=== PATIENT | female | born 2000 | race Caucasian/White ===

== ENCOUNTER 2023-04-25 14:56 | Emergency (ER) | payer OTHER, SELFPAY ==
[2023-04-25] VITALS (7 sets, daily range): BP systolic 104–135; BP diastolic 64–94; PULSE 63–94; RESP 13–22; TEMP 37.5; O2SAT 97–99; BMI 38.4
--- NOTE | 2023-04-25 15:05 | ED_ITS ---
HPI - General Adult General Chief complaint: Dizziness Stated complaint: BLOOD SUGAR ISSUES Time Seen by Provider: 04/25/23 15:05 History of Present Illness HPI narrative: She presents emergency department complaining of dizziness. Patient states she checked her blood sugar and it was 78 and she checked it on the other hand and it was in the 170s she was confused and came in to be evaluated. Patient states she's had issues with low blood sugar in the last several months. She has seen her primary care doctor for the same. She denies any headache, visual disturbance, speech difficulties. She denies any chest pain, shortness of breath. She denies any palpitations, weakness. She denies any fever, chills or upper respiratory infection symptoms. She denies any Nausea, vomiting, diarrhea, abdominal pain. She denies any ear pain. Related Data Allergies Allergy/AdvReac Type Severity Reaction Status Date / Time No Known Drug Allergies Allergy Verified 04/25/23 15:05 Review of Systems ROS Status of ROS 10 or more systems reviewed and unremarkable except as noted in history and below Exam Narrative Exam Narrative: Nurses notes and vital signs reviewed and patient is not hypoxic. General: Nontoxic, Well-appearing and in no apparent distress. Skin: Warm, dry, no pallor noted. No Rash Head: Normocephalic, atraumatic. Neck: Supple, non-tender. Eye: Pupils are equal, round and EOMI. No scleral icterus. Ears, Nose, Mouth, and Throat: TM clear, no posterior oropharynx erythema or nasal mucosal hypertrophy, uvula is mid-line Oral mucosa is moist Cardiovascular: Regular Rate and Rhythm without murmur, gallop or rub. Respiratory: No accessory muscle use or respiratory distress. Lungs are clear to auscultation, no wheezing, rales or rhonchi Chest Wall: no tenderness Back: No midline thoracic or lumbar vertebral tenderness. No CVA tenderness Musculoskeletal: normal ROM, no calf or popliteal tenderness, no lower extremity edema/swelling GI: Abdomen is soft, non-distended. Normal bowel sounds. No masses appreciated. No tenderness to palpation. No rebound, guarding, or rigidity noted. Neurological: A&O x4. No cranial nerve dysfunction observed. No truncal ataxia. Moves all extremities. Sensation intact. Psychiatric: Cooperative and interactive. Normal mood and affect. Constitutional Vital Signs, click to edit/add: Last Vital Signs Temp 99.5 F 04/25/23 15:05 Pulse 63 04/25/23 16:30 Resp 22 04/25/23 16:30 BP 111/84 H 04/25/23 16:30 Pulse Ox 97 04/25/23 16:00 O2 Del Method Room Air 04/25/23 15:47 Course Vital Signs Vital signs: Vital Signs Temperature 99.5 F 04/25/23 15:05 Pulse Rate 94 H 04/25/23 15:05 Respiratory Rate 16 04/25/23 15:05 Blood Pressure 125/85 H 04/25/23 15:05 Pulse Oximetry 98 04/25/23 15:05 Oxygen Delivery Method Room Air 04/25/23 15:05 Temperature 99.5 F 04/25/23 15:05 Pulse Rate 63 04/25/23 16:30 Respiratory Rate 22 04/25/23 16:30 Blood Pressure 111/84 H 04/25/23 16:30 Pulse Oximetry 97 04/25/23 16:00 Oxygen Delivery Method Room Air 04/25/23 15:47 Medical Decision Making MDM Narrative Medical decision making narrative: Patient's glucose is 96, urinalysis does not have any glycosuria. Patient is given 1 L of fluids. She is nontoxic, stable for outpatient follow-up and treatment. At this time the patient is without objective evidence of an acute process requiring hospitalization or inpatient management. The patient has remained h emodynamically stable. No additional indication for emergent studies at this time. I answered all questions. Discussed discharge instructions including standard anticipatory guidance and what should prompt a return to the emergency department, including if they get worse are not getting better or develops any new or concerning symptoms. I've given them specific time frame in which to follow-up, and who to follow-up with. The patient demonstrates understanding. Patient is nontoxic and stable for discharge with outpatient follow-up. This note was created with the assistance of a speech recognition program. Although the intention is to generate documents that actually reflects the content of the visit, no guarantees can be provided that every mistake has been identified and corrected by editing. Lab Data Lab results reviewed: Yes I reviewed the patient's lab results Labs: Lab Results 04/25/23 04/25/23 04/25/23 Range/Units 15:09 15:25 15:35 WBC 7.9 (4.0-11.0) 10^3/uL RBC 4.91 (4.20-5.40) 10^6/uL Hgb 14.3 (12.0-16.0) g/dL Hct 43.0 (36.0-48.0) % MCV 87.6 (81.0-99.0) fL MCH 29.1 (26.7-34.0) pg MCHC 33.3 (29.9-35.2) g/dL RDW 12.6 (11.0-15.0) % Plt Count 319 (150-450) 10^3/uL MPV 10.4 (9.5-13.5) fL Neut % (Auto) 60.8 (43.0-75.0) % Lymph % (Auto) 28.3 (20.5-60.0) % [place] % (Auto) 9.2 (1.7-12.0) % Eos % (Auto) 1.1 (0.9-7.0) % Baso % (Auto) 0.3 (0.2-2.0) % Neut # (Auto) 4.8 (1.4-6.5) 10^3/uL Lymph # (Auto) 2.2 (1.2-3.8) 10^3/uL [place] # (Auto) 0.7 (0.3-0.8) 10^3/uL Eos # (Auto) 0.1 (0.0-0.7) 10^3/uL Baso # (Auto) 0.0 (0.0-0.1) 10^3/uL Abs Immat Gran (auto) 0.02 (0.00-0.03) 10^3/uL Imm/Tot Granulo (auto) 0.3 (0.0-0.5) % Sodium 139 (136-145) mmol/L Potassium 3.9 (3.5-5.1) mmol/L Chloride 104 (98-107) mmol/L Carbon Dioxide 26.8 (21.0-32.0) mmol/L Anion Gap 12.1 BUN 12.0 (7.0-18.0) mg/dL Creatinine 0.99 (0.55-1.02) mg/dL Est GFR ( Amer) >60 (>=60) Est GFR (Non-Af Amer) >60 (>=60) BUN/Creatinine Ratio 12.1 Glucose 93 (74-106) mg/dL Calcium 9.4 (8.5-10.1) mg/dL Total Bilirubin 0.3 (0.2-1.0) mg/dL AST 20 (15-37) U/L ALT 24 (14-59) U/L Alkaline Phosphatase 94 (46-116) U/L Total Protein 7.8 (6.4-8.2) g/dL Albumin 4.2 (3.4-5.0) g/dL Globulin 3.6 g/dL Albumin/Globulin Ratio 1.2 Urine Color Lt. yellow (YELLOW) Urine Clarity Clear (CLEAR) Urine pH 6.0 (5.0-9.0) Ur Specific [place] 1.010 (1.005-1.025) Urine Protein Negative (NEG/TRACE) mg/dL Urine Glucose (UA) Negative (NEGATIVE) mg/dL Urine Ketones Negative (NEGATIVE) mg/dL Urine Occult Blood Negative (NEGATIVE) Urine Nitrite Negative (NEGATIVE) Urine Bilirubin Negative (NEGATIVE) Urine Urobilinogen 0.2 (0.2-1.0) EU/dL Ur Leukocyte Esterase Negative (NEGATIVE) POC Glucose 92 (74-106) mg/dL ECG Data Attestation: I personally reviewed and interpreted this ECG as follows: Interpretation: Sinus rhythm at 80 beats per minutes. Normal axis, no acute ischemic changes. Discharge Plan Discharge Chief Complaint: Dizziness Clinical Impression: Dizziness Patient Disposition: Home, Self-Care Time of Disposition Decision: 16:41 Condition: Good Mode of Transportation: Private Vehicle Instructions: Dizziness (ED) Stand Alone Forms: Portal Instructions Referrals: Ander Conway MD [Primary Care Provider] - 1 week
[2023-04-25 15:11] LABS: Glucometer 92 mg/dL (74-106)
--- NOTE | 2023-04-25 15:19 | ECG_ITS ---
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
[2023-04-25 15:50] LABS: Bilirubin Urine NEGATIVE (NEGATIVE); Blood Urine NEGATIVE (NEGATIVE); Clarity Urine CLEAR (CLEAR); Color Urine LT. YELLOW (YELLOW); Glucose Urine UA NEGATIVE (NEGATIVE); Ketones Urine NEGATIVE (NEGATIVE); Leukocyte Esterase Urine NEGATIVE (NEGATIVE); Nitrite Urine NEGATIVE (NEGATIVE); Protein Urine NEGATIVE (NEG/TRACE); Urine Microscopic Indicated NO; Urobilinogen Urine 0.2 EU/dL (0.2-1.0)
[2023-04-25 15:50] LABS: Basophils Percent Auto 0.3 % (0.2-2.0); Eosinophils Absolute Auto 0.1 10^3/uL (0.0-0.7); Eosinophils Percent Auto 1.1 % (0.9-7.0); Hemoglobin 14.3 g/dL (12.0-16.0); Immature Granulocytes Abs Auto 0.02 10^3/uL (0.00-0.03); Immature Granulocytes Pct Auto 0.3 % (0.0-0.5); Lymphocytes Absolute Auto 2.2 10^3/uL (1.2-3.8); Lymphocytes Percent Auto 28.3 % (20.5-60.0); Mean Corpuscular HGB Conc 33.3 g/dL (29.9-35.2); Mean Corpuscular Hemoglobin 29.1 pg (26.7-34.0); Mean Corpuscular Volume 87.6 fL (81.0-99.0); Mean Platelet Volume 10.4 fL (9.5-13.5); Monocytes Absolute Auto 0.7 10^3/uL (0.3-0.8); Monocytes Percent Auto 9.2 % (1.7-12.0); Neutrophils Absolute Auto 4.8 10^3/uL (1.4-6.5); Neutrophils Percent Auto 60.8 % (43.0-75.0); Platelet Count 319 10^3/uL (150-450); Red Blood Count 4.91 10^6/uL (4.20-5.40); Red Cell Distribution Width 12.6 % (11.0-15.0); White Blood Count 7.9 10^3/uL (4.0-11.0)
[2023-04-25 16:15] LABS: Alanine Aminotransferase 24 U/L (14-59); Albumin Globulin Ratio 1.2; Albumin Level 4.2 g/dL (3.4-5.0); Alkaline Phosphatase 94 U/L (46-116); Anion Gap 12.1; Aspartate Amino Transferase 20 U/L (15-37); BUN Creatinine Ratio 12.1; Bilirubin Total 0.3 mg/dL (0.2-1.0); Calcium 9.4 mg/dL (8.5-10.1); Carbon Dioxide 26.8 mmol/L (21.0-32.0); Chloride 104 mmol/L (98-107); Estimated GFR (African America >60 (>=60); Estimated GFR (Non-African Ame >60 (>=60); Globulin 3.6 g/dL; Glucose 93 mg/dL (74-106); Potassium 3.9 mmol/L (3.5-5.1); Sodium 139 mmol/L (136-145); Total Protein 7.8 g/dL (6.4-8.2)
[2023-04-25] MEDS: 0.9 % SODIUM CHLORIDE 1,000 ML 999 ML IV (17:25)
== END 2023-04-25 17:28 | disposition home or self-care (01) ==
PROVIDERS: Emergency Provider Emergency Medicine; PCP Family Medicine
DX: R42 Dizziness and giddiness (principal)
CPT/HCPCS: 36415; 80053; 81003; 85025; 93005; 99285

== ENCOUNTER 2023-08-15 20:04 | Emergency (ER) | payer OTHER, SELFPAY ==
[2023-08-15 20:13] VITALS: BP 145/91; PULSE 99; RESP 18; TEMP 36.5; O2SAT 98; BMI 37.5
--- NOTE | 2023-08-15 20:46 | CT_ITS ---
The [place] [address] Patient Name: JET CHIANG MRN: [id number] date: 2000 Sex: F Assigned Patient Location: ED.MAIN Current Patient Location: Accession/Order Number: [id number] Exam Date: 08/15/2023 21:12 Report Date: 08/15/2023 21:43 At the request of: DESHAWN MARKER Procedure: CT lumbar spine wo con EXAMINATION: CT lumbar spine wo con, 08/15/2023 9:12 PM EST HISTORY: fall down stairs, low back and hip injury COMPARISON: None. TECHNIQUE: CT of the lumbar spine was performed without IV contrast. CT dose reduction technique was used, including Automated Exposure Control. 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 MINERALIZATION: Normal. VERTEBRAL BODIES: Normal in height with no acute compression fracture. DISC SPACES: Normal. ALIGNMENT: Grade 1 retrolisthesis at L5-S1, likely degenerative in nature. POSTERIOR ELEMENTS: Intact. . Moderate facet arthropathy at L4-L5 and L5-S1. SPINAL CANAL/NEURAL FORAMEN: Mild disc bulge at L4-L5 with mild canal stenosis and moderate bilateral neural foraminal stenosis. At L5-S1 there is mild left and moderate right neural foraminal stenosis. VISUALIZED UPPER PELVIS: Mild to moderate degenerative changes of bilateral sacroiliac joints. SOFT TISSUES: Unremarkable. CT/CT lumbar spine wo con IMPRESSION: 1. No acute fracture or subluxation. 2. Degenerative changes as described in the body of the report. Electronically authenticated by: KAVON WEBB Date: 08/15/2023 21:43
--- NOTE | 2023-08-15 20:47 | XR_ITS ---
The [address] [address] Patient Name: JET CHIANG MRN: [id number] date: 2000 Sex: F Assigned Patient Location: ED.MAIN Current Patient Location: ED.MAIN Accession/Order Number: [id number] Exam Date: 08/15/2023 21:20 Report Date: 08/15/2023 21:41 At the request of: DESHAWN GARCIA Procedure: XR wrist LT min 3V EXAM: XR wrist LT min 3V HISTORY: wrist injury, fall down stairs COMPARISON: None. TECHNIQUE: 3 views were performed of the left wrist. FINDINGS: There is no acute fracture or dislocation. There is no other bony, joint or soft tissue abnormality. XR/XR wrist LT min 3V IMPRESSION: Normal left wrist radiographs. Electronically authenticated by: KAVON WEBB Date: 08/15/2023 21:41
--- NOTE | 2023-08-15 20:49 | XR_ITS ---
The [address] [address] Patient Name: JET CHIANG MRN: [id number] date: 2000 Sex: F Assigned Patient Location: ED.MAIN Current Patient Location: ED.MAIN Accession/Order Number: [id number] Exam Date: 08/15/2023 21:20 Report Date: 08/15/2023 21:42 At the request of: DESHAWN MARKER Procedure: XR chest 2V EXAMINATION: XR chest 2V, 08/15/2023 9:20 PM EST HISTORY: fall down stairs COMPARISON: Abdominal series 12/20/2022. TECHNIQUE: PA and lateral views were performed. FINDINGS: SUPPORT APPARATUS/POST-SURGICAL CHANGES: None. CARDIOMEDIASTINAL SILHOUETTE: Normal. AIRWAYS/LUNGS: Stable mild central bronchial wall thickening. No focal consolidation. PLEURAL SPACES: No pleural effusion or pneumothorax. BONES AND SOFT TISSUES: No acute abnormality. XR/XR chest 2V IMPRESSION: 1. Stable bronchial wall thickening suggestive of bronchitis or asthma. 2. No focal consolidation. Electronically authenticated by: KAVON WEBB Date: 08/15/2023 21:42
--- NOTE | 2023-08-15 20:50 | XR_ITS ---
The [address] [address] Patient Name: JET CHIANG MRN: [id number] date: 2000 Sex: F Assigned Patient Location: ED.MAIN Current Patient Location: ED.MAIN Accession/Order Number: [id number] Exam Date: 08/15/2023 21:20 Report Date: 08/15/2023 21:42 At the request of: DESHAWN GARCIA Procedure: XR hip LT 2V w/ pelvis EXAM: XR hip LT 2V w/ pelvis HISTORY: fall down stairs COMPARISON: None. TECHNIQUE: 3 views were performed of the pelvis and left hip. FINDINGS: There is no acute fracture or dislocation. There are minimal degenerative changes of the hips and sacroiliac joints. There is no other significant bony, joint or soft tissue abnormality. XR/XR hip LT 2V w/ pelvis IMPRESSION: No acute osseous abnormality. Electronically authenticated by: KAVON WEBB Date: 08/15/2023 21:42
[2023-08-15] MEDS: HYDROCODONE/ACET 5-325 MG TABLET 1 TAB PO (21:01)
[2023-08-15] MEDS: IBUPROFEN 600 MG TABLET PO (21:01)
[2023-08-15] MEDS: ONDANSETRON 4 MG RAPDIS TABLET SL ×2 (21:01→22:29)
--- NOTE | 2023-08-15 21:16 | ED_ITS ---
HPI - Fall General Chief Complaint: Fall Stated Complaint: Fall Time Seen by Provider: 08/15/23 20:37 Source: patient Mode of arrival: walk-in Limitations: no limitations History of Present Illness HPI Narrative: This 23-year-old female presents for evaluation of left buttock and low back pain as well as left wrist pain. The patient states that she came home from work and went upstairs, took her clothes off and was going downstairs to take a shower when she slipped on the 1st stair and fell approximately 7 stairs. She states fell right down onto her buttocks and then bounced down 7 stairs. She tried to catch herself with her left hand and injured her left wrist. She states she briefly hit the back of her head but did not lose consciousness. She has no neck pain. She has left low back pain and left buttock pain. She has an abrasion and contusion on her left buttock. It is mildly swollen and indurated. Her girlfriend states there was some bleeding an area where she has an abrasion. She was able to ambulate after the fall. He states that the fall did knock the wwind out of her. She does not feel short of breath at this time. She has no focal weakness numbness or tingling. She denies the possibility of . She did not lose control of her bowel or bladder at the time of her fall. Related Data Home Medications Medication Instructions Recorded Confirmed diclofenac sodium 50 mg 50 mg PO BID PRN pain 08/15/23 08/15/23 tablet,delayed release quetiapine 50 mg tablet 50 mg PO DAILY 08/15/23 08/15/23 tizanidine 4 mg capsule 4 mg PO Q8H PRN muscle spasticity 08/15/23 08/15/23 Allergies Allergy/AdvReac Type Severity Reaction Status Date / Time No Known Drug Allergies Allergy Verified 08/15/23 20:11 Review of Systems ROS Status of ROS 10 or more systems reviewed and unremarkable except as noted in history and below [facility] Social History Smoking status: Never smoker Exam Narrative Exam Narrative: Nurses note and vital signs reviewed and patient is not hypoxic. Blood pressure noted to be elevated at 145/91 General: Non toxic but uncomfortable appearing female, GCS 15, no resp distress Skin: Warm, dry, no pallor noted. abrasion to left buttock. Head: Normocephalic, atraumatic Eye: Normal conjunctiva, no drainage, EOMI. PERRL Ears, Nose, Mouth, and Throat: oral mucosa is moist. no oral or dental injury Cardiovascular: Regular Rate and Rhythm S1S2, no murmurs, rubs or gallops Respiratory: Patient is in no distress, no accessory muscle use, lungs are clear to auscultation, no wheezing, rales or rhonchi Back: lumbar tenderness to palpation without step-off or bony defomity GI: Normal bowel sounds, no tenderness to palpation, no masses appreciated. No rebound, guarding, or rigidity noted. Musculoskeletal: There is tenderness to the left buttock with induration and a superficial abrasion, there is tenderness to the lower lumbar spine region with no tenderness to the cervical or thoracic regions, there is tenderness to the left thigh with movement, no bony deformity or shortening noted Tenderness with superficial abrasion to the medial aspect of the left wrist. She is able to approximate thumb and all fingers. Pulses are brisk and equal bilat erally. Capillary refill is normal. Neurological: A&O x4, normal speech Psychiatric: Cooperative Constitutional Vital Signs, click to edit/add: Last Vital Signs Temp 97.7 F 08/15/23 20:13 Pulse 99 H 08/15/23 20:13 Resp 18 08/15/23 20:13 BP 145/91 H 08/15/23 20:13 Pulse Ox 98 08/15/23 20:13 O2 Del Method Room Air 08/15/23 20:13 Course Vital Signs Vital signs: Vital Signs Temperature 97.7 F 08/15/23 20:13 Pulse Rate 99 H 08/15/23 20:13 Respiratory Rate 18 08/15/23 20:13 Blood Pressure 145/91 H 08/15/23 20:13 Pulse Oximetry 98 08/15/23 20:13 Oxygen Delivery Method Room Air 08/15/23 20:13 Temperature 97.7 F 08/15/23 20:13 Pulse Rate 99 H 08/15/23 20:13 Respiratory Rate 18 08/15/23 20:13 Blood Pressure 145/91 H 08/15/23 20:13 Pulse Oximetry 98 08/15/23 20:13 Oxygen Delivery Method Room Air 08/15/23 20:13 MDM - Fall MDM Narrative Medical decision making narrative: X-ray reports: Left hip and pelvis no acute fracture or dislocations CT lumbar spine: No acute fracture or subluxation mild disc bulge at L4-L5 with mild canal stenosis and moderate bilateral neural foraminal stenosis at L5-S1 there is mild left in moderate right neural foraminal stenosis mild degenerative changes of the bilateral sacroiliac joints, unremarkable soft tissues Chest x-ray: Stable bronchial wall thickening suggestive of bronchitis or asthma, no focal consolidation Left wrist, normal left wrist radiographs This 24-year-old female presents for evaluation of left hip and buttock pain as well as left wrist pain after falling down 7 stairs at home tonight. She didn't strike her head but did not have any loss of consciousness. Her neuro exam is normal. She is not on any blood thinners. She had tenderness and swelling at the left buttock with a superficial abrasion. She also had some mild tenderness to the distal left radius. She fell she states the wind got knocked out of her . X-rays of the chest, left wrist, left hip pelvis and CT scan of the lumbar spine were ordered. She is medicated in emergency department with ibuprofen [place] and Zofran. She had some recurrent nausea from the [place] and was remedicated with Zofran. X-rays and CT scans are negative for acute findings. This was relayed to the patient. She'll be discharged home with prescription for ibuprofen, [place] and Zofran to use as needed for ongoing or worsening pain. She was encouraged to return to emergency department for any neurologic symptoms such as loss of bowel or bladder control, extremity weakness or other concerns. At the time of discharge she is ambulatory with a steady gait and her pain is controlled. Discharge Plan Discharge Chief Complaint: Fall Clinical Impression: Contusion of buttock, Contusion of wrist, Lumbar contusion, Fall down stairs Time of Disposition Decision: 23:17 Condition: Good Prescriptions / Home Meds: No Action quetiapine 50 mg tablet 50 mg PO DAILY tizanidine 4 mg capsule 4 mg PO Q8H PRN (Reason: muscle spasticity) diclofenac sodium 50 mg tablet,delayed release (DR/EC) 50 mg PO BID PRN (Reason: pain) Instructions: Wrist Injury (ED), Contusion in Adults (ED), Fall Prevention (ED) Stand Alone Forms: Portal Instructions Referrals: Ander Conway MD [Primary Care Provider] - 1 week
== END 2023-08-15 23:25 | disposition home or self-care (01) ==
PROVIDERS: Emergency Provider Emergency Medicine; PCP Family Medicine
DX: S30.0XXA Contusion of lower back and pelvis, initial encounter (principal); S60.212A Contusion of left wrist, initial encounter; W10.9XXA Fall (on) (from) unspecified stairs and steps, initial encounter; Z79.899 Other long term (current) drug therapy
CPT/HCPCS: 71046; 72131; 73110; 73502; 99285

== ENCOUNTER 2023-10-17 14:30 | Outpatient (REF) | payer OTHER, SELFPAY ==
--- OUTSIDE RECORDS SUMMARY | 2023-10-17 14:37 | XMS_ITS | CCD ---
Author Name Unknown Address [address] [facility] [address] [place] [address] Organization [facility] Team Providers Care Certified Indoor Environmentalist Name Role Phone Ana Paula Dubose Unavailable VICTORINO ., DR LOWRY Admitting Unavailable HOY ., DR LOWRY Attending Unavailable HOY ., DR LOWRY Primary Care Unavailable ALEX CHARLES Admitting Unavailable ALEX CHARLES Attending Unavailable HOY ., DR LOWRY Primary Care Unavailable ALEX CHARLES Consulting Unavailable ALEX CHARLES Admitting Unavailable ALEX CHARLES Attending Unavailable HOY ., DR LOWRY Primary Care Unavailable ALEX CHARLES Consulting Unavailable HOY ., DR LOWRY Primary Care Unavailable PAY ., DR AGUILAR Admitting Unavailable PAY ., DR AGUILAR Attending Unavailable PAY ., DR AGUILAR Consulting Unavailable HOY ., DR LOWRY Primary Care Unavailable PEACE CHAUDHARY Admitting Unavailable PEACE CHAUDHARY Attending Unavailable PEACE CHAUDHARY Consulting Unavailable AL CHURCH Consulting Unavailable HOY ., DR LOWRY Admitting Unavailable HOY ., DR LOWRY Attending Unavailable HOY ., DR LOWRY Primary Care Unavailable MAYRA PAYAN Attending Unavailable MAYRA PAYAN Attending Unavailable Medications Current Medications Medication Drug Class(es) Dates Sig (Normalized) Sig (Original) Diclofenac (2 sources) Nonsteroidal Anti-inflammatory Drug Diclofenac Sodium Active Diclofenac Activ e tiZANidine (1 source) Central alpha-2 Adrenergic Agonist tiZANidine HCl Active Triamcinolone (1 source) Corticosteroid Triamcinolone Ac etonide Active Problems Active Problems Problem Classification Problem Date Documented Date Episodic/Chronic Immunizations and screening for infectious disease (3 sources) Contact with and (suspected) exposure to other viral communicable diseases; Translations: [Contact with and (suspected) exposure to infections with a predominantly sexual mode of transmission] Onset: 07-22-2021 Resolved: 07-22-2021 Episodic Nausea and vomiting (7 sources) Vomiting, unspecified; Translations: [Nausea with vomiting, unspecified] Onset: 05-14-2022 Episodic Noninfectious gastroenteritis (1 source) Noninfective gastroenteritis and colitis, unspecified; Translations: [NONINFECTIVE GE AND COLITIS UNS] Onset: 12-22-2022 Episodic Other female genital disorders (4 sources) Other specified noninflammatory disorders of vagina; Translations: [OTH SPEC NONINFLAMMATORY D/O VAGINA] Onset: 11-29-2022 Episodic Other nutritional; endocrine; and metabolic disorders (1 source) Obesity, unspecified; Translations: [OBESITY UNSPECIFIED] Onset: 05-16-2022 Chronic Other nutritional; endocrine; and metabolic disorders (1 source) Body mass index (BMI) 39.0-39.9, adult; Translations: [BODY MASS INDEX BMI 39.0-39.9 ADULT] Onset: 05-16-2022 Chronic Other screening for suspected conditions (not mental disorders or infectious disease) (4 sources) Encounter for screening for malignant neoplasm of cervix; Translations: [ENC SCREENING MALIG NEOPLASM CERV] Onset: 10-17-2022 Episodic Viral infection (1 source) COVID-19; Translations: [COVID-19] Onset: 12-22-2022 Past or Other Problems Problem Classification Problem Date Documented Da te Episodic/Chronic Other upper respiratory infections (1 source) Acute upper respiratory infection, unspecified; Translations: [Viral upper respiratory illness J06.9] Onset: 07-22-2021 Resolved: 07-22-2021 Episodic Results Test Name Value Interpretation Reference Range Facility AMYLASEon 12-20-2022 Amylase [Catalytic activity/Vol] 43 U/L Normal 25-115 [facility] Comment on above: Performed By: #### A MY, LIPA, CMP #### [facility] [address] [place] [address] Dr. Perri Burdick CBC AUTO DIFFon 12-20-2022 BASO # 0.0 103/ul Normal 0.0-0.1 [facility] Comment on above: Performed By: #### C BC #### [facility] [address] [place] [address] Dr. Perri Burdick Basophils/100 WBC (Bld) 0.3 % Normal 0.2-2.0 [facility] Comment on above: Performed By: #### C BC #### [facility] [address] [place] [address] Dr. Perri Burdick EO # 0.1 103/ul Normal 0.0-0.7 [facility] Comment on above: Performed By: #### C BC #### [facility] [address] [place] [address] Dr. Perri Burdick Eosinophils/100 WBC (Bld) 1.3 % Normal 0.9-7.0 [facility] Comment on above: Performed By: #### C BC #### [facility] [address] [place] [address] Dr. Perri Burdick Erythrocyte distribution width (RBC) [Ratio] 12.8 % Normal 11.0-15.0 [facility] Comment on above: Performed By: #### C BC #### [facility] [address] [place] [address] Dr. Perri Burdick Hematocrit (Bld) [Volume fraction] 42.5 % Normal 36.0-48.0 [facility] Comment on above: Performed By: #### C BC #### [facility] [address] [place] [address] Dr. Perri Burdick Hemoglobin (Bld) [Mass/Vol] 14.2 g/dL Normal 12.0-16.0 [facility] Comment on above: Performed By: #### C BC #### [facility] [address] [place] [address] Dr. Perri Burdick IG # 0.03 10e3/ul Normal 0.00-0.03 [facility] Comment on above: Performed By: #### C BC #### [facility] [address] [place] [address] Dr. Perri Burdick IG % 0.3 % Normal 0.0-0.5 [facility] Comment on above: Performed By: #### C BC #### [facility] [address] [place] [address] Dr. Perri Burdick LYMPH # 2.8 103/ul Normal 1.2-3.8 [facility] Comment on above: Performed By: #### C BC #### [facility] [address] [place] [address] Dr. Perri Burdick Lymphocytes/100 WBC (Bld) 29.9 % Normal 20.5-60.0 [facility] Comment on above: Performed By: #### C BC #### [facility] [address] [place] [address] Dr. Perri Burdick MANUAL DIFF REQ NO Normal [facility] Comment on above: Performed By: #### C BC #### [facility] [address] [place] [address] Dr. Perri Burdick MCH (RBC) [Entitic mass] 29.0 pg Normal 26.7-34.0 [facility] Comment on above: Performed By: #### C BC #### [facility] [address] [place] [address] Dr. Perri Burdick MCHC (RBC) [Mass/Vol] 33.4 g/dL Normal 29.9-35.2 [facility] Comment on above: Performed By: #### C BC #### [facility] [address] [place] [address] Dr. Perri Burdikc MCV (RBC) [Entitic vol] 86.9 fL Normal 81.0-99.0 [facility] Comment on above: Performed By: #### C BC #### [facility] [address] [place] [address] Dr. Perri Burdick MONO # 0.6 103/ul Normal 0.3-0.8 [facility] Comment on above: Performed By: #### C BC #### [facility] [address] [place] [address] Dr. Perri Burdick Monocytes/100 WBC (Bld) 6.6 % Normal 1.7-12.[address] [facility] Comment on above: Performed By: #### C BC #### [facility] [address] [place] [address] Dr. Perri Burdick NEUT # 5.8 103/ul Normal 1.4-6.[address] [facility] Comment on above: Performed By: #### C BC #### [facility] [address] [place] [address] Dr. Perri Burdick Neutrophils/100 WBC (Bld) 61.6 % Normal 43.0-75.0 [facility] Comment on above: Performed By: #### C BC #### [facility] [address] [place] [address] Dr. Perri Burdick Platelet mean volume (Bld) [Entitic vol] 10.5 fL Normal 9.5-13.5 [facility] Comment on above: Performed By: #### C BC #### [facility] [address] [place] [address] Dr. Perri Burdick PLT 263 103/ul Normal 150-450 [facility] Comment on above: Performed By: #### C BC #### [facility] [address] [place] [address] Dr. Perri Burdick RBC 4.89 106/ul Normal 4.20-5.40 [facility] Comment on above: Performed By: #### C BC #### [facility] [address] [place] [address] Dr. Perri Burdick WBC 9.5 103/ul Normal 4.0-11.0 [facility] Comment on above: Performed By: #### C BC #### [facility] [address] [place] [address] Dr. Perri Burdick ER URINE PROFILEon 3 Bilirubin Ql (U) Negative Normal NEGATIVE [facility] Comment on above: Performed By: #### P REGU, ERUR #### [facility] [address] [place] [address] Dr. Perri Burdick Clarity (U) CLEAR Normal CLEAR [facility] Comment on above: Performed By: #### P REGU, ERUR #### [facility] [address] [place] [address] Dr. Perri Budrick Color (U) LT. YELLOW Normal YELLOW [facility] Comment on above: Performed By: #### P REGU, ERUR #### [facility] [address] [address] [address] Perri MONREAL A micrscopic examination will be performed if indicated. Normal [facility] Comment on above: Performed By: #### P REGU, ERUR #### [facility] [address] [place] [address] Dr. Perri Burdick Glucose Ql (U) Negative Normal NEGATIVE [facility] Comment on above: Performed By: #### P REGU, ERUR #### [facility] [address] [address] [address] Perri Burdick Hemoglobin Ql (U) Negative Normal NEGATIVE [facility] Comment on above: Performed By: #### P REGU, ERUR #### [facility] [address] [place] [address] Dr. Perri Burdick Ketones Ql (U) Negative Normal NEGATIVE [facility] Comment on above: Performed By: #### P REGU, ERUR #### [facility] [address] [place] [address] Dr. Perri Burdick LEUKOCYTES Negative Normal NEGATIVE [facility] Comment on above: Performed By: #### P REGU, ERUR #### [facility] [address] [place] [address] Dr. Perri Burdick Nitrite Ql (U) Negative Normal NEGATIVE [facility] Comment on above: Performed By: #### P REGU, ERUR #### [facility] [address] [place] [address] Dr. Perri Burdick pH (U) 6.0 [pH] Normal 5-9 [facility] Comment on above: Performed By: #### P REGU, ERUR #### [facility] [address] [place] [address] Dr. Perri Burdick SPEC GRAVITY 1.025 Normal 1.005-<=1.025 [facility] Comment on above: Performed By: #### P REGU, ERUR #### [facility] [address] [place] [address] Dr. Perri Burdick UA PROTEIN Negative Normal NEGATIVE/ TRACE [facility] Comment on above: Performed By: #### P REGU, ERUR #### [facility] [address] [place] [address] Dr. Perri Burdick UR MICRO IND NOT INDICATED Normal [facility] Comment on above: Performed By: #### P REGU, ERUR #### [facility] [address] [place] [address] Dr. Perri Burdick Urobilinogen Qn (U) 0.2 {Brody'U}/dL Normal 0.2 - 1.[address] [facility] Comment on above: Performed By: #### P REGU, ERUR #### [facility] [address] [place] [address] Dr. Perri Burdick LIPASEon 12-20-2022 Lipase [Catalytic activity/Vol] 134.0 U/L Normal 73.0-393.0 [facility] Comment on above: Performed By: #### A MY, LIPA, CMP #### [facility] [address] [place] [address] Dr. Perri Burdick URon 12-20-2022 , QUAL Negative Normal NEGATIVE [facility] Comment on above: Performed By: #### P REGU, ERUR #### [facility] [address] [place] [address] Dr. Perri Burdick PROF 14(COMP METB)on 023 Albumin [Mass/Vol] 3.8 g/dL Normal 3.4-5.0 [facility] Comment on above: Performed By: #### A MY, LIPA, CMP #### [facility] [address] [place] [address] Dr. Perri Burdick Albumin/Globulin [Mass ratio] 1.2 {ratio} Normal [facility] Comment on above: Performed By: #### A MY, LIPA, CMP #### [facility] [address] [place] [address] Dr. Perri Burdick ALP [Catalytic activity/Vol] 138 U/L Critically high 46-[address] [facility] Comment on above: Performed By: #### A MY, LIPA, CMP #### [facility] [address] [place] [address] Dr. Perri Burdick ALT [Catalytic activity/Vol] 23 U/L Normal 14-[address] [facility] Comment on above: Performed By: #### A MEDARDO HOA, CMP #### [facility] [address] [address] [address] Perri Burdick Anion gap [Moles/Vol] 10.3 mmol/L Normal [facility] Comment on above: Performed By: #### A [place] LIPA, CMP #### [facility] [address] [address] [address] Perri Burdick AST [Catalytic activity/Vol] 17 U/L Normal 15-37 [facility] Comment on above: Performed By: #### A EMDARDO HOA, CMP #### [facility] [address] [place] [address] Dr. Perri Burdick Bilirubin [Mass/Vol] 0.2 mg/dL Normal 0.2-1.0 [facility] Comment on above: Performed By: #### A [place] LIPA, CMP #### [facility] [address] [place] [address] Dr. Perri Burdick Calcium [Mass/Vol] 9.2 mg/dL Normal 8.5-10.[address] [facility] Comment on above: Performed By: #### A [place] LIPA, CMP #### [facility] [address] [place] [address] Dr. Perri Burdick Chloride [Moles/Vol] 105 mmol/L Normal 98-[address] [facility] Comment on above: Performed By: #### A [place] LIPA, CMP #### [facility] [address] [place] [address] Dr. Perri Burdick CO2 [Moles/Vol] 27.3 mmol/L Normal 21.0-32.0 [facility] Comment on above: Performed By: #### A [place] LIPA, CMP #### [facility] [address] [place] [address] Dr. Perri Burdick Creatinine [Mass/Vol] 0.82 mg/dL Normal 0.55-1.[address] [facility] Comment on above: Performed By: #### A MEDARDO HOA, CMP #### [facility] [address] [address] [address] Perri Burdick EGFR-AF ZIMBABWEAN >60 Normal >=60 [facility] Comment on above: Performed By: #### A MY, LIPA, CMP #### [facility] [address] [address] [address] Perri Burdick EGFR-NON AF ZIMBABWEAN >60 Normal >=[address] [facility] Comment on above: Performed By: #### A MY, LIPA, CMP #### [facility] [address] [address] [address] Perri Burdick Globulin (S) [Mass/Vol] 3.3 g/dL Normal [facility] Comment on above: Performed By: #### A MY, LIPA, CMP #### [facility] [address] [address] [address] Perri Burdick Glucose [Mass/Vol] 117 mg/dL Critically high 74-[address] [facility] Comment on above: Performed By: #### A MY, LIPA, CMP #### [facility] [address] [address] [address] Perri Burdick Potassium [Moles/Vol] 3.6 mmol/L Normal 3.5-5.[address] [facility] Comment on above: Performed By: #### A MY, LIPA, CMP #### [facility] [address] [address] [address] Perri Burdick Protein [Mass/Vol] 7.1 g/dL Normal 6.4-8.[address] [facility] Comment on above: Performed By: #### A MY, LIPA, CMP #### [facility] [address] [address] [address] Perri Burdick Sodium [Moles/Vol] 139 mmol/L Normal 136-[address] [facility] Comment on above: Performed By: #### A MY, LIPA, CMP #### [facility] [address] [address] [address] Perri Burdick Urea nitrogen [Mass/Vol] 15.0 mg/dL Normal 7.0-18.0 [facility] Comment on above: Performed By: #### A KENDALL HO, CMP #### [facility] [address] [address] [address] Perri Burdick Urea nitrogen/Creatini ne [Mass ratio] 18.3 mg/mg Normal [facility] Comment on above: Performed By: #### A [place] LIPA, CMP #### [facility] [address] [address] [address] Perri Burdick XR ABD FLAT UP_PA Luigi 12-20 XR ABD FLAT UP_PA CH EXAM: XR ABD FLAT UP_PA CH HISTORY: Nausea and vomiting; technologist notes also state fever body aches and COVID positive. COMPARISON: None. TECHNIQUE: PA chest and upright and supine AP views of the abdomen performed. FINDINGS: The trachea is midline. The heart size is normal. The mediastinal and hilar shadows are normal. The lung bland are clear. There is no pneumothorax. There is no osseous abnormality. Nonobstructive bowel gas pattern with a moderate amount of stool within the colon. There is no free air. There are no abnormal mass shadows or abnormal pathologic calcifications. There is no osseous abnormality. IMPRESSION: The frontal view of the chest is unremarkable. Nonobstructive bowel gas pattern with a moderate amount of stool within the colon. Electronically authenticated by: AL CHURCH Date: 2022-12-20 04:[address] [facility] CHLAMYDIA/GONOCOCCUS CASSIDY (SW AB/URINE/PAPon 12-01-2022 Chlamydia trachomatis, CASSIDY Negative Normal Negative [facility] Comment on above: Performed By: #### C T/NGNA #### [facility] [address] [address] [address] Perri Burdick Neisseria gonorrhoeae, CASSIDY Negative Normal Negative [facility] Comment on above: Performed By: #### C T/NGNA #### [facility] [address] [address] [address] Perri Burdick VAGINITIS/VAGINOSIS DNA PROB Jamar 12-01-2022 Nieves species Negative Normal Negative [facility] Comment on above: Performed By: #### V AGINT #### [facility] [address] [address] [address] Perri Burdick Gardnerella vaginalis Negative Normal Negative [facility] Comment on above: Performed By: #### V AGINT #### [facility] [address] [place] [address] Dr. Perri Burdick Trichomonas vaginalis Negative Normal Negative [facility] Comment on above: Performed By: #### V AGINT #### [facility] [address] [place] [address] Dr. Perri Burdick PAP ACOG PANEL 2: 21 to 29on 10-20-2022 . . Normal [facility] Comment on above: Performed By: #### [id number] #### [facility] [address] [place] [address] Dr. Perri Burdick Age Gdln ACOG Testing - [facility] Comment on above: Performed By: #### [id number] #### [facility] [address] [place] [address] Dr. Perri Burdick DIAGNOSIS: Comment [facility] Comment on above: Result Comment: NEGA TIVE FOR INTRAEPITHELIAL LESION OR MALIGNANCY. Performed By: #### [id number] #### [facility] [address] [place] [address] Dr. Perri Burdick Methodology: Comment [facility] Comment on above: Result Comment: This liquid based ThinPrep(R) pap test was screened with the use of an image guided system. Performed By: #### [id number] #### [facility] [address] [place] [address] Dr. Perri Burdick Note: Comment [facility] Comment on above: Result Comment: The Pap smear is a screening test designed to aid in the detection of premalignant and malignant conditions of the uterine cervix. It is not a diagnostic procedure and should not be used as the sole means of detecting cervical cancer. Both false-positive and false-negative reports do occur. . Performed By: #### [id number] #### [facility] [address] [place] [address] Dr. Perri Burdick Performed by: Comment Normal [facility] Comment on above: Result Comment: Argentina Sotner, Director [employer]anch[employer] (ASCP) Performed By: #### [id number] #### [facility] [address] [address] [address] Perri Burdick Reflex Criteria: Comment Normal [facility] Comment on above: Result Comment: The HPV DNA reflex criteria were not met with this specimen result therefore, no HPV testing was performed. . Performed By: #### [id number] #### [facility] [address] [place] [address] Dr. Perri Burdick Specimen adequacy: Comment Normal [facility] Comment on above: Result Comment: Sati sfactory for evaluation. Endocervical and/or squamous metaplastic cells (endocervical component) are present. Performed By: #### [id number] #### [facility] [address] [place] [address] Dr. Perri Burdick COVID Quick Testingon 2020 Result Negative [facility] Other Vital Signs Date Time Vital Sign Value Performing Clinician Facility 07-22-2021 10:45-0400 Body height 157.48 cm Ana Paula Nashmond Other [facility] Other 07-22-2021 10:45-0400 Body mass index (BMI) [Ratio] 38.59 kg/m2 Ana Paula Gracy Other [facility] Other 07-22-2021 10:45-0400 Body temperature 98 [degF] Ana Paula Nashmond Other [facility] Other 07-22-2021 10:45-0400 Body weight 95.71 kg Ana Paula Nashmond Other [facility] Other 07-22-2021 10:45-0400 Respiratory rate 18 /min Ana Paula Gracy Other [facility] Other 07-22-2021 10:45-0400 SaO2% (BldA) [Mass fraction] 97 % Ana Paula Dubose Other [facility] Other Encounters Encounter Date Encounter Type Care Provider Facility Start: 09-11-2023 End: 09-11-2023 ambulatory MAYRA Estrada PAYAN Not Available Start: 08-28-2023 End: 08-28-2023 ambulatory MAYRA Estrada PAYAN Not Available Start: 12-20-2022 End: 12-20-[address] ALEN GLEASON . Facility:[facility] Start: 11-29-2022 End: 11-29-2022 ambulatory ALEX CHARLES Facility:[facility] Start: 10-17-2022 End: 10-17-2022 ambulatory ALEX CHARLES Facility:[facility] Start: 05-14-2022 End: 05-15-[address] ALEN GLEASON . Facility:[facility] Start: 04-13-[address] ALEN GLEASON . Facili ty:[facility] Start: 01-14-[address] ALEN Heller Facili ty:[facility] Start: 07-22-2021 (URG) Urgent Care Visit Ana Paula barney [facility] Adin Payers Date Payer Category Payer Private Health Insurance [id number] 2001 Unknown [id number] 2.16.84 [id number] 2001 Unknown [id number] 2.16.84 [id number] 2001 Unknown [id number] 2.16.84 [id number] 2001 Unknown [id number] 2.16.84 [id number] 2001 Unknown [id number] 2.16.84 [id number] 2001 Unknown [id number] 2.16.84 [id number] 2001 Unknown [id number] [id number] 2001 Unknown [id number] [id number] 1959 Self-pay [id number] 1959 Unknown [id number]. [id number] Social History Date Type Detail Facility Sex Assigned At [facility] [employer] [facility] Other Evaluation note 07-22-2021 Note Date & Type Note Facility 07-22-2021 Evaluation note Encounter Date Diagnosis Assessment Notes Jul, Contact with and (suspected) exposure to other viral communicable diseases (ICD-10 - Z20.828) Jul, Viral upper respiratory illness (ICD-10 - J06.9) Drink plenty fluids, get plenty of rest. Consider taking Mucinex for your nasal congestion. Take Tylenol or Motrin as needed for aches pains or fevers. Follow-up with your family physician if no improvement in 2 to 3 days Jul, Other Additional time spent conducting pre-visit phone call, screening for symptoms, instructions on social distancing, application and removal of PPE, and cleaning of examination room, equipment and supplies was preformed. Patient education given for testing methodology and results. Patient care instructions given in writting by [facility] document. [facility] [employer] Other History general Narrative - Reported Note Date & Type Note Facility History general Narrative - Reported Type Medical History Strain of lumbar region, initial encounter [employer] Other Summary Purpose Family History No Family History Records FoundNo Family History Records Found Advance Directives No Advanced Directives Records FoundNo Advanced Directives Records Found Additional Source Comments REASON FOR VISIT (unrecogniz ed section and content) #4 [employer] CHRYST[employer], COVID E XPOSURE, RUNNY NOSE, COUGH, SORE THROAT, HEADACHE, BODYACHES INFORMATION SOURCE (unrecogn ized section and content) DATE CREATED AUTHOR 12/23/2022 [facility] DATE CREATED AUTHOR AUTHOR'S ORGANIZ ATION 09/13/2023 [facility] EPIC FOR RECORDS PERTAINING TO PATIENTS WHO ARE OR HAVE BEEN ENROLLED IN A CHEMICAL DEPENDENCY/SUBSTANCEABUSE PROGRAM, SOME INFORMATION MAY BE OMITTED. This clinical summary was aggregated from multiple sources. Caution should be exercised in using it in the provision of clinical care. This summary normalizes information from multiple sources, and as a consequence, information in this document may materially change the coding, format and clinical context of patient data. In addition, data may be omitted in some cases. CLINICAL DECISIONS SHOULD BE BASED ON THE PRIMARY CLINICAL RECORDS. [facility] [employer] [facility] provides no warranty or guarantee of the accuracy or completeness of information in this document.
[2023-10-17 15:15] LABS: SARS-CoV-2 Ag POSITIVE (NEGATIVE)
[2023-10-17 15:16] LABS: Influenza Virus A Antigen Negative; Influenza Virus B Antigen Negative; Internal Control Within Normal Limits
== END 2023-10-17 14:31 | disposition home or self-care (01) ==
LOC: LAB 14:30
PROVIDERS: PCP Family Medicine; Visit Provider Family Medicine
DX: R05.1 Acute cough (principal); R09.81 Nasal congestion; R11.10 Vomiting, unspecified
CPT/HCPCS: 87804; 87811

== ENCOUNTER 2023-11-23 00:37 | Emergency (ER) | payer OTHER, BC, SELFPAY ==
[2023-11-23 00:42] VITALS: BP 105/82; PULSE 121; RESP 18; TEMP 36.7; O2SAT 97; BMI 42.5
--- OUTSIDE RECORDS SUMMARY | 2023-11-23 00:46 | XMS_ITS | CCD ---
Author Name Unknown Address [address] [facility] [address] [place] [address] Organization [facility] Care Team Providers Care Floor Layer Helper Name Role Phone Ana Paula Dubose Unavailable VICTORINO ., DR LOWRY Admitting Unavailable HOY ., DR LOWRY Attending Unavailable HOY ., DR LOWRY Primary Care Unavailable ALEX CHARLES Admitting Unavailable ALEX CHARLES Attending Unavailable HOY ., DR LOWRY Primary Care Unavailable ARACELIALEX WESTON Consulting Unavailable ALEX CHARLES Admitting Unavailable ALEX [...] HOY ., DR LOWRY Primary Care Unavailable ALISSA TAVERAS Attending Unavailable MAYRA PAYAN Attending Unavailable MAYRA PAYAN Attending Unavailable Yinka Barrett DO Primary Care Provider Medications Current Medications Medication Drug Class(es) Dates Sig (Normalized) Sig (Original) [id number] 200 actuat albuterol 0.09 mg/actuat metered dose inhaler (2 sources) beta2-Adrenergic Agonist Start: 12-20-2022 take 2 puff(s) by mouth four times daily as needed albuterol HFA 90 mcg/act inhaler INHALE 2 PUFFS BY MOUTH FOUR TIMES DAILY NEEDED 0 12/20/2022 Active cephalexin 500 mg oral capsule (2 sources) Cephalosporin Antibacterial Start: 11-09-2023 End: 11-16-2023 take 1 capsule by mouth in the morning, then take 1 capsule by mouth in the evening, then take 1 capsule by mouth at bedtime cephalexin (Keflex) 500 MG capsule Indications: Pain in female genitalia on intercourse , Soreness breast Take 1 capsule (500 mg) by mouth in the morning and 1 capsule (500 mg) in the evening and 1 capsule (500 mg) before bedtime. Do all this for 7 days. 21 capsule 0 11/09/2023 11/16/2023 Active clobetasol propionate 0.5 mg/ml topical cream (2 sources) Corticosteroid Start: 2023 clobetasol (Temovate) 0.05 % cream Indications: Vaginal cyst Apply 1 application topically in the morning and 1 application before bedtime. 15 g 0 2023 Active 24 hr desvenlafaxine succinate 50 mg extended release oral tablet (2 sources) Serotonin and Norepinephrine Reuptake Inhibitor take 1 tablet by mouth every twenty-four hours in the morning desvenlafaxine (Pristiq) 50 MG 24 hr tablet Take 50 mg by mouth in the morning. 0 Active diclofenac sodium 75 mg delayed release oral tablet (4 sources) Nonsteroidal Anti-inflammatory Drug Start: 08-01-2023 diclofenac (Voltaren) 75 MG EC tablet every 12 (twelve) hours 0 08/01/2023 Active Diclofenac Sodiu m Active Diclofenac Activ e QUEtiapine 50 mg oral tablet (2 sources) Atypical Antipsychotic take 1 tablet by mouth once daily at bedtime QUEtiapine (SEROquel) 50 MG tablet TAKE 1 TABLET BY MOUTH AT BEDTIME DAILY 0 Active tiZANidine 4 mg oral tablet (3 sources) Central alpha-2 Adrenergic Agonist Start: 3 take 2 tablets by mouth at bedtime tiZANidine (Zanaflex) 4 MG tablet 2 tablets Orally at bedtime for 15 0 08/01/2023 Active tiZANidine HCl A ctive 24 hr topiramate 50 mg exten ded release oral capsule (2 sources) Topiramate ER (T rokendi XR) 50 MG capsule sustained-release 24 hr 1 capsule 1 (one) time each day at the same time. 0 Active Triamcinolone (1 source) Corticosteroid Triamcinolone Ac [...] GE AND COLITIS UNS] Onset: 12-22-2022 Episodic Nonmalignant breast conditions (2 sources) Pain of breast; Translations: [Mastodynia] 11-07-2023 Episodic Other female genital disorders (2 sources) Pain in female genitalia on intercourse; Translations: [Unspecified dyspareunia] 11-07-2023 Chronic Other female genital disorders (4 sources) Other specified noninflammatory disorders of vagina; Translations: [OTH SPEC NONINFLAMMATORY D/O VAGINA] Onset: 11-29-2022 Episodic Other female genital disorders (2 sources) Vaginal lump; Translations: [Unspecified condition associated with female genital organs and menstrual cycle] 11-07-2023 Episodic Other nutritional; endocrine; and metabolic disorders [...] Amylase [Catalytic activity/Vol] 43 U/L Normal 25-115 [facility] Comment on above: Performed By: #### A MY, LIPA, CMP #### [facility] [address] [address] [address] Perri Burdick CBC AUTO DIFFon 12-20-2022 BASO # 0.0 103/ul Normal 0.0-0.1 [facility] Comment on above: Performed By: #### C BC #### [facility] [address] [place] [address] Dr. Perri Burdick Basophils/100 WBC (Bld) 0.3 % Normal 0.2-2.0 [facility] Comment on above: Performed By: #### C BC #### [facility] [address] [place] [address] Dr. Perri Burdick EO # 0.1 103/ul Normal 0.0-0.7 [facility] Comment on above: Performed By: #### C BC #### [facility] [address] [place] [address] Dr. Perri Burdick Eosinophils/100 WBC (Bld) 1.3 % Normal 0.9-7.0 [facility] Comment on above: Performed By: #### C BC #### [facility] [address] [place] [address] Dr. Perri Burdick Erythrocyte distribution width (RBC) [Ratio] 12.8 % Normal 11.0-15.0 [facility] Comment on above: Performed By: #### C BC #### [facility] [address] [place] [address] Dr. Perri Burdick Hematocrit (Bld) [Volume fraction] 42.5 % Normal 36.0-48.0 [facility] Comment on above: Performed By: #### C BC #### [facility] [address] [place] [address] Dr. Perri Burdick Hemoglobin (Bld) [Mass/Vol] 14.2 g/dL Normal 12.0-16.0 [facility] Comment on above: Performed By: #### C BC #### [facility] [address] [place] [address] Dr. Perri Burdick IG # 0.03 10e3/ul Normal 0.00-0.03 [facility] Comment on above: Performed By: #### C BC #### [facility] [address] [place] [address] Dr. Perri Burdick IG % 0.3 % Normal 0.0-0.5 [facility] Comment on above: Performed By: #### C BC #### [facility] [address] [place] [address] Dr. Perri Burdick LYMPH # 2.8 103/ul Normal 1.2-3.8 [facility] Comment on above: Performed By: #### C BC #### [facility] [address] [place] [address] Dr. Perri Burdick Lymphocytes/100 WBC (Bld) 29.9 % Normal 20.5-60.0 [facility] Comment on above: Performed By: #### C BC #### [facility] [address] [place] [address] Dr. Perri Burdick MANUAL DIFF REQ NO Normal [facility] Comment on above: Performed By: #### C BC #### [facility] [address] [place] [address] Dr. Perri Burdick MCH (RBC) [Entitic mass] 29.0 pg Normal 26.7-34.0 [facility] Comment on above: Performed By: #### C BC #### [facility] [address] [place] [address] Dr. Perri Burdick MCHC (RBC) [Mass/Vol] 33.4 g/dL Normal 29.9-35.2 [facility] Comment on above: Performed By: #### C BC #### [facility] [address] [place] [address] Dr. Perri Burdick MCV (RBC) [Entitic vol] 86.9 fL Normal 81.0-99.0 [facility] Comment on above: Performed By: #### C BC #### [facility] [address] [place] [address] Dr. Perri Burdick MONO # 0.6 103/ul Normal 0.3-0.8 [facility] Comment on above: Performed By: #### C BC #### [facility] [address] [place] [address] Dr. Perri Burdick Monocytes/100 WBC (Bld) 6.6 % Normal 1.7-12.0 [facility] Comment on above: Performed By: #### C BC #### [facility] [address] [place] [address] Dr. Perri Burdick NEUT # 5.8 103/ul Normal 1.4-6.5 [facility] Comment on above: Performed By: #### C BC #### [facility] [address] [place] [address] Dr. Perri Burdick Neutrophils/100 WBC (Bld) 61.6 % Normal 43.0-75.0 [facility] Comment on above: Performed By: #### C BC #### [facility] [address] [place] [address] Dr. Perri Burdick Platelet mean volume (Bld) [Entitic vol] 10.5 fL Normal 9.5-13.5 [facility] Comment on above: Performed By: #### C BC #### [facility] [address] [place] [address] Dr. Perri Burdick PLT 263 103/ul Normal 150-450 [facility] Comment on above: Performed By: #### C BC #### [facility] [address] [place] [address] Dr. Perri Burdick RBC 4.89 106/ul Normal 4.20-5.40 [facility] Comment on above: Performed By: #### C BC #### [facility] [address] [place] [address] Dr. Perri Burdick WBC 9.5 103/ul Normal 4.0-11.0 [facility] Comment on above: Performed By: #### C BC #### [facility] [address] [place] [address] Dr. Perri Burdick ER URINE PROFILEon 3 Bilirubin Ql (U) Negative Normal NEGATIVE [facility] Comment on above: Performed By: #### P REGU, ERUR #### [facility] [address] [place] [address] Dr. Perri Burdick Clarity (U) CLEAR Normal CLEAR [facility] Comment on above: Performed By: #### P REGU, ERUR #### [facility] [address] [place] [address] Dr. Perri Burdick Color (U) LT. YELLOW Normal YELLOW [facility] Comment on above: Performed By: #### P REGU, ERUR #### [facility] [address] [place] [address] Dr. Perri MONREAL A micrscopic examination will be performed if indicated. Normal [facility] Comment on above: Performed By: #### P REGU, ERUR #### [facility] [address] [place] [address] Dr. Perri Burdick Glucose Ql (U) Negative Normal NEGATIVE [facility] Comment on above: Performed By: #### P REGU, ERUR #### [facility] [address] [place] [address] Dr. Perri Burdick Hemoglobin Ql (U) Negative Normal NEGATIVE [facility] Comment on above: Performed By: #### P REGU, ERUR #### [facility] [address] [place] [address] Dr. Perri Burdick Ketones Ql (U) Negative Normal NEGATIVE [facility] Comment on above: Performed By: #### P REGU, ERUR #### [facility] [address] [place] [address] Dr. Perri Burdick LEUKOCYTES Negative Normal NEGATIVE [facility] Comment on above: Performed By: #### P REGU, ERUR #### [facility] [address] [place] [address] Dr. Perri Burdick Nitrite Ql (U) Negative Normal NEGATIVE [facility] Comment on above: Performed By: #### P REGU, ERUR #### [facility] [address] [place] [address] Dr. Perri Burdick pH (U) 6.0 [pH] Normal 5-9 [facility] Comment on above: Performed By: #### P REGU, ERUR #### [facility] [address] [place] [address] Dr. Perri Burdick SPEC GRAVITY 1.025 Normal 1.005-<=1.025 [facility] Comment on above: Performed By: #### P REGU, ERUR #### [facility] [address] [place] [address] Dr. Perri Burdick UA PROTEIN Negative Normal NEGATIVE/ TRACE [facility] Comment on above: Performed By: #### P REGU, ERUR #### [facility] [address] [place] [address] Dr. Perri Burdick UR MICRO IND NOT INDICATED Normal [facility] Comment on above: Performed By: #### P REGU, ERUR #### [facility] [address] [place] [address] Dr. Perri Burdick Urobilinogen Qn (U) 0.2 {Brody'U}/dL Normal 0.2 - 1.0 [facility] Comment on above: Performed By: #### P REGU, ERUR #### [facility] [address] [place] [address] Dr. Perri Burdick LIPASEon 12-20-2022 Lipase [Catalytic activity/Vol] 134.0 U/L Normal 73.0-393.0 [facility] Comment on above: Performed By: #### A MY, LIPA, CMP #### [facility] [address] [place] [address] Dr. Perri Burdick URon 12-20-2022 , QUAL Negative Normal NEGATIVE [facility] Comment on above: Performed By: #### P REGU, ERUR #### [facility] [address] [place] [address] Dr. Perri Burdick PROF 14(COMP METB)on 03-14-2 023 Albumin [Mass/Vol] 3.8 g/dL Normal 3.4-5.0 [facility] Comment on above: Performed By: #### A KENDALL HO, CMP #### [facility] [address] [address] [address] Perri Burdick Albumin/Globulin [Mass ratio] 1.2 {ratio} Normal [facility] Comment on above: Performed By: #### A [place] LIPA, CMP #### [facility] [address] [address] [address] Perri Burdick ALP [Catalytic activity/Vol] 138 U/L Critically high 46-116 [facility] Comment on above: Performed By: #### A [place] LIPA, CMP #### [facility] [address] [place] [address] Dr. Perri Burdick ALT [Catalytic activity/Vol] 23 U/L Normal 14-59 [facility] Comment on above: Performed By: #### A [place] LIPA, CMP #### [facility] [address] [address] [address] Perri Burdick Anion gap [Moles/Vol] 10.3 mmol/L Normal [facility] Comment on above: Performed By: #### A [place] LIPA, CMP #### [facility] [address] [place] [address] Dr. Perri Burdick AST [Catalytic activity/Vol] 17 U/L Normal 15-37 [facility] Comment on above: Performed By: #### A [place] LIPA, CMP #### [facility] [address] [address] [address] Perri Burdick Bilirubin [Mass/Vol] 0.2 mg/dL Normal 0.2-1.0 [facility] Comment on above: Performed By: #### A [place] LIPA, CMP #### [facility] [address] [place] [address] Dr. Perri Burdick Calcium [Mass/Vol] 9.2 mg/dL Normal 8.5-10.1 [facility] Comment on above: Performed By: #### A [place] LIPA, CMP #### [facility] [address] [address] [address] Perri Burdick Chloride [Moles/Vol] 105 mmol/L Normal 98-107 [facility] Comment on above: Performed By: #### A KENDALL HO, CMP #### [facility] [address] [place] [address] Dr. Perri Burdick CO2 [Moles/Vol] 27.3 mmol/L Normal 21.0-32.0 [facility] Comment on above: Performed By: #### A KENDALL HO, CMP #### [facility] [address] [address] [address] Perri Burdick Creatinine [Mass/Vol] 0.82 mg/dL Normal 0.55-1.02 [facility] Comment on above: Performed By: #### A KENDALL HO, CMP #### [facility] [address] [place] [address] Dr. Perri Burdick EGFR-AF TURKISH >60 Normal >=60 [facility] Comment on above: Performed By: #### A MEDARDO HOA, CMP #### [facility] [address] [place] [address] Dr. Perri Burdick EGFR-NON AF TURKISH >60 Normal >=60 [facility] Comment on above: Performed By: #### A KENDALL HO, CMP #### [facility] [address] [place] [address] Dr. Perri Burdick Globulin (S) [Mass/Vol] 3.3 g/dL Normal [facility] Comment on above: Performed By: #### A KENDALL HO, CMP #### [facility] [address] [place] [address] Dr. Perri Burdick Glucose [Mass/Vol] 117 mg/dL Critically high 74-106 [facility] Comment on above: Performed By: #### A KENDALL HO, CMP #### [facility] [address] [place] [address] Dr. Perri Burdick Potassium [Moles/Vol] 3.6 mmol/L Normal 3.5-5.1 [facility] Comment on above: Performed By: #### A KENDALL HO, CMP #### [facility] [address] [address] [address] Perri Burdick Protein [Mass/Vol] 7.1 g/dL Normal 6.4-8.2 [facility] Comment on above: Performed By: #### A MY, LIPA, CMP #### [facility] [address] [address] [address] Perri Burdick Sodium [Moles/Vol] 139 mmol/L Normal 136-145 [facility] Comment on above: Performed By: #### A MY, LIPA, CMP #### [facility] [address] [address] [address] Perri Burdick Urea nitrogen [Mass/Vol] 15.0 mg/dL Normal 7.0-18.0 [facility] Comment on above: Performed By: #### A MY, LIPA, CMP #### [facility] [address] [address] [address] Perri Burdick Urea nitrogen/Creatini ne [Mass ratio] 18.3 mg/mg Normal [facility] Comment on above: Performed By: #### A [place] LIPA, CMP #### [facility] [address] [address] [address] Perri Burdick XR ABD FLAT UP_PA [...] AL CHURCH Date: 2022-12-20 04:52 Normal [facility] CHLAMYDIA/GONOCOCCUS CASSIDY (SW AB/URINE/PAPon 12-01-2022 Chlamydia trachomatis, CASSIDY Negative Normal Negative [facility] Comment on above: Performed By: #### C T/NGNA #### [facility] [address] [place] [address] Dr. Perri Burdick Neisseria gonorrhoeae, CASSIDY Negative Normal Negative [facility] Comment on above: Performed By: #### C T/NGNA #### [facility] [address] [address] [address] Perri Burdick VAGINITIS/VAGINOSIS DNA PROB Jamar 12-01-2022 Nieves species Negative Normal Negative [facility] Comment on above: Performed By: #### V AGINT #### [facility] [address] [place] [address] Dr. Perri Burdick Gardnerella vaginalis Negative Normal Negative [facility] Comment on above: Performed By: #### V AGINT #### [facility] [address] [place] [address] Dr. Perri Burdick Trichomonas vaginalis Negative Normal Negative [facility] Comment on above: Performed By: #### V AGINT #### [facility] [address] [place] [address] Dr. Perri Burdick PAP ACOG PANEL 2: 21 to 29on 10-20-2022 . . Normal [facility] Comment on above: Performed By: #### [id number] #### [facility] [address] [place] [address] Dr. Perri Burdick Age Gdln ACOG Testing - Normal [facility] Comment on above: Performed By: #### [id number] #### [facility] [address] [place] [address] Dr. Perri Burdick DIAGNOSIS: Comment [facility] Comment on above: Result Comment: NEGA TIVE FOR INTRAEPITHELIAL LESION OR MALIGNANCY. Performed By: #### [id number] #### [facility] [address] [place] [address] Dr. Perri Burdick Methodology: Comment Normal [facility] Comment on above: Result Comment: This liquid based ThinPrep(R) pap test was screened with the use of an image guided system. Performed By: #### [id number] #### [facility] [address] [place] [address] Dr. Perri Burdick Note: Comment Normal [facility] Comment on above: Result Comment: The Pap smear is a screening test designed to aid in the detection of premalignant and malignant conditions of the uterine cervix. It is not a diagnostic procedure and should not be used as the sole means of detecting cervical cancer. Both false-positive and false-negative reports do occur. . Performed By: #### [id number] #### [facility] [address] [place] [address] Dr. Perri Burdick Performed by: Comment Normal [facility] Comment on above: Result Comment: [place] Stoner, Insurance Associate (ASCP) Performed By: #### [id number] #### [facility] [address] [place] [address] Dr. Perri Burdick Reflex Criteria: Comment Normal [facility] Comment on above: Result Comment: The HPV DNA reflex criteria were not met with this specimen result therefore, no HPV testing was performed. . Performed By: #### [id number] #### [facility] [address] [place] [address] Dr. Perri Burdick Specimen adequacy: Comment [facility] Comment on above: Result Comment: Sati sfactory for evaluation. Endocervical and/or squamous metaplastic cells (endocervical component) are present. Performed By: #### [id number] #### [facility] [address] [place] [address] Dr. Perri Burdick COVID Quick Testingon 2020 Result Negative [facility] Other Vital Signs Date Time Vital Sign Value Performing Clinician Facility 11-09-2023 10:24-0500 Body mass index (BMI) [Ratio] 41.34 kg/m2 Jajah Work Phone: [facility] 11-09-2023 10:24-0500 Body weight 102.51 kg Jajah Work Phone: [facility] 11-09-2023 10:24-0500 Diastolic blood pressure 72 mm[Hg] Alissa Nitin DO Work Phone: [facility] 11-09-2023 10:24-0500 Systolic blood pressure 118 mm[Hg] Alissa Nitin DO Work Phone: [facility] 07-22-2021 10:45-0400 Body height 157.48 cm Ana Paula Dubose Other [facility] Other 07-22-2021 10:45-0400 Body mass index (BMI) [Ratio] 38.59 kg/m2 Ana Paula Dubose Other [facility] Other 07-22-2021 10:45-0400 Body temperature 98 [degF] Ana Paula Dubose Other [facility] Other 07-22-2021 10:45-0400 Body weight 95.71 kg Aan Paula Dubose Other [facility] Other 07-22-2021 10:45-0400 Respiratory rate 18 /min Ana Paula Dubose Other [facility] Other 07-22-2021 10:45-0400 SaO2% (BldA) [Mass fraction] 97 % Ana Paula Dubose Other [facility] Other Encounters Encounter Date Encounter Type Care Provider Facility Start: 11-09-2023 End: 11-09-2023 ambulatory ALISSA BERTRANDO Not Available Start: 11-09-2023 End: 11-09-2023 Office outpatient visit 15 minutes Alissa Nitin DO Work Phone: [facility] Comment on above: Vaginal lump; Pain in female genitalia on intercourse; Soreness breast Start: 09-11-2023 End: 09-11-2023 ambulatory MAYRA PAYAN Not Available Start: 08-28-2023 End: 08-28-2023 ambulatory MAYRA PAYAN Not Available Start: 12-20-2022 End: 12-20-[address] ALEN GLEASON . Facility:[facility] Start: 11-29-2022 End: 11-29-2022 ambulatory ALEX CHARLES Facility:[facility] Start: 10-17-2022 End: 10-17-2022 ambulatory ALEX CHARLES Facility:[facility] Start: 05-14-2022 End: 05-15-[address] ALEN GLEASON . Facility:[facility] Start: 04-13-[address] ALEN GLEASON . Facili ty:[facility] Start: 01-14-[address] ALEN GLEASON . Facili ty:[facility] Start: 07-22-2021 (URG) Urgent Care Visit Ana Paula barney [facility] Plan of Treatment Date Care Activity Detail Author Start: 06-09-2023 Influenza vaccination Influenza Vacc ine (#1) [facility] CHLAMYDIA TRACHOMATI S (GENITO/STI) CHLAMYDIA TRACHOMATIS (GENITO/STI) Lab Routine Vaginal lump Pain in female genitalia on intercourse Ordered: 11/09/2023 [facility] Comment on above: Ordered: 11/09/2023 Neisseria gonorrhoea e DNA [Presence] in Unspecified specimen by CASSIDY with probe detection Neisseria gonorrhea DNA probe, direct Lab Routine Vaginal lump Pain in female genitalia on intercourse Ordered: 11/09/2023 [facility] Comment on above: Ordered: 11/09/2023 SURESWAB(R) ADVANCED VAGINITIS PLUS, TMA SURESWAB(R) ADVANCED VAGINITIS PLUS, TMA Pathology and Cytology Routine Vaginal lump Pain in female genitalia on intercourse Ordered: 11/09/2023 [facility] Work Phone: Comment on above: Ordered: 11/09/2023 Payers Date Payer Category Payer Unknown [id number] 2023 Unknown BCBS BCBS xxxxxx [id number] 2023-Present [phone] [address] [place] [address] [id number] 2022 Private Health Insurance [id number] 2022 Private Health Insurance [facility] [id number] 2022-Present [address] [place] [address] [id number] 2001 Unknown [id number] 93 2001 Unknown [id number] 93 2001 Unknown [id number] 93 2001 Unknown [id number] 93 2001 Unknown [id number] 93 2001 Unknown [id number] 93 2001 Unknown [id number] 259 2001 Unknown [id number] 259 2001 Unknown [id number] 259 1959 Self-pay [id number] 1959 Unknown [id number] Social History Date Type Detail Facility Start: 11-09-2023 Sex Assigned At [facility] Other Start: 2023 Tobacco smoking status NHIS Never smoked tobacco [facility] Start: 2023 Tobacco use and exposure Smokeless tobacco non-user [facility] Start: 11-09-2023 Alcohol intake Ex-drinker (finding) [facility] Start: 11-09-2023 History of Social function [facility] Start: 2001 Sex Assigned At Not on file [facility] History of Present illness Narrative 11-09-2023 Brianna Medina, AZEEM - 11/09/2023 10:10 AM EST Note Date & Type Note Facility 11-09-2023 History of Presen t illness Narrative Reason for Appointment: Patient ID: Radhika Chiang is a 23 y.o. female who presents for vaginal lump, painful sex, sore breasts Patient presents today for vaginal bump and breast sore appointment. Current Medications: has a current medication list which includes the following prescription(s): diclofenac, tizanidine, albuterol hfa, clobetasol, desvenlafaxine, quetiapine, and topiramate er. Medical History: Active Ambulatory Problems Diagnosis Date Noted No Active Ambulatory Problems Resolved Ambulatory Problems Diagnosis Date Noted No Resolved Ambulatory Problems Past Medical History: Diagnosis Date control counseling BMI 39.0-39.9,adult Breakthrough bleeding on control pills Migraine syndrome ([facility]) Family History Problem Relation Name Age of Onset Mental illness Other GI problems Other Social History Tobacco Use Smoking status: Never Smokeless tobacco: Never Substance Use Topics Alcohol use: Not Currently Drug use: Not Currently History reviewed. No pertinent surgical history. No Known Allergies Review of Systems: Review of Systems All other systems reviewed and are negative. Objective Physical Exam Constitutional: Appearance: Normal appearance. She is well-developed. Genitourinary: Vulva normal. Genitourinary Comments: Patient had right breast sore, that will be treated with Keflex. Breasts: Breasts are soft. Left: Normal. Cardiovascular: Rate and Rhythm: Normal rate and regular rhythm. Pulmonary: Effort: Pulmonary effort is normal. Breath sounds: Normal breath sounds. Abdominal: General: Bowel sounds are normal. There is no distension. Palpations: Abdomen is soft. Tenderness: There is no abdominal tenderness. There is no guarding or rebound. Musculoskeletal: General: No swelling. Normal range of motion. Right lower leg: No edema. Left lower leg: No edema. Neurological: Mental Status: She is alert and oriented to person, place, and time. Skin: General: Skin is warm and dry. Psychiatric: Mood and Affect: Mood normal. Behavior: Behavior normal. Vitals and nursing note reviewed. Exam conducted with a technician support engineer present. Vitals: Estimated body mass index is 41.34 kg/m as calculated from the following: Height as of 07/11/23: 5' 2 . Weight as of this encounter: 226 lb. BP: 118/72 Patient's last menstrual period was 09/25/2023. Assessment/Plan Encounter Diagnoses Name Primary? Vaginal lump Pain in female genitalia on intercourse Soreness breast Patient and partner presents for consult of vaginal lump and breast sore. After assessing right breast Keflex will be prescribed to help with infection. Complete breast exam performed. Vaginal cultures obtained and no palpable vaginal lump was present. Patient to call office if she has any further concerns/questions. Documented by Brianna Medina LPN on behalf of: Alissa Taveras DO documented in this encounter [facility] Evaluation note 07-22-2021 Note Date & Type [...] Patient care instructions given in writting by [facility] Care At Home document. [facility] Other Evaluation note Note Date & Type Note Facility Evaluation note Diagnosis Vaginal lump Pain in female genitalia on intercourse Dyspareunia Soreness breast Mastodynia documented in this encounter [facility] History general Narrative - Reported Note Date & Type Note Facility History general Narrative - Reported Type Medical History Strain of lumbar region, initial encounter [facility] Other Summary Purpose Family History No Family History Records FoundNo Family History Records Found Advance Directives No Advanced Directives Records FoundNo Advanced Directives Records Found Additional Source Comments REASON FOR VISIT (unrecogniz ed section and content) Reason Comments vaginal lump, painful sex, sore breasts INFORMATION SOURCE (unrecogn ized section and content) DATE CREATED AUTHOR 12/23/2022 [facility] DATE CREATED AUTHOR AUTHOR'S ORGANIZ ATION 11/10/2023 [facility] [employer] Care Teams (unrecognized sec tion and content) 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 [employer] provides no warranty or guarantee of the accuracy or completeness of information in this document.
--- NOTE | 2023-11-23 01:01 | PC.NURSE ---
Pt presents to ER for vaginal bleeding after intercourse Pt states she has having sex earlier in the day on 11/22/23 Pt has sex with a woman who is at bedside, denied the use of sex toys, states it was only her hands Pt states she soon began bleeding heavily, bleeding through a tampon and a pad within an hour Pt states the bleeding then stopped, then started again and has 3 times Pt states this blood is different than period blood and it is not time for her period regardless Pt is concerned for the amount of bleeding
--- NOTE | 2023-11-23 01:06 | ED_ITS ---
HPI - Female Genitourinary General Chief complaint: Urogenital-Female Stated complaint: VAG BLEEDING Time Seen by Provider: 11/23/23 00:56 Source: patient Mode of arrival: walk-in Limitations: no limitations History of Present Illness HPI Narrative: 23-year-old female presents for evaluation of vaginal bleeding with passage of clots. She and her girlfriend were having sex this morning and her girlfriend was inserting her fingers into her vagina. At one point when she pulled her fingers out of her vagina it was noticed that she was having some vaginal bleeding. The patient's girlfriend does not have any fingernails and the patient denies that she was having any pain during this session. She states that after they got done and she went to the shower and was still bleeding. She put a tampon and pad into her vagina and into her underwear and by the time she got to work she had blood to the tampon and pad. She states that since that time she has had intermittent passage of blood and clots. She is not having any abdominal pain or vaginal pain. She denies that there are any instruments or toys to use. The girlfriend only use her fingers and not her fist during this occasion. The patient states her last month's period was 2 weeks ago and the bleeding is different than typical menstrual bleeding. She is not having any chest pain or shortness of breath. She denies any dizziness. She denies that she is sexually active with male partner so is not a possibility Related Data Home Medications Medication Instructions Recorded Confirmed diclofenac sodium 50 mg 50 mg PO BID PRN pain 08/15/23 08/15/23 tablet,delayed release quetiapine 50 mg tablet 50 mg PO DAILY 08/15/23 08/15/23 tizanidine 4 mg capsule 4 mg PO Q8H PRN muscle spasticity 08/15/23 08/15/23 Allergies Allergy/AdvReac Type Severity Reaction Status Date / Time No Known Drug Allergies Allergy Verified 08/15/23 20:11 Review of Systems ROS Status of ROS 10 or more systems reviewed and unremark able except as noted in history and below [facility] Social History Smoking status: Current every day smoker Exam Narrative Exam Narrative: Nurses note and vital signs reviewed and patient is not hypoxic.She was noted to be tachycardic with a pulse of 121 at triage General: The patient appears well and in no apparent distress. Patient is resting comfortably on cart. Skin: Warm, dry, no pallor noted. There is no rash noted. Head: Normocephalic, atraumatic Eye: Normal conjunctiva, no drainage, EOMI. PERRL Cardiovascular: Regular Rate and Rhythm, tachycardic at 120 at triage, pulses are brisk and equal Respiratory: Patient is in no distress, no accessory muscle use, lungs are clear to auscultation, no wheezing, rales or rhonchi Back: non-tender, no CVA tenderness bilaterally to percussion. GI: Obese, soft, nondistended, no rebound guarding rigidity : There is a small laceration/tear overlying the clitoris with mild active bleeding,otherwise normal pelvic exam Musculoskeletal: The patient has no evidence of calf tenderness, no pitting edema, symmetrical pulses noted bilaterally Neurological: A&O x4, normal speech Psychiatric: Cooperative Constitutional Vital Signs, click to edit/add: Last Vital Signs Temp 98.1 F 11/23/23 00:42 Pulse 121 H 11/23/23 00:42 Resp 18 11/23/23 00:42 BP 105/82 11/23/23 00:42 Pulse Ox 97 11/23/23 00:42 O2 Del Method Room Air 11/23/23 00:42 Course Vital Signs Vital signs: Vital Signs Temperature 98.1 F 11/23/23 00:42 Pulse Rate 121 H 11/23/23 00:42 Respiratory Rate 18 11/23/23 00:42 Blood Pressure 105/82 11/23/23 00:42 Pulse Oximetry 97 11/23/23 00:42 Oxygen Delivery Method Room Air 11/23/23 00:42 Temperature 98.1 F 11/23/23 00:42 Pulse Rate 121 H 11/23/23 00:42 Respiratory Rate 18 11/23/23 00:42 Blood Pressure 105/82 11/23/23 00:42 Pulse Oximetry 97 11/23/23 00:42 Oxygen Delivery Method Room Air 11/23/23 00:42 MDM - Female Genitourinary MDM Narrative Medical decision making narrative: This 23-year-old female presents for evaluation of vaginal bleeding after having sex with her girlfriend this morning. The girlfriend states she was only using her fingers but at one point she slipped out. The patient then went to the [facility] and noticed that there was bleeding from her vagina. She denies any pain. She used a tampon and pad without clinical improvement. She has had intermittent bright red blood throughout the day. She is not having any abdominal pain. She does not have sex with men and denies the possibility of . Pelvic exam shows a small tear overlying the clitoris with mild active bleeding. Surgicel wa s placed over the area of bleeding to control the bleeding and the patient was instructed to replace the Surgicel which I supplied her the remaining Surgicel as needed for recurrent bleeding, avoid sexual intercourse for the next 7-10 days until the bleeding resolves and use gentle wipes when using the bathroom. Discharge Plan Discharge Chief Complaint: Urogenital-Female Clinical Impression: Labial tear Patient Disposition: Home, Self-Care Time of Disposition Decision: 02:06 Condition: Good Prescriptions / Home Meds: No Action quetiapine 50 mg tablet 50 mg PO DAILY tizanidine 4 mg capsule 4 mg PO Q8H PRN (Reason: muscle spasticity) diclofenac sodium 50 mg tablet,delayed release (DR/EC) 50 mg PO BID PRN (Reason: pain) Instructions: Laceration Without Closure (ED) Additional Instructions: Use small pieces of the remaining surgicel as needed for recurrent bleeding. Avoid sexual intercourse for the next 7-10 days so the tear of your clitoral area can heal. Use moist cloths to clean yourself after using the bathroom. Stand Alone Forms: Portal Instructions Referrals: Ander Conway MD [Primary Care Provider] - 1 week
[2023-11-23] MEDS: ACETAMINOPHEN 325 MG TABLET 650 MG PO (02:20)
== END 2023-11-23 02:25 | disposition home or self-care (01) ==
PROVIDERS: Emergency Provider Emergency Medicine; PCP Family Medicine
DX: S31.41XA Laceration without foreign body of vagina and vulva, initial encounter (principal); Z79.899 Other long term (current) drug therapy; F17.210 Nicotine dependence, cigarettes, uncomplicated; X58.XXXA Exposure to other specified factors, initial encounter
CPT/HCPCS: 99283

== ENCOUNTER 2023-12-21 06:32 | Emergency (ER) | payer OTHER, BC, SELFPAY ==
[2023-12-21 06:36] VITALS: BP 111/75; PULSE 96; RESP 18; TEMP 36.4; O2SAT 99; BMI 43.5
--- OUTSIDE RECORDS SUMMARY | 2023-12-21 06:36 | XMS_ITS | CCD ---
Author Name Unknown Address [address] [place] [address] Organization [facility] Care Team Providers Care Family Resource Management Specialist Name Role Phone Ana Paula Dubose Unavailable [...] Drug Class(es) Dates Sig (Normalized) Sig (Original) [id number] 200 actuat albuterol 0.09 mg/actuat metered dose [...] Amylase [Catalytic activity/Vol] 43 U/L Normal 25-115 [facility] Comment on above: Performed By: #### A MY, LIPA, CMP #### [facility] [address] [address] [address] Perri Burdick CBC AUTO DIFFon 12-20-2022 BASO # 0.0 103/ul Normal 0.0-0.1 [facility] Comment on above: Performed By: #### C BC #### [facility] [address] [place] [address] Dr. Perri Burdick Basophils/100 WBC (Bld) 0.3 % Normal 0.2-2.0 [facility] Comment on above: Performed By: #### C BC #### [facility] [address] [place] [address] Dr. Perri Burdick EO # 0.1 103/ul Normal 0.0-0.7 [facility] Comment on above: Performed By: #### C BC #### [facility] [address] [place] [address] Dr. Perri Burdick Eosinophils/100 WBC (Bld) 1.3 % Normal 0.9-7.0 [facility] Comment on above: Performed By: #### C BC #### [facility] [address] [place] [address] Dr. Perri Burdick Erythrocyte distribution width (RBC) [Ratio] 12.8 % Normal 11.0-15.0 [facility] Comment on above: Performed By: #### C BC #### [facility] [address] [place] [address] Dr. Perri Burdick Hematocrit (Bld) [Volume fraction] 42.5 % Normal 36.0-48.0 [facility] Comment on above: Performed By: #### C BC #### [facility] [address] [place] [address] Dr. Perri Burdick Hemoglobin (Bld) [Mass/Vol] 14.2 g/dL Normal 12.0-16.0 [facility] Comment on above: Performed By: #### C BC #### [facility] [address] [place] [address] Dr. Perri Burdick IG # 0.03 10e3/ul Normal 0.00-0.03 [facility] Comment on above: Performed By: #### C BC #### [facility] [address] [place] [address] Dr. Perri Burdick IG % 0.3 % Normal 0.0-0.5 [facility] Comment on above: Performed By: #### C BC #### [facility] [address] [place] [address] Dr. Perri Burdick LYMPH # 2.8 103/ul Normal 1.2-3.8 [facility] Comment on above: Performed By: #### C BC #### [facility] [address] [place] [address] Dr. Perri Burdick Lymphocytes/100 WBC (Bld) 29.9 % Normal 20.5-60.0 [facility] Comment on above: Performed By: #### C BC #### [facility] [address] [place] [address] Dr. Perri Burdick MANUAL DIFF REQ NO Normal [facility] Comment on above: Performed By: #### C BC #### [facility] [address] [place] [address] Dr. Perri Burdick MCH (RBC) [Entitic mass] 29.0 pg Normal 26.7-34.0 [facility] Comment on above: Performed By: #### C BC #### [facility] [address] [place] [address] Dr. Perri Burdick MCHC (RBC) [Mass/Vol] 33.4 g/dL Normal 29.9-35.2 [facility] Comment on above: Performed By: #### C BC #### [facility] [address] [place] [address] Dr. Perri Burdick MCV (RBC) [Entitic vol] 86.9 fL Normal 81.0-99.0 [facility] Comment on above: Performed By: #### C BC #### [facility] [address] [place] [address] Dr. Perri Burdick MONO # 0.6 103/ul Normal 0.3-0.8 [facility] Comment on above: Performed By: #### C BC #### [facility] [address] [place] [address] Dr. Perri Burdick Monocytes/100 WBC (Bld) 6.6 % Normal 1.7-12.0 [facility] Comment on above: Performed By: #### C BC #### [facility] [address] [place] [address] Dr. Perri Burdick NEUT # 5.8 103/ul Normal 1.4-6.5 [facility] Comment on above: Performed By: #### C BC #### [facility] [address] [place] [address] Dr. Perri Burdick Neutrophils/100 WBC (Bld) 61.6 % Normal 43.0-75.0 [facility] Comment on above: Performed By: #### C BC #### [facility] [address] [place] [address] Dr. Perri Burdick Platelet mean volume (Bld) [Entitic vol] 10.5 fL Normal 9.5-13.5 [facility] Comment on above: Performed By: #### C BC #### [facility] [address] [place] [address] Dr. Perri Burdick PLT 263 103/ul Normal 150-[address] [facility] Comment on above: Performed By: #### C BC #### [facility] [address] [place] [address] Dr. Perri Burdick RBC 4.89 106/ul Normal 4.20-5.[address] [facility] Comment on above: Performed By: #### C BC #### [facility] [address] [place] [address] Dr. Perri Burdick WBC 9.5 103/ul Normal 4.0-11.[address] [facility] Comment on above: Performed By: #### C BC #### [facility] [address] [place] [address] Dr. Perri Burdick ER URINE PROFILEon 3 Bilirubin Ql (U) Negative Normal NEGATIVE [facility] Comment on above: Performed By: #### P REGU, ERUR #### [facility] [address] [place] [address] Dr. Perri Burdick Clarity (U) CLEAR Normal CLEAR [facility] Comment on above: Performed By: #### P REGU, ERUR #### [facility] [address] [place] [address] Dr. Perri Burdick Color (U) LT. YELLOW Normal YELLOW [facility] Comment on above: Performed By: #### P REGU, ERUR #### [facility] [address] [place] [address] Dr. Perri MONREAL A micrscopic examination will be performed if indicated. Normal [facility] Comment on above: Performed By: #### P REGU, ERUR #### [facility] [address] [place] [address] Dr. Perri Burdick Glucose Ql (U) Negative Normal NEGATIVE [facility] Comment on above: Performed By: #### P REGU, ERUR #### [facility] [address] [place] [address] Dr. Perri Burdick Hemoglobin Ql (U) Negative Normal NEGATIVE [facility] Comment on above: Performed By: #### P REGU, ERUR #### [facility] [address] [place] [address] Dr. Perri Burdick Ketones Ql (U) Negative Normal NEGATIVE [facility] Comment on above: Performed By: #### P REGU, ERUR #### [facility] [address] [place] [address] Dr. Perri Burdick LEUKOCYTES Negative Normal NEGATIVE [facility] Comment on above: Performed By: #### P REGU, ERUR #### [facility] [address] [place] [address] Dr. Perri Burdick Nitrite Ql (U) Negative Normal NEGATIVE [facility] Comment on above: Performed By: #### P REGU, ERUR #### [facility] [address] [place] [address] Dr. Perri Burdick pH (U) 6.0 [pH] Normal 5-9 [facility] Comment on above: Performed By: #### P REGU, ERUR #### [facility] [address] [place] [address] Dr. Perri Burdick SPEC GRAVITY 1.025 Normal 1.005-<=1.025 [facility] Comment on above: Performed By: #### P REGU, ERUR #### [facility] [address] [place] [address] Dr. Perri Burdick UA PROTEIN Negative Normal NEGATIVE/ TRACE [facility] Comment on above: Performed By: #### P REGU, ERUR #### [facility] [address] [place] [address] Dr. Perri Burdick UR MICRO IND NOT INDICATED Normal [facility] Comment on above: Performed By: #### P REGU, ERUR #### [facility] [address] [place] [address] Dr. Perri Burdick Urobilinogen Qn (U) 0.2 {Brody'U}/dL Normal 0.2 - 1.0 [facility] Comment on above: Performed By: #### P REGU, ERUR #### [facility] [address] [place] [address] Dr. Perri Burdick LIPASEon 12-20-2022 Lipase [Catalytic activity/Vol] 134.0 U/L Normal 73.0-393.0 [facility] Comment on above: Performed By: #### A MY, LIPA, CMP #### [facility] [address] [place] [address] Dr. Perri Burdick URon 12-20-2022 , QUAL Negative Normal NEGATIVE [facility] [place] Comment on above: Performed By: #### P REGU, ERUR #### [facility] [address] [place] [address] Dr. Perri Burdick PROF 14(COMP METB)on 03-14-2 023 Albumin [Mass/Vol] 3.8 g/dL Normal 3.4-5.0 [facility] Comment on above: Performed By: #### A KENDALL HO, CMP #### [facility] [address] [address] [address] Perri Burdick Albumin/Globulin [Mass ratio] 1.2 {ratio} Normal [facility] Comment on above: Performed By: #### A [place] LIPA, CMP #### [facility] [address] [address] [address] Perri Burdick ALP [Catalytic activity/Vol] 138 U/L Critically high 46-[address] [facility] Comment on above: Performed By: #### A [place] LIPA, CMP #### [facility] [address] [place] [address] Dr. Perri Burdick ALT [Catalytic activity/Vol] 23 U/L Normal 14-59 [facility] Comment on above: Performed By: #### A [place] LIPA, CMP #### [facility] [address] [address] [address] Perri Burdick Anion gap [Moles/Vol] 10.3 mmol/L Normal [facility] Comment on above: Performed By: #### A GEORGAI LIPA, CMP #### [facility] [address] [place] [address] Dr. Perri Burdick AST [Catalytic activity/Vol] 17 U/L Normal 15-37 [facility] Comment on above: Performed By: #### A [place] LIPA, CMP #### [facility] [address] [address] [address] Perri Burdick Bilirubin [Mass/Vol] 0.2 mg/dL Normal 0.2-1.0 [facility] Comment on above: Performed By: #### A [place] LIPA, CMP #### [facility] [address] [place] [address] Dr. Perri Burdick Calcium [Mass/Vol] 9.2 mg/dL Normal 8.5-10.[address] [facility] Comment on above: Performed By: #### A [place] LIPA, CMP #### [facility] [address] [address] [address] Perri Burdick Chloride [Moles/Vol] 105 mmol/L Normal 98-[address] [facility] Comment on above: Performed By: #### A KENDALL HO, CMP #### [facility] [address] [place] [address] Dr. Perri Burdick CO2 [Moles/Vol] 27.3 mmol/L Normal 21.0-32.0 [facility] Comment on above: Performed By: #### A KENDALL HO, CMP #### [facility] [address] [address] [address] Perri Burdick Creatinine [Mass/Vol] 0.82 mg/dL Normal 0.55-1.[address] [facility] Comment on above: Performed By: #### A KENDALL HO, CMP #### [facility] [address] [place] [address] Dr. Perri Burdick EGFR-AF COSTA RICAN >60 Normal >=60 [facility] Comment on above: Performed By: #### A MEDARDO HOA, CMP #### [facility] [address] [place] [address] Dr. Perri Burdick EGFR-NON AF COSTA RICAN >60 Normal >=[address] [facility] Comment on above: Performed By: #### A KENDALL HO, CMP #### [facility] [address] [place] [address] Dr. Perri Burdick Globulin (S) [Mass/Vol] 3.3 g/dL Normal [facility] Comment on above: Performed By: #### A KENDALL HO, CMP #### [facility] [address] [place] [address] Dr. Perri Burdick Glucose [Mass/Vol] 117 mg/dL Critically high 74-[address] [facility] Comment on above: Performed By: #### A KENDALL HO, CMP #### [facility] [address] [place] [address] Dr. Perri Burdick Potassium [Moles/Vol] 3.6 mmol/L Normal 3.5-5.[address] [facility] Comment on above: Performed By: #### A KENDALL HO, CMP #### [facility] [address] [address] [address] Perri Burdick Protein [Mass/Vol] 7.1 g/dL Normal 6.4-8.2 [facility] Comment on above: Performed By: #### A MY, LIPA, CMP #### [facility] [address] [address] [address] Perri Burdick Sodium [Moles/Vol] 139 mmol/L Normal 136-[address] [facility] Comment on above: Performed By: #### A MY, LIPA, CMP #### [facility] [address] [address] [address] Perri Burdick Urea nitrogen [Mass/Vol] 15.0 mg/dL Normal 7.0-18.0 [facility] Comment on above: Performed By: #### A MY, LIPA, CMP #### [facility] [address] [address] [address] Perri Burdick Urea nitrogen/Creatini ne [Mass ratio] 18.3 mg/mg Normal [facility] Comment on above: Performed By: #### A [place] LIPA, CMP #### [facility] [address] [address] [address] Perri Burdick XR ABD FLAT UP_PA [...] and hilar shadows are normal. The lung lband are clear. There is no pneumothorax. There [...] AL CHURCH Date: 2022-12-20 04:[address] [facility] CHLAMYDIA/GONOCOCCUS CASSIDY (SW AB/URINE/PAPon 12-01-2022 Chlamydia trachomatis, CASSIDY Negative Normal Negative [facility] Comment on above: Performed By: #### C T/NGNA #### [facility] [address] [place] [address] Dr. Perri Burdick Neisseria gonorrhoeae, CASSIDY Negative Normal Negative [facility] Comment on above: Performed By: #### C T/NGNA #### [facility] [address] [address] [address] Perri Burdick VAGINITIS/VAGINOSIS DNA PROB Jamar 12-01-2022 Nieves species Negative Normal Negative [facility] Comment on above: Performed By: #### V AGINT #### [facility] [address] [place] [address] Dr. Perri Burdick Gardnerella vaginalis Negative Normal Negative [facility] Comment on above: Performed By: #### V AGINT #### [facility] [address] [place] [address] Dr. Perri Burdick Trichomonas vaginalis Negative Normal Negative [facility] Comment on above: Performed By: #### V AGINT #### [facility] [address] [place] [address] Dr. Perri Burdick PAP ACOG PANEL 2: 21 to 29on 10-20-2022 . . Normal [facility] Comment on above: Performed By: #### [id number] #### [facility] [address] [place] [address] Dr. Perri Burdick Age Gdln ACOG Testing - Normal [facility] Comment on above: Performed By: #### [id number] #### [facility] [address] [place] [address] Dr. Perri Burdick DIAGNOSIS: Comment [facility] Comment on above: Result Comment: NEGA TIVE FOR INTRAEPITHELIAL LESION OR MALIGNANCY. Performed By: #### [id number] #### [facility] [address] [place] [address] Dr. Perri Burdick Methodology: Comment Normal [facility] Comment on above: Result Comment: This liquid based ThinPrep(R) pap test was screened with the use of an image guided system. Performed By: #### [id number] #### [facility] [address] [place] [address] Dr. Perri Burdick Note: Comment Normal [facility] Comment on above: Result Comment: The Pap smear is a screening test designed to aid in the detection of premalignant and malignant conditions of the uterine cervix. It is not a diagnostic procedure and should not be used as the sole means of detecting cervical cancer. Both false-positive and false-negative reports do occur. . Performed By: #### [id number] #### [facility] [address] [place] [address] Dr. Perri Burdick Performed by: Comment Normal [facility] Comment on above: Result Comment: Argentina Stoner, Operations Trainer (ASCP) Performed By: #### [id number] #### [facility] [address] [place] [address] Dr. Perri Burdick Reflex Criteria: Comment Normal [facility] Comment on above: Result Comment: The HPV DNA reflex criteria were not met with this specimen result therefore, no HPV testing was performed. . Performed By: #### [id number] #### [facility] [address] [place] [address] Dr. Perri Burdick Specimen adequacy: Comment [facility] Comment on above: Result Comment: Sati sfactory for evaluation. Endocervical and/or squamous metaplastic cells (endocervical component) are present. Performed By: #### [id number] #### [facility] [address] [place] [address] Dr. Perri Burdick COVID Quick Testingon 2020 Result Negative [employer] Other Vital Signs Date Time Vital Sign Value Performing Clinician Facility 11-09-2023 10:24-0500 Body mass index (BMI) [Ratio] 41.34 kg/m2 [employer] Work Phone: [facility] [place] [employer] 11-09-2023 10:24-0500 Body weight 102.51 kg [employer] Work Phone: [facility] 11-09-2023 10:24-0500 Diastolic blood pressure 72 mm[Hg] Alissa Nitin DO Work Phone: [facility] 11-09-2023 10:24-0500 Systolic blood pressure 118 mm[Hg] Alissa Nitin DO Work Phone: [facility] 07-22-2021 10:45-0400 Body height 157.48 cm Ana Paula Dubose Other [employer] Other 07-22-2021 10:45-0400 Body mass index (BMI) [Ratio] 38.59 kg/m2 Ana Paula Dubose Other [employer] Other 07-22-2021 10:45-0400 Body temperature 98 [degF] Ana Paula Dubose Other [employer] Other 07-22-2021 10:45-0400 Body weight 95.71 kg Ana Paula Dubose Other [employer] Other 07-22-2021 10:45-0400 Respiratory rate 18 /min Ana Paula Dubose Other [employer] Other 07-22-2021 10:45-0400 SaO2% (BldA) [Mass fraction] 97 % Ana Paula Dubose Other [employer] Other Encounters Encounter Date Encounter Type Care Provider Facility Start: 11-09-2023 End: 11-09-2023 ambulatory ALISSA BERTRANDO Not Available Start: 11-09-2023 End: 11-09-2023 Office outpatient visit 15 minutes Alissa Nitin DO Work Phone: [facility] Comment on above: Vaginal lump; Pain [...] (URG) Urgent Care Visit Ana Paula barney [facility] Plan of Treatment Date Care Activity Detail Author Start: 06-09-2023 Influenza vaccination Influenza Vacc ine (#1) [facility] CHLAMYDIA TRACHOMATI S (GENITO/STI) CHLAMYDIA TRACHOMATIS (GENITO/STI) Lab Routine Vaginal lump Pain in female genitalia on intercourse Ordered: 11/09/2023 [facility] Comment on above: Ordered: 11/09/2023 Neisseria gonorrhoea e DNA [Presence] in Unspecified specimen by CASSIDY with probe detection Neisseria gonorrhea DNA probe, direct Lab Routine Vaginal lump Pain in female genitalia on intercourse Ordered: 11/09/2023 [facility] Comment on above: Ordered: 11/09/2023 SURESWAB(R) ADVANCED VAGINITIS PLUS, TMA SURESWAB(R) ADVANCED VAGINITIS PLUS, TMA Pathology and Cytology Routine Vaginal lump Pain in female genitalia on intercourse Ordered: 11/09/2023 [facility] Work Phone: Comment on above: Ordered: 11/09/2023 Payers Date Payer Category Payer Unknown [id number] 2023 Unknown BCBS BCBS xxxxxx [id number] 2023-Present [phone] [address] [place] [address] [id number] 2022 Private Health Insurance [id number] 2022 Private Health Insurance [facility] [id number] 2022-Present [address] [place] [address] [id number] 2001 Unknown [id number] 93 2001 Unknown [id number] 93 2001 Unknown [id number] 93 2001 Unknown [id number] 93 2001 Unknown [id number] 93 2001 Unknown [id number] 93 2001 Unknown [id number] 259 2001 Unknown [id number] 259 2001 Unknown [id number] 259 1959 Self-pay [id number] 1959 Unknown [id number] Social History Date Type Detail Facility Start: 11-09-2023 Sex Assigned At [facility] [employer] Other Start: 2023 Tobacco smoking status NHIS Never smoked tobacco [facility] Start: 2023 Tobacco use and exposure Smokeless tobacco non-user [facility] Start: 11-09-2023 Alcohol intake Ex-drinker (finding) [facility] Start: 11-09-2023 History of Social function [facility] Start: 2001 Sex Assigned At Not on file N [facility] History of Present illness Narrative 11-09-2023 [...] Breakthrough bleeding on control pills Migraine syndrome ([facility]) Family History Problem Relation Name [...] nursing note reviewed. Exam conducted with a teacher associate present. Vitals: Estimated body mass index is [...] Alissa Taveras DO documented in this encounter [facility] Evaluation note 07-22-2021 Note Date [...] Patient care instructions given in writting by [facility] document. [employer] Other Evaluation note Note Date & Type Note Facility Evaluation note Diagnosis Vaginal lump Pain in female genitalia on intercourse Dyspareunia Soreness breast Mastodynia documented in this encounter [facility] History general Narrative - Reported Note Date & Type Note Facility History general Narrative - Reported Type Medical History Strain of lumbar region, initial encounter [employer] Other Summary Purpose Family History No Family History Records FoundNo Family History Records Found Advance Directives No Advanced Directives Records FoundNo Advanced Directives Records Found Additional Source Comments REASON FOR VISIT (unrecogniz ed section and content) Reason Comments vaginal lump, painful sex, sore breasts INFORMATION SOURCE (unrecogn ized section and content) DATE CREATED AUTHOR 12/23/2022 [facility] DATE CREATED AUTHOR AUTHOR'S ORGANIZ ATION 11/10/2023 [facility] EPIC Care Teams (unrecognized sec tion and content) Family Resource Management Specialist Relationship Specialty Start Date End Date Yinka Barrett DO [address] [place] [address] PCP - General Family Medicine 03/16/23 FOR [...] BE BASED ON THE PRIMARY CLINICAL RECORDS. [employer] provides no warranty or guarantee of the accuracy or completeness of information in this document.
--- NOTE | 2023-12-21 07:39 | ED_ITS ---
HPI - Weakness General Chief complaint: Weakness Stated complaint: general weakness Time Seen by Provider: 12/21/23 07:13 Source: patient Mode of arrival: walk-in Limitations: no limitations History of Present Illness HPI Narrative: 23-year-old female presents for weakness and nausea. 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 She did not have much time to eat or drink anything. When she got home she took a nap and then ate some spaghetti and then fell back asleep and slept all night. She is feeling weak and thinks she might be dehydrated. No respiratory symptoms, no cough or shortness of breath. She has not had a fever and has had no diarrhea. She is nauseous. Related Data Previous Rx's Medication Instructions Recorded ondansetron 4 mg disintegrating 4 mg PO Q6H PRN nausea and 12/21/23 tablet vomiting #20 tabs Allergies Allergy/AdvReac Type Severity Reaction Status Date / Time No Known Drug Allergies Allergy Verified 12/21/23 06:38 Review of Systems ROS Narrative A ten point review of systems is negative except as noted above. PFSH PFSH Social History Smoking status: Never smoker Exam Narrative Exam Narrative: Nurses note and vital signs reviewed and patient is not hypoxic. General: The patient appears well and in no apparent distress. Patient is resting comfortably on cart. Skin: Warm, dry, no pallor noted. There is no rash noted. Head: Normocephalic, atraumatic Eye: Normal conjunctiva, no drainage Ears, Nose, Mouth, and Throat: oral mucosa is moist. Nares patent. Cardiovascular: Regular Rate and Rhythm Respiratory: Patient is in no distress, no accessory muscle use, lungs are clear to auscultation, no wheezing, rales or rhonchi Back: non-tender GI: Soft and nontender nondistended Musculoskeletal: The patient has no evidence of calf tenderness, no pitting edema, symmetrical pulses noted bilaterally Neurological: A&O, normal speech Psychiatric: Cooperative Constitutional Vital Signs, click to edit/add: Last Vital Signs Temp 97.5 F L 12/21/23 06:36 Pulse 96 H 12/21/23 06:36 Resp 18 12/21/23 06:36 BP 111/75 12/21/23 06:36 Pulse Ox 99 12/21/23 06:36 O2 Del Method Room Air 12/21/23 06:36 Course Vital Signs Vital signs: Vital Signs Temperature 97.5 F L 12/21/23 06:36 Pulse Rate 96 H 12/21/23 06:36 Respiratory Rate 18 12/21/23 06:36 Blood Pressure 111/75 12/21/23 06:36 Pulse Oximetry 99 12/21/23 06:36 Oxygen Delivery Method Room Air 12/21/23 06:36 Temperature 97.5 F L 12/21/23 06:36 Pulse Rate 96 H 12/21/23 06:36 Respiratory Rate 18 12/21/23 06:36 Blood Pressure 111/75 12/21/23 06:36 Pulse Oximetry 99 12/21/23 06:36 Oxygen Delivery Method Room Air 12/21/23 06:36 MDM - Weakness MDM Narrative Medical decision making narrative: Her workup including test is negative. She is feeling improved and is able to be discharged home. Treatment diagnosis and follow-up were discussed with the patient. Differential Diagnosis Differential diagnosis: Likely dehydration and other (Viral illness) Lab Data Attestation: I reviewed the patient's lab results. Labs: Lab Results 12/21/23 Range/Units 07:50 WBC 8.2 (4.0-11.0) 10^3/uL RBC 4.62 (4.20-5.40) 10^6/uL Hgb 13.5 (12.0-16.0) g/dL Hct 41.6 (36.0-48.0) % MCV 90.0 (81.0-99.0) fL MCH 29.2 (26.7-34.0) pg MCHC 32.5 (29.9-35.2) g/dL RDW 12.8 (11.0-15.0) % Plt Count 294 (150-450) 10^3/uL MPV 10.3 (9.5-13.5) fL Neut % (Auto) 67.3 (43.0-75.0) % Lymph % (Auto) 23.1 (20.5-60.0) % [place] % (Auto) 7.5 (1.7-12.0) % Eos % (Auto) 1.5 (0.9-7.0) % Baso % (Auto) 0.2 (0.2-2.0) % Neut # (Auto) 5.5 (1.4-6.5) 10^3/uL Lymph # (Auto) 1.9 (1.2-3.8) 10^3/uL [place] # (Auto) 0.6 (0.3-0.8) 10^3/uL Eos # (Auto) 0.1 (0.0-0.7) 10^3/uL Baso # (Auto) 0.0 (0.0-0.1) 10^3/uL Abs Immat Gran (auto) 0.03 (0.00-0.03) 10^3/uL Imm/Tot Granulo (auto) 0.4 (0.0-0.5) % Sodium 140 (136-145) mmol/L Potassium 4.1 (3.5-5.1) mmol/L Chloride 104 (98-107) mmol/L Carbon Dioxide 28.6 (21.0-32.0) mmol/L Anion Gap 11.5 BUN 13.0 (7.0-18.0) mg/dL Creatinine 0.91 (0.55-1.02) mg/dL Est GFR ( Amer) >60 (>=60) Est GFR (Non-Af Amer) >60 (>=60) BUN/Creatinine Ratio 14.3 Glucose 99 (74-106) mg/dL Calcium 8.9 (8.5-10.1) mg/dL Serum HCG, Qual Negative (NEGATIVE) Discharge Plan Discharge Stand Alone Forms: Portal Instructions Chief Complaint: Weakness Clinical Impression: Viral illness Patient Disposition: Home, Self-Care Time of Disposition Decision: 08:55 Condition: Good Mode of Transportation: Private Vehicle Prescriptions / Home Meds: New ondansetron 4 mg tablet,disintegrating 4 mg PO Q6H PRN (Reason: nausea and vomiting) Qty: 20 0RF Instructions: Viral Syndrome (ED) Referrals: Ander Conway MD [Primary Care Provider] - 1 week
[2023-12-21] MEDS: 0.9 % SODIUM CHLORIDE 1,000 ML 1000 ML IV (07:57)
[2023-12-21] MEDS: ONDANSETRON PF 4 MG/2 ML VIAL IV (07:57)
[2023-12-21 08:02] LABS: Basophils Percent Auto 0.2 % (0.2-2.0); Eosinophils Absolute Auto 0.1 10^3/uL (0.0-0.7); Eosinophils Percent Auto 1.5 % (0.9-7.0); Hematocrit 41.6 % (36.0-48.0); Hemoglobin 13.5 g/dL (12.0-16.0); Immature Granulocytes Abs Auto 0.03 10^3/uL (0.00-0.03); Immature Granulocytes Pct Auto 0.4 % (0.0-0.5); Lymphocytes Absolute Auto 1.9 10^3/uL (1.2-3.8); Lymphocytes Percent Auto 23.1 % (20.5-60.0); Mean Corpuscular HGB Conc 32.5 g/dL (29.9-35.2); Mean Corpuscular Hemoglobin 29.2 pg (26.7-34.0); Mean Platelet Volume 10.3 fL (9.5-13.5); Monocytes Absolute Auto 0.6 10^3/uL (0.3-0.8); Monocytes Percent Auto 7.5 % (1.7-12.0); Neutrophils Absolute Auto 5.5 10^3/uL (1.4-6.5); Neutrophils Percent Auto 67.3 % (43.0-75.0); Platelet Count 294 10^3/uL (150-450); Red Blood Count 4.62 10^6/uL (4.20-5.40); Red Cell Distribution Width 12.8 % (11.0-15.0); White Blood Count 8.2 10^3/uL (4.0-11.0)
[2023-12-21 08:11] LABS: Anion Gap 11.5; BUN Creatinine Ratio 14.3; Calcium 8.9 mg/dL (8.5-10.1); Carbon Dioxide 28.6 mmol/L (21.0-32.0); Chloride 104 mmol/L (98-107); Estimated GFR (African America >60 (>=60); Estimated GFR (Non-African Ame >60 (>=60); Glucose 99 mg/dL (74-106); Potassium 4.1 mmol/L (3.5-5.1); Sodium 140 mmol/L (136-145)
[2023-12-21 08:16] LABS: HCG Qualitative NEGATIVE (NEGATIVE)
== END 2023-12-21 09:30 | disposition home or self-care (01) ==
PROVIDERS: Emergency Provider Emergency Medicine; PCP Family Medicine
DX: B34.9 Viral infection, unspecified (principal)
CPT/HCPCS: 36415; 80048; 84703; 85025; 96374; 99284

== ENCOUNTER 2023-12-31 00:31 | Emergency (ER) | payer OTHER, BC, SELFPAY ==
[2023-12-31] VITALS (8 sets, daily range): BP systolic 85–114; BP diastolic 62–77; PULSE 99–120; RESP 16–20; TEMP 37.7–39.4; O2SAT 95–97; BMI 44.4
--- OUTSIDE RECORDS SUMMARY | 2023-12-31 00:38 | XMS_ITS | CCD ---
Author Organization [facility] Care Team Providers Care Pitch Flaker Name Role Phone Ana Paula Dubose Unavailable [...] CHAUDHARY Admitting Unavailable PEACE CHAUDHARY Attending Unavailable PAECE CHAUDHARY Consulting Unavailable AL CHURCH Consulting Unavailable HOY ., DR LOWRY Admitting Unavailable HOY ., DR LOWRY Attending Unavailable HOY ., DR LOWRY Primary Care Unavailable ALISSA TAVERAS Attending Unavailable MAYRA PAYAN Attending Unavailable MAYRA PAYAN Attending Unavailable Yinka Barrett DO Primary Care Provider Medications Current Medications Medication Drug Class(es) Dates Sig (Normalized) Sig (Original) [id number] 200 actuat albuterol 0.09 mg/actuat metered dose [...] Amylase [Catalytic activity/Vol] 43 U/L Normal 25-115 [facility] Comment on above: Performed By: #### A MY, LIPA, CMP #### [facility] [address] [place] [address] Dr. Perri Burdick CBC AUTO DIFFon 12-20-2022 BASO # 0.0 103/ul Normal 0.0-0.1 [facility] Comment on above: Performed By: #### C BC #### [facility] [address] [place] [address] Dr. Perri Burdick Basophils/100 WBC (Bld) 0.3 % Normal 0.2-2.0 [facility] Comment on above: Performed By: #### C BC #### [facility] [address] [place] [address] Dr. Perri Burdick EO # 0.1 103/ul Normal 0.0-0.7 [facility] Comment on above: Performed By: #### C BC #### [facility] [address] [place] [address] Dr. Perri Burdick Eosinophils/100 WBC (Bld) 1.3 % Normal 0.9-7.0 [facility] Comment on above: Performed By: #### C BC #### [facility] [address] [place] [address] Dr. Perri Burdick Erythrocyte distribution width (RBC) [Ratio] 12.8 % Normal 11.0-15.0 [facility] Comment on above: Performed By: #### C BC #### [facility] [address] [place] [address] Dr. Perri Burdick Hematocrit (Bld) [Volume fraction] 42.5 % Normal 36.0-48.0 [facility] Comment on above: Performed By: #### C BC #### [facility] [address] [place] [address] Dr. Perri Burdick Hemoglobin (Bld) [Mass/Vol] 14.2 g/dL Normal 12.0-16.0 [facility] Comment on above: Performed By: #### C BC #### [facility] [address] [place] [address] Dr. Perri Burdick IG # 0.03 10e3/ul Normal 0.00-0.03 [facility] Comment on above: Performed By: #### C BC #### [facility] [address] [place] [address] Dr. Perri Burdick IG % 0.3 % Normal 0.0-0.5 [facility] Comment on above: Performed By: #### C BC #### [facility] [address] [place] [address] Dr. Perri Burdick LYMPH # 2.8 103/ul Normal 1.2-3.8 [facility] Comment on above: Performed By: #### C BC #### [facility] [address] [place] [address] Dr. Perri Burdick Lymphocytes/100 WBC (Bld) 29.9 % Normal 20.5-60.0 [facility] Comment on above: Performed By: #### C BC #### [facility] [address] [place] [address] Dr. Perri Burdick MANUAL DIFF REQ NO Normal [facility] Comment on above: Performed By: #### C BC #### [facility] [address] [place] [address] Dr. Perri Burdick MCH (RBC) [Entitic mass] 29.0 pg Normal 26.7-34.0 [facility] Comment on above: Performed By: #### C BC #### [facility] [address] [place] [address] Dr. Perri Burdick MCHC (RBC) [Mass/Vol] 33.4 g/dL Normal 29.9-35.2 [facility] Comment on above: Performed By: #### C BC #### [facility] [address] [place] [address] Dr. Perri uBrdick MCV (RBC) [Entitic vol] 86.9 fL Normal 81.0-99.0 [facility] Comment on above: Performed By: #### C BC #### [facility] [address] [place] [address] Dr. Perri Burdick MONO # 0.6 103/ul Normal 0.3-0.8 [facility] Comment on above: Performed By: #### C BC #### [facility] [address] [place] [address] Dr. Perri Burdick Monocytes/100 WBC (Bld) 6.6 % Normal 1.7-12.0 [facility] Comment on above: Performed By: #### C BC #### [facility] [address] [place] [address] Dr. Perri Burdick NEUT # 5.8 103/ul Normal 1.4-6.5 [facility] Comment on above: Performed By: #### C BC #### [facility] [address] [place] [address] Dr. Perri Burdick Neutrophils/100 WBC (Bld) 61.6 % Normal 43.0-75.0 [facility] Comment on above: Performed By: #### C BC #### [facility] [address] [place] [address] Dr. Perri Burdick Platelet mean volume (Bld) [Entitic vol] 10.5 fL Normal 9.5-13.5 [facility] Comment on above: Performed By: #### C BC #### [facility] [address] [place] [address] Dr. Perri Burdick PLT 263 103/ul Normal 150-450 [facility] Comment on above: Performed By: #### C BC #### [facility] [address] [place] [address] Dr. Perri Burdick RBC 4.89 106/ul Normal 4.20-5.40 [facility] Comment on above: Performed By: #### C BC #### [facility] [address] [place] [address] Dr. Perri Burdick WBC 9.5 103/ul Normal 4.0-11.0 [facility] Comment on above: Performed By: #### C BC #### [facility] [address] [place] [address] Dr. Perri Burdick ER URINE PROFILEon 03-14-202 3 Bilirubin Ql (U) Negative Normal NEGATIVE [facility] Comment on above: Performed By: #### P REGU, ERUR #### [facility] [address] [address] [address] Perri Burdick Clarity (U) CLEAR Normal CLEAR [facility] Comment on above: Performed By: #### P REGU, ERUR #### [facility] [address] [address] [address] Perri Burdick Color (U) LT. YELLOW Normal YELLOW [facility] Comment on above: Performed By: #### P REGU, ERUR #### [facility] [address] [place] [address] Dr. Perri CABRALD A micrscopic examination will be performed if indicated. Normal [facility] Comment on above: Performed By: #### P REGU, ERUR #### [facility] [address] [place] [address] Dr. Perri Burdick Glucose Ql (U) Negative Normal NEGATIVE [facility] Comment on above: Performed By: #### P REGU, ERUR #### [facility] [address] [place] [address] Dr. Perri Burdick Hemoglobin Ql (U) Negative Normal NEGATIVE [facility] Comment on above: Performed By: #### P REGU, ERUR #### [facility] [address] [place] [address] Dr. Perri Burdick Ketones Ql (U) Negative Normal NEGATIVE [facility] Comment on above: Performed By: #### P REGU, ERUR #### [facility] [address] [address] [address] Perri Burdick LEUKOCYTES Negative Normal NEGATIVE [facility] Comment on above: Performed By: #### P REGU, ERUR #### [facility] [address] [place] [address] Dr. Perri Burdick Nitrite Ql (U) Negative Normal NEGATIVE [facility] Comment on above: Performed By: #### P REGU, ERUR #### [facility] [address] [place] [address] Dr. Perri Burdick pH (U) 6.0 [pH] Normal 5-9 [facility] Comment on above: Performed By: #### P REGU, ERUR #### [facility] [address] [place] [address] Dr. Perri Burdick SPEC GRAVITY 1.025 Normal 1.005-<=1.025 [facility] Comment on above: Performed By: #### P REGU, ERUR #### [facility] [address] [place] [address] Dr. Perri Burdick UA PROTEIN Negative Normal NEGATIVE/ TRACE [facility] Comment on above: Performed By: #### P REGU, ERUR #### [facility] [address] [place] [address] Dr. Perri Burdick UR MICRO IND NOT INDICATED Normal [facility] Comment on above: Performed By: #### P REGU, ERUR #### [facility] [address] [place] [address] Dr. Perri Burdick Urobilinogen Qn (U) 0.2 {Brody'U}/dL Normal 0.2 - 1.0 [facility] Comment on above: Performed By: #### P REGU, ERUR #### [facility] [address] [place] [address] Dr. Perri Burdick LIPASEon 12-20-2022 Lipase [Catalytic activity/Vol] 134.0 U/L Normal 73.0-393.0 [facility] Comment on above: Performed By: #### A MY, LIPA, CMP #### [facility] [address] [place] [address] Dr. Perri Burdick URon 12-20-2022 , QUAL Negative Normal NEGATIVE [facility] Comment on above: Performed By: #### P REGU, ERUR #### [facility] [address] [place] [address] Dr. Perri Burdick PROF 14(COMP METB)on 023 Albumin [Mass/Vol] 3.8 g/dL Normal 3.4-5.0 [facility] Comment on above: Performed By: #### A MY, LIPA, CMP #### [facility] [address] [address] [address] Perri Burdick Albumin/Globulin [Mass ratio] 1.2 {ratio} Normal [facility] Comment on above: Performed By: #### A MY, LIPA, CMP #### [facility] [address] [address] [address] Perri Burdick ALP [Catalytic activity/Vol] 138 U/L Critically high 46-116 [facility] Comment on above: Performed By: #### A MY, LIPA, CMP #### [facility] [address] [address] [address] Perri Burdick ALT [Catalytic activity/Vol] 23 U/L Normal 14-59 [facility] Comment on above: Performed By: #### A MY, LIPA, CMP #### [facility] [address] [address] [address] Perri Burdick Anion gap [Moles/Vol] 10.3 mmol/L Normal [facility] Comment on above: Performed By: #### A MY, LIPA, CMP #### [facility] [address] [address] [address] Perri Burdick AST [Catalytic activity/Vol] 17 U/L Normal 15-37 [facility] Comment on above: Performed By: #### A MY, LIPA, CMP #### [facility] [address] [address] [address] Perri Burdick Bilirubin [Mass/Vol] 0.2 mg/dL Normal 0.2-1.0 [facility] Comment on above: Performed By: #### A MY, LIPA, CMP #### [facility] [address] [address] [address] Perri Burdick Calcium [Mass/Vol] 9.2 mg/dL Normal 8.5-10.1 [facility] Comment on above: Performed By: #### A MY, LIPA, CMP #### [facility] [address] [address] [address] Perri Burdick Chloride [Moles/Vol] 105 mmol/L Normal 98-107 [facility] Comment on above: Performed By: #### A MEDARDO HOA, CMP #### [facility] [address] [address] [address] Perri Burdick CO2 [Moles/Vol] 27.3 mmol/L Normal 21.0-32.0 [facility] Comment on above: Performed By: #### A [place] LIPA, CMP #### [facility] [address] [address] [address] Perri Burdick Creatinine [Mass/Vol] 0.82 mg/dL Normal 0.55-1.02 [facility] Comment on above: Performed By: #### A MEDARDO HOA, CMP #### [facility] [address] [place] [address] Dr. Perri Burdick EGFR-AF KITTITIAN >60 Normal >=60 [facility] Comment on above: Performed By: #### A [place] LIPA, CMP #### [facility] [address] [place] [address] Dr. Perri Burdick EGFR-NON AF KITTITIAN >60 Normal >=60 [facility] Comment on above: Performed By: #### A KENDALL HO, CMP #### [facility] [address] [place] [address] Dr. Perri Burdick Globulin (S) [Mass/Vol] 3.3 g/dL Normal [facility] Comment on above: Performed By: #### A MEDARDO HOA, CMP #### [facility] [address] [address] [address] Perri Burdick Glucose [Mass/Vol] 117 mg/dL Critically high 74-106 [facility] Comment on above: Performed By: #### A KENDALL HO, CMP #### [facility] [address] [place] [address] Dr. Perri Burdick Potassium [Moles/Vol] 3.6 mmol/L Normal 3.5-5.1 [facility] Comment on above: Performed By: #### A [place] LIPA, CMP #### [facility] [address] [place] [address] Dr. Perri Burdick Protein [Mass/Vol] 7.1 g/dL Normal 6.4-8.2 [facility] Comment on above: Performed By: #### A KENDALL HO, CMP #### [facility] [address] [address] [address] Perri Burdick Sodium [Moles/Vol] 139 mmol/L Normal 136-145 [facility] Comment on above: Performed By: #### A KENDALL HO, CMP #### [facility] [address] [address] [address] Perri Burdick Urea nitrogen [Mass/Vol] 15.0 mg/dL Normal 7.0-18.0 [facility] Comment on above: Performed By: #### A KENDALL HO, CMP #### [facility] [address] [address] [address] Perri Burdick Urea nitrogen/Creatini ne [Mass ratio] 18.3 mg/mg Normal [facility] Comment on above: Performed By: #### A KENDALL HO, CMP #### [facility] [address] [address] [address] Perri Burdick XR ABD FLAT UP_PA [...] [place] CHURCH Date: 2022-12-20 04:52 Normal [facility] CHLAMYDIA/GONOCOCCUS CASSIDY (SW AB/URINE/PAPon 12-01-2022 Chlamydia trachomatis, CASSIDY Negative Normal Negative [facility] Comment on above: Performed By: #### C T/NGNA #### [facility] [address] [address] [address] Perri Burdick Neisseria gonorrhoeae, CASSIDY Negative Normal Negative [facility] Comment on above: Performed By: #### C T/NGNA #### [facility] [address] [address] [address] Perri Burdick VAGINITIS/VAGINOSIS DNA PROB Jamar 12-01-2022 Nieves species Negative Normal Negative [facility] Comment on above: Performed By: #### V AGINT #### [facility] [address] [place] [address] Dr. Perri Burdick Gardnerella vaginalis Negative Normal Negative [facility] Comment on above: Performed By: #### V AGINT #### [facility] [address] [place] [address] Dr. Perri Burdick Trichomonas vaginalis Negative Normal Negative [facility] Comment on above: Performed By: #### V AGINT #### [facility] [address] [place] [address] Dr. Perri Burdick PAP ACOG PANEL 2: 21 to 29on 10-20-2022 . . Normal [facility] Comment on above: Performed By: #### [id number] #### [facility] [address] [place] [address] Dr. Perri Burdick Age Gdln ACOG Testing 22- Normal [facility] Comment on above: Performed By: #### [id number] #### [facility] [address] [place] [address] Dr. Perri Burdick DIAGNOSIS: Comment Normal [facility] Comment on above: Result Comment: NEGA TIVE FOR INTRAEPITHELIAL LESION OR MALIGNANCY. Performed By: #### 4 [id number] #### [facility] [address] [place] [address] Dr. Perri Burdick Methodology: Comment Normal [facility] Comment on above: Result Comment: This liquid based ThinPrep(R) pap test was screened with the use of an image guided system. Performed By: #### [id number] #### [facility] [address] [place] [address] Dr. Perri Burdick Note: Comment Normal [facility] Comment on above: Result Comment: The Pap smear is a screening test designed to aid in the detection of premalignant and malignant conditions of the uterine cervix. It is not a diagnostic procedure and should not be used as the sole means of detecting cervical cancer. Both false-positive and false-negative reports do occur. . Performed By: #### [id number] #### [facility] [address] [place] [address] Dr. Perri Burdick Performed by: Comment Normal [facility] Comment on above: Result Comment: Argentina Stoner, Community Relations Officer (ASCP) Performed By: #### 4 [id number] #### [facility] [address] [place] [address] Dr. Perri Burdick Reflex Criteria: Comment Normal [facility] Comment on above: Result Comment: The HPV DNA reflex criteria were not met with this specimen result therefore, no HPV testing was performed. . Performed By: #### 4 [id number] #### [facility] [address] [place] [address] Dr. Perri Burdick Specimen adequacy: Comment Normal [facility] Comment on above: Result Comment: Sati sfactory for evaluation. Endocervical and/or squamous metaplastic cells (endocervical component) are present. Performed By: #### 4 [id number] #### [facility] [address] [place] [address] Dr. Perri Burdick COVID Quick Testingon 2020 Result Negative [facility] Other Vital Signs Date Time Vital Sign Value Performing Clinician Facility 11-09-2023 10:24-0500 Body mass index (BMI) [Ratio] 41.34 kg/m2 [employer] Work Phone: [facility] [employer] 11-09-2023 10:24-0500 Body weight 102.51 kg [employer] Work Phone: [facility] 11-09-2023 10:24-0500 Diastolic blood pressure 72 mm[Hg] Alissa Nitin DO Work Phone: [facility] 11-09-2023 10:24-0500 Systolic blood pressure 118 mm[Hg] Alissa Nitin DO Work Phone: [facility] 07-22-2021 10:45-0400 Body height 157.48 cm Ana Paula Dubose Other [facility] Other 07-22-2021 10:45-0400 Body mass index (BMI) [Ratio] 38.59 kg/m2 Ana Paula Dubose Other [facility] Other 07-22-2021 10:45-0400 Body temperature 98 [degF] Ana Paula Dubose Other [facility] Other 07-22-2021 10:45-0400 Body weight 95.71 kg Ana Paula Dubose Other [facility] Other 07-22-2021 10:45-0400 Respiratory rate 18 /min Ana Paula Dubose Other [facility] Other 07-22-2021 10:45-0400 SaO2% (BldA) [Mass fraction] 97 % Ana Paula Dubose Other [facility] Other Encounters Encounter Date Encounter Type Care Provider Facility Start: 11-09-2023 End: 11-09-2023 ambulatory ALISSA BERTRANDO Not Available Start: 11-09-2023 End: 11-09-2023 Office outpatient visit 15 minutes Alissa Nitin DO Work Phone: [facility] Comment on above: Vaginal lump; Pain [...] (URG) Urgent Care Visit Ana Paula barney [facility] Plan of Treatment Date Care Activity Detail Author Start: 06-09-2023 Influenza vaccination Influenza Vacc ine (#1) [facility] CHLAMYDIA TRACHOMATI S (GENITO/STI) CHLAMYDIA TRACHOMATIS (GENITO/STI) Lab Routine Vaginal lump Pain in female genitalia on intercourse Ordered: 11/09/2023 [facility] Comment on above: Ordered: 11/09/2023 Neisseria gonorrhoea e DNA [Presence] in Unspecified specimen by CASSIDY with probe detection Neisseria gonorrhea DNA probe, direct Lab Routine Vaginal lump Pain in female genitalia on intercourse Ordered: 11/09/2023 [facility] Comment on above: Ordered: 11/09/2023 SURESWAB(R) ADVANCED VAGINITIS PLUS, TMA SURESWAB(R) ADVANCED VAGINITIS PLUS, TMA Pathology and Cytology Routine Vaginal lump Pain in female genitalia on intercourse Ordered: 11/09/2023 [facility] Work Phone: Comment on above: Ordered: 11/09/2023 Payers Date Payer Category Payer Unknown [id number] 2023 Unknown BCBS BCBS xxxxxx [id number] 2023-Present [phone] [address] [place] [address] [id number] 2022 Private Health Insurance [id number] 2022 Private Health Insurance XAVIER CARRANZA [facility] [id number] 2022-Present [address] [place] [address] [id number] 2001 Unknown [id number] 93 2001 Unknown [id number] 93 2001 Unknown [id number] 93 2001 Unknown [id number] 93 2001 Unknown [id number] 93 2001 Unknown [id number] 93 2001 Unknown [id number] 259 2001 Unknown [id number] 259 2001 Unknown [id number] 259 1959 Self-pay [id number] 1959 Unknown [id number] Social History Date Type Detail Facility Start: 11-09-2023 Sex Assigned At N [facility] [employer] Other Start: 2023 Tobacco smoking status [facility] Never smoked tobacco [facility] Start: 2023 Tobacco use and exposure Smokeless tobacco non-user [facility] Start: 11-09-2023 Alcohol intake Ex-drinker (finding) [facility] Start: 11-09-2023 History of Social function [facility] Start: 2001 Sex Assigned At Not on file N 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 Exam conducted with a bottle assembler present. Vitals: Estimated body mass index is [...] Alissa Taveras DO documented in this encounter [facility] Healthcare Evaluation note 07-22-2021 Note Date & [...] Patient care instructions given in writting by [facility] Care At Home document. [facility] Other Evaluation note Note Date & Type Note Facility Evaluation note Diagnosis Vaginal lump Pain in female genitalia on intercourse Dyspareunia Soreness breast Mastodynia documented in this encounter [facility] History general Narrative - Reported Note Date & Type Note Facility History general Narrative - Reported Type Medical History Strain of lumbar region, initial encounter [facility] Other Summary Purpose Family History No Family [...] DATE CREATED AUTHOR AUTHOR'S ORGANIZ ATION 11/10/2023 [facility] [employer] Care Teams (unrecognized sec tion and content) Pitch Flaker Relationship Specialty Start Date End Date Yinka Barrett DO [address] [place] [address] PCP - General Family Medicine 03/16/23 FOR [...] BE BASED ON THE PRIMARY CLINICAL RECORDS. [employer] provides no warranty or guarantee of the accuracy or completeness of information in this document.
--- NOTE | 2023-12-31 00:53 | ED_ITS ---
HPI - URI/Sore Throat General Chief Complaint: Upper Respiratory Infection Stated Complaint: fever Time Seen by Provider: 12/31/23 00:44 Source: patient Limitations: no limitations History of Present Illness HPI Narrative: patient states she has been exposed to the flu. Presents with one day history of headache, bodyaches and cough. Not short of breath. Has nausea but no abdominal pain or urinary symptoms Related Data Allergies Allergy/AdvReac Type Severity Reaction Status Date / Time No Known Drug Allergies Allergy Verified 12/31/23 00:42 Review of Systems ROS Status of ROS 10 or more systems reviewed and unremark able except as noted in history and below [facility] Social History Smoking status: Never smoker Exam Constitutional Vital Signs, click to edit/add: Last Vital Signs Temp 99.8 F 12/31/23 04:12 Pulse 99 H 12/31/23 04:12 Resp 16 12/31/23 04:12 BP 114/77 12/31/23 03:05 Pulse Ox 96 12/31/23 04:12 O2 Del Method Room Air 12/31/23 04:12 Common normals: no apparent distress, average body habitus, oriented x3, no limitations, healthy appearing, alert and well nourished [facility] Common normals: normocephalic and head/scalp atraumatic Eye Common normals: EOMs intact bilaterally and conjunctivae normal Respiratory Common normals: normal respiratory effort, no retractions, no use of accessory muscles and clear to auscultation bilaterally Cardio Common normals: regular rate, regular rhythm, S1 normal heart sound and S2 normal heart sound GI Common normals: Normal to inspection, nondistended, normoactive bowel sounds present, soft to palpation and non-tender Extremity Common normals: normal to inspection and full ROM Neuro Common normals: oriented x3, CN's II-XII intact bilaterally, moves all extremities and no focal motor deficits Psych Appearance: grossly normal Course Vital Signs Vital signs: Vital Signs Temperature 102.9 F H 12/31/23 00:37 Pulse Rate 119 H 12/31/23 00:37 Respiratory Rate 20 12/31/23 00:37 Blood Pressure 98/73 12/31/23 00:37 Pulse Oximetry 96 12/31/23 00:37 Oxygen Delivery Method Room Air 12/31/23 00:37 Temperature 99.8 F 12/31/23 04:12 Pulse Rate 99 H 12/31/23 04:12 Respiratory Rate 16 12/31/23 04:12 Blood Pressure 114/77 12/31/23 03:05 Pulse Oximetry 96 12/31/23 04:12 Oxygen Delivery Method Room Air 12/31/23 04:12 MDM - URI/Sore Throat MDM Narrative Medical decision making narrative: patient exposed to influenza. presents with body aches, headache and nausea .mild cough. Not short of breath. Cxray clear and swabs for COVID and influenza neg patients labs are all normal. Patient advised of diagnosis of viral syndrome and discharged home Lab Data Labs: Lab Results 12/31/23 12/31/23 Range/Units 00:45 01:10 WBC 6.4 (4.0-11.0) 10^3/uL RBC 4.35 (4.20-5.40) 10^6/uL Hgb 12.6 (12.0-16.0) g/dL Hct 38.6 (36.0-48.0) % MCV 88.7 (81.0-99.0) fL MCH 29.0 (26.7-34.0) pg MCHC 32.6 (29.9-35.2) g/dL RDW 12.7 (11.0-15.0) % Plt Count 251 (150-450) 10^3/uL MPV 10.4 (9.5-13.5) fL Seg Neuts % (Manual) 83.0 Lymphocytes % (Manual) 5.0 L (20.5-60.0) % Atypical Lymphs % (Man) 3.0 % Monocytes % (Manual) 10.0 (1.7-12.0) % Eosinophils % (Manual) 0.0 L (0.9-7.0) % Basophils % (Manual) 0.0 L (0.2-2.0) % Neutrophils # (Manual) 5.31 (1.4-6.5) 10^3/uL Lymphocytes # (Manual) 0.32 L (1.20-3.80) 10^3/uL Abs Atypical Lymphs Man 0.19 Monocytes # (Manual) 0.64 (0.30-0.80) 10^3/uL Eosinophils # (Manual) 0.00 (0.00-0.70) 10^3/uL Basophils # (Manual) 0.00 (0.00-0.10) 10^3/uL Sodium 136 (136-145) mmol/L Potassium 3.8 (3.5-5.1) mmol/L Chloride 101 (98-107) mmol/L Carbon Dioxide 25.5 (21.0-32.0) mmol/L Anion Gap 13.3 BUN 12.0 (7.0-18.0) mg/dL Creatinine 0.98 (0.55-1.02) mg/dL Est GFR ( Amer) >60 (>=60) Est GFR (Non-Af Amer) >60 (>=60) BUN/Creatinine Ratio 12.2 Glucose 102 (74-106) mg/dL Lactate 1.0 (0.4-2.0) mmol/L Calcium 8.7 (8.5-10.1) mg/dL Total Bilirubin 0.4 (0.2-1.0) mg/dL AST 17 (15-37) U/L ALT 22 (14-59) U/L Alkaline Phosphatase 80 (46-116) U/L Total Protein 7.2 (6.4-8.2) g/dL Albumin 3.4 (3.4-5.0) g/dL Globulin 3.8 g/dL Albumin/Globulin Ratio 0.9 Urine Color Yellow (YELLOW) Urine Clarity Clear (CLEAR) Urine pH 6.0 (5.0-9.0) Ur Specific [place] >=1.030 A (1.005-1.025) Urine Protein Negative (NEG/TRACE) mg/dL Urine Glucose (UA) Negative (NEGATIVE) mg/dL Urine Ketones Negative (NEGATIVE) mg/dL Urine Occult Blood Trace-i (NEGATIVE) Urine Nitrite Negative (NEGATIVE) Urine Bilirubin Negative (NEGATIVE) Urine Urobilinogen 0.2 (0.2-1.0) EU/dL Ur Leukocyte Esterase Negative (NEGATIVE) Urine RBC 0-2 (0-2) #/HPF Urine WBC None seen (NONE SEEN) #/HPF Ur Squamous Epith Cells Rare (NONE/RARE) #/LPF Urine Crystals None seen (None Seen) #/HPF Urine Bacteria None seen (NONE SEEN) #/HPF Urine Casts None seen (NONE SEEN) #/LPF Urine Mucus None seen (NONE SEEN) Ur Culture Indicated? No Influenza Type A Ag Negative Influenza Type B Ag Negative SARS-CoV-2 Ag (CV2AG) Negative (NEGATIVE) Imaging Data Chest x-ray: Radiologist's impression: ITS Impressions Chest X-Ray 12/31/23 00:55 Impression: No acute cardiopulmonary process. Electronically authenticated by: ZAC NUÑEZ Date: 12/31/2023 01:52 Discharge Plan Discharge Stand Alone Forms: Portal Instructions Chief Complaint: Upper Respiratory Infection Clinical Impression: Viral illness Patient Disposition: Home, Self-Care Print Language: Macedonian Instructions: Viral Syndrome (ED) Referrals: Ander Conway MD [Primary Care Provider] - 1 week
--- NOTE | 2023-12-31 00:55 | XR_ITS ---
The [address] [address] Patient Name: JET CHIANG MRN: [id number] date: 2000 Sex: F Assigned Patient Location: ER Current Patient Location: ER Accession/Order Number: [id number] Exam Date: 12/31/2023 01:14 Report Date: 12/31/2023 01:52 At the request of: PEACE CHAUDHARY Procedure: XR chest 1V XR chest 1V 12/31/2023 12:14 AM CDT: History: cough Comparison: None. Technique: 1 view chest Findings: The cardiomediastinal silhouette is normal. The lungs are clear without infiltrate, effusion, or pneumothorax. The bones are intact. XR/XR chest 1V Impression: No acute cardiopulmonary process. Electronically authenticated by: ZAC NUÑEZ Date: 12/31/2023 01:52
[2023-12-31] MEDS: 0.9 % SODIUM CHLORIDE 1,000 ML 999 ML IV ×2 (01:23→03:21)
[2023-12-31] MEDS: ONDANSETRON PF 4 MG/2 ML VIAL IV (01:24)
[2023-12-31 01:30] LABS: Bilirubin Urine NEGATIVE (NEGATIVE); Blood Urine TRACE-I (NEGATIVE); Clarity Urine CLEAR (CLEAR); Color Urine YELLOW (YELLOW); Glucose Urine UA NEGATIVE (NEGATIVE); Hematocrit 38.6 % (36.0-48.0); Hemoglobin 12.6 g/dL (12.0-16.0); Ketones Urine NEGATIVE (NEGATIVE); Leukocyte Esterase Urine NEGATIVE (NEGATIVE); Mean Corpuscular HGB Conc 32.6 g/dL (29.9-35.2); Mean Corpuscular Volume 88.7 fL (81.0-99.0); Mean Platelet Volume 10.4 fL (9.5-13.5); Nitrite Urine NEGATIVE (NEGATIVE); Platelet Count 251 10^3/uL (150-450); Protein Urine NEGATIVE (NEG/TRACE); Red Blood Count 4.35 10^6/uL (4.20-5.40); Red Cell Distribution Width 12.7 % (11.0-15.0); Specific Gravity Urine >=1.030 (1.005-1.025); Urobilinogen Urine 0.2 EU/dL (0.2-1.0); White Blood Count 6.4 10^3/uL (4.0-11.0)
[2023-12-31 01:33] LABS: Urine Microscopic Indicated YES
[2023-12-31 01:42] LABS: Bacteria Urine NONE SEEN #/HPF (NONE SEEN); Cast Seen? NONE SEEN #/LPF (NONE SEEN); Crystals Seen? None Seen #/HPF (None Seen); Mucus Urine NONE SEEN (NONE SEEN); RBC Urine 0-2 #/HPF (0-2); Squamous Epithelial Cell Urine RARE #/LPF (NONE/RARE); Urine Culture Indicated NO; WBC Urine NONE SEEN #/HPF (NONE SEEN)
[2023-12-31 01:54] LABS: Influenza Virus A Antigen Negative; Influenza Virus B Antigen Negative; Internal Control Within Normal Limits; SARS-CoV-2 Ag NEGATIVE (NEGATIVE)
[2023-12-31 02:00] LABS: Atypical Lymphocytes Abs Man 0.19; Lymphocytes Absolute Manual 0.32 10^3/uL (1.20-3.80); Monocytes Absolute Manual 0.64 10^3/uL (0.30-0.80); Segmented Neut Absolute Manual 5.31 10^3/uL (1.4-6.5)
[2023-12-31 02:01] LABS: Alanine Aminotransferase 22 U/L (14-59); Albumin Globulin Ratio 0.9; Albumin Level 3.4 g/dL (3.4-5.0); Alkaline Phosphatase 80 U/L (46-116); Anion Gap 13.3; Aspartate Amino Transferase 17 U/L (15-37); BUN Creatinine Ratio 12.2; Bilirubin Total 0.4 mg/dL (0.2-1.0); Calcium 8.7 mg/dL (8.5-10.1); Carbon Dioxide 25.5 mmol/L (21.0-32.0); Chloride 101 mmol/L (98-107); Estimated GFR (African America >60 (>=60); Estimated GFR (Non-African Ame >60 (>=60); Globulin 3.8 g/dL; Glucose 102 mg/dL (74-106); Potassium 3.8 mmol/L (3.5-5.1); Sodium 136 mmol/L (136-145); Total Protein 7.2 g/dL (6.4-8.2)
[2023-12-31] MEDS: ACETAMINOPHEN 500 MG TABLET 1000 MG PO (02:08)
[2023-12-31] MEDS: IBUPROFEN 400 MG TABLET 800 MG PO (03:23)
== END 2023-12-31 04:28 | disposition home or self-care (01) ==
PROVIDERS: Emergency Provider Internal Medicine; PCP Family Medicine
DX: B34.9 Viral infection, unspecified (principal); Z20.822 Contact with and (suspected) exposure to COVID-19
CPT/HCPCS: 36415; 71045; 80053; 81001; 83605; 85007; 85027; 87040; 87804; 87811; 96374; 99284

== ENCOUNTER 2024-04-05 06:19 | Emergency (ER) | payer OTHER, BC, SELFPAY ==
[2024-04-05 06:23] VITALS: BP 113/82; PULSE 82; TEMP 36.6; O2SAT 99; BMI 40.6
--- OUTSIDE RECORDS SUMMARY | 2024-04-05 06:26 | XMS_ITS | CCD ---
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 Perri Burdick CBC AUTO DIFFon 12-20-2022 BASO # 0.0 103/ul Normal 0.0-0.1 [facility] Comment on above: Performed By: #### C BC #### [facility] [address] [place] [address] Dr. Perri Burdick Basophils/100 WBC (Bld) 0.3 % Normal 0.2-2.0 [facility] Comment on above: Performed By: #### C BC #### [facility] [address] [place] [address] Dr. Perri Burdick EO # 0.1 103/ul Normal 0.0-0.7 [facility] Comment on above: Performed By: #### C BC #### [facility] [address] [place] [address] Dr. Perri Burdick Eosinophils/100 WBC (Bld) 1.3 % Normal 0.9-7.0 [facility] Comment on above: Performed By: #### C BC #### [facility] [address] [place] [address] Dr. Perri Burdick Erythrocyte distribution width (RBC) [Ratio] 12.8 % Normal 11.0-15.0 [facility] Comment on above: Performed By: #### C BC #### [facility] [address] [place] [address] Dr. Perri Burdick Hematocrit (Bld) [Volume fraction] 42.5 % Normal 36.0-48.0 [facility] Comment on above: Performed By: #### C BC #### [facility] [address] [place] [address] Dr. Perri Burdick Hemoglobin (Bld) [Mass/Vol] 14.2 g/dL Normal 12.0-16.0 [facility] Comment on above: Performed By: #### C BC #### [facility] [address] [place] [address] Dr. Perri Burdick IG # 0.03 10e3/ul Normal 0.00-0.03 [facility] Comment on above: Performed By: #### C BC #### [facility] [address] [place] [address] Dr. Perri Burdick IG % 0.3 % Normal 0.0-0.5 [facility] Comment on above: Performed By: #### C BC #### [facility] [address] [place] [address] Dr. Perri Burdick LYMPH # 2.8 103/ul Normal 1.2-3.8 [facility] Comment on above: Performed By: #### C BC #### [facility] [address] [place] [address] Dr. Perri Burdick Lymphocytes/100 WBC (Bld) 29.9 % Normal 20.5-60.0 [facility] Comment on above: Performed By: #### C BC #### [facility] [address] [place] [address] Dr. Perri Burdick MANUAL DIFF REQ NO Normal [facility] Comment on above: Performed By: #### C BC #### [facility] [address] [place] [address] Dr. Perri Burdick MCH (RBC) [Entitic mass] 29.0 pg Normal 26.7-34.0 [facility] Comment on above: Performed By: #### C BC #### [facility] [address] [place] [address] Dr. Perri Burdick MCHC (RBC) [Mass/Vol] 33.4 g/dL Normal 29.9-35.2 [facility] Comment on above: Performed By: #### C BC #### [facility] [address] [place] [address] Dr. Perri Burdick MCV (RBC) [Entitic vol] 86.9 fL Normal 81.0-99.0 [facility] Comment on above: Performed By: #### C BC #### [facility] [address] [place] [address] Dr. Perri Burdick MONO # 0.6 103/ul Normal 0.3-0.8 [facility] Comment on above: Performed By: #### C BC #### [facility] [address] [place] [address] Dr. Perri Burdick Monocytes/100 WBC (Bld) 6.6 % Normal 1.7-12.0 [facility] Comment on above: Performed By: #### C BC #### [facility] [address] [place] [address] Dr. Perri Burdick NEUT # 5.8 103/ul Normal 1.4-6.5 [facility] Comment on above: Performed By: #### C BC #### [facility] [address] [place] [address] Dr. Perri Burdick Neutrophils/100 WBC (Bld) 61.6 % Normal 43.0-75.0 [facility] Comment on above: Performed By: #### C BC #### [facility] [address] [place] [address] Dr. Perri Burdick Platelet mean volume (Bld) [Entitic vol] 10.5 fL Normal 9.5-13.5 [facility] Comment on above: Performed By: #### C BC #### [facility] [address] [place] [address] Dr. Perri Burdick PLT 263 103/ul Normal 150-450 [facility] Comment on above: Performed By: #### C BC #### [facility] [address] [place] [address] Dr. Perri Burdick RBC 4.89 106/ul Normal 4.20-5.40 [facility] Comment on above: Performed By: #### C BC #### [facility] [address] [place] [address] Dr. Perri Burdick WBC 9.5 103/ul Normal 4.0-11.0 [facility] Comment on above: Performed By: #### C BC #### [facility] [address] [place] [address] Dr. Perri Burdick ER URINE PROFILEon 3 Bilirubin Ql (U) Negative Normal NEGATIVE [facility] Comment on above: Performed By: #### P REGU, ERUR #### [facility] [address] [address] [address] Perri Burdick Clarity (U) CLEAR Normal CLEAR [facility] Comment on above: Performed By: #### P REGU, ERUR #### [facility] [address] [address] [address] Perri Burdick Color (U) LT. YELLOW Normal YELLOW [facility] Comment on above: Performed By: #### P REGU, ERUR #### [facility] [address] [address] [address] Perri CABRALD A micrscopic examination will be performed if indicated. Normal [facility] Comment on above: Performed By: #### P REGU, ERUR #### [facility] [address] [place] [address] Dr. Perri Burdick Glucose Ql (U) Negative Normal NEGATIVE [facility] Comment on above: Performed By: #### P REGU, ERUR #### [facility] [address] [place] [address] Dr. Perri Burdick Hemoglobin Ql (U) Negative Normal NEGATIVE [facility] Comment on above: Performed By: #### P REGU, ERUR #### [facility] [address] [place] [address] Dr. Perri Burdick Ketones Ql (U) Negative Normal NEGATIVE [facility] Comment on above: Performed By: #### P REGU, ERUR #### [facility] [address] [address] [address] Perri Burdick LEUKOCYTES Negative Normal NEGATIVE [facility] Comment on above: Performed By: #### P REGU, ERUR #### [facility] [address] [address] [address] Perri Burdick Nitrite Ql (U) Negative Normal NEGATIVE [facility] Comment on above: Performed By: #### P REGU, ERUR #### [facility] [address] [place] [address] Dr. Perri Burdick pH (U) 6.0 [pH] Normal 5-9 [facility] Comment on above: Performed By: #### P REGU, ERUR #### [facility] [address] [place] [address] Dr. Perri Burdick SPEC GRAVITY 1.025 Normal 1.005-<=1.025 [facility] Comment on above: Performed By: #### P REGU, ERUR #### [facility] [address] [place] [address] Dr. Perri Burdick UA PROTEIN Negative Normal NEGATIVE/ TRACE [facility] Comment on above: Performed By: #### P REGU, ERUR #### [facility] [address] [place] [address] Dr. Perri Burdick UR MICRO IND NOT INDICATED Normal [facility] Comment on above: Performed By: #### P REGU, ERUR #### [facility] [address] [place] [address] Dr. Perri Burdick Urobilinogen Qn (U) 0.2 {Brody'U}/dL Normal 0.2 - 1.0 [facility] Comment on above: Performed By: #### P REGU, ERUR #### [facility] [address] [place] [address] Dr. Perri Burdick LIPASEon 12-20-2022 Lipase [Catalytic activity/Vol] 134.0 U/L Normal 73.0-393.0 [facility] Comment on above: Performed By: #### A [place] LIPBarby, CMP #### [facility] [address] [place] [address] Dr. Perri Burdick URon 12-20-2022 , QUAL Negative Normal NEGATIVE [facility] Comment on above: Performed By: #### P REGU, ERUR #### [facility] [address] [place] [address] Dr. Perri Burdick PROF 14(COMP METB)on 023 Albumin [Mass/Vol] 3.8 g/dL Normal 3.4-5.0 [facility] Comment on above: Performed By: #### A [place] LIPA, CMP #### [facility] [address] [address] [address] Perri Burdick Albumin/Globulin [Mass ratio] 1.2 {ratio} Normal [facility] Comment on above: Performed By: #### A MY, LIPA, CMP #### [facility] [address] [address] [address] Perri Burdick ALP [Catalytic activity/Vol] 138 U/L Critically high 46-116 [facility] Comment on above: Performed By: #### A MY, LIPA, CMP #### [facility] [address] [address] [address] Perri Burdick ALT [Catalytic activity/Vol] 23 U/L Normal 14-59 [facility] Comment on above: Performed By: #### A MY, LIPA, CMP #### [facility] [address] [address] [address] Perri Burdick Anion gap [Moles/Vol] 10.3 mmol/L Normal [facility] Comment on above: Performed By: #### A MY, LIPA, CMP #### [facility] [address] [address] [address] Perri Burdick AST [Catalytic activity/Vol] 17 U/L Normal 15-37 [facility] Comment on above: Performed By: #### A MY, LIPA, CMP #### [facility] [address] [address] [address] Perri Burdick Bilirubin [Mass/Vol] 0.2 mg/dL Normal 0.2-1.0 [facility] Comment on above: Performed By: #### A MY, LIPA, CMP #### [facility] [address] [address] [address] Perri Burdick Calcium [Mass/Vol] 9.2 mg/dL Normal 8.5-10.1 [facility] Comment on above: Performed By: #### A MY, LIPA, CMP #### [facility] [address] [address] [address] Perri Burdick Chloride [Moles/Vol] 105 mmol/L Normal 98-107 [facility] Comment on above: Performed By: #### A MY, LIPA, CMP #### [facility] [address] [address] [address] Perri Burdick CO2 [Moles/Vol] 27.3 mmol/L Normal 21.0-32.0 [facility] Comment on above: Performed By: #### A MY, LIPA, CMP #### [facility] [address] [address] [address] Perri Burdick Creatinine [Mass/Vol] 0.82 mg/dL Normal 0.55-1.02 [facility] Comment on above: Performed By: #### A MY, LIPA, CMP #### [facility] [address] [place] [address] Dr. Perri Burdick EGFR-AF TONGAN >60 Normal >=60 [facility] Comment on above: Performed By: #### A MY, LIPA, CMP #### [facility] [address] [place] [address] Dr. Perri Burdick EGFR-NON AF TONGAN >60 Normal >=60 [facility] Comment on above: Performed By: #### A MY LIPA, CMP #### [facility] [address] [place] [address] Dr. Perri Burdick Globulin (S) [Mass/Vol] 3.3 g/dL Normal [facility] Comment on above: Performed By: #### A MY LIPA, CMP #### [facility] [address] [address] [address] Perri Burdick Glucose [Mass/Vol] 117 mg/dL Critically high 74-106 [facility] Comment on above: Performed By: #### A MY, LIPA, CMP #### [facility] [address] [address] [address] Perri Burdick Potassium [Moles/Vol] 3.6 mmol/L Normal 3.5-5.1 [facility] Comment on above: Performed By: #### A MY, LIPA, CMP #### [facility] [address] [place] [address] Dr. Perri Burdick Protein [Mass/Vol] 7.1 g/dL Normal 6.4-8.2 [facility] Comment on above: Performed By: #### A KENDALL HO, CMP #### [facility] [address] [address] [address] Perri Burdick Sodium [Moles/Vol] 139 mmol/L Normal 136-145 [facility] Comment on above: Performed By: #### A KENDALL HO, CMP #### [facility] [address] [address] [address] Perri Burdick Urea nitrogen [Mass/Vol] 15.0 mg/dL Normal 7.0-18.0 [facility] Comment on above: Performed By: #### A KENDALL HO, CMP #### [facility] [address] [place] [address] Dr. Perri Burdick Urea nitrogen/Creatini ne [Mass ratio] 18.3 mg/mg Normal [facility] Comment on above: Performed By: #### A KENDALL HO, CMP #### [facility] [address] [place] [address] Dr. Perri Burdick XR ABD FLAT UP_PA [...] AL CHURCH Date: 2022-12-20 04:52 Normal [facility] CHLAMYDIA/GONOCOCCUS CASSIDY (SW AB/URINE/PAPon 12-01-2022 Chlamydia trachomatis, CASSIDY Negative Normal Negative [facility] Comment on above: Performed By: #### C T/NGNA #### [facility] [address] [address] [address] Perri Burdick Neisseria gonorrhoeae, CASSIDY Negative Normal Negative [facility] Comment on above: Performed By: #### C T/NGNA #### [facility] [address] [place] [address] Dr. Perri Burdick VAGINITIS/VAGINOSIS DNA PROB Jamar 12-01-2022 Nieves species Negative Normal Negative [facility] Comment on above: Performed By: #### V AGINT #### [facility] [address] [place] [address] Dr. Perri Burdick Gardnerella vaginalis Negative Normal Negative [facility] Comment on above: Performed By: #### V AGINT #### [facility] [address] [place] [address] Dr. Perri Burdick Trichomonas vaginalis Negative Normal Negative [facility] Comment on above: Performed By: #### V AGINT #### [facility] [address] [place] [address] Dr. Perri Burdick PAP ACOG PANEL 2: 21 to 29on 10-20-2022 . . Normal [facility] Comment on above: Performed By: #### [id number] #### [facility] [address] [place] [address] Dr. Perri Burdick Age Gdln ACOG Testing 21-29 Normal [facility] Comment on above: Performed By: #### [id number] #### [facility] [address] [place] [address] Dr. Perri Burdick DIAGNOSIS: Comment Normal [facility] Comment on above: Result Comment: NEGA TIVE FOR INTRAEPITHELIAL LESION OR MALIGNANCY. Performed By: #### [id number] #### [facility] [address] [place] [address] Dr. Perri Burdick Methodology: Comment Normal [facility] Comment on above: Result Comment: This liquid based ThinPrep(R) pap test was screened with the use of an image guided system. Performed By: #### [id number] #### [facility] [address] [place] [address] Dr. Perri Burdick Note: Comment Normal [facility] Comment on above: Result Comment: The Pap smear is a screening test designed to aid in the detection of premalignant and malignant conditions of the uterine cervix. It is not a diagnostic procedure and should not be used as the sole means of detecting cervical cancer. Both false-positive and false-negative reports do occur. . Performed By: #### [id number] #### [facility] [address] [address] [address] Perri Burdick Performed by: Comment Normal [facility] Comment on above: Result Comment: Argentina Stoner, Counseling Psychologist (ASCP) Performed By: #### [id number] #### [facility] [address] [place] [address] Dr. Perri Burdick Reflex Criteria: Comment Normal [facility] Comment on above: Result Comment: The HPV DNA reflex criteria were not met with this specimen result therefore, no HPV testing was performed. . Performed By: #### 4 [id number] #### [facility] [address] [place] [address] Dr. Perri Burdick Specimen adequacy: Comment Normal [facility] Comment on above: Result Comment: Sati sfactory for evaluation. Endocervical and/or squamous metaplastic cells (endocervical component) are present. Performed By: #### [id number] #### [facility] [address] [place] [address] Dr. Perri Burdick COVID Quick Testingon 2020 Result Negative [facility] Other Vital Signs Date Time Vital Sign Value Performing Clinician Facility 11-09-2023 10:24-0500 Body mass index (BMI) [Ratio] 41.34 kg/m2 [facility] Work Phone: [facility] [employer] 11-09-2023 10:24-0500 Body weight 102.51 kg [facility] Work Phone: [facility] [employer] 11-09-2023 10:24-0500 Diastolic blood pressure 72 mm[Hg] Alissa Nitin DO Work Phone: [facility] 11-09-2023 10:24-0500 Systolic blood pressure 118 mm[Hg] Alissa Bertrando DO Work Phone: [facility] 07-22-2021 10:45-0400 Body height 157.48 cm Ana Paula Dubose Other [facility] Other 07-22-2021 10:45-0400 Body mass index (BMI) [Ratio] 38.59 kg/m2 Ana Paula Dubose Other [facility] Other 07-22-2021 10:45-0400 Body temperature 98 [degF] Ana Paula Dubose Other [facility] Other 07-22-2021 10:45-0400 Body weight 95.71 kg Ana Paula Dubose Other [facility] Other 07-22-2021 10:45-0400 Respiratory rate 18 /min Ana Paula Dubose Other [facility] Other 07-22-2021 10:45-0400 SaO2% (BldA) [Mass fraction] 97 % Ana Paula Dubose Other [facility] Other Encounters Encounter Date Encounter Type Care Provider Facility Start: 11-09-2023 End: 11-09-2023 ambulatory ALISSA BERTRANDO Not Available Start: 11-09-2023 End: 11-09-2023 Office outpatient visit 15 minutes Alissa Bertrando DO Work Phone: [facility] Comment on above: Vaginal lump; Pain in female genitalia on intercourse; Soreness breast Start: 09-11-2023 End: 09-11-2023 ambulatory MAYRA L PAYAN Not Available Start: 08-28-2023 End: 08-28-2023 ambulatory MAYRA L PAYAN Not Available Start: 12-20-2022 End: 12-20-2022 [...] (URG) Urgent Care Visit Ana Paula barney [facility] Plan of Treatment Date Care Activity Detail Author Start: 06-09-2023 Influenza vaccination Influenza Vacc ine (#1) [facility] CHLAMYDIA TRACHOMATI S (GENITO/STI) CHLAMYDIA TRACHOMATIS (GENITO/STI) Lab Routine Vaginal lump Pain in female genitalia on intercourse Ordered: 11/09/2023 [facility] Comment on above: Ordered: 11/09/2023 Neisseria gonorrhoea e DNA [Presence] in Unspecified specimen by CASSIDY with probe detection Neisseria gonorrhea DNA probe, direct Lab Routine Vaginal lump Pain in female genitalia on intercourse Ordered: 11/09/2023 [facility] Comment on above: Ordered: 11/09/2023 SURESWAB(R) ADVANCED VAGINITIS PLUS, TMA SURESWAB(R) ADVANCED VAGINITIS PLUS, TMA Pathology and Cytology Routine Vaginal lump Pain in female genitalia on intercourse Ordered: 11/09/2023 [facility] Work Phone: Comment on above: Ordered: 11/09/2023 Payers Date Payer Category Payer Unknown [id number] 2023 Unknown BCBS BCBS xxxxxx [id number] 2023-Present [phone] [address] [place] [address] [id number] 2022 Private Health Insurance [id number] 2022 Private Health Insurance [employer] C [facility] [id number] 2022-Present [address] [place] [address] [id number] 2001 Unknown [id number] 93 2001 Unknown [id number] 93 2001 Unknown [id number] 93 2001 Unknown [id number] 93 2001 Unknown [id number] 93 2001 Unknown [id number] 93 2001 Unknown [id number] 259 2001 Unknown [id number] 259 2001 Unknown [id number] 259 1959 Self-pay [id number] 1959 Unknown [id number] Social History Date Type Detail Facility Start: 11-09-2023 Sex Assigned At N [facility] [employer] Other Start: 2023 Tobacco smoking status WVIS Never smoked tobacco [facility] Start: 2023 Tobacco use and exposure Smokeless tobacco non-user [facility] Start: 11-09-2023 Alcohol intake Ex-drinker (finding) [facility] Start: 11-09-2023 History of Social function [facility] Start: 2001 Sex Assigned At Not on file N [facility] History of Present illness Narrative 11-09-2023 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 Exam conducted with a it account manager present. Vitals: Estimated body mass index is [...] Alissa Taveras DO documented in this encounter [facility] Evaluation note 07-22-2021 Note Date & [...] Patient care instructions given in writting by [facility] [place]NOTE 2] [facility] At Home document. 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 [employer] [facility]. provides no warranty or guarantee of the accuracy or completeness of information in this document.
--- NOTE | 2024-04-05 06:29 | ED.BACK1 ---
HPI HPI - Back Pain/Injury General Chief Complaint: Back Pain/Injury Stated Complaint: BACK PAIN Time Seen by Provider: 04/05/24 06:25 Source: patient Mode of arrival: walk-in Limitations: no limitations History of Present Illness HPI Narrative: 23-year-old female presents for back pain. She is supposed to be at work and has ongoing issues with her upper back. It started hurting today and she knew she was able to go to work so she came here to get a work note. She has a muscle relaxer at home that makes her tired and she cannot work with it. No injury or fever or radiation of the pain or trauma. Related Data Allergies Allergy/AdvReac Type Severity Reaction Status Date / Time No Known Drug Allergies Allergy Verified 04/05/24 06:26 Opioid HPI Opioid Management Most Recent Opioid Data: Last Pain Scale 9 08/15/23 21:01 Review of Systems ROS Narrative A ten point review of systems is negative except as noted above. PFSH PFSH Social History Smoking status: Never smoker Exam Narrative Exam Narrative: Nurses note and vital signs reviewed and patient is not hypoxic. General: The patient appears well and in no apparent distress. Patient is resting comfortably on cart. Skin: Warm, dry, no pallor noted. There is no rash noted. Head: Normocephalic, atraumatic Eye: Normal conjunctiva, no drainage Ears, Nose, Mouth, and Throat: oral mucosa is moist. Nares patent. Cardiovascular: Regular Rate and Rhythm Respiratory: Patient is in no distress, no accessory muscle use, lungs are clear to auscultation, no wheezing, rales or rhonchi Back: No bruise or rash present. No focal area of tenderness to palpation GI: Soft and nontender Musculoskeletal: The patient has no evidence of calf tenderness, no pitting edema, symmetrical pulses noted bilaterally Neurological: A&O, normal speech Psychiatric: Cooperative Constitutional Vital Signs, click to edit/add: Last Vital Signs Temp 97.8 F 04/05/24 06:23 Pulse 82 04/05/24 06:23 Resp 18 04/05/24 06:23 BP 113/82 04/05/24 06:23 Pulse Ox 99 04/05/24 06:23 O2 Del Method Room Air 04/05/24 06:23 Course Vital Signs Vital signs: Vital Signs Temperature 97.8 F 06/28/24 06:23 Pulse Rate 82 04/05/24 06:23 Respiratory Rate 18 04/05/24 06:23 Blood Pressure 113/82 04/05/24 06:23 Pulse Oximetry 99 04/05/24 06:23 Oxygen Delivery Method Room Air 04/05/24 06:23 Temperature 97.8 F 04/05/24 06:23 Pulse Rate 82 04/05/24 06:23 Respiratory Rate 18 04/05/24 06:23 Blood Pressure 113/82 04/05/24 06:23 Pulse Oximetry 99 04/05/24 06:23 Oxygen Delivery Method Room Air 04/05/24 06:23 MDM - Back Pain/Injury MDM Narrative Medical decision making narrative: She was given a work note and she states she has medicine at home that she can take for this. Findings were discussed with the patient Differential Diagnosis Differential diagnosis: Likely thoracic back pain and other (Muscle strain) Discharge Plan Discharge Stand Alone Forms: Portal Instructions Chief Complaint: Back Pain/Injury Clinical Impression: Thoracic back pain Patient Disposition: Home, Self-Care Time of Disposition Decision: 06:28 Condition: Good Mode of Transportation: Private Vehicle Print Language: Korean Instructions: Back Pain (ED) Referrals: Ander Conway MD [Primary Care Provider] - 1 week
[2024-04-05 06:37] VITALS: BP 114/63; PULSE 75; O2SAT 98
== END 2024-04-05 06:37 | disposition home or self-care (01) ==
PROVIDERS: Emergency Provider Emergency Medicine; PCP Family Medicine
DX: M54.6 Pain in thoracic spine (principal)
CPT/HCPCS: 99281

== ENCOUNTER 2024-06-28 20:44 | Emergency (ER) | payer BC, SELFPAY ==
[2024-06-28 20:55] VITALS: BP 104/74; PULSE 105; TEMP 37.2; O2SAT 99
--- OUTSIDE RECORDS SUMMARY | 2024-06-28 20:55 | XMS_ITS | CCD ---
Author Organization [facility] Care Team Providers Care Blocker And Polisher Gold Wheel Name Role Phone Ana Paula Dubose Unavailable [...] Drug Class(es) Dates Sig (Normalized) Sig (Original) [id number] 200 actuat albuterol 0.09 mg/actuat metered dose [...] activity/Vol] 43 U/L Normal 25-115 [facility] Comment on above: Performed By: #### A MY, LIPA, CMP #### [facility] [address] [place] [address] Dr. Perri Burdick CBC AUTO DIFFon 12-20-2022 BASO # 0.0 103/ul Normal 0.0-0.1 [facility] Comment on above: Performed By: #### C BC #### [facility] [address] [place] [address] Dr. Perri Burdick Basophils/100 WBC (Bld) 0.3 % Normal 0.2-2.0 [facility] Comment on above: Performed By: #### C BC #### [facility] [address] [place] [address] Dr. Perri Burdick EO # 0.1 103/ul Normal 0.0-0.7 [facility] Comment on above: Performed By: #### C BC #### [facility] [address] [place] [address] Dr. Perri Burdick Eosinophils/100 WBC (Bld) 1.3 % Normal 0.9-7.0 [facility] Comment on above: Performed By: #### C BC #### [facility] [address] [place] [address] Dr. Perri Burdick Erythrocyte distribution width (RBC) [Ratio] 12.8 % Normal 11.0-15.0 [facility] Comment on above: Performed By: #### C BC #### [facility] [address] [place] [address] Dr. Perri Burdick Hematocrit (Bld) [Volume fraction] 42.5 % Normal 36.0-48.0 [facility] Comment on above: Performed By: #### C BC #### [facility] [address] [place] [address] Dr. Perri Burdick Hemoglobin (Bld) [Mass/Vol] 14.2 g/dL Normal 12.0-16.0 [facility] Comment on above: Performed By: #### C BC #### [facility] [address] [place] [address] Dr. Perri Burdick IG # 0.03 10e3/ul Normal 0.00-0.03 [facility] Comment on above: Performed By: #### C BC #### [facility] [address] [place] [address] Dr. Perri Burdick IG % 0.3 % Normal 0.0-0.5 [facility] Comment on above: Performed By: #### C BC #### [facility] [address] [place] [address] Dr. Perri Burdick LYMPH # 2.8 103/ul Normal 1.2-3.8 [facility] Comment on above: Performed By: #### C BC #### [facility] [address] [place] [address] Dr. Perri Burdick Lymphocytes/100 WBC (Bld) 29.9 % Normal 20.5-60.0 [facility] Comment on above: Performed By: #### C BC #### [facility] [address] [place] [address] Dr. Perri Burdick MANUAL DIFF REQ NO Normal [facility] Comment on above: Performed By: #### C BC #### [facility] [address] [place] [address] Dr. Perri Burdick MCH (RBC) [Entitic mass] 29.0 pg Normal 26.7-34.0 [facility] Comment on above: Performed By: #### C BC #### [facility] [address] [place] [address] Dr. Perri Burdick MCHC (RBC) [Mass/Vol] 33.4 g/dL Normal 29.9-35.2 [facility] Comment on above: Performed By: #### C BC #### [facility] [address] [place] [address] Dr. Perri Burdick MCV (RBC) [Entitic vol] 86.9 fL Normal 81.0-99.0 [facility] Comment on above: Performed By: #### C BC #### [facility] [address] [place] [address] Dr. Perri Burdick MONO # 0.6 103/ul Normal 0.3-0.8 [facility] Comment on above: Performed By: #### C BC #### [facility] [address] [place] [address] Dr. Perri Budrick Monocytes/100 WBC (Bld) 6.6 % Normal 1.7-12.0 [facility] Comment on above: Performed By: #### C BC #### [facility] [address] [place] [address] Dr. Perri Burdick NEUT # 5.8 103/ul Normal 1.4-6.5 [facility] Comment on above: Performed By: #### C BC #### [facility] [address] [place] [address] Dr. Perri Burdick Neutrophils/100 WBC (Bld) 61.6 % Normal 43.0-75.0 [facility] Comment on above: Performed By: #### C BC #### [facility] [address] [place] [address] Dr. Perri Burdick Platelet mean volume (Bld) [Entitic vol] 10.5 fL Normal 9.5-13.5 [facility] Comment on above: Performed By: #### C BC #### [facility] [address] [place] [address] Dr. Perri Burdick PLT 263 103/ul Normal 150-450 [facility] Comment on above: Performed By: #### C BC #### [facility] [address] [place] [address] Dr. Perri Burdick RBC 4.89 106/ul Normal 4.20-5.40 [facility] Comment on above: Performed By: #### C BC #### [facility] [address] [place] [address] Dr. Perri Burdick WBC 9.5 103/ul Normal 4.0-11.0 [facility] Comment on above: Performed By: #### C BC #### [facility] [address] [place] [address] Dr. Perri Burdick ER URINE PROFILEon 3 Bilirubin Ql (U) Negative Normal NEGATIVE [facility] Comment on above: Performed By: #### P REGU, ERUR #### [facility] [address] [address] [address] Perri Burdick Clarity (U) CLEAR Normal CLEAR [facility] Comment on above: Performed By: #### P REGU, ERUR #### [facility] [address] [address] [address] Perri Burdick Color (U) LT. YELLOW Normal YELLOW [facility] Comment on above: Performed By: #### P REGU, ERUR #### [facility] [address] [address] [address] Perri CABRALD A micrscopic examination will be performed if indicated. Normal [facility] Comment on above: Performed By: #### P REGU, ERUR #### [facility] [address] [place] [address] Dr. Perri Burdick Glucose Ql (U) Negative Normal NEGATIVE [facility] Comment on above: Performed By: #### P REGU, ERUR #### [facility] [address] [place] [address] Dr. Perri Burdick Hemoglobin Ql (U) Negative Normal NEGATIVE [facility] Comment on above: Performed By: #### P REGU, ERUR #### [facility] [address] [place] [address] Dr. Perri Burdick Ketones Ql (U) Negative Normal NEGATIVE [facility] Comment on above: Performed By: #### P REGU, ERUR #### [facility] [address] [address] [address] Perri Burdick LEUKOCYTES Negative Normal NEGATIVE [facility] Comment on above: Performed By: #### P REGU, ERUR #### [facility] [address] [address] [address] Perri Burdick Nitrite Ql (U) Negative Normal NEGATIVE [facility] Comment on above: Performed By: #### P REGU, ERUR #### [facility] [address] [place] [address] Dr. Perri Burdick pH (U) 6.0 [pH] Normal 5-9 [facility] Comment on above: Performed By: #### P REGU, ERUR #### [facility] [address] [place] [address] Dr. Perri Burdick SPEC GRAVITY 1.025 Normal 1.005-<=1.025 [facility] Comment on above: Performed By: #### P REGU, ERUR #### [facility] [address] [place] [address] Dr. Perri Burdick UA PROTEIN Negative Normal NEGATIVE/ TRACE [facility] Comment on above: Performed By: #### P REGU, ERUR #### [facility] [address] [place] [address] Dr. Perri Burdick UR MICRO IND NOT INDICATED Normal [facility] Comment on above: Performed By: #### P REGU, ERUR #### [facility] [address] [place] [address] Dr. Perri Burdick Urobilinogen Qn (U) 0.2 {Brody'U}/dL Normal 0.2 - 1.0 [facility] Comment on above: Performed By: #### P REGU, ERUR #### [facility] [address] [place] [address] Dr. Perri Burdick LIPASEon 12-20-2022 Lipase [Catalytic activity/Vol] 134.0 U/L Normal 73.0-393.0 [facility] Comment on above: Performed By: #### A [place] LIPBarby, CMP #### [facility] [address] [place] [address] Dr. Perri Burdick URon 12-20-2022 , QUAL Negative Normal NEGATIVE [facility] Comment on above: Performed By: #### P REGU, ERUR #### [facility] [address] [place] [address] Dr. Perri Burdick PROF 14(COMP METB)on 023 Albumin [Mass/Vol] 3.8 g/dL Normal 3.4-5.0 [facility] Comment on above: Performed By: #### A [place] LIPA, CMP #### [facility] [address] [address] [address] Perri Burdick Albumin/Globulin [Mass ratio] 1.2 {ratio} Normal [facility] Comment on above: Performed By: #### A MY, LIPA, CMP #### [facility] [address] [address] [address] Perri Burdick ALP [Catalytic activity/Vol] 138 U/L Critically high 46-116 [facility] Comment on above: Performed By: #### A MY, LIPA, CMP #### [facility] [address] [address] [address] Perri Burdick ALT [Catalytic activity/Vol] 23 U/L Normal 14-59 [facility] Comment on above: Performed By: #### A MY, LIPA, CMP #### [facility] [address] [address] [address] Perri Burdick Anion gap [Moles/Vol] 10.3 mmol/L Normal [facility] Comment on above: Performed By: #### A MY, LIPA, CMP #### [facility] [address] [address] [address] Perri Burdick AST [Catalytic activity/Vol] 17 U/L Normal 15-37 [facility] Comment on above: Performed By: #### A MY, LIPA, CMP #### [facility] [address] [address] [address] Perri Burdick Bilirubin [Mass/Vol] 0.2 mg/dL Normal 0.2-1.0 [facility] Comment on above: Performed By: #### A MY, LIPA, CMP #### [facility] [address] [address] [address] Perri Burdick Calcium [Mass/Vol] 9.2 mg/dL Normal 8.5-10.1 [facility] Comment on above: Performed By: #### A MY, LIPA, CMP #### [facility] [address] [address] [address] Perri Burdick Chloride [Moles/Vol] 105 mmol/L Normal 98-107 [facility] Comment on above: Performed By: #### A MY, LIPA, CMP #### [facility] [address] [address] [address] Perri Burdick CO2 [Moles/Vol] 27.3 mmol/L Normal 21.0-32.0 [facility] Comment on above: Performed By: #### A MY, LIPA, CMP #### [facility] [address] [address] [address] Perri Burdick Creatinine [Mass/Vol] 0.82 mg/dL Normal 0.55-1.02 [facility] Comment on above: Performed By: #### A MY, LIPA, CMP #### [facility] [address] [place] [address] Dr. Perri Burdick EGFR-AF SCOTTISH >60 Normal >=60 [facility] Comment on above: Performed By: #### A MY, LIPA, CMP #### [facility] [address] [place] [address] Dr. Perri Burdick EGFR-NON AF SCOTTISH >60 Normal >=60 [facility] Comment on above: Performed By: #### A MY LIPA, CMP #### [facility] [address] [place] [address] Dr. Perri Burdick Globulin (S) [Mass/Vol] 3.3 g/dL Normal [facility] Comment on above: Performed By: #### A MY LIPA, CMP #### [facility] [address] [address] [address] Perri Burdick Glucose [Mass/Vol] 117 mg/dL Critically high 74-106 [facility] Comment on above: Performed By: #### A MY, LIPA, CMP #### [facility] [address] [address] [address] Perri Burdick Potassium [Moles/Vol] 3.6 mmol/L Normal 3.5-5.1 [facility] Comment on above: Performed By: #### A MY, LIPA, CMP #### [facility] [address] [place] [address] Dr. Perri Burdick Protein [Mass/Vol] 7.1 g/dL Normal 6.4-8.2 [facility] Comment on above: Performed By: #### A KENDALL HO, CMP #### [facility] [address] [address] [address] Perri Burdick Sodium [Moles/Vol] 139 mmol/L Normal 136-145 [facility] Comment on above: Performed By: #### A KENDALL HO, CMP #### [facility] [address] [address] [address] Perri Burdick Urea nitrogen [Mass/Vol] 15.0 mg/dL Normal 7.0-18.0 [facility] Comment on above: Performed By: #### A KENDALL HO, CMP #### [facility] [address] [place] [address] Dr. Perri Burdick Urea nitrogen/Creatini ne [Mass ratio] 18.3 mg/mg Normal [facility] Comment on above: Performed By: #### A KENDALL HO, CMP #### [facility] [address] [place] [address] Dr. Perri Burdick XR ABD FLAT UP_PA [...] Date: 2022-12-20 04:52 Normal [facility] CHLAMYDIA/GONOCOCCUS CASSIDY (SW AB/URINE/PAPon 12-01-2022 Chlamydia trachomatis, CASSIDY Negative Normal Negative [facility] Comment on above: Performed By: #### C T/NGNA #### [facility] [address] [address] [address] Perri Burdick Neisseria gonorrhoeae, CASSIDY Negative Normal Negative [facility] Comment on above: Performed By: #### C T/NGNA #### [facility] [address] [place] [address] Dr. Perri Burdick VAGINITIS/VAGINOSIS DNA PROB Jamar 12-01-2022 Nieves species Negative Normal Negative [facility] Comment on above: Performed By: #### V AGINT #### [facility] [address] [place] [address] Dr. Perri Burdick Gardnerella vaginalis Negative Normal Negative [facility] Comment on above: Performed By: #### V AGINT #### [facility] [address] [place] [address] Dr. Perri Burdick Trichomonas vaginalis Negative Normal Negative [facility] Comment on above: Performed By: #### V AGINT #### [facility] [address] [place] [address] Dr. Perri Burdcik PAP ACOG PANEL 2: 21 to 29on 10-20-2022 . . Normal [facility] Comment on above: Performed By: #### [id number] #### [facility] [address] [place] [address] Dr. Perri Burdick Age Gdln ACOG Testing 21-29 Normal [facility] Comment on above: Performed By: #### [id number] #### [facility] [address] [place] [address] Dr. Perri Burdick DIAGNOSIS: Comment Normal [facility] Comment on above: Result Comment: NEGA TIVE FOR INTRAEPITHELIAL LESION OR MALIGNANCY. Performed By: #### [id number] #### [facility] [address] [place] [address] Dr. Perri Burdick Methodology: Comment Normal [facility] Comment on above: Result Comment: This liquid based ThinPrep(R) pap test was screened with the use of an image guided system. Performed By: #### [id number] #### [facility] [address] [place] [address] Dr. Perri Burdick Note: Comment Normal [facility] Comment on above: Result Comment: The Pap smear is a screening test designed to aid in the detection of premalignant and malignant conditions of the uterine cervix. It is not a diagnostic procedure and should not be used as the sole means of detecting cervical cancer. Both false-positive and false-negative reports do occur. . Performed By: #### [id number] #### [facility] [address] [address] [address] Perri Burdick Performed by: Comment Normal [facility] Comment on above: Result Comment: Argentina Stoner, Aquatic Performer (ASCP) Performed By: #### [id number] #### [facility] [address] [place] [address] Dr. Perri Burdick Reflex Criteria: Comment Normal [facility] Comment on above: Result Comment: The HPV DNA reflex criteria were not met with this specimen result therefore, no HPV testing was performed. . Performed By: #### 4 [id number] #### [facility] [address] [place] [address] Dr. Perri Burdick Specimen adequacy: Comment Normal [facility] Comment on above: Result Comment: Sati sfactory for evaluation. Endocervical and/or squamous metaplastic cells (endocervical component) are present. Performed By: #### 4 [id number] #### [facility] [address] [place] [address] Dr. Perri Burdick COVID Quick Testingon 2020 Result Negative [facility] Other Vital Signs Date Time Vital Sign Value Performing Clinician Facility 11-09-2023 10:24-0500 Body mass index (BMI) [Ratio] 41.34 kg/m2 [employer] Work Phone: [facility] 11-09-2023 10:24-0500 Body weight 102.51 kg [employer] Work Phone: [facility] 11-09-2023 10:24-0500 Diastolic blood pressure 72 mm[Hg] Alissa Nitin DO Work Phone: [facility] 11-09-2023 10:24-0500 Systolic blood pressure 118 mm[Hg] Alissa Bertrando DO Work Phone: [facility] 07-22-2021 10:45-0400 Body height 157.48 cm Ana Paula Dubose Other [facility] Other 07-22-2021 10:45-0400 Body mass index (BMI) [Ratio] 38.59 kg/m2 Ana Paula Dubose Other [facility] Other 07-22-2021 10:45-0400 Body temperature 98 [degF] Ana Paula Dubose Other [facility] Other 07-22-2021 10:45-0400 Body weight 95.71 kg Ana Paula Dubose Other [facility] Other 07-22-2021 10:45-0400 Respiratory rate 18 /min Ana Paula Dubose Other [facility] Other 07-22-2021 10:45-0400 SaO2% (BldA) [Mass fraction] 97 % Ana Paula Dubose Other [facility] Other Encounters Encounter Date Encounter Type Care Provider Facility Start: 11-09-2023 End: 11-09-2023 ambulatory ALISSA BERTRANDO Not Available Start: 11-09-2023 End: 11-09-2023 Office outpatient visit 15 minutes Alissa Bertrando DO Work Phone: [facility] Comment on above: Vaginal lump; [...] (URG) Urgent Care Visit Ana Paula barney [facility] Plan of Treatment Date Care Activity Detail Author Start: 06-09-2023 Influenza vaccination Influenza Vacc ine (#1) [facility] CHLAMYDIA TRACHOMATI S (GENITO/STI) CHLAMYDIA TRACHOMATIS (GENITO/STI) Lab Routine Vaginal lump Pain in female genitalia on intercourse Ordered: 11/09/2023 [facility] Comment on above: Ordered: 11/09/2023 Neisseria gonorrhoea e DNA [Presence] in Unspecified specimen by CASSIDY with probe detection Neisseria gonorrhea DNA probe, direct Lab Routine Vaginal lump Pain in female genitalia on intercourse Ordered: 11/09/2023 [facility] Comment on above: Ordered: 11/09/2023 SURESWAB(R) ADVANCED VAGINITIS PLUS, TMA SURESWAB(R) ADVANCED VAGINITIS PLUS, TMA Pathology and Cytology Routine Vaginal lump Pain in female genitalia on intercourse Ordered: 11/09/2023 [facility] Work Phone: Comment on above: Ordered: 11/09/2023 Payers Date Payer Category Payer Unknown [id number] 2023 Unknown BCBS BCBS [id number] 2023-Present [phone] [address] [place] [address] [id number] 2022 Private Health Insurance [id number] 2022 Private Health Insurance [employer] [facility] [id number] 2022-Present [address] [place] [address] [id number] 2001 Unknown [id number] 93 2001 Unknown [id number] 93 2001 Unknown [id number] 93 2001 Unknown [id number] 93 2001 Unknown [id number] 93 2001 Unknown [id number] 93 2001 Unknown [id number] 259 2001 Unknown [id number] 259 2001 Unknown [id number] 259 1959 Self-pay [id number] 1959 Unknown [id number] Social History Date Type Detail Facility Start: 11-09-2023 Sex Assigned At N [facility] [employer] Other Start: 2023 Tobacco smoking status IDIS Never smoked tobacco [facility] Start: 2023 Tobacco use and exposure Smokeless tobacco non-user [facility] Start: 11-09-2023 Alcohol intake Ex-drinker (finding) [facility] Start: 11-09-2023 History of Social function [facility] Start: 2001 Sex Assigned At Not on file N [facility] History of Present illness Narrative 11-09-2023 Brianna Medina, [employer] OFFICER - 11/09/2023 10:10 AM EST Note Date [...] Breakthrough bleeding on control pills Migraine syndrome (CMS/FORMERLY [facility]) Family History Problem Relation Name [...] nursing note reviewed. Exam conducted with a wardrobe assistant present. Vitals: Estimated body mass index is [...] Alissa Taveras DO documented in this encounter [facility] Evaluation note 07-22-2021 Note Date [...] Patient care instructions given in writting by [facility] At Home document. [facility] Other Evaluation note Note Date & Type Note Facility Evaluation note Diagnosis Vaginal lump Pain in female genitalia on intercourse Dyspareunia Soreness breast Mastodynia documented in this encounter [facility] History general Narrative - Reported Note Date & Type Note Facility History general Narrative - Reported Type Medical History Strain of lumbar region, initial encounter [facility] Other Summary Purpose Family History No Family History Records FoundNo Family History Records Found Advance Directives No Advanced Directives Records FoundNo Advanced Directives Records Found Additional Source Comments REASON FOR VISIT (unrecogniz ed section and content) Reason Comments vaginal lump, painful sex, sore breasts INFORMATION SOURCE (unrecogn ized section and content) DATE CREATED AUTHOR 12/23/2022 [facility] DATE CREATED AUTHOR AUTHOR'S ORGANIZ ATION 11/10/2023 [facility] [employer] Care Teams (unrecognized sec tion and content) [employer] Gold Wheel Relationship Specialty Start Date End Date Yinka Barrett DO [address] [place] [address] PCP - General Family Medicine 03/16/23 FOR [...] BE BASED ON THE PRIMARY CLINICAL RECORDS. S[facility]. provides no warranty or guarantee of the accuracy or completeness of information in this document.
--- NOTE | 2024-06-28 21:01 | XR_ITS ---
The [address] [address] Patient Name: JET CHIANG MRN: [id number] date: 2000 Sex: F Assigned Patient Location: ER Current Patient Location: Accession/Order Number: [id number] Exam Date: 06/28/2024 21:10 Report Date: 06/28/2024 22:15 At the request of: PEACE CHAUDHARY Procedure: XR hand RT min 3V RIGHT HAND X-RAYS, 06/28/2024. HISTORY: Punched a wall. Pain. COMPARISON: None. FINDINGS: 3 views of the right hand obtained. Bone mineralization is normal. Alignment is normal. No acute fracture or dislocation. No radiopaque foreign body. Soft tissue swelling over the metacarpal heads. XR/XR hand RT min 3V IMPRESSION: Soft tissue swelling over the metacarpal heads. No acute fracture or dislocation. Electronically authenticated by: TRIXIE MCGOVERN Date: 06/28/2024 22:15
--- NOTE | 2024-06-28 21:02 | XR_ITS ---
The [address] [address] Patient Name: JET CHIANG MRN: [id number] date: 2000 Sex: F Assigned Patient Location: ER Current Patient Location: ER Accession/Order Number: [id number] Exam Date: 06/28/2024 21:10 Report Date: 06/28/2024 23:28 At the request of: PEACE CHAUDHARY Procedure: XR wrist RT min 3V EXAM: XR WRIST RT MIN 3V HISTORY: Pain. COMPARISON: Right hand 06/28/2024. TECHNIQUE: 3 views were performed of the right wrist. FINDINGS: There is a likely normal variant irregular appearance of the scaphoid bone. There is no definite acute fracture or dislocation. Soft tissues appear normal. XR/XR wrist RT min 3V IMPRESSION: 1. No definite acute osseous abnormality. 2. Likely normal variant appearance of the scaphoid bone however if there is any clinical concern for scaphoid fracture, dedicated scaphoid view would be recommended. Electronically authenticated by: KAVON WEBB Date: 06/28/2024 23:28
--- NOTE | 2024-06-28 21:04 | ED_ITS ---
HPI HPI - Extremity Injury (Upper) General Chief Complaint: Extremity Injury, Upper Stated Complaint: Upper Extremity Injury Time Seen by Provider: 06/28/24 21:04 Source: patient Mode of arrival: walk-in History of Present Illness HPI narrative: 23 year old female presents to the ED for right hand and wrist pain s/p injury today. States she punched a cement wall. Denies fever, chills, weakness, N/T. Tetanus status is unknown. Related Data Allergies Allergy/AdvReac Type Severity Reaction Status Date / Time No Known Drug Allergies Allergy Verified 04/05/24 06:26 Opioid HPI Opioid Management Most Recent Pain and Opioid Data: Last Pain Scale 9 08/15/23 21:01 Review of Systems ROS Constitutional Denies: fever or chills Cardiovascular Denies: chest pain Respiratory Denies: shortness of breath Musculoskeletal Reports: extremity pain; Denies: neck pain Integumentary/Breast Reports: new lesion; Denies: rash Neurological Denies: headache, numbness in extremities or weakness in extremities PFSH PFSH Social History Smoking status: Never smoker Little interest or pleasure in doing things: not at all Feeling down, depressed, or hopeless: not at all Exam Constitutional Vital Signs, click to edit/add: Last Vital Signs Temp 98.9 F 06/28/24 20:55 Pulse 105 H 06/28/24 20:55 Resp 18 06/28/24 20:55 BP 104/74 06/28/24 20:55 Pulse Ox 99 06/28/24 20:55 O2 Del Method Room Air 06/28/24 20:55 Common normals: no apparent distress and oriented x3 General appearance: cooperative Eye Common normals: conjunctivae normal and no scleral icterus Neck & C-Spine Common normals: supple Cardio Peripheral pulses: radial pulses present and ulnar pulses present Extremity Common normals: normal capillary refill Other: Tenderness to right wrist and dorsal mid hand. Abrasions over 4th and 5th MCP joints. No obvious deformity. Reports decreased ROM to the wrist, hand, digits due to pain. Pulses palpable. Distal sensation intact. Cap refill <3 sec. Neuro Common normals: oriented x3 Sensorium/orientation: awake and alert Course Vital Signs Vital signs: Vital Signs Temperature 98.9 F 06/28/24 20:55 Pulse Rate 105 H 06/28/24 20:55 Respiratory Rate 18 06/28/24 20:55 Blood Pressure 104/74 06/28/24 20:55 Pulse Oximetry 99 06/28/24 20:55 Oxygen Delivery Method Room Air 06/28/24 20:55 Temperature 98.9 F 06/28/24 20:55 Pulse Rate 105 H 06/28/24 20:55 Respiratory Rate 18 06/28/24 20:55 Blood Pressure 104/74 06/28/24 20:55 Pulse Oximetry 99 06/28/24 20:55 Oxygen Delivery Method Room Air 06/28/24 20:55 MDM - Extremity Injury (Upper) MDM Narrative Medical decision making narrative: X-ray was negative for acute findings. Findings were discussed with the patient. An melita wrap was applied. The application was checked and was appropriate; the RUE remained NVI. Follow up with pcp for a recheck, further evaluation and treatment. She has Tylenol, Zanaflex, and Diclofenac at home. Differential Diagnosis Differential diagnosis: Likely sprain and strain of wrist, fracture of wrist and fracture of hand Medical Records Attestation: I reviewed the patient's medical records. Imaging Data XR right wrist/hand: Attestation: I have reviewed the pertinent imaging results. Radiologist's impression: ITS Impressions Hand X-Ray 06/28/24 21:01 IMPRESSION: Soft tissue swelling over the metacarpal heads. No acute fracture or dislocation. Electronically authenticated by: TRIXIE MCGOVERN Date: 06/28/2024 22:15 Wrist X-Ray 06/28/24 21:02 IMPRESSION: 1. No definite acute osseous abnormality. 2. Likely normal variant appearance of the scaphoid bone however if there is any clinical concern for scaphoid fracture, dedicated scaphoid view would be recommended. Electronically authenticated by: KAVON WEBB Date: 06/28/2024 23:28 Discharge Plan Discharge Chief Complaint: Extremity Injury, Upper Clinical Impression: Contusion of hand, Abrasion of hand, Right wrist sprain Patient Disposition: Home, Self-Care Time of Disposition Decision: 22:08 Condition: Good Mode of Transportation: Private Vehicle Print Language: Romansh Instructions: How to Use an Elastic Bandage (ED), Contusion in Adults (ED), Abrasion (ED), Wrist Sprain (ED) Additional Instructions: Return to the ER if your condition worsens. Referrals: Ander Conway MD [Primary Care Provider] - 1 week Discharge Date/Time: 06/28/24 22:15
[2024-06-28] MEDS: ACETAMINOPHEN 500 MG TABLET 1000 MG PO (21:48)
[2024-06-28] MEDS: ADACEL DIPH,PERTUSS(ACELL),TET VAC/PF 0.5 ML ADULT SYRINGE IM (22:02)
[2024-06-28] MEDS: ONDANSETRON 4 MG RAPDIS TABLET SL (22:02)
== END 2024-06-28 22:15 | disposition home or self-care (01) ==
PROVIDERS: Emergency Provider Internal Medicine; PCP Family Medicine
DX: S60.221A Contusion of right hand, initial encounter (principal); S60.511A Abrasion of right hand, initial encounter; S63.501A Unspecified sprain of right wrist, initial encounter; W22.01XA Walked into wall, initial encounter
CPT/HCPCS: 73110; 73130; 90471; 90715; 99285; Q0162

== ENCOUNTER 2024-07-26 12:07 | Outpatient (OUT) | payer BC, SELFPAY ==
--- OUTSIDE RECORDS SUMMARY | 2024-07-26 12:12 | XMS_ITS | CCD ---
Author Organization [facility] Team Providers Care Endbander Name Role Phone Ana Paula Dubose Unavailable [...] Drug Class(es) Dates Sig (Normalized) Sig (Original) [id number] 200 actuat albuterol 0.09 mg/actuat metered dose [...] Amylase [Catalytic activity/Vol] 43 U/L Normal 25-115 [facility] Comment on above: Performed By: #### A MY, LIPA, CMP #### [facility] [address] [place] [address] Dr. Perri Burdick CBC AUTO DIFFon 12-20-2022 BASO # 0.0 103/ul Normal 0.0-0.1 [facility] Comment on above: Performed By: #### C BC #### [facility] [address] [place] [address] Dr. Perri Burdick Basophils/100 WBC (Bld) 0.3 % Normal 0.2-2.0 [facility] Comment on above: Performed By: #### C BC #### [facility] [address] [place] [address] Dr. Perri Burdick EO # 0.1 103/ul Normal 0.0-0.7 [facility] Comment on above: Performed By: #### C BC #### [facility] [address] [place] [address] Dr. Perri Burdick Eosinophils/100 WBC (Bld) 1.3 % Normal 0.9-7.0 [facility] Comment on above: Performed By: #### C BC #### [facility] [address] [place] [address] Dr. Perri Burdick Erythrocyte distribution width (RBC) [Ratio] 12.8 % Normal 11.0-15.0 [facility] Comment on above: Performed By: #### C BC #### [facility] [address] [place] [address] Dr. Perri Burdick Hematocrit (Bld) [Volume fraction] 42.5 % Normal 36.0-48.0 [facility] Comment on above: Performed By: #### C BC #### [facility] [address] [place] [address] Dr. Perri Burdick Hemoglobin (Bld) [Mass/Vol] 14.2 g/dL Normal 12.0-16.0 [facility] Comment on above: Performed By: #### C BC #### [facility] [address] [place] [address] Dr. Perri Burdick IG # 0.03 10e3/ul Normal 0.00-0.03 [facility] Comment on above: Performed By: #### C BC #### [facility] [address] [place] [address] Dr. Perri Burdick IG % 0.3 % Normal 0.0-0.5 [facility] Comment on above: Performed By: #### C BC #### [facility] [address] [place] [address] Dr. Perri Burdick LYMPH # 2.8 103/ul Normal 1.2-3.8 [facility] Comment on above: Performed By: #### C BC #### [facility] [address] [place] [address] Dr. Perri Burdick Lymphocytes/100 WBC (Bld) 29.9 % Normal 20.5-60.0 [facility] Comment on above: Performed By: #### C BC #### [facility] [address] [place] [address] Dr. Perri Burdick MANUAL DIFF REQ NO Normal [facility] Comment on above: Performed By: #### C BC #### [facility] [address] [place] [address] Dr. Perri Burdick MCH (RBC) [Entitic mass] 29.0 pg Normal 26.7-34.0 [facility] Comment on above: Performed By: #### C BC #### [facility] [address] [place] [address] Dr. Perri Burdick MCHC (RBC) [Mass/Vol] 33.4 g/dL Normal 29.9-35.2 [facility] Comment on above: Performed By: #### C BC #### [facility] [address] [place] [address] Dr. Perri Burdick MCV (RBC) [Entitic vol] 86.9 fL Normal 81.0-99.0 [facility] Comment on above: Performed By: #### C BC #### [facility] [address] [place] [address] Dr. Perri Burdick MONO # 0.6 103/ul Normal 0.3-0.8 [facility] Comment on above: Performed By: #### C BC #### [facility] [address] [place] [address] Dr. Perri Burdick Monocytes/100 WBC (Bld) 6.6 % Normal 1.7-12.0 [facility] Comment on above: Performed By: #### C BC #### [facility] [address] [place] [address] Dr. Perri Burdick NEUT # 5.8 103/ul Normal 1.4-6.5 [facility] Comment on above: Performed By: #### C BC #### [facility] [address] [place] [address] Dr. Perri Burdick Neutrophils/100 WBC (Bld) 61.6 % Normal 43.0-75.0 [facility] Comment on above: Performed By: #### C BC #### [facility] [address] [place] [address] Dr. Perri Burdick Platelet mean volume (Bld) [Entitic vol] 10.5 fL Normal 9.5-13.5 [facility] Comment on above: Performed By: #### C BC #### [facility] [address] [place] [address] Dr. Perri Burdick PLT 263 103/ul Normal 150-450 [facility] Comment on above: Performed By: #### C BC #### [facility] [address] [place] [address] Dr. Perri Burdick RBC 4.89 106/ul Normal 4.20-5.40 [facility] Comment on above: Performed By: #### C BC #### [facility] [address] [place] [address] Dr. Perri Burdick WBC 9.5 103/ul Normal 4.0-11.0 [facility] Comment on above: Performed By: #### C BC #### [facility] [address] [place] [address] Dr. Perri Burdick ER URINE PROFILEon 3 Bilirubin Ql (U) Negative Normal NEGATIVE [facility] Comment on above: Performed By: #### P REGU, ERUR #### [facility] [address] [address] [address] Perri Burdick Clarity (U) CLEAR Normal CLEAR [facility] Comment on above: Performed By: #### P REGU, ERUR #### [facility] [address] [address] [address] Perri Burdick Color (U) LT. YELLOW Normal YELLOW [facility] Comment on above: Performed By: #### P REGU, ERUR #### [facility] [address] [address] [address] Perri CABRALD A micrscopic examination will be performed if indicated. Normal [facility] Comment on above: Performed By: #### P REGU, ERUR #### [facility] [address] [place] [address] Dr. Perri Burdick Glucose Ql (U) Negative Normal NEGATIVE [facility] Comment on above: Performed By: #### P REGU, ERUR #### [facility] [address] [place] [address] Dr. Perri Burdick Hemoglobin Ql (U) Negative Normal NEGATIVE [facility] Comment on above: Performed By: #### P REGU, ERUR #### [facility] [address] [place] [address] Dr. Perri Burdick Ketones Ql (U) Negative Normal NEGATIVE [facility] Comment on above: Performed By: #### P REGU, ERUR #### [facility] [address] [address] [address] Perri Burdick LEUKOCYTES Negative Normal NEGATIVE [facility] Comment on above: Performed By: #### P REGU, ERUR #### [facility] [address] [address] [address] Perri Burdick Nitrite Ql (U) Negative Normal NEGATIVE [facility] Comment on above: Performed By: #### P REGU, ERUR #### [facility] [address] [place] [address] Dr. Perri Burdick pH (U) 6.0 [pH] Normal 5-9 [facility] Comment on above: Performed By: #### P REGU, ERUR #### [facility] [address] [place] [address] Dr. Perri Burdick SPEC GRAVITY 1.025 Normal 1.005-<=1.025 [facility] Comment on above: Performed By: #### P REGU, ERUR #### [facility] [address] [place] [address] Dr. Perri Burdick UA PROTEIN Negative Normal NEGATIVE/ TRACE [facility] Comment on above: Performed By: #### P REGU, ERUR #### [facility] [address] [place] [address] Dr. Perri Burdick UR MICRO IND NOT INDICATED Normal [facility] Comment on above: Performed By: #### P REGU, ERUR #### [facility] [address] [place] [address] Dr. Perri Burdick Urobilinogen Qn (U) 0.2 {Brody'U}/dL Normal 0.2 - 1.0 [facility] Comment on above: Performed By: #### P REGU, ERUR #### [facility] [address] [place] [address] Dr. Perri Burdick LIPASEon 12-20-2022 Lipase [Catalytic activity/Vol] 134.0 U/L Normal 73.0-393.0 [facility] Comment on above: Performed By: #### A [place] LIPBarby, CMP #### [facility] [address] [place] [address] Dr. Perri Burdick URon 12-20-2022 , QUAL Negative Normal NEGATIVE [facility] Comment on above: Performed By: #### P REGU, ERUR #### [facility] [address] [place] [address] Dr. Perri Burdick PROF 14(COMP METB)on 023 Albumin [Mass/Vol] 3.8 g/dL Normal 3.4-5.0 [facility] Comment on above: Performed By: #### A [place] LIPA, CMP #### [facility] [address] [address] [address] Perri Burdick Albumin/Globulin [Mass ratio] 1.2 {ratio} Normal [facility] Comment on above: Performed By: #### A MY, LIPA, CMP #### [facility] [address] [address] [address] Perri Burdick ALP [Catalytic activity/Vol] 138 U/L Critically high 46-116 [facility] Comment on above: Performed By: #### A MY, LIPA, CMP #### [facility] [address] [address] [address] Perri Burdick ALT [Catalytic activity/Vol] 23 U/L Normal 14-59 [facility] Comment on above: Performed By: #### A MY, LIPA, CMP #### [facility] [address] [address] [address] Perri Burdick Anion gap [Moles/Vol] 10.3 mmol/L Normal [facility] Comment on above: Performed By: #### A MY, LIPA, CMP #### [facility] [address] [address] [address] Perri Burdick AST [Catalytic activity/Vol] 17 U/L Normal 15-37 [facility] Comment on above: Performed By: #### A MY, LIPA, CMP #### [facility] [address] [address] [address] Perri Burdick Bilirubin [Mass/Vol] 0.2 mg/dL Normal 0.2-1.0 [facility] Comment on above: Performed By: #### A MY, LIPA, CMP #### [facility] [address] [address] [address] Perri Burdick Calcium [Mass/Vol] 9.2 mg/dL Normal 8.5-10.1 [facility] Comment on above: Performed By: #### A MY, LIPA, CMP #### [facility] [address] [address] [address] Perri Burdick Chloride [Moles/Vol] 105 mmol/L Normal 98-107 [facility] Comment on above: Performed By: #### A MY, LIPA, CMP #### [facility] [address] [address] [address] Perri Burdick CO2 [Moles/Vol] 27.3 mmol/L Normal 21.0-32.0 [facility] Comment on above: Performed By: #### A MY, LIPA, CMP #### [facility] [address] [address] [address] Perri Burdick Creatinine [Mass/Vol] 0.82 mg/dL Normal 0.55-1.02 [facility] Comment on above: Performed By: #### A MY, LIPA, CMP #### [facility] [address] [place] [address] Dr. Perri Burdick EGFR-AF TURKISH >60 Normal >=60 [facility] Comment on above: Performed By: #### A MY, LIPA, CMP #### [facility] [address] [place] [address] Dr. Perri Burdick EGFR-NON AF TURKISH >60 Normal >=60 [facility] Comment on above: Performed By: #### A MY LIPA, CMP #### [facility] [address] [place] [address] Dr. Perri Burdick Globulin (S) [Mass/Vol] 3.3 g/dL Normal [facility] Comment on above: Performed By: #### A MY LIPA, CMP #### [facility] [address] [address] [address] Perri Burdick Glucose [Mass/Vol] 117 mg/dL Critically high 74-106 [facility] Comment on above: Performed By: #### A MY, LIPA, CMP #### [facility] [address] [address] [address] Perri Burdick Potassium [Moles/Vol] 3.6 mmol/L Normal 3.5-5.1 [facility] Comment on above: Performed By: #### A MY, LIPA, CMP #### [facility] [address] [place] [address] Dr. Perri Burdick Protein [Mass/Vol] 7.1 g/dL Normal 6.4-8.2 [facility] Comment on above: Performed By: #### A KENDALL HO, CMP #### [facility] [address] [address] [address] Perri Burdick Sodium [Moles/Vol] 139 mmol/L Normal 136-145 [facility] Comment on above: Performed By: #### A KENDALL HO, CMP #### [facility] [address] [address] [address] Perri Burdick Urea nitrogen [Mass/Vol] 15.0 mg/dL Normal 7.0-18.0 [facility] Comment on above: Performed By: #### A KENDALL HO, CMP #### [facility] [address] [place] [address] Dr. Perri Burdick Urea nitrogen/Creatini ne [Mass ratio] 18.3 mg/mg Normal [facility] Comment on above: Performed By: #### A KENDALL HO, CMP #### [facility] [address] [place] [address] Dr. Perri Burdick XR ABD FLAT UP_PA [...] AL CHURCH Date: 2022-12-20 04:52 Normal [facility] CHLAMYDIA/GONOCOCCUS CASSIDY (SW AB/URINE/PAPon 12-01-2022 Chlamydia trachomatis, CASSIDY Negative Normal Negative [facility] Comment on above: Performed By: #### C T/NGNA #### [facility] [address] [address] [address] Perri Burdick Neisseria gonorrhoeae, CASSIDY Negative Normal Negative [facility] Comment on above: Performed By: #### C T/NGNA #### [facility] [address] [place] [address] Dr. Perri Burdick VAGINITIS/VAGINOSIS DNA PROB Jamar 12-01-2022 Nieves species Negative Normal Negative [facility] Comment on above: Performed By: #### V AGINT #### [facility] [address] [place] [address] Dr. Perri Burdick Gardnerella vaginalis Negative Normal Negative [facility] Comment on above: Performed By: #### V AGINT #### [facility] [address] [place] [address] Dr. Perri Burdick Trichomonas vaginalis Negative Normal Negative [facility] Comment on above: Performed By: #### V AGINT #### [facility] [address] [place] [address] Dr. Perri Burdick PAP ACOG PANEL 2: 21 to 29on 10-20-2022 . . Normal [facility] Comment on above: Performed By: #### [id number] #### [facility] [address] [place] [address] Dr. Perri Burdick Age Gdln ACOG Testing 21-29 Normal [facility] Comment on above: Performed By: #### [id number] #### [facility] [address] [place] [address] Dr. Perri Burdick DIAGNOSIS: Comment Normal [facility] Comment on above: Result Comment: NEGA TIVE FOR INTRAEPITHELIAL LESION OR MALIGNANCY. Performed By: #### [id number] #### [facility] [address] [place] [address] Dr. Perri Burdick Methodology: Comment Normal [facility] Comment on above: Result Comment: This liquid based ThinPrep(R) pap test was screened with the use of an image guided system. Performed By: #### [id number] #### [facility] [address] [place] [address] Dr. Perri Burdick Note: Comment Normal [facility] Comment on above: Result Comment: The Pap smear is a screening test designed to aid in the detection of premalignant and malignant conditions of the uterine cervix. It is not a diagnostic procedure and should not be used as the sole means of detecting cervical cancer. Both false-positive and false-negative reports do occur. . Performed By: #### [id number] #### [facility] [address] [address] [address] Perri Burdick Performed by: Comment Normal [facility] Comment on above: Result Comment: [place] Stoner, Painter Chassis (ASCP) Performed By: #### [id number] #### [facility] [address] [place] [address] Dr. Perri Burdick Reflex Criteria: Comment Normal [facility] Comment on above: Result Comment: The HPV DNA reflex criteria were not met with this specimen result therefore, no HPV testing was performed. . Performed By: #### [id number] #### [facility] [address] [place] [address] Dr. Perri Burdick Specimen adequacy: Comment Normal [facility] Comment on above: Result Comment: Sati sfactory for evaluation. Endocervical and/or squamous metaplastic cells (endocervical component) are present. Performed By: #### [id number] #### [facility] [address] [place] [address] Dr. Perri Burdick COVID Quick Testingon 2020 Result Negative [facility] Other Vital Signs Date Time Vital Sign Value Performing Clinician Facility 11-09-2023 10:24-0500 Body mass index (BMI) [Ratio] 41.34 kg/m2 [facility] Work Phone: [facility] [employer] 11-09-2023 10:24-0500 Body weight 102.51 kg [facility] Work Phone: [facility] [employer] 11-09-2023 10:24-0500 Diastolic blood pressure 72 mm[Hg] Alissa Nitin DO Work Phone: [facility] 11-09-2023 10:24-0500 Systolic blood pressure 118 mm[Hg] Alissa Bertrando DO Work Phone: [facility] 07-22-2021 10:45-0400 Body height 157.48 cm Ana Paula Dubose Other [facility] Other 07-22-2021 10:45-0400 Body mass index (BMI) [Ratio] 38.59 kg/m2 Ana Paula Dubose Other [facility] Other 07-22-2021 10:45-0400 Body temperature 98 [degF] Ana Paula Dubose Other [facility] Other 07-22-2021 10:45-0400 Body weight 95.71 kg Ana Paula Dubose Other [facility] Other 07-22-2021 10:45-0400 Respiratory rate 18 /min Ana Paula Dubose Other [facility] Other 07-22-2021 10:45-0400 SaO2% (BldA) [Mass fraction] 97 % Ana Paula Dubose Other [facility] Other Encounters Encounter Date Encounter Type Care Provider Facility Start: 11-09-2023 End: 11-09-2023 ambulatory ALISSA BERTRANDO Not Available Start: 11-09-2023 End: 11-09-2023 Office outpatient visit 15 minutes Alissa Bertrando DO Work Phone: [facility] Comment on above: Vaginal lump; [...] (URG) Urgent Care Visit Ana Paula barney [facility] Plan of Treatment Date Care Activity Detail Author Start: 06-09-2023 Influenza vaccination Influenza Vacc ine (#1) [facility] CHLAMYDIA TRACHOMATI S (GENITO/STI) CHLAMYDIA TRACHOMATIS (GENITO/STI) Lab Routine Vaginal lump Pain in female genitalia on intercourse Ordered: 11/09/2023 [facility] Comment on above: Ordered: 11/09/2023 Neisseria gonorrhoea e DNA [Presence] in Unspecified specimen by CASSIDY with probe detection Neisseria gonorrhea DNA probe, direct Lab Routine Vaginal lump Pain in female genitalia on intercourse Ordered: 11/09/2023 [facility] Comment on above: Ordered: 11/09/2023 SURESWAB(R) ADVANCED VAGINITIS PLUS, TMA SURESWAB(R) ADVANCED VAGINITIS PLUS, TMA Pathology and Cytology Routine Vaginal lump Pain in female genitalia on intercourse Ordered: 11/09/2023 [facility] Work Phone: Comment on above: Ordered: 11/09/2023 Payers Date Payer Category Payer Unknown [id number] 2023 Unknown BCBS BCBS [id number] [id number] 2023-Present [phone] [address] [place] [address] [id number] 2022 Private Health Insurance [id number] 2022 Private Health Insurance [employer] C [facility] [id number] 2022-Present [address] [place] [address] [id number] 2001 Unknown [id number] 93 2001 Unknown [id number] 93 2001 Unknown [id number] 93 2001 Unknown [id number] 93 2001 Unknown [id number] 93 2001 Unknown [id number] 93 2001 Unknown [id number] 259 2001 Unknown [id number] 259 2001 Unknown [id number] 259 1959 Self-pay [id number] 1959 Unknown [id number] Social History Date Type Detail Facility Start: 11-09-2023 Sex Assigned At N [facility] [employer] Other Start: 2023 Tobacco smoking status MIIS Never smoked tobacco [facility] Start: 2023 Tobacco use and exposure Smokeless tobacco non-user [facility] Start: 11-09-2023 Alcohol intake Ex-drinker (finding) [facility] Start: 11-09-2023 History of Social function [facility] Start: 2001 Sex Assigned At Not on file N [facility] History of Present illness Narrative 11-09-2023 Brianna Medina, [employer] - 11/09/2023 10:10 AM EST Note Date [...] Breakthrough bleeding on control pills Migraine syndrome (CMS/[facility]) Family History Problem Relation Name Age of [...] nursing note reviewed. Exam conducted with a development chemist present. Vitals: Estimated body mass index is [...] Alissa Taveras DO documented in this encounter [facility] Evaluation note 07-22-2021 Note Date [...] writting by [facility] document. [facility] Other Evaluation note Note Date & Type Note Facility Evaluation note Diagnosis Vaginal lump Pain in female genitalia on intercourse Dyspareunia Soreness breast Mastodynia documented in this encounter [facility] History general Narrative - Reported Note Date & Type Note Facility History general Narrative - Reported Type Medical History Strain of lumbar region, initial encounter [facility] Other Summary Purpose Family History No Family History Records FoundNo Family History Records Found Advance Directives No Advanced Directives Records FoundNo Advanced Directives Records Found Additional Source Comments REASON FOR VISIT (unrecogniz ed section and content) Reason Comments vaginal lump, painful sex, sore breasts INFORMATION SOURCE (unrecogn ized section and content) DATE CREATED AUTHOR 12/23/2022 [facility] DATE CREATED AUTHOR AUTHOR'S ORGANIZ ATION 11/10/2023 [facility] EPIC Care Teams (unrecognized sec tion and content) Endbander Relationship Specialty Start Date End Date Yinka Barrett DO [address] [place] [address] PCP - General Family Medicine 03/16/23 FOR [...] BE BASED ON THE PRIMARY CLINICAL RECORDS. [employer] ([place] [facility]. provides no warranty or guarantee of the accuracy or completeness of information in this document.
[2024-07-29 21:08] LABS: Neisseria gonorrhoeae, NAA Negative (Negative)
== END 2024-07-26 12:08 | disposition home or self-care (01) ==
LOC: LAB 12:10
PROVIDERS: PCP Family Medicine; Visit Provider Family Medicine
DX: Z20.2 Contact with and (suspected) exposure to infections with a predominantly sexual mode of transmission (principal)
CPT/HCPCS: 87491; 87591

== ENCOUNTER 2024-08-01 14:43 | Emergency (ER) | payer BC, SELFPAY ==
--- OUTSIDE RECORDS SUMMARY | 2024-08-01 15:03 | XMS_ITS | CCD ---
Author Organization [facility] Team Providers Care Diamond Sorter Name Role Phone Ana Paula Dubose Unavailable [...] Drug Class(es) Dates Sig (Normalized) Sig (Original) [id number] 200 actuat albuterol 0.09 mg/actuat metered dose [...] By: #### A MY, LIPA, CMP #### [facility] [address] [place] [address] Dr. Perri Burdick CBC AUTO DIFFon 12-20-2022 BASO # 0.0 103/ul Normal 0.0-0.1 [facility] Comment on above: Performed By: #### C BC #### [facility] [address] [place] [address] Dr. Perri Burdick Basophils/100 WBC (Bld) 0.3 % Normal 0.2-2.0 [facility] Comment on above: Performed By: #### C BC #### [facility] [address] [place] [address] Dr. Perri Burdick EO # 0.1 103/ul Normal 0.0-0.7 [facility] Comment on above: Performed By: #### C BC #### [facility] [address] [place] [address] Dr. Perri Burdick Eosinophils/100 WBC (Bld) 1.3 % Normal 0.9-7.0 [facility] Comment on above: Performed By: #### C BC #### [facility] [address] [place] [address] Dr. Perri Burdick Erythrocyte distribution width (RBC) [Ratio] 12.8 % Normal 11.0-15.0 [facility] Comment on above: Performed By: #### C BC #### [facility] [address] [place] [address] Dr. Perri Burdick Hematocrit (Bld) [Volume fraction] 42.5 % Normal 36.0-48.0 [facility] Comment on above: Performed By: #### C BC #### [facility] [address] [place] [address] Dr. Perri Burdick Hemoglobin (Bld) [Mass/Vol] 14.2 g/dL Normal 12.0-16.0 [facility] Comment on above: Performed By: #### C BC #### [facility] [address] [place] [address] Dr. Perir Burdick IG # 0.03 10e3/ul Normal 0.00-0.03 [facility] Comment on above: Performed By: #### C BC #### [facility] [address] [place] [address] Dr. Perri Burdick IG % 0.3 % Normal 0.0-0.5 [facility] Comment on above: Performed By: #### C BC #### [facility] [address] [place] [address] Dr. Perri Burdick LYMPH # 2.8 103/ul Normal 1.2-3.8 [facility] Comment on above: Performed By: #### C BC #### [facility] [address] [place] [address] Dr. Perri Burdick Lymphocytes/100 WBC (Bld) 29.9 % Normal 20.5-60.0 [facility] Comment on above: Performed By: #### C BC #### [facility] [address] [place] [address] Dr. Perri Burdick MANUAL DIFF REQ NO Normal [facility] Comment on above: Performed By: #### C BC #### [facility] [address] [place] [address] Dr. Perri Burdick MCH (RBC) [Entitic mass] 29.0 pg Normal 26.7-34.0 [facility] Comment on above: Performed By: #### C BC #### [facility] [address] [place] [address] Dr. Perri Burdick MCHC (RBC) [Mass/Vol] 33.4 g/dL Normal 29.9-35.2 [facility] Comment on above: Performed By: #### C BC #### [facility] [address] [place] [address] Dr. Perri Burdick MCV (RBC) [Entitic vol] 86.9 fL Normal 81.0-99.0 [facility] Comment on above: Performed By: #### C BC #### [facility] [address] [place] [address] Dr. Perri Burdick MONO # 0.6 103/ul Normal 0.3-0.8 [facility] Comment on above: Performed By: #### C BC #### [facility] [address] [place] [address] Dr. Perri Burdick Monocytes/100 WBC (Bld) 6.6 % Normal 1.7-12.0 [facility] Comment on above: Performed By: #### C BC #### [facility] [address] [place] [address] Dr. Perri Burdick NEUT # 5.8 103/ul Normal 1.4-6.5 [facility] Comment on above: Performed By: #### C BC #### [facility] [address] [place] [address] Dr. Perri Burdick Neutrophils/100 WBC (Bld) 61.6 % Normal 43.0-75.0 [facility] Comment on above: Performed By: #### C BC #### [facility] [address] [place] [address] Dr. Perri Burdick Platelet mean volume (Bld) [Entitic vol] 10.5 fL Normal 9.5-13.5 [facility] Comment on above: Performed By: #### C BC #### [facility] [address] [place] [address] Dr. Perri Burdick PLT 263 103/ul Normal 150-450 [facility] Comment on above: Performed By: #### C BC #### [facility] [address] [place] [address] Dr. Perri Burdick RBC 4.89 106/ul Normal 4.20-5.40 [facility] Comment on above: Performed By: #### C BC #### [facility] [address] [place] [address] Dr. Perri Burdick WBC 9.5 103/ul Normal 4.0-11.0 [facility] Comment on above: Performed By: #### C BC #### [facility] [address] [place] [address] Dr. Perri Burdick ER URINE PROFILEon 3 Bilirubin Ql (U) Negative Normal NEGATIVE [facility] Comment on above: Performed By: #### P REGU, ERUR #### [facility] [address] [address] [address] Perri Burdick Clarity (U) CLEAR Normal CLEAR [facility] Comment on above: Performed By: #### P REGU, ERUR #### [facility] [address] [address] [address] Perri Burdick Color (U) LT. YELLOW Normal YELLOW [facility] Comment on above: Performed By: #### P REGU, ERUR #### [facility] [address] [address] [address] Perri CABRALD A micrscopic examination will be performed if indicated. Normal [facility] Comment on above: Performed By: #### P REGU, ERUR #### [facility] [address] [place] [address] Dr. Perri Burdick Glucose Ql (U) Negative Normal NEGATIVE [facility] Comment on above: Performed By: #### P REGU, ERUR #### [facility] [address] [place] [address] Dr. Perri Burdick Hemoglobin Ql (U) Negative Normal NEGATIVE [facility] Comment on above: Performed By: #### P REGU, ERUR #### [facility] [address] [place] [address] Dr. Perri Burdick Ketones Ql (U) Negative Normal NEGATIVE [facility] Comment on above: Performed By: #### P REGU, ERUR #### [facility] [address] [address] [address] Perri Burdick LEUKOCYTES Negative Normal NEGATIVE [facility] Comment on above: Performed By: #### P REGU, ERUR #### [facility] [address] [address] [address] Perri Burdick Nitrite Ql (U) Negative Normal NEGATIVE [facility] Comment on above: Performed By: #### P REGU, ERUR #### [facility] [address] [place] [address] Dr. Perri Burdick pH (U) 6.0 [pH] Normal 5-9 [facility] Comment on above: Performed By: #### P REGU, ERUR #### [facility] [address] [place] [address] Dr. Perri Burdick SPEC GRAVITY 1.025 Normal 1.005-<=1.025 [facility] Comment on above: Performed By: #### P REGU, ERUR #### [facility] [address] [place] [address] Dr. Perri Burdick UA PROTEIN Negative Normal NEGATIVE/ TRACE [facility] Comment on above: Performed By: #### P REGU, ERUR #### [facility] [address] [place] [address] Dr. Perri Burdick UR MICRO IND NOT INDICATED Normal [facility] Comment on above: Performed By: #### P REGU, ERUR #### [facility] [address] [place] [address] Dr. Perri Burdick Urobilinogen Qn (U) 0.2 {Brody'U}/dL Normal 0.2 - 1.0 [facility] Comment on above: Performed By: #### P REGU, ERUR #### [facility] [address] [place] [address] Dr. Perri Burdick LIPASEon 12-20-2022 Lipase [Catalytic activity/Vol] 134.0 U/L Normal 73.0-393.0 [facility] Comment on above: Performed By: #### A [place] LIPBarby, CMP #### [facility] [address] [place] [address] Dr. Perri Burdick URon 12-20-2022 , QUAL Negative Normal NEGATIVE [facility] Comment on above: Performed By: #### P REGU, ERUR #### [facility] [address] [place] [address] Dr. Perri Burdick PROF 14(COMP METB)on 023 Albumin [Mass/Vol] 3.8 g/dL Normal 3.4-5.0 [facility] Comment on above: Performed By: #### A [place] LIPA, CMP #### [facility] [address] [address] [address] Perri Burdick Albumin/Globulin [Mass ratio] 1.2 {ratio} Normal [facility] Comment on above: Performed By: #### A MY, LIPA, CMP #### [facility] [address] [address] [address] Perri Burdick ALP [Catalytic activity/Vol] 138 U/L Critically high 46-116 [facility] Comment on above: Performed By: #### A MY, LIPA, CMP #### [facility] [address] [address] [address] Perri Burdick ALT [Catalytic activity/Vol] 23 U/L Normal 14-59 [facility] Comment on above: Performed By: #### A MY, LIPA, CMP #### [facility] [address] [address] [address] Perri Burdick Anion gap [Moles/Vol] 10.3 mmol/L Normal [facility] Comment on above: Performed By: #### A MY, LIPA, CMP #### [facility] [address] [address] [address] Perri Burdick AST [Catalytic activity/Vol] 17 U/L Normal 15-37 [facility] Comment on above: Performed By: #### A MY, LIPA, CMP #### [facility] [address] [address] [address] Perri Burdick Bilirubin [Mass/Vol] 0.2 mg/dL Normal 0.2-1.0 [facility] Comment on above: Performed By: #### A MY, LIPA, CMP #### [facility] [address] [address] [address] Perri Burdick Calcium [Mass/Vol] 9.2 mg/dL Normal 8.5-10.1 [facility] Comment on above: Performed By: #### A MY, LIPA, CMP #### [facility] [address] [address] [address] Perri Burdick Chloride [Moles/Vol] 105 mmol/L Normal 98-107 [facility] Comment on above: Performed By: #### A MY, LIPA, CMP #### [facility] [address] [address] [address] Perri Burdick CO2 [Moles/Vol] 27.3 mmol/L Normal 21.0-32.0 [facility] Comment on above: Performed By: #### A MY, LIPA, CMP #### [facility] [address] [address] [address] Perri Burdick Creatinine [Mass/Vol] 0.82 mg/dL Normal 0.55-1.02 [facility] Comment on above: Performed By: #### A MY, LIPA, CMP #### [facility] [address] [place] [address] Dr. Perri Burdick EGFR-AF CITIZEN [place] >60 Normal >=60 [facility] Comment on above: Performed By: #### A MY, LIPA, CMP #### [facility] [address] [place] [address] Dr. Perri Burdick EGFR-NON AF CITIZEN OF [place] >60 Normal >=60 [facility] Comment on above: Performed By: #### A MY LIPA, CMP #### [facility] [address] [place] [address] Dr. Perri Burdick Globulin (S) [Mass/Vol] 3.3 g/dL Normal [facility] Comment on above: Performed By: #### A MY LIPA, CMP #### [facility] [address] [address] [address] Perri Burdick Glucose [Mass/Vol] 117 mg/dL Critically high 74-106 [facility] Comment on above: Performed By: #### A MY, LIPA, CMP #### [facility] [address] [address] [address] Perri Burdick Potassium [Moles/Vol] 3.6 mmol/L Normal 3.5-5.1 [facility] Comment on above: Performed By: #### A MY, LIPA, CMP #### [facility] [address] [place] [address] Dr. Perri Burdick Protein [Mass/Vol] 7.1 g/dL Normal 6.4-8.2 [facility] Comment on above: Performed By: #### A KENDALL HO, CMP #### [facility] [address] [address] [address] Perri Burdick Sodium [Moles/Vol] 139 mmol/L Normal 136-145 [facility] Comment on above: Performed By: #### A KENDALL HO, CMP #### [facility] [address] [address] [address] Perri Burdick Urea nitrogen [Mass/Vol] 15.0 mg/dL Normal 7.0-18.0 [facility] Comment on above: Performed By: #### A KENDALL HO, CMP #### [facility] [address] [place] [address] Dr. Perri Burdick Urea nitrogen/Creatini ne [Mass ratio] 18.3 mg/mg Normal [facility] Comment on above: Performed By: #### A KENDALL HO, CMP #### [facility] [address] [place] [address] Dr. Perri Burdick XR ABD FLAT UP_PA [...] AL CHURCH Date: 2022-12-20 04:52 Normal [facility] CHLAMYDIA/GONOCOCCUS CASSIDY (SW AB/URINE/PAPon 12-01-2022 Chlamydia trachomatis, CASSIDY Negative Normal Negative [facility] Comment on above: Performed By: #### C T/NGNA #### [facility] [address] [address] [address] Perri Burdick Neisseria gonorrhoeae, CASSIDY Negative Normal Negative [facility] Comment on above: Performed By: #### C T/NGNA #### [facility] [address] [place] [address] Dr. Perri Burdick VAGINITIS/VAGINOSIS DNA PROB Jamar 12-01-2022 Nieves species Negative Normal Negative [facility] Comment on above: Performed By: #### V AGINT #### [facility] [address] [place] [address] Dr. Perri Burdick Gardnerella vaginalis Negative Normal Negative [facility] Comment on above: Performed By: #### V AGINT #### [facility] [address] [place] [address] Dr. Perri Burdick Trichomonas vaginalis Negative Normal Negative [facility] Comment on above: Performed By: #### V AGINT #### [facility] [address] [place] [address] Dr. Perri Burdick PAP ACOG PANEL 2: 21 to 29on 10-20-2022 . . Normal [facility] Comment on above: Performed By: #### [id number] #### [facility] [address] [place] [address] Dr. Perri Burdick Age Gdln ACOG Testing 21-29 Normal [facility] Comment on above: Performed By: #### [id number] #### [facility] [address] [place] [address] Dr. Perri Burdick DIAGNOSIS: Comment Normal [facility] Comment on above: Result Comment: NEGA TIVE FOR INTRAEPITHELIAL LESION OR MALIGNANCY. Performed By: #### [id number] #### [facility] [address] [place] [address] Dr. Perri Burdick Methodology: Comment Normal [facility] Comment on above: Result Comment: This liquid based ThinPrep(R) pap test was screened with the use of an image guided system. Performed By: #### [id number] #### [facility] [address] [place] [address] Dr. Perri Burdick Note: Comment Normal [place] [...] do occur. . Performed By: #### [id number] #### [facility] [address] [address] [address] Perri Burdick Performed by: Comment Normal [facility] Comment on above: Result Comment: [place] Stoner, National Accounts Recruiter (ASCP) Performed By: #### [id number] #### [facility] [address] [place] [address] Dr. Perri Burdick Reflex Criteria: Comment Normal [facility] Comment on above: Result Comment: The HPV DNA reflex criteria were not met with this specimen result therefore, no HPV testing was performed. . Performed By: #### 4 [id number] #### [facility] [address] [place] [address] Dr. Perri Burdick Specimen adequacy: Comment Normal [facility] Comment on above: Result Comment: Sati sfactory for evaluation. Endocervical and/or squamous metaplastic cells (endocervical component) are present. Performed By: #### [id number] #### [facility] [address] [place] [address] Dr. Perri Burdick COVID Quick Testingon 2020 Result Negative [facility] Other Vital Signs Date Time Vital Sign Value Performing Clinician Facility 11-09-2023 10:24-0500 Body mass index (BMI) [Ratio] 41.34 kg/m2 [employer] Work Phone: [facility] [employer] 11-09-2023 10:24-0500 Body weight 102.51 kg [employer] Work Phone: [facility] [employer] 11-09-2023 10:24-0500 Diastolic blood pressure 72 mm[Hg] Alissa Nitin DO Work Phone: [facility] 11-09-2023 10:24-0500 Systolic blood pressure 118 mm[Hg] Alissa Bertrando DO Work Phone: [facility] 07-22-2021 10:45-0400 Body height 157.48 cm Ana Paula Dubose Other [employer] Other 07-22-2021 10:45-0400 Body mass index (BMI) [Ratio] 38.59 kg/m2 Ana Paula Dubose Other [facility] Other 07-22-2021 10:45-0400 Body temperature 98 [degF] Ana Paula Dubose Other [employer] Other 07-22-2021 10:45-0400 Body weight 95.71 kg Ana Paula Dubose Other [facility] Other 07-22-2021 10:45-0400 Respiratory rate 18 /min Ana Paula Dubose Other [facility] Other 07-22-2021 10:45-0400 SaO2% (BldA) [Mass fraction] 97 % Ana Paula Dubose Other [employer] Other Encounters Encounter Date Encounter Type Care Provider Facility Start: 11-09-2023 End: 11-09-2023 ambulatory ALISSA BERTRANDO Not Available Start: 11-09-2023 End: 11-09-2023 Office outpatient visit 15 minutes Alissa Bertrando DO Work Phone: [facility] Comment on above: Vaginal [...] (URG) Urgent Care Visit Ana Paula barney [facility] Plan of Treatment Date Care Activity Detail Author Start: 06-09-2023 Influenza vaccination Influenza Vacc ine (#1) [facility] CHLAMYDIA TRACHOMATI S (GENITO/STI) CHLAMYDIA TRACHOMATIS (GENITO/STI) Lab Routine Vaginal lump Pain in female genitalia on intercourse Ordered: 11/09/2023 [facility] Comment on above: Ordered: 11/09/2023 Neisseria gonorrhoea e DNA [Presence] in Unspecified specimen by CASSIDY with probe detection Neisseria gonorrhea DNA probe, direct Lab Routine Vaginal lump Pain in female genitalia on intercourse Ordered: 11/09/2023 [facility] Comment on above: Ordered: 11/09/2023 SURESWAB(R) ADVANCED VAGINITIS PLUS, TMA SURESWAB(R) ADVANCED VAGINITIS PLUS, TMA Pathology and Cytology Routine Vaginal lump Pain in female genitalia on intercourse Ordered: 11/09/2023 [facility] Work Phone: Comment on above: Ordered: 11/09/2023 Payers Date Payer Category Payer Unknown [id number] 2023 Unknown BCBS BCBS [id number] 2023-Present [phone] [address] [place] [address] [id number] 2022 Private Health Insurance [id number] 2022 Private Health Insurance [employer] C [facility] [id number] 2022-Present [address] [place] [address] [id number] 2001 Unknown [id number] 93 2001 Unknown [id number] 93 2001 Unknown [id number] 93 2001 Unknown [id number] 93 2001 Unknown [id number] 93 2001 Unknown [id number] 93 2001 Unknown [id number] 259 2001 Unknown [id number] 259 2001 Unknown [id number] 259 1959 Self-pay [id number] 1959 Unknown [id number] Social History Date Type Detail Facility Start: 11-09-2023 Sex Assigned At N [facility] Other Start: 2023 Tobacco smoking status WVIS Never smoked tobacco [facility] Start: 2023 Tobacco use and exposure Smokeless tobacco non-user [facility] Start: 11-09-2023 Alcohol intake Ex-drinker (finding) [facility] Start: 11-09-2023 History of Social function [facility] Start: 2001 Sex Assigned At Not on file [facility] History of Present illness Narrative 11-09-2023 Brianna Medina, WATER CONSERVATIONIST - 11/09/2023 10:10 AM EST Note Date [...] bleeding on control pills Migraine syndrome (CMS/FORMERLY [facility]) Family History Problem Relation Name Age of [...] nursing note reviewed. Exam conducted with a research asst present. Vitals: Estimated body mass index is [...] Alissa Taveras DO documented in this encounter [facility] Evaluation note 07-22-2021 Note Date [...] Patient care instructions given in writting by [facility] Care At Home document. [facility] Other Evaluation note Note Date & Type Note Facility Evaluation note Diagnosis Vaginal lump Pain in female genitalia on intercourse Dyspareunia Soreness breast Mastodynia documented in this encounter [facility] History general Narrative - Reported Note Date & Type Note Facility History general Narrative - Reported Type Medical History Strain of lumbar region, initial encounter [facility] Other Summary Purpose Family History No Family History Records FoundNo Family History Records Found Advance Directives No Advanced Directives Records FoundNo Advanced Directives Records Found Additional Source Comments REASON FOR VISIT (unrecogniz ed section and content) Reason Comments vaginal lump, painful sex, sore breasts INFORMATION SOURCE (unrecogn ized section and content) DATE CREATED AUTHOR 12/23/2022 [facility] DATE CREATED AUTHOR AUTHOR'S ORGANIZ ATION 11/10/2023 [facility] [employer] Care Teams (unrecognized sec tion and content) Diamond Sorter Relationship Specialty Start Date End Date Yinka Barrett DO [address] [place] [address] PCP - General Family Medicine 03/16/23 FOR [...] BE BASED ON THE PRIMARY CLINICAL RECORDS. [facility]. provides no warranty or guarantee of the accuracy or completeness of information in this document.
[2024-08-01 15:18] VITALS: BP 146/86; PULSE 85; TEMP 36.6; O2SAT 100; BMI 41.6
== END 2024-08-01 15:33 | disposition left against medical advice (07) ==
LOC: ER 14:45
PROVIDERS: Emergency Provider Emergency Medicine; PCP Family Medicine
DX: Z53.21 Procedure and treatment not carried out due to patient leaving prior to being seen by health care provider (principal)

== ENCOUNTER 2024-08-08 19:18 | Outpatient (REF) | payer BC, SELFPAY ==
--- OUTSIDE RECORDS SUMMARY | 2024-08-08 19:22 | XMS_ITS | CCD ---
Author Organization [facility] Care Team Providers Care Backup Operator Name Role Phone Ana Paula Dubose Unavailable [...] Primary Care Unavailable ALISSA TAVERAS Attending Unavailable MAYAR PAYAN Attending Unavailable MAYRA PAYAN Attending Unavailable Yinka Barrett DO Primary Care Provider Medications Current Medications Medication Drug Class(es) Dates Sig (Normalized) Sig (Original) [id number] 200 actuat albuterol 0.09 mg/actuat metered dose [...] Amylase [Catalytic activity/Vol] 43 U/L Normal 25-115 [facility] Comment on above: Performed By: #### A MY, LIPA, CMP #### [facility] [address] [place] [address] Dr. Perri Burdick CBC AUTO DIFFon 12-20-2022 BASO # 0.0 103/ul Normal 0.0-0.1 [facility] Comment on above: Performed By: #### C BC #### [facility] [address] [place] [address] Dr. Perri Burdick Basophils/100 WBC (Bld) 0.3 % Normal 0.2-2.0 [facility] Comment on above: Performed By: #### C BC #### [facility] [address] [place] [address] Dr. Perri Burdick EO # 0.1 103/ul Normal 0.0-0.7 [facility] Comment on above: Performed By: #### C BC #### [facility] [address] [place] [address] Dr. Perri Burdick Eosinophils/100 WBC (Bld) 1.3 % Normal 0.9-7.0 [facility] Comment on above: Performed By: #### C BC #### [facility] [address] [place] [address] Dr. Perri Burdick Erythrocyte distribution width (RBC) [Ratio] 12.8 % Normal 11.0-15.0 [facility] Comment on above: Performed By: #### C BC #### [facility] [address] [place] [address] Dr. Perri Burdick Hematocrit (Bld) [Volume fraction] 42.5 % Normal 36.0-48.0 [facility] Comment on above: Performed By: #### C BC #### [facility] [address] [place] [address] Dr. Perri Burdick Hemoglobin (Bld) [Mass/Vol] 14.2 g/dL Normal 12.0-16.0 [facility] Comment on above: Performed By: #### C BC #### [facility] [address] [place] [address] Dr. Perri Burdick IG # 0.03 10e3/ul Normal 0.00-0.03 [facility] Comment on above: Performed By: #### C BC #### [facility] [address] [place] [address] Dr. Perri Burdick IG % 0.3 % Normal 0.0-0.5 [facility] Comment on above: Performed By: #### C BC #### [facility] [address] [place] [address] Dr. Perri Burdick LYMPH # 2.8 103/ul Normal 1.2-3.8 [facility] Comment on above: Performed By: #### C BC #### [facility] [address] [place] [address] Dr. Perri Burdick Lymphocytes/100 WBC (Bld) 29.9 % Normal 20.5-60.0 [facility] Comment on above: Performed By: #### C BC #### [facility] [address] [place] [address] Dr. Perri Burdick MANUAL DIFF REQ NO Normal [facility] Comment on above: Performed By: #### C BC #### [facility] [address] [place] [address] Dr. Perri Burdick MCH (RBC) [Entitic mass] 29.0 pg Normal 26.7-34.0 [facility] Comment on above: Performed By: #### C BC #### [facility] [address] [place] [address] Dr. Perri Burdick MCHC (RBC) [Mass/Vol] 33.4 g/dL Normal 29.9-35.2 [facility] Comment on above: Performed By: #### C BC #### [facility] [address] [place] [address] Dr. Perri Burdick MCV (RBC) [Entitic vol] 86.9 fL Normal 81.0-99.0 [facility] Comment on above: Performed By: #### C BC #### [facility] [address] [place] [address] Dr. ePrri Burdick MONO # 0.6 103/ul Normal 0.3-0.8 [facility] Comment on above: Performed By: #### C BC #### [facility] [address] [place] [address] Dr. Perri Burdick Monocytes/100 WBC (Bld) 6.6 % Normal 1.7-12.0 [facility] Comment on above: Performed By: #### C BC #### [facility] [address] [place] [address] Dr. Perri Burdick NEUT # 5.8 103/ul Normal 1.4-6.5 [facility] Comment on above: Performed By: #### C BC #### [facility] [address] [place] [address] Dr. Perri Burdick Neutrophils/100 WBC (Bld) 61.6 % Normal 43.0-75.0 [facility] Comment on above: Performed By: #### C BC #### [facility] [address] [place] [address] Dr. Perri Burdick Platelet mean volume (Bld) [Entitic vol] 10.5 fL Normal 9.5-13.5 [facility] Comment on above: Performed By: #### C BC #### [facility] [address] [place] [address] Dr. Perri Burdick PLT 263 103/ul Normal 150-450 [facility] Comment on above: Performed By: #### C BC #### [facility] [address] [place] [address] Dr. Perri Burdick RBC 4.89 106/ul Normal 4.20-5.40 [facility] Comment on above: Performed By: #### C BC #### [facility] [address] [place] [address] Dr. Perri Burdick WBC 9.5 103/ul Normal 4.0-11.0 [facility] Comment on above: Performed By: #### C BC #### [facility] [address] [place] [address] Dr. Perri Burdick ER URINE PROFILEon 3 Bilirubin Ql (U) Negative Normal NEGATIVE [facility] Comment on above: Performed By: #### P REGU, ERUR #### [facility] [address] [address] [address] Perri Burdick Clarity (U) CLEAR Normal CLEAR [facility] Comment on above: Performed By: #### P REGU, ERUR #### [facility] [address] [address] [address] Perri Burdick Color (U) LT. YELLOW Normal YELLOW [facility] Comment on above: Performed By: #### P REGU, ERUR #### [facility] [address] [address] [address] Perri CABRALD A micrscopic examination will be performed if indicated. Normal [facility] Comment on above: Performed By: #### P REGU, ERUR #### [facility] [address] [place] [address] Dr. Perri Burdick Glucose Ql (U) Negative Normal NEGATIVE [facility] Comment on above: Performed By: #### P REGU, ERUR #### [facility] [address] [place] [address] Dr. Perri Burdick Hemoglobin Ql (U) Negative Normal NEGATIVE [facility] Comment on above: Performed By: #### P REGU, ERUR #### [facility] [address] [place] [address] Dr. Perri Burdick Ketones Ql (U) Negative Normal NEGATIVE [facility] Comment on above: Performed By: #### P REGU, ERUR #### [facility] [address] [address] [address] Perri Burdick LEUKOCYTES Negative Normal NEGATIVE [facility] Comment on above: Performed By: #### P REGU, ERUR #### [facility] [address] [address] [address] Perri Burdick Nitrite Ql (U) Negative Normal NEGATIVE [facility] Comment on above: Performed By: #### P REGU, ERUR #### [facility] [address] [place] [address] Dr. Perri Burdick pH (U) 6.0 [pH] Normal 5-9 [facility] Comment on above: Performed By: #### P REGU, ERUR #### [facility] [address] [place] [address] Dr. Perri Burdick SPEC GRAVITY 1.025 Normal 1.005-<=1.[address] [facility] Comment on above: Performed By: #### P REGU, ERUR #### [facility] [address] [place] [address] Dr. Perri Burdick UA PROTEIN Negative Normal NEGATIVE/ TRACE [facility] Comment on above: Performed By: #### P REGU, ERUR #### [facility] [address] [place] [address] Dr. Perri Burdick UR MICRO IND NOT INDICATED Normal [facility] Comment on above: Performed By: #### P REGU, ERUR #### [facility] [address] [place] [address] Dr. Perri Burdick Urobilinogen Qn (U) 0.2 {Brody'U}/dL Normal 0.2 - 1.0 [facility] Comment on above: Performed By: #### P REGU, ERUR #### [facility] [address] [place] [address] Dr. Perri Burdick LIPASEon 12-20-2022 Lipase [Catalytic activity/Vol] 134.0 U/L Normal 73.0-393.0 [facility] Comment on above: Performed By: #### A [place] LIPBarby, CMP #### [facility] [address] [place] [address] Dr. Perri Burdick URon 12-20-2022 , QUAL Negative Normal NEGATIVE [facility] Comment on above: Performed By: #### P REGU, ERUR #### [facility] [address] [place] [address] Dr. Perri Burdick PROF 14(COMP METB)on 023 Albumin [Mass/Vol] 3.8 g/dL Normal 3.4-5.0 [facility] Comment on above: Performed By: #### A [place] LIPA, CMP #### [facility] [address] [address] [address] Perri Burdick Albumin/Globulin [Mass ratio] 1.2 {ratio} Normal [facility] Comment on above: Performed By: #### A MY, LIPA, CMP #### [facility] [address] [address] [address] Perri Burdick ALP [Catalytic activity/Vol] 138 U/L Critically high 46-116 [facility] Comment on above: Performed By: #### A MY, LIPA, CMP #### [facility] [address] [address] [address] Perri Burdick ALT [Catalytic activity/Vol] 23 U/L Normal 14-59 [facility] Comment on above: Performed By: #### A MY, LIPA, CMP #### [facility] [address] [address] [address] Perri Burdick Anion gap [Moles/Vol] 10.3 mmol/L Normal [facility] Comment on above: Performed By: #### A MY, LIPA, CMP #### [facility] [address] [address] [address] Perri Burdick AST [Catalytic activity/Vol] 17 U/L Normal 15-37 [facility] Comment on above: Performed By: #### A MY, LIPA, CMP #### [facility] [address] [address] [address] Perri Burdick Bilirubin [Mass/Vol] 0.2 mg/dL Normal 0.2-1.0 [facility] Comment on above: Performed By: #### A MY, LIPA, CMP #### [facility] [address] [address] [address] Perri Burdick Calcium [Mass/Vol] 9.2 mg/dL Normal 8.5-10.1 [facility] Comment on above: Performed By: #### A MY, LIPA, CMP #### [facility] [address] [address] [address] Perri Burdick Chloride [Moles/Vol] 105 mmol/L Normal 98-107 [facility] Comment on above: Performed By: #### A MY, LIPA, CMP #### [facility] [address] [address] [address] Perri Burdick CO2 [Moles/Vol] 27.3 mmol/L Normal 21.0-32.0 [facility] Comment on above: Performed By: #### A MY, LIPA, CMP #### [facility] [address] [address] [address] Perri Burdick Creatinine [Mass/Vol] 0.82 mg/dL Normal 0.55-1.02 [facility] Comment on above: Performed By: #### A MY, LIPA, CMP #### [facility] [address] [place] [address] Dr. Perri Burdick EGFR-AF HONDURAN >60 Normal >=60 [facility] Comment on above: Performed By: #### A MY, LIPA, CMP #### [facility] [address] [place] [address] Dr. Perri Burdick EGFR-NON AF HONDURAN >60 Normal >=60 [facility] Comment on above: Performed By: #### A MY LIPA, CMP #### [facility] [address] [place] [address] Dr. Perri Burdick Globulin (S) [Mass/Vol] 3.3 g/dL Normal [facility] Comment on above: Performed By: #### A MY LIPA, CMP #### [facility] [address] [address] [address] Perri Burdick Glucose [Mass/Vol] 117 mg/dL Critically high 74-106 [facility] Comment on above: Performed By: #### A MY, LIPA, CMP #### [facility] [address] [address] [address] Perri Burdick Potassium [Moles/Vol] 3.6 mmol/L Normal 3.5-5.1 [facility] Comment on above: Performed By: #### A MY, LIPA, CMP #### [facility] [address] [place] [address] Dr. Perri Burdick Protein [Mass/Vol] 7.1 g/dL Normal 6.4-8.2 [facility] Comment on above: Performed By: #### A KENDALL HO, CMP #### [facility] [address] [address] [address] Perri Burdick Sodium [Moles/Vol] 139 mmol/L Normal 136-145 [facility] Comment on above: Performed By: #### A KENDALL HO, CMP #### [facility] [address] [address] [address] Perri Burdick Urea nitrogen [Mass/Vol] 15.0 mg/dL Normal 7.0-18.0 [facility] Comment on above: Performed By: #### A KENDALL HO, CMP #### [facility] [address] [place] [address] Dr. Perri Burdick Urea nitrogen/Creatini ne [Mass ratio] 18.3 mg/mg Normal [facility] Comment on above: Performed By: #### A KENDALL HO, CMP #### [facility] [address] [place] [address] Dr. Perri Burdick XR ABD FLAT UP_PA [...] AL CHURCH Date: 2022-12-20 04:52 Normal [facility] CHLAMYDIA/GONOCOCCUS CASSIDY (SW AB/URINE/PAPon 12-01-2022 Chlamydia trachomatis, CASSIDY Negative Normal Negative [facility] Comment on above: Performed By: #### C T/NGNA #### [facility] [address] [address] [address] Perri Burdick Neisseria gonorrhoeae, CASSIDY Negative Normal Negative [facility] Comment on above: Performed By: #### C T/NGNA #### [facility] [address] [place] [address] Dr. Perri Burdick VAGINITIS/VAGINOSIS DNA PROB Jamar 12-01-2022 Nieves species Negative Normal Negative [facility] Comment on above: Performed By: #### V AGINT #### [facility] [address] [place] [address] Dr. Perri Burdick Gardnerella vaginalis Negative Normal Negative [facility] Comment on above: Performed By: #### V AGINT #### [facility] [address] [place] [address] Dr. Perri Burdick Trichomonas vaginalis Negative Normal Negative [facility] Comment on above: Performed By: #### V AGINT #### [facility] [address] [place] [address] Dr. Perri Burdick PAP ACOG PANEL 2: 21 to 29on 10-20-2022 . . Normal [facility] Comment on above: Performed By: #### [id number] #### [facility] [address] [place] [address] Dr. Perri Burdick Age Gdln ACOG Testing 21-29 Normal [facility] Comment on above: Performed By: #### [id number] #### [facility] [address] [place] [address] Dr. Perri Burdick DIAGNOSIS: Comment Normal [facility] Comment on above: Result Comment: NEGA TIVE FOR INTRAEPITHELIAL LESION OR MALIGNANCY. Performed By: #### [id number] #### [facility] [address] [place] [address] Dr. Perri Burdick Methodology: Comment Normal [facility] Comment on above: Result Comment: This liquid based ThinPrep(R) pap test was screened with the use of an image guided system. Performed By: #### [id number] #### [facility] [address] [place] [address] Dr. Perri Burdick Note: Comment Normal [facility] Comment on above: Result Comment: The Pap smear is a screening test designed to aid in the detection of premalignant and malignant conditions of the uterine cervix. It is not a diagnostic procedure and should not be used as the sole means of detecting cervical cancer. Both false-positive and false-negative reports do occur. . Performed By: #### [id number] #### [facility] [address] [address] [address] Perri Burdick Performed by: Comment Normal [facility] Comment on above: Result Comment: Argentina Stoner, Skin Care Technician (ASCP) Performed By: #### 4 [id number] #### [facility] [address] [place] [address] Dr. Perri Burdick Reflex Criteria: Comment Normal [facility] Comment on above: Result Comment: The HPV DNA reflex criteria were not met with this specimen result therefore, no HPV testing was performed. . Performed By: #### [id number] #### [facility] [address] [place] [address] Dr. Perri Burdick Specimen adequacy: Comment Normal [facility] Comment on above: Result Comment: Sati sfactory for evaluation. Endocervical and/or squamous metaplastic cells (endocervical component) are present. Performed By: #### [id number] #### [facility] [address] [place] [address] Dr. Perri Burdick COVID Quick Testingon 2020 Result Negative [facility] Other Vital Signs Date Time Vital Sign Value Performing Clinician Facility 11-09-2023 10:24-0500 Body mass index (BMI) [Ratio] 41.34 kg/m2 [facility] [facility] [employer] Work Phone: [facility] 11-09-2023 10:24-0500 Body weight 102.51 kg [facility] [facility] [employer] Work Phone: [facility] 11-09-2023 10:24-0500 Diastolic blood pressure 72 mm[Hg] Alissa Nitin DO Work Phone: [facility] 11-09-2023 10:24-0500 Systolic blood pressure 118 mm[Hg] Alissa Bertrando DO Work Phone: [facility] 07-22-2021 10:45-0400 Body height 157.48 cm Ana Paula Dubose Other [employer] Other 07-22-2021 10:45-0400 Body mass index (BMI) [Ratio] 38.59 kg/m2 Ana Paula Dubose Other [facility] Other 07-22-2021 10:45-0400 Body temperature 98 [degF] Ana Paula Dubose Other [facility] Other 07-22-2021 10:45-0400 Body weight 95.71 kg Ana Paula Dubose Other [facility] Other 07-22-2021 10:45-0400 Respiratory rate 18 /min Ana Paula Dubose Other [facility] Other 07-22-2021 10:45-0400 SaO2% (BldA) [Mass fraction] 97 % Ana Paula Dubose Other [facility] Other Encounters Encounter Date Encounter Type Care Provider Facility Start: 11-09-2023 End: 11-09-2023 ambulatory ALISSA BERTRANDO Not Available Start: 11-09-2023 End: 11-09-2023 Office outpatient visit 15 minutes Alissa Bertrando DO Work Phone: [facility] Comment on above: Vaginal lump; [...] (URG) Urgent Care Visit Ana Paula barney [facility] Plan of Treatment [...] 11/09/2023 Payers Date Payer Category Payer Unknown [id number] 2023 Unknown BCBS BCBS xxxxxx [id number] 2023-Present [phone] [address] [place] [address] [id number] 2022 Private Health Insurance [id number] 2022 Private Health Insurance [employer] C [facility] [id number] 2022-Present [address] [place] [address] [id number] 2001 Unknown [id number] 93 2001 Unknown [id number] 93 2001 Unknown [id number] 93 2001 Unknown [id number] 93 2001 Unknown [id number] 93 2001 Unknown [id number] 93 2001 Unknown [id number] 259 2001 Unknown [id number] 259 2001 Unknown [id number] 259 1959 Self-pay [id number] 1959 Unknown [id number] Social History Date Type Detail Facility Start: 11-09-2023 Sex Assigned At N [facility] [employer] Other Start: 2023 Tobacco smoking status KSIS Never smoked tobacco [facility] Start: 2023 Tobacco use and exposure Smokeless tobacco non-user [facility] Start: 11-09-2023 Alcohol intake Ex-drinker (finding) [facility] Start: 11-09-2023 History of Social function [facility] Start: 2001 Sex Assigned At Not on file N [facility] History of Present illness Narrative 11-09-2023 Brianna Medina, SAVE ALL OPERATOR - 11/09/2023 10:10 AM EST Note Date [...] Breakthrough bleeding on control pills Migraine syndrome (CMS/[facility]) Family History Problem Relation Name Age of [...] nursing note reviewed. Exam conducted with a rod and tube straightener present. Vitals: Estimated body mass index is [...] Alissa Taveras DO documented in this encounter [facility] Evaluation note 07-22-2021 Note Date & [...] Patient care instructions given in writting by [facility] document. [facility] Other Evaluation note Note Date & Type Note Facility Evaluation note Diagnosis Vaginal lump Pain in female genitalia on intercourse Dyspareunia Soreness breast Mastodynia documented in this encounter [facility] History general Narrative - Reported Note Date & Type Note Facility History general Narrative - Reported Type Medical History Strain of lumbar region, initial encounter [facility] Other Summary Purpose Family History No Family History Records FoundNo Family History Records Found Advance Directives No Advanced Directives Records FoundNo Advanced Directives Records Found Additional Source Comments REASON FOR VISIT (unrecogniz ed section and content) Reason Comments vaginal lump, painful sex, sore breasts INFORMATION SOURCE (unrecogn ized section and content) DATE CREATED AUTHOR 12/23/2022 [facility] DATE CREATED AUTHOR AUTHOR'S ORGANIZ ATION 11/10/2023 [facility] [employer] Care Teams (unrecognized sec tion and content) Backup Operator Relationship Specialty Start Date End Date Yinka Barrett DO [address] [place] [address] PCP - General Family Medicine 03/16/23 FOR [...] BE BASED ON THE PRIMARY CLINICAL RECORDS. [employer] [facility]. provides no warranty or guarantee of the accuracy or completeness of information in this document.
[2024-08-16 14:10] LABS: Age Gdln ACOG Testing Note (.); IGP, rfx Aptima HPV ASCU Note (.)
== END 2024-08-08 19:19 | disposition home or self-care (01) ==
LOC: LAB 19:18
PROVIDERS: PCP Family Medicine; Visit Provider Physician Assistant
DX: Z01.419 Encounter for gynecological examination (general) (routine) without abnormal findings (principal)
CPT/HCPCS: 88175

== ENCOUNTER 2024-08-10 18:10 | Emergency (ER) | payer BC, SELFPAY ==
[2024-08-10 18:14] VITALS: BP 146/90; PULSE 89; TEMP 36.8; O2SAT 98; BMI 43.1
--- OUTSIDE RECORDS SUMMARY | 2024-08-10 18:14 | XMS_ITS | CCD ---
Author Organization [facility] Care Team Providers Care Electrical Calibrator Name Role Phone Ana Paula Dubose Unavailable VICTORINO ., DR LOWRY Admitting Unavailable HOY ., DR LOWRY Attending Unavailable HOY ., DR LOWRY Primary Care Unavailable SALMA CHARLES Admitting Unavailable SALMA CHARLES Attending Unavailable HOY ., DR LOWRY Primary Care Unavailable SALMA CHARLES Consulting Unavailable SALMA CHARLES Admitting Unavailable SALMA CHARLES Attending Unavailable HOY ., DR LOWRY Primary Care Unavailable SALMA CHARLES Consulting Unavailable HOY ., DR LOWRY [...] HOY ., DR LOWRY Primary Care Unavailable Yinka Barrett DO Primary Care Provider Unallocated Sherry PENG Provider Primary Care Provi josé miguel ALISSA TAVERAS Attending Unavailable MAYRA PAYAN Attending Unavailable MAYRA PAYAN Attending Unavailable SALMA CHARLES Attending Unavailable Medications Current Medications Medication Drug Class(es) Dates Sig (Normalized) Sig (Original) [id number] 200 actuat albuterol 0.09 mg/actuat metered dose inhaler (5 sources) beta2-Adrenergic Agonist Start: 12-20-2022 take 2 puff(s) by mouth four times daily as needed albuterol HFA 90 mcg/act inhaler INHALE 2 PUFFS BY MOUTH FOUR TIMES DAILY NEEDED 12/20/2022 Active cephalexin 500 mg oral capsule [...] Active clobetasol propionate 0.5 mg/ml topical cream (5 sources) Corticosteroid Start: 2023 clobetasol (Temovate) 0.05 % cream Indications: Vaginal cyst Apply 1 application topically in the morning and 1 application before bedtime. 15 g 2023 Active desogestrel 0.15 mg / ethinyl estradiol 0.03 mg oral tablet (2 sources) Progestin, Estrogen Start: 08-08-2024 End: 07-10-2025 take 1 tablet by mouth once daily, then take 1 tablet by mouth once daily desogestrel-ethinyl estradiol (Apri) 0.15-30 MG-MCG tablet Indications: Uses control Take 1 tablet by mouth Daily Take 1 tablet by mouth daily 28 tablet 11 08/08/2024 07/10/2025 Active 24 hr desvenlafaxine succinate 50 mg extended release oral tablet (5 sources) Serotonin and Norepinephrine Reuptake Inhibitor take 1 tablet by mouth every twenty-four hours in the morning desvenlafaxine (Pristiq) 50 MG 24 hr tablet Take 50 mg by mouth in the morning. Active diclofenac sodium 75 mg delayed release oral tablet (7 sources) Nonsteroidal Anti-inflammatory Drug Start: 08-01-2023 diclofenac (Voltaren) 75 MG EC tablet every 12 (twelve) hours 08/01/2023 Active Diclofenac Sodiu m Active Diclofenac Activ e QUEtiapine 50 mg oral tablet (5 sources) Atypical Antipsychotic take 1 tablet by mouth once daily at bedtime QUEtiapine (SEROquel) 50 MG tablet TAKE 1 TABLET BY MOUTH AT BEDTIME DAILY Active tiZANidine 4 mg oral tablet (6 sources) Central alpha-2 Adrenergic Agonist Start: take 2 tablets by mouth at bedtime tiZANidine (Zanaflex) 4 MG tablet 2 tablets Orally at bedtime for 15 08/01/2023 Active tiZANidine HCl A ctive 24 hr topiramate 50 mg exten ded release oral capsule (5 sources) Topiramate ER (T rokendi XR) 50 MG capsule sustained-release 24 hr 1 capsule 1 (one) time each day at the same time. Active Triamcinolone (1 source) Corticosteroid Triamcinolone Ac etonide Active Problems Active Problems Problem Classification Problem Date Documented Date Episodic/Chronic Genitourinary symptoms and ill-defined conditions (2 sources) Dysuria; Translations: [Dysuria] 08-08-2024 Episodic Immunizations and screening for infectious disease (5 sources) Contact with and (suspected) exposure to other viral communicable diseases; Translations: [Contact with and (suspected) exposure to infections with a predominantly sexual mode of transmission] Onset: 07-22-2021 Resolved: 07-22-2021 Episodic Nausea and vomiting (9 sources) Vomiting, unspecified; Translations: [Nausea with vomiting, [...] organs and menstrual cycle] 11-07-2023 Episodic Other female genital disorders (2 sources) Vaginal discharge; Translations: [Other specified noninflammatory disorders of vagina] 08-08-2024 Episodic Other nutritional; endocrine; and metabolic disorders [...] SCREENING MALIG NEOPLASM CERV] Onset: 10-17-2022 Episodic Residual codes; unclassified (2 sources) Contraception ; Translations: [Other specified health status] 08-08-2024 Episodic Viral infection (1 source) COVID-19; Translations: [COVID-19] Onset: 12-22-2022 Past or Other Problems Problem Classification Problem Date Documented Da te Episodic/Chronic Other upper respiratory infections (1 source) Acute upper respiratory infection, unspecified; Translations: [Viral upper respiratory illness J06.9] Onset: 07-22-2021 Resolved: 07-22-2021 Episodic Results Test Name Value Interpretation Reference Range Facility HCG ( test) Ql (U)o n 08-08-2024 Interpretation and review of laboratory results Normal [facility], Ur [facility] macro (dipstick) panel (U)on 08-08-2024 Bilirubin, UA Negative Negative - 4(70) +++ mg/dL [facility] Blood, UA Negative Negative - 50 Zev/mcL [facility] Clarity, UA Clear [facility] re Color, UA Yellow [facility] Gl[facility], UA Negative Negative - 1999(110) ++++ mg/dL [facility] Interpretation and review of laboratory results Normal [facility] re Ketones, UA Negative Negative - 160(16) ++++ mg/dL [facility] Leukocytes, UA Negative Negative - 500+++ Tien/mcL [facility] Nitrite, UA Negative Negative - Positive [facility] pH, UA 5.5 5 - 9 [facility] Protein, UA Negative Negative - 1999(20) ++++ mg/dL [facility] Spec Grav, UA 1.015 1 - 1.03 [facility] Urobilinogen, UA 0.2 0.2 - 12 mg/dL [facility] AMYLASEon 12-20-2022 Amylase [Catalytic activity/Vol] 43 U/L Normal 25-115 [facility] Comment on above: Performed By: #### A MY, LIPA, CMP #### [facility] [address] [place] [address] Dr. Perri Burdick CBC AUTO DIFFon 12-20-2022 BASO # 0.0 103/ul Normal 0.0-0.1 [facility] Comment on above: Performed By: #### C BC #### [facility] [address] [place] [address] Dr. Perri Burdick Basophils/100 WBC (Bld) 0.3 % Normal 0.2-2.0 [facility] Comment on above: Performed By: #### C BC #### [facility] [address] [place] [address] Dr. Perri Burdick EO # 0.1 103/ul Normal 0.0-0.7 [facility] Comment on above: Performed By: #### C BC #### [facility] [address] [place] [address] Dr. Perri Burdick Eosinophils/100 WBC (Bld) 1.3 % Normal 0.9-7.0 [facility] Comment on above: Performed By: #### C BC #### [facility] [address] [place] [address] Dr. Perri Burdick Erythrocyte distribution width (RBC) [Ratio] 12.8 % Normal 11.0-15.0 [facility] Comment on above: Performed By: #### C BC #### [facility] [address] [place] [address] Dr. Perri Burdick Hematocrit (Bld) [Volume fraction] 42.5 % Normal 36.0-48.0 [facility] Comment on above: Performed By: #### C BC #### [facility] [address] [place] [address] Dr. Perri Burdick Hemoglobin (Bld) [Mass/Vol] 14.2 g/dL Normal 12.0-16.0 [facility] Comment on above: Performed By: #### C BC #### [facility] [address] [place] [address] Dr. Perri Burdick IG # 0.03 10e3/ul Normal 0.00-0.03 [facility] Comment on above: Performed By: #### C BC #### [facility] [address] [place] [address] Dr. Perri Burdick IG % 0.3 % Normal 0.0-0.5 [facility] Comment on above: Performed By: #### C BC #### [facility] [address] [place] [address] Dr. Perri Burdick LYMPH # 2.8 103/ul Normal 1.2-3.8 [facility] Comment on above: Performed By: #### C BC #### [facility] [address] [place] [address] Dr. Perri Burdick Lymphocytes/100 WBC (Bld) 29.9 % Normal 20.5-60.0 [facility] Comment on above: Performed By: #### C BC #### [facility] [address] [place] [address] Dr. Perri Burdick MANUAL DIFF REQ NO Normal [facility] Comment on above: Performed By: #### C BC #### [facility] [address] [place] [address] Dr. Perri Burdick MCH (RBC) [Entitic mass] 29.0 pg Normal 26.7-34.0 [facility] Comment on above: Performed By: #### C BC #### [facility] [address] [place] [address] Dr. Perri Burdick MCHC (RBC) [Mass/Vol] 33.4 g/dL Normal 29.9-35.2 [facility] Comment on above: Performed By: #### C BC #### [facility] [address] [place] [address] Dr. Perri Burdick MCV (RBC) [Entitic vol] 86.9 fL Normal 81.0-99.0 [facility] Comment on above: Performed By: #### C BC #### [facility] [address] [place] [address] Dr. Perri Burdick MONO # 0.6 103/ul Normal 0.3-0.8 [facility] Comment on above: Performed By: #### C BC #### [facility] [address] [address] [address] Perri Burdick Monocytes/100 WBC (Bld) 6.6 % Normal 1.7-12.0 [facility] Comment on above: Performed By: #### C BC #### [facility] [address] [address] [address] Perri Burdick NEUT # 5.8 103/ul Normal 1.4-6.5 [facility] Comment on above: Performed By: #### C BC #### [facility] [address] [place] [address] Dr. Perri Burdick Neutrophils/100 WBC (Bld) 61.6 % Normal 43.0-75.0 [facility] Comment on above: Performed By: #### C BC #### [facility] [address] [place] [address] Dr. Perri Burdick Platelet mean volume (Bld) [Entitic vol] 10.5 fL Normal 9.5-13.5 [facility] Comment on above: Performed By: #### C BC #### [facility] [address] [place] [address] Dr. Perri Burdick PLT 263 103/ul Normal 150-450 [facility] Comment on above: Performed By: #### C BC #### [facility] [address] [place] [address] Dr. Perri Burdick RBC 4.89 106/ul Normal 4.20-5.40 [facility] Comment on above: Performed By: #### C BC #### [facility] [address] [place] [address] Dr. Perri Burdick WBC 9.5 103/ul Normal 4.0-11.0 [facility] Comment on above: Performed By: #### C BC #### [facility] [address] [place] [address] Dr. Perri Burdick ER URINE PROFILEon 3 Bilirubin Ql (U) Negative Normal NEGATIVE [facility] Comment on above: Performed By: #### P REGU, ERUR #### [facility] [address] [address] [address] Perri Burdick Clarity (U) CLEAR Normal CLEAR [facility] Comment on above: Performed By: #### P REGU, ERUR #### [facility] [address] [address] [address] Perri Burdick Color (U) LT. YELLOW Normal YELLOW [facility] Comment on above: Performed By: #### P REGU, ERUR #### [facility] [address] [place] [address] Dr. Perri Burdick ERUAHD A micrscopic examination will be performed if indicated. Normal [facility] Comment on above: Performed By: #### P REGU, ERUR #### [facility] [address] [place] [address] Dr. Perri Burdick Glucose Ql (U) Negative Normal NEGATIVE [facility] Comment on above: Performed By: #### P REGU, ERUR #### [facility] [address] [place] [address] Dr. Perri Burdick Hemoglobin Ql (U) Negative Normal NEGATIVE [facility] Comment on above: Performed By: #### P REGU, ERUR #### [facility] [address] [place] [address] Dr. Perri Burdick Ketones Ql (U) Negative Normal NEGATIVE [facility] Comment on above: Performed By: #### P REGU, ERUR #### [facility] [address] [place] [address] Dr. Perri Burdick LEUKOCYTES Negative Normal NEGATIVE [facility] Comment on above: Performed By: #### P REGU, ERUR #### [facility] [address] [address] [address] Perri Burdick Nitrite Ql (U) Negative Normal NEGATIVE [facility] Comment on above: Performed By: #### P REGU, ERUR #### [facility] [address] [place] [address] Dr. Perri Burdick pH (U) 6.0 [pH] Normal 5-9 [facility] Comment on above: Performed By: #### P REGU, ERUR #### [facility] [address] [place] [address] Dr. Perri Burdick SPEC GRAVITY 1.025 Normal 1.005-<=1.025 [facility] Comment on above: Performed By: #### P REGU, ERUR #### [facility] [address] [place] [address] Dr. Perri Burdick UA PROTEIN Negative Normal NEGATIVE/ TRACE [facility] Comment on above: Performed By: #### P REGU, ERUR #### [facility] [address] [place] [address] Dr. Perri Burdick UR MICRO IND NOT INDICATED Normal [facility] Comment on above: Performed By: #### P REGU, ERUR #### [facility] [address] [place] [address] Dr. Perri Burdick Urobilinogen Qn (U) 0.2 {Brody'U}/dL Normal 0.2 - 1. 0 [facility] Comment on above: Performed By: #### P REGU, ERUR #### [facility] [address] [place] [address] Dr. Perri Burdick LIPASEon 12-20-2022 Lipase [Catalytic activity/Vol] 134.0 U/L Normal 73.0-393.0 [facility] Comment on above: Performed By: #### A MY, LIPA, CMP #### [facility] [address] [place] [address] Dr. Perri Burdick URon 12-20-2022 , QUAL Negative Normal NEGATIVE [facility] Comment on above: Performed By: #### P REGU, ERUR #### [facility] [address] [place] [address] Dr. Perri Burdick PROF 14(COMP METB)on 023 Albumin [Mass/Vol] 3.8 g/dL Normal 3.4-5.0 [facility] Comment on above: Performed By: #### A MY, LIPA, CMP #### [facility] [address] [place] [address] Dr. Perri Burdick Albumin/Globulin [Mass ratio] 1.2 {ratio} Normal [facility] Comment on above: Performed By: #### A [place] LIPA, CMP #### [facility] [address] [address] [address] Perri Burdick ALP [Catalytic activity/Vol] 138 U/L Critically high 46-116 [facility] Comment on above: Performed By: #### A MY LIPA, CMP #### [facility] [address] [place] [address] Dr. Perri Burdick ALT [Catalytic activity/Vol] 23 U/L Normal 14-59 [facility] Comment on above: Performed By: #### A [place] LIPA, CMP #### [facility] [address] [place] [address] Dr. Perri Burdick Anion gap [Moles/Vol] 10.3 mmol/L Normal [facility] Comment on above: Performed By: #### A [place] LIPA, CMP #### [facility] [address] [place] [address] Dr. Perri Burdick AST [Catalytic activity/Vol] 17 U/L Normal 15-37 [facility] Comment on above: Performed By: #### A [place] LIPA, CMP #### [facility] [address] [place] [address] Dr. Perri Burdick Bilirubin [Mass/Vol] 0.2 mg/dL Normal 0.2-1.0 [facility] Comment on above: Performed By: #### A [place] LIPA, CMP #### [facility] [address] [place] [address] Dr. Perri Burdick Calcium [Mass/Vol] 9.2 mg/dL Normal 8.5-10.1 [facility] Comment on above: Performed By: #### A MY LIPA, CMP #### [facility] [address] [place] [address] Dr. Perri Burdick Chloride [Moles/Vol] 105 mmol/L Normal 98-107 [facility] Comment on above: Performed By: #### A MY LIPA, CMP #### [facility] [address] [address] [address] Perri Burdick CO2 [Moles/Vol] 27.3 mmol/L Normal 21.0-32.0 [facility] Comment on above: Performed By: #### A MY, LIPA, CMP #### [facility] [address] [address] [address] Perri Burdick Creatinine [Mass/Vol] 0.82 mg/dL Normal 0.55-1.02 [facility] Comment on above: Performed By: #### A MY, LIPA, CMP #### [facility] [address] [address] [address] Perri Burdick EGFR-AF ANGUILLAN >60 Normal >=60 [facility] Comment on above: Performed By: #### A MY, LIPA, CMP #### [facility] [address] [address] [address] Perri Burdick EGFR-NON AF ANGUILLAN >60 Normal >=60 [facility] Comment on above: Performed By: #### A MY, LIPA, CMP #### [facility] [address] [address] [address] Perri Burdick Globulin (S) [Mass/Vol] 3.3 g/dL Normal [facility] Comment on above: Performed By: #### A MY, LIPA, CMP #### [facility] [address] [address] [address] Perri Burdick Glucose [Mass/Vol] 117 mg/dL Critically high 74-106 [facility] Comment on above: Performed By: #### A MY, LIPA, CMP #### [facility] [address] [address] [address] Perri Burdick Potassium [Moles/Vol] 3.6 mmol/L Normal 3.5-5.1 [facility] Comment on above: Performed By: #### A MY, LIPA, CMP #### [facility] [address] [address] [address] Perri Burdick Protein [Mass/Vol] 7.1 g/dL Normal 6.4-8.2 [facility] Comment on above: Performed By: #### A [place] LIPA, CMP #### [facility] [address] [address] [address] Perri Burdick Sodium [Moles/Vol] 139 mmol/L Normal 136-145 [facility] Comment on above: Performed By: #### A MY LIPA, CMP #### [facility] [address] [address] [address] Perri Burdick Urea nitrogen [Mass/Vol] 15.0 mg/dL Normal 7.0-18.0 [facility] Comment on above: Performed By: #### A [place] LIPA, CMP #### [facility] [address] [address] [address] Perri Burdick Urea nitrogen/Creatinine [Mass ratio] 18.3 mg/mg Normal [facility] Comment on above: Performed By: #### A [place] LIPA, CMP #### [facility] [address] [address] [address] Perri Burdick XR ABD FLAT UP_PA [...] AL CHURCH Date: 2022-12-20 04:52 Normal [facility] CHLAMYDIA/GONOCOCCUS CASSIDY (SW AB/URINE/PAPon 12-01-2022 Chlamydia trachomatis, CASSIDY Negative Normal Negative [facility] Comment on above: Performed By: #### C T/NGNA #### [facility] [address] [address] [address] Perri Burdick Neisseria gonorrhoeae, CASSIDY Negative Normal Negative [facility] Comment on above: Performed By: #### C T/NGNA #### [facility] [address] [place] [address] Dr. Perri Burdick VAGINITIS/VAGINOSIS DNA PROB Jamar 12-01-2022 Nieves species Negative Normal Negative [facility] Comment on above: Performed By: #### V AGINT #### [facility] [address] [place] [address] Dr. Perri Burdick Gardnerella vaginalis Negative Normal Negative [facility] Comment on above: Performed By: #### V AGINT #### [facility] [address] [place] [address] Dr. Perri Burdick Trichomonas vaginalis Negative Normal Negative [facility] Comment on above: Performed By: #### V AGINT #### [facility] [address] [place] [address] Dr. Perri Burdick PAP ACOG PANEL 2: 21 to 29on 10-20-2022 . . Normal [facility] Comment on above: Performed By: #### [id number] #### [facility] [address] [place] [address] Dr. Perri Burdick Age Gdln ACOG Testing - Normal [facility] Comment on above: Performed By: #### [id number] #### [facility] [address] [place] [address] Dr. Perri Burdick DIAGNOSIS: Comment Normal [facility] Comment on above: Result Comment: NEGA TIVE FOR INTRAEPITHELIAL LESION OR MALIGNANCY. Performed By: #### [id number] #### [facility] [address] [place] [address] Dr. Perri Burdick Methodology: Comment Normal [facility] Comment on above: Result Comment: This liquid based ThinPrep(R) pap test was screened with the use of an image guided system. Performed By: #### [id number] #### [facility] [address] [place] [address] Dr. Perri Burdick Note: Comment Normal [facility] Comment on above: Result Comment: The Pap smear is a screening test designed to aid in the detection of premalignant and malignant conditions of the uterine cervix. It is not a diagnostic procedure and should not be used as the sole means of detecting cervical cancer. Both false-positive and false-negative reports do occur. . Performed By: #### [id number] #### [facility] [address] [place] [address] Dr. Perri Burdick Performed by: Comment Normal [facility] Comment on above: Result Comment: Argentina Stoner, Manager Critical Care (ASCP) Performed By: #### [id number] #### [facility] [address] [address] [address] Perri Burdick Reflex Criteria: Comment [facility] Comment on above: Result Comment: The HPV DNA reflex criteria were not met with this specimen result therefore, no HPV testing was performed. . Performed By: #### [id number] #### [facility] [address] [place] [address] Dr. Perri Burdick Specimen adequacy: Comment Normal [facility] Comment on above: Result Comment: Sati sfactory for evaluation. Endocervical and/or squamous metaplastic cells (endocervical component) are present. Performed By: #### [id number] #### [facility] [address] [place] [address] Dr. Perri Burdick COVID Quick Testingon 2020 Result Negative [facility] [employer] Other Vital Signs Date Time Vital Sign Value Performing Clinician Facility 08-08-2024 10:52-0400 Body mass index (BMI) [Ratio] 40.97 kg/m2 Salma PANCHAL Work Phone: [facility] 08-08-2024 10:52-0400 Body weight 101.61 kg Salma PANCHAL Work Phone: [facility] 08-08-2024 10:52-0400 Diastolic blood pressure 80 mm[Hg] Slama PANCHAL Work Phone: [facility] 08-08-2024 10:52-0400 Systolic blood pressure 110 mm[Hg] Salma Cody PA Work Phone: [facility] 11-09-2023 10:24-0500 Body mass index (BMI) [Ratio] 41.34 kg/m2 Alissa Nitin DO Work Phone: [facility] 11-09-2023 10:24-0500 Body weight 102.51 kg Alissa Nitin DO Work Phone: [facility] 11-09-2023 10:24-0500 Diastolic blood pressure 72 mm[Hg] Alissa Nitin DO Work Phone: [facility] 11-09-2023 10:24-0500 Systolic blood pressure 118 mm[Hg] Alissa Nitin DO Work Phone: [facility] 07-22-2021 10:45-0400 Body height 157.48 cm Ana Paula Gracy Other [facility] Other 07-22-2021 10:45-0400 Body mass index (BMI) [Ratio] 38.59 kg/m2 Ana Paula Gracy Other [facility] Other 07-22-2021 10:45-0400 Body temperature 98 [degF] Ana Paula Gracy Other [facility] Other 07-22-2021 10:45-0400 Body weight 95.71 kg Ana Paula Gracy Other [facility] Other 07-22-2021 10:45-0400 Respiratory rate 18 /min Ana Paula Gracy Other [facility] Other 07-22-2021 10:45-0400 SaO2% (BldA) [Mass fraction] 97 % Ana Paula Dubose Other [facility] Other Encounters Encounter Date Encounter Type Care Provider Facility Start: 08-08-2024 End: 08-08-2024 Bamboo flowsheet Salma PANCHAL Work Phone: [facility] Start: 08-08-2024 End: 08-08-2024 Bamboo flowsheet Salma PANCHAL Work Phone: [facility] Start: 08-08-2024 End: 08-08-2024 Patient encounter procedure Salma PANCHAL Work Phone: [facility] Start: 08-08-2024 End: 08-08-2024 Periodic preventive med est patient 18-39 yrs Salma PANCHAL Work Phone: [facility] Comment on above: Vaginal discharge; Screen for STD (sexually transmitted disease); Nausea; Dysuria; Well woman exam with routine gynecological exam; Uses control Start: 08-08-2024 End: 08-08-2024 ambulatory SALMA CHARLES Not Available Start: 11-09-2023 End: 11-09-2023 Office outpatient visit 15 minutes Alissa Taveras DO Work Phone: [facility] Comment on above: Vaginal lump; Pain in female genitalia on intercourse; Soreness breast Start: 11-09-2023 End: 11-09-2023 ambulatory ALISSA TAVERAS Not Available Start: 09-11-2023 End: 09-11-2023 ambulatory MAYRA PAYAN Not Available Start: 08-28-2023 End: 08-28-2023 ambulatory MAYRA PAYAN Not Available Start: 12-20-2022 End: 12-20-[address] ALEN GLEASON . Facility:[facility] Start: 11-29-2022 End: 11-29-2022 ambulatory SALMA CHARLES Facility:[facility] Start: 10-17-2022 End: 10-17-2022 ambulatory SALMA CHARLES Facility:[facility] Start: 05-14-2022 End: 05-15-[address] ALEN GLEASON . Facility:[facility] Start: 04-13-[address] ALEN GLEASON . Facili ty:[facility] Start: 01-14-[address] ALEN GLEASON . Facili ty:[facility] Start: 07-22-2021 (URG) Urgent Care Visit Ana Paula barney [facility] Procedures Date Procedure Procedure Detail Performing Clinician Start: 08-08-2024 End: 08-08-2024 Urnls dip stick/tablet rgnt non-auto w/o micrscp Salma PANCHAL Work Phone: Plan of Treatment Date Care Activity Detail Author Start: 08-08-2024 End: 08-08-2024 Patient encounter procedure 08/08/2024 10:30 AM EDT Office Visit [facility] [address] [place] [address] Salma Charles PA [address] [address] Arrived [facility] Comment on above: Arrived Start: 06-09-2024 Influenza vaccination Influenza Vacc ine (#1) [facility] Start: 06-09-2023 Influenza vaccination Influenza Vacc ine (#1) [facility] CHLAMYDIA TRACHOMATI S (GENITO/STI) CHLAMYDIA TRACHOMATIS (GENITO/STI) Lab Routine Vaginal lump Pain in female genitalia on intercourse Ordered: 11/09/2023 [facility] Comment on above: Ordered: 11/09/2023 CHLAMYDIA TRACHOMATI S (GENITO/STI) CHLAMYDIA TRACHOMATIS (GENITO/STI) Lab Routine Vaginal discharge Screen for STD (sexually transmitted disease) Ordered: 08/08/2024 [facility] Comment on above: Ordered: 08/08/2024 Cytology Cervical or vaginal smear or scraping study Pap Smear Pathology and Cytology Routine Well woman exam with routine gynecological exam Ordered: 08/08/2024 [facility] Comment on above: Ordered: 08/08/2024 Neisseria gonorrhoea e DNA [Presence] in Unspecified specimen by CASSIDY with probe detection Neisseria gonorrhea DNA probe, direct Lab Routine Vaginal lump Pain in female genitalia on intercourse Ordered: 11/09/2023 [facility] Comment on above: Ordered: 11/09/2023 Neisseria gonorrhoea e DNA [Presence] in Unspecified specimen by CASSIDY with probe detection Neisseria gonorrhea DNA probe, direct Lab Routine Vaginal discharge Screen for STD (sexually transmitted disease) Ordered: 08/08/2024 [facility] Comment on above: Ordered: 08/08/2024 SURESWAB(R) ADVANCED VAGINITIS PLUS, TMA SURESWAB(R) ADVANCED VAGINITIS PLUS, TMA Pathology and Cytology Routine Vaginal lump Pain in female genitalia on intercourse Ordered: 11/09/2023 [facility] Work Phone: Comment on above: Ordered: 11/09/2023 SURESWAB(R) ADVANCED VAGINITIS PLUS, TMA SURESWAB(R) ADVANCED VAGINITIS PLUS, TMA Pathology and Cytology Routine Vaginal discharge Screen for STD (sexually transmitted disease) Ordered: 08/08/2024 [facility] Work Phone: Comment on above: Ordered: 08/08/2024 Payers Date Payer Category Payer [facility] BCBS [id number] 2023 Unknown BCBS BCBS [id number] 2023-Present [phone] [address] [place] [address] [id number] 2023 Unknown [id number] 2022 Private Health Insurance XAVIER CARRANZA [facility] [id number] 2022-Present [address] [place] [address] [id number] 2022 Private Health Insurance [id number] 2001 Unknown [id number] 593 2001 Unknown [id number]. 593 2001 Unknown [id number] 593 2001 Unknown [id number]. 593 2001 Unknown [id number] [id number]. 593 2001 Unknown [id number]. 593 2001 Unknown [id number]. 1259 2001 Unknown [id number] [id number]. 1259 2001 Unknown [id number] [id number]. 1259 2001 Unknown [id number]. 1259 1959 Self-pay [id number] 1959 Unknown [id number] Social History Date Type Detail Facility Start: 11-09-2023 Sex Assigned At N [facility] Other Start: 2023 Tobacco smoking status NCIS Never smoked tobacco [facility] Start: 2023 Tobacco use and exposure Smokeless tobacco non-user [facility] Start: 11-09-2023 End: 08-08-2024 Alcohol intake Ex-drinker (finding) [facility] Start: 11-09-2023 History of Social function [facility] Start: 2001 Sex Assigned At Not on file [facility] History of Present illness Narrative 08-08-2024 ABDULKADIR Burrell - 08/08/2024 10:30 AM EDT Note Date & Type Note Facility 08-08-2024 History of Presen t illness Narrative Reason for Appointment: Patient ID: Radhika White is a 24 y.o. female who presents for Well Women Visit and STI Screening Patient presents today for annual and STD Check. MEDICATIONS Current Outpatient Medications Medication Instructions albuterol HFA 90 mcg/act inhaler INHALE 2 PUFFS BY MOUTH FOUR TIMES DAILY NEEDED clobetasol (Temovate) 0.05 % cream 1 application , Topical, 2 times daily desogestrel-ethinyl estradiol (Apri) 0.15-30 MG-MCG tablet 1 tablet, Oral, Daily, Take 1 tablet by mouth daily desvenlafaxine (PRISTIQ) 50 mg, Oral, Daily diclofenac (Voltaren) 75 MG EC tablet Every 12 hours QUEtiapine (SEROquel) 50 MG tablet TAKE 1 TABLET BY MOUTH AT BEDTIME DAILY tiZANidine (Zanaflex) 4 MG tablet 2 tablets Orally at bedtime for 15 Topiramate ER (Trokendi XR) 50 MG capsule sustained-release 24 hr 1 capsule, Every 24 hours ALLERGIES No Known Allergies PROBLEMS Active Ambulatory Problems Diagnosis Date Noted No Active Ambulatory Problems Resolved Ambulatory Problems Diagnosis Date Noted No Resolved Ambulatory Problems Past Medical History: Diagnosis Date control counseling BMI 39.0-39.9,adult Breakthrough bleeding on control pills Migraine syndrome (CMS/HCC) HISTORY PAST MEDICAL HISTORY SOCIAL HISTORY Past Medical History: Diagnosis Date control counseling BMI 39.0-39.9,adult Breakthrough bleeding on control pills Migraine syndrome (CMS/HCC) Social History Tobacco Use Smoking status: Never Smokeless tobacco: Never Substance Use Topics Alcohol use: Not Currently Drug use: Not Currently FAMILY HISTORY Family History Problem Relation Name Age of Onset Mental illness Other GI problems Other SURGICAL HISTORY History reviewed. No pertinent surgical history. REVIEW OF SYSTEMS Review of Systems: Review of Systems Constitutional: Negative. HENT: Negative. Eyes: Negative. Respiratory: Negative. Cardiovascular: Negative. Gastrointestinal: Negative. Genitourinary: Negative. Musculoskeletal: Negative. Skin: Negative. Neurological: Negative. All other systems reviewed and are negative. Hematological: Negative. Endocrine: Negative. Allergic/Immunologic: Negative. OBJECTIVE Objective: Physical Exam Constitutional: Appearance: Normal appearance. Genitourinary: Right Adnexa: not tender and no mass present. Left Adnexa: not tender and no mass present. No cervical discharge. Breasts: Breasts are soft. Right: Normal. Left: Normal. HENT: Head: Normocephalic. Nose: Nose normal. Mouth/Throat: Mouth: Mucous membranes are moist. Cardiovascular: Rate and Rhythm: Normal rate. Pulmonary: Effort: Pulmonary effort is normal. Abdominal: General: Bowel sounds are normal. Palpations: Abdomen is soft. Musculoskeletal: General: Normal range of motion. Cervical back: Normal range of motion. Neurological: General: No focal deficit present. Mental Status: She is alert. Skin: General: Skin is warm and dry. Psychiatric: Mood and Affect: Mood normal. Vitals and nursing note reviewed. Exam conducted with a atg architect present. Vitals: Estimated body mass index is 40.97 kg/m as calculated from the following: Height as of 07/11/23: 5' 2 . Weight as of this encounter: 224 lb. BP: 110/80 No LMP recorded. ASSESSMENT & PLAN ICD-10-CM 1. Vaginal discharge N89.8 SURESWAB(R) ADVANCED VAGINITIS PLUS, TMA CHLAMYDIA TRACHOMATIS (GENITO/STI) Neisseria gonorrhea DNA probe, direct 2. Screen for STD (sexually transmitted disease) Z11.3 SURESWAB(R) ADVANCED VAGINITIS PLUS, TMA CHLAMYDIA TRACHOMATIS (GENITO/STI) Neisseria gonorrhea DNA probe, direct 3. Nausea R11.0 POCT , urine manually resulted 4. Dysuria R30.0 POCT urinalysis dipstick manually resulted 5. Well woman exam with routine gynecological exam Z01.419 Pap Smear 6. Uses control Z78.9 desogestrel-ethinyl estradiol (Apri) 0.15-30 MG-MCG tablet Annual Exam: Patient presents today for an annual exam. Patient states she is doing well and has no complaints. Pap was obtained without difficulty. Patient has had some abdominal cramping and would like to have an STD check. Cultures were obtained without difficulty. She has also been very nauseous and requested a test. Her UA and were both negative. She would like to restart Apri for her heavy periods. Prescription sent. Orders Placed This Encounter Procedures CHLAMYDIA TRACHOMATIS (GENITO/STI) Neisseria gonorrhea DNA probe, direct POCT urinalysis dipstick manually resulted POCT , urine manually resulted Follow Up: Patient is to return in one year for annual unless needed otherwise. Documented by Leia Kwok on behalf of: ABDULKADIR Burrell documented in this encounter [facility] History of Present illness Narrative 11-09-2023 Brianna Medina, AZEEM - 11/09/2023 10:10 AM EST Note Date & Type Note Facility 11-09-2023 History of Presen t illness Narrative Reason for Appointment: Patient ID: Radhika White is a 23 y.o. female who presents [...] Breakthrough bleeding on control pills Migraine syndrome (CMS/HCC) Family History Problem Relation Name Age of [...] nursing note reviewed. Exam conducted with a atg architect present. Vitals: Estimated body mass index is [...] Alissa Taveras DO documented in this encounter [facility] Evaluation note 07-22-2021 Note Date [...] Patient care instructions given in writting by [facility] At Home document. [facility] Other Evaluation note Note Date & Type Note Facility Evaluation note Diagnosis Vaginal lump Pain in female genitalia on intercourse Dyspareunia Soreness breast Mastodynia documented in this encounter [facility] Evaluation note Note Date & Type Note Facility Evaluation note Diagnosis Vaginal discharge Leukorrhea, not specified as infective Screen for STD (sexually transmitted disease) Screening examination for venereal disease Nausea Nausea alone Dysuria Well woman exam with routine gynecological exam Routine gynecological examination Uses control documented in this encounter [facility] History general Narrative - Reported Note Date & Type Note Facility History general Narrative - Reported Type Medical History Strain of lumbar region, initial encounter [facility] Other Summary Purpose Family History No Family History Records FoundNo Family History Records Found Advance Directives No Advanced Directives Records FoundNo Advanced Directives Records Found Additional Source Comments REASON FOR VISIT (unrecogniz ed section and content) Reason Comments vaginal lump, painful sex, sore breasts Reason Comments Well Women Visit STI Screening INFORMATION SOURCE (unrecogn ized section and content) DATE CREATED AUTHOR 12/23/2022 [facility] DATE CREATED AUTHOR AUTHOR'S ORGANIZ ATION 08/10/[address] 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 [facility] [employer] [facility]. provides no warranty or guarantee of the accuracy or completeness of information in this document.
[2024-08-10 18:29] VITALS: O2SAT 100
--- NOTE | 2024-08-10 18:31 | ED_ITS ---
HPI HPI - General Adult General Chief complaint: Nausea/Vomiting/Diarrhea Stated complaint: nausea and vomiting Time Seen by Provider: 08/10/24 18:18 Source: patient Mode of arrival: walk-in History of Present Illness HPI narrative: The patient is coming to the ER with concern of almost more than 8 days history of abdominal pain mostly comes whenever she is throwing up, she mentioned that for the last 8 days almost she has been having multiple episodes of diarrhea and she is able to drink water but whenever she tried any solid food she is vomiting The patient mentioned that there is no pain in her stomach when she swallowed but she feels that whenever she is nauseous this is when she have the abdominal pain,, she mentioned that the abdominal pain in her lower abdomen and is not radiating She also mentioned that she does not have the abdominal pain at the moment is mostly when she gets sick Related Data Home Medications ?Medication ?Instructions ?Recorded ?Confirmed diclofenac sodium 75 mg 75 mg PO BID PRN pain 08/01/24 08/01/24 tablet,delayed release hydroxyzine HCl 25 mg tablet 25 mg PO QID PRN anxiety 08/01/24 08/01/24 mirtazapine 30 mg tablet 30 mg PO BEDTIME 08/01/24 08/01/24 tizanidine 4 mg tablet 8 mg PO Q12H PRN muscle spasticity 08/01/24 08/01/24 Allergies Allergy/AdvReac Type Severity Reaction Status Date / Time No Known Drug Allergies Allergy Verified 04/05/24 06:26 Opioid HPI Opioid Management Most Recent Opioid Data: Last Pain Scale 6 08/10/24 18:28 08/10/24 Review of Systems ROS Status of ROS 10 or more systems reviewed and unremark able except as noted in history and below PFSH PFSH Social History Smoking status: Never smoker Little interest or pleasure in doing things: not at all Feeling down, depressed, or hopeless: not at all Exam Narrative Exam Narrative: Nurses notes and vital signs reviewed and patient is not hypoxic. General: Well-appearing and in no apparent distress. Skin: Warm, dry, no pallor noted. No rash. Head: Normocephalic, atraumatic. Neck: Supple, non-tender. Eye: Pupils are equal, round and EOMI. No scleral icterus. Ears, Nose, Mouth, and Throat: TM are clear, no nasal mucosal hypertrophy. Oral mucosa is moist, no posterior oropharynx erythema, uvula is mid-line Cardiovascular: Regular Rate and Rhythm without murmur, gallop or rub. Respiratory: No accessory muscle use or respiratory distress. Lungs are clear to auscultation, no wheezing, rales or rhonchi Chest Wall: no tenderness Back: No midline thoracic or lumbar vertebral tenderness. No CVA tenderness Musculoskeletal: normal ROM, no calf or popliteal tenderness, no lower extremity edema/swelling GI: Abdomen is soft, non-distended. Normal bowel sounds. No masses appreciated. No tenderness to palpation. No rebound, guarding, or rigidity noted. Neurological: A&O x4. No cranial nerve dysfunction observed. No truncal ataxia. Moves all extremities. Sensation intact. Psychiatric: Cooperative and interactive. Normal mood and affect. Constitutional Vital Signs, click to edit/add: Last Vital Signs Temp 98.2 F 08/10/24 18:14 Pulse 89 08/10/24 18:14 Resp 18 08/10/24 18:14 BP 146/90 H 08/10/24 18:14 Pulse Ox 100 08/10/24 18:29 O2 Del Method Room Air 08/10/24 18:29 Course Vital Signs Vital signs: Vital Signs Temperature 98.2 F 08/10/24 18:14 Pulse Rate 89 08/10/24 18:14 Respiratory Rate 18 08/10/24 18:14 Blood Pressure 146/90 H 08/10/24 18:14 Pulse Oximetry 98 08/10/24 18:14 Oxygen Delivery Method Room Air 08/10/24 18:14 Temperature 98.2 F 08/10/24 18:14 Pulse Rate 89 08/10/24 18:14 Respiratory Rate 18 08/10/24 18:14 Blood Pressure 146/90 H 08/10/24 18:14 Pulse Oximetry 100 08/10/24 18:29 Oxygen Delivery Method Room Air 08/10/24 18:29 Medical Decision Making MDM Narrative Medical decision making narrative: The patient had a CBC chemistry ordered right now she was provided some supportive care Abdomen is soft depending on the blood workup in case of any acute pathology we might get a CAT scan but right now awaiting the results of the blood workup pt care transferred to Dr Celestin at change of shifts Discharge Plan Discharge Patient Disposition: Still a Patient
[2024-08-10 18:39] LABS: Basophils Percent Auto 0.1 % (0.2-2.0); Eosinophils Absolute Auto 0.1 10^3/uL (0.0-0.7); Hematocrit 41.7 % (36.0-48.0); Hemoglobin 14.1 g/dL (12.0-16.0); Immature Granulocytes Abs Auto 0.03 10^3/uL (0.00-0.03); Immature Granulocytes Pct Auto 0.3 % (0.0-0.5); Lymphocytes Absolute Auto 2.7 10^3/uL (1.2-3.8); Lymphocytes Percent Auto 26.6 % (20.5-60.0); Mean Corpuscular HGB Conc 33.8 g/dL (29.9-35.2); Mean Corpuscular Hemoglobin 29.7 pg (26.7-34.0); Mean Corpuscular Volume 87.8 fL (81.0-99.0); Mean Platelet Volume 10.9 fL (9.5-13.5); Monocytes Absolute Auto 0.8 10^3/uL (0.3-0.8); Monocytes Percent Auto 7.6 % (1.7-12.0); Neutrophils Absolute Auto 6.5 10^3/uL (1.4-6.5); Neutrophils Percent Auto 64.4 % (43.0-75.0); Platelet Count 320 10^3/uL (150-450); Red Blood Count 4.75 10^6/uL (4.20-5.40); Red Cell Distribution Width 12.8 % (11.0-15.0); White Blood Count 10.1 10^3/uL (4.0-11.0)
[2024-08-10 18:42] LABS: HCG Qualitative NEGATIVE (NEGATIVE); Internal Control Within Normal Limits
[2024-08-10] MEDS: ONDANSETRON PF 4 MG/2 ML VIAL IV (18:47)
[2024-08-10] MEDS: FAMOTIDINE/PF 20 MG/2 ML VIAL IV (18:47)
[2024-08-10 18:54] LABS: Alanine Aminotransferase 28 U/L (14-59); Albumin Level 3.7 g/dL (3.4-5.0); Alkaline Phosphatase 92 U/L (46-116); Anion Gap 15.1; Aspartate Amino Transferase 18 U/L (15-37); BUN Creatinine Ratio 7.6; Bilirubin Total 0.4 mg/dL (0.2-1.0); Calcium 9.1 mg/dL (8.5-10.1); Carbon Dioxide 26.8 mmol/L (21.0-32.0); Chloride 105 mmol/L (98-107); Estimated GFR (African America >60 (>=60 mL/min/1.73m^2); Estimated GFR (Non-African Ame >60 (>=60 mL/min/1.73m^2); Globulin 3.7 g/dL; Glucose 90 mg/dL (74-106); Potassium 3.9 mmol/L (3.5-5.1); Sodium 143 mmol/L (136-145); Total Protein 7.4 g/dL (6.4-8.2)
[2024-08-10 19:30] VITALS: BP 130/84; PULSE 81; O2SAT 99
== END 2024-08-10 19:33 | disposition home or self-care (01) ==
PROVIDERS: Emergency Medicine; Emergency Provider Student in an Organized Health Care Education/Training Program; PCP Family Medicine
DX: R11.2 Nausea with vomiting, unspecified (principal); R19.7 Diarrhea, unspecified; R10.9 Unspecified abdominal pain
CPT/HCPCS: 36415; 80053; 83690; 84703; 85025; 96374; 96375; 99284; J2405

== ENCOUNTER 2024-11-04 07:58 | Outpatient (OUT) | payer BC, SELFPAY ==
[2024-11-04 08:13] LABS: Bilirubin Urine NEGATIVE (NEGATIVE); Blood Urine NEGATIVE (NEGATIVE); Clarity Urine CLEAR (CLEAR); Color Urine YELLOW (YELLOW); Glucose Urine UA NEGATIVE (NEGATIVE); Ketones Urine NEGATIVE (NEGATIVE); Leukocyte Esterase Urine NEGATIVE (NEGATIVE); Nitrite Urine NEGATIVE (NEGATIVE); Protein Urine NEGATIVE (NEG/TRACE); Urobilinogen Urine 0.2 EU/dL (0.2-1.0)
--- OUTSIDE RECORDS SUMMARY | 2024-11-04 08:21 | XMS_ITS | CCD ---
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 Role Phone Ana Paula Dubose [...] TAVERAS Attending Unavailable MAYRA PAYAN Attending Unavailable MYARA PAYAN Attending Unavailable SALMA CHARLES Attending Unavailable Medications Current Medications Medication Drug Class(es) Dates Sig (Normalized) Sig (Original) [id number] 200 actuat albuterol 0.09 mg/actuat metered dose inhaler (6 sources) beta2-Adrenergic Agonist Start: 12-20-2022 take 2 [...] Active clobetasol propionate 0.5 mg/ml topical cream (6 sources) Corticosteroid Start: 2023 clobetasol (Temovate) 0.05 % cream Indications: Vaginal cyst Apply 1 application topically in the morning and 1 application before bedtime. 15 g 2023 Active desogestrel 0.15 mg / ethinyl estradiol 0.03 mg oral tablet (3 sources) Progestin, Estrogen Start: 08-08-2024 End: 07-10-2025 take 1 tablet by mouth once daily, then take 1 tablet by mouth once daily desogestrel-ethinyl estradiol (Apri) 0.15-30 MG-MCG tablet Indications: Uses control Take 1 tablet by mouth Daily Take 1 tablet by mouth daily 28 tablet 11 08/08/2024 07/10/2025 Active 24 hr desvenlafaxine succinate 50 mg extended release oral tablet (6 sources) Serotonin and Norepinephrine Reuptake Inhibitor take 1 tablet by mouth every twenty-four hours in the morning desvenlafaxine (Pristiq) 50 MG 24 hr tablet Take 50 mg by mouth in the morning. Active diclofenac sodium 75 mg delayed release oral tablet (8 sources) Nonsteroidal Anti-inflammatory Drug Start: 08-01-2023 diclofenac (Voltaren) 75 MG EC tablet every 12 (twelve) hours 08/01/2023 Active Diclofenac Sodiu m Active Diclofenac Activ e QUEtiapine 50 mg oral tablet (6 sources) Atypical Antipsychotic take 1 tablet by mouth once daily at bedtime QUEtiapine (SEROquel) 50 MG tablet TAKE 1 TABLET BY MOUTH AT BEDTIME DAILY Active tiZANidine 4 mg oral tablet (7 sources) Central alpha-2 Adrenergic Agonist Start: take 2 tablets by mouth at bedtime tiZANidine (Zanaflex) 4 MG tablet 2 tablets Orally at bedtime for 15 08/01/2023 Active tiZANidine HCl A ctive 24 hr topiramate 50 mg exten ded release oral capsule (6 sources) Topiramate ER (T rokendi XR) 50 [...] Test Name Value Interpretation Reference Range Facility IGP,APTIMA HPV,AGE GDLNon AGE GDLN ACOG TESTING Note . [facility] Comment on above: TESTS RESULT FLAG UN ITS REF RANGE LAB Clinician Provided Cytology Information Source.............Cervix;Endocervix No. of containers..01 ThinPrep Vial Age Algo ACOG Maggi... FLAG LEGEND: L-Low Normal,H-High Normal,LL-Alert Low,HH-Alert High <-Panic Low,>-Panic High,A-Abnormal,AA-Critical Abnormal Performed at: 01 =G [facility] [address] [place] [address] Mckenna Nicole MD, IGP, RFX APTIMA HPV ASCU Note . [facility] Comment on above: TESTS RESULT FLAG U NITS REF RANGE LAB DIAGNOSIS: 02 NEGATIVE FOR INTRAEPITHELIAL LESION OR MALIGNANCY. Specimen adequacy: 02 Satisfactory for evaluation. No endocervical component is identified. Performed by: Esha Mgcrath, Umbrella Finisher ([facility]) . 02 Note: Note 02 The Pap smear is a screening test designed to aid in the detection of premalignant and malignant conditions of the uterine cervix. It is not a diagnostic procedure and should not be used as the sole means of detecting cervical cancer. Both false-positive and false-negative reports do occur. Test Methodology: Note 02 This liquid based ThinPrep(R) pap test was screened with the use of an image guided system. . 02 The HPV DNA reflex criteria were not met with this specimen result therefore, no HPV testing was performed. FLAG LEGEND: L-Low Normal,H-High Normal,LL-Alert Low,HH-Alert High <-Panic Low,>-Panic High,A-Abnormal,AA-Critical Abnormal Performed at: 02 WB [facility] [address] [place] [address] Mckenna Nicole MD, Performed at: =G - [facility] [address] [id number] Cardiac Catheterization Technologist: Mckenna Nicole MD, Phone: [phone] Performed at: - [facility] [address] [id number] Cardiac Catheterization Technologist: Mckenna Nicole MD, Phone: [phone] BRUSH-SPATULA CERVIX ENDOCERVIX [facility] e HCG ( test) Ql (U)o n 08-08-2024 Interpretation and review of laboratory results Normal [facility] re Preg Test, Ur Negative Negative [facility]inal[facility] macro (dipstick) panel (U)on 08-08-2024 Bilirubin, UA Negative Negative - 4(70) +++ mg/dL [facility] Blood, UA Negative Negative - 50 Zev/mcL [facility] Clarity, UA Clear [facility] re Color, UA Yellow [facility] e Glucose, UA Negative Negative - 1999(110) ++++ mg/dL [facility] Interpretation and review of laboratory results Normal [facility] re Ketones, UA Negative Negative - 160(16) ++++ mg/dL [facility] Leukocytes, UA Negative Negative - 500+++ Tien/mcL [facility] Nitrite, UA Negative Negative - Positive [facility] pH, UA 5.5 5 - 9 [facility] e Protein, UA Negative Negative - 1999(20) ++++ mg/dL [facility] Spec Grav, UA 1.015 1 - 1.03 [facility] Urobilinogen, UA 0.2 0.2 - 12 mg/dL [facility] e AMYLASEon 12-20-2022 Amylase [Catalytic activity/Vol] 43 U/L Normal 25-115 [facility] Comment on above: Performed By: #### A MY, LIPA, CMP #### [facility] [address] [place] [address] [address] [address] Perri Burdick CBC AUTO DIFFon 12-20-2022 BASO # 0.0 103/ul Normal 0.0-0.1 [facility] Comment on above: Performed By: #### C BC #### [facility] [address] [place] [address] Dr. Perri Burdick Basophils/100 WBC (Bld) 0.3 % Normal 0.2-2.0 [facility] Comment on above: Performed By: #### C BC #### [facility] [address] [place] [address] Dr. Perri Burdick EO # 0.1 103/ul Normal 0.0-0.7 [facility] Comment on above: Performed By: #### C BC #### [facility] [address] [place] [address] Dr. Perri Burdick Eosinophils/100 WBC (Bld) 1.3 % Normal 0.9-7.0 [facility] Comment on above: Performed By: #### C BC #### [facility] [address] [place] [address] Dr. Perri Burdick Erythrocyte distribution width (RBC) [Ratio] 12.8 % Normal 11.0-15.0 [facility] Comment on above: Performed By: #### C BC #### [facility] [address] [place] [address] Dr. Perri Burdick Hematocrit (Bld) [Volume fraction] 42.5 % Normal 36.0-48.0 [facility] Comment on above: Performed By: #### C BC #### [facility] [address] [place] [address] Dr. Perri Burdick Hemoglobin (Bld) [Mass/Vol] 14.2 g/dL Normal 12.0-16.0 [facility] Comment on above: Performed By: #### C BC #### [facility] [address] [place] [address] Dr. Perri Burdick IG # 0.03 10e3/ul Normal 0.00-0.03 [facility] Comment on above: Performed By: #### C BC #### [facility] [address] [place] [address] Dr. Perri Burdick IG % 0.3 % Normal 0.0-0.5 [facility] Comment on above: Performed By: #### C BC #### [facility] [address] [place] [address] Dr. Perri Buridck LYMPH # 2.8 103/ul Normal 1.2-3.8 [facility] Comment on above: Performed By: #### C BC #### [facility] [address] [place] [address] Dr. Perri Burdick Lymphocytes/100 WBC (Bld) 29.9 % Normal 20.5-60.0 [facility] Comment on above: Performed By: #### C BC #### [facility] [address] [place] [address] Dr. Perri Burdick MANUAL DIFF REQ NO Normal [facility] Comment on above: Performed By: #### C BC #### [facility] [address] [place] [address] Dr. Perri Budrick MCH (RBC) [Entitic mass] 29.0 pg Normal 26.7-34.0 [facility] Comment on above: Performed By: #### C BC #### [facility] [address] [place] [address] Dr. Perri Burdick MCHC (RBC) [Mass/Vol] 33.4 g/dL Normal 29.9-35.2 [facility] Comment on above: Performed By: #### C BC #### [facility] [address] [place] [address] Dr. Perri Burdick MCV (RBC) [Entitic vol] 86.9 fL Normal 81.0-99.0 [facility] Comment on above: Performed By: #### C BC #### [facility] [address] [place] [address] Dr. Perri Burdick MONO # 0.6 103/ul Normal 0.3-0.8 [facility] Comment on above: Performed By: #### C BC #### [facility] [address] [place] [address] Dr. Perri Burdick Monocytes/100 WBC (Bld) 6.6 % Normal 1.7-12.0 [facility] Comment on above: Performed By: #### C BC #### [facility] [address] [place] [address] Dr. Perri Burdick NEUT # 5.8 103/ul Normal 1.4-6.5 [facility] Comment on above: Performed By: #### C BC #### [facility] [address] [place] [address] Dr. Perri Burdick Neutrophils/100 WBC (Bld) 61.6 % Normal 43.0-75.0 [facility] Comment on above: Performed By: #### C BC #### [facility] [address] [place] [address] Dr. Perri Burdick Platelet mean volume (Bld) [Entitic vol] 10.5 fL Normal 9.5-13.5 [facility] Comment on above: Performed By: #### C BC #### [facility] [address] [place] [address] Dr. Perri Burdick PLT 263 103/ul Normal 150-450 [facility] Comment on above: Performed By: #### C BC #### [facility] [address] [place] [address] Dr. Perri Burdick RBC 4.89 106/ul Normal 4.20-5.40 [facility] Comment on above: Performed By: #### C BC #### [facility] [address] [place] [address] Dr. Perri Burdick WBC 9.5 103/ul Normal 4.0-11.0 [facility] Comment on above: Performed By: #### C BC #### [facility] [address] [place] [address] Dr. Perri Burdick ER URINE PROFILEon 3 Bilirubin Ql (U) Negative Normal NEGATIVE [facility] Comment on above: Performed By: #### P REGU, ERUR #### [facility] [address] [place] [address] Dr. Perri Burdick Clarity (U) CLEAR Normal CLEAR [facility] Comment on above: Performed By: #### P REGU, ERUR #### [facility] [address] [place] [address] Dr. Perri Burdick Color (U) LT. YELLOW Normal YELLOW [facility] Comment on above: Performed By: #### P REGU, ERUR #### [facility] [address] [address] [address] Perri MONREAL A micrscopic examination will be performed if indicated. Normal [facility] Comment on above: Performed By: #### P REGU, ERUR #### [facility] [address] [address] [address] Perri Burdick Glucose Ql (U) Negative Normal NEGATIVE [facility] Comment on above: Performed By: #### P REGU, ERUR #### [facility] [address] [address] [address] Perri Burdick Hemoglobin Ql (U) Negative Normal NEGATIVE [facility] Comment on above: Performed By: #### P REGU, ERUR #### [facility] [address] [place] [address] Dr. Perri Burdick Ketones Ql (U) Negative Normal NEGATIVE [facility] Comment on above: Performed By: #### P REGU, ERUR #### [facility] [address] [place] [address] Dr. Perri Burdick LEUKOCYTES Negative Normal NEGATIVE [facility] Comment on above: Performed By: #### P REGU, ERUR #### [facility] [address] [address] [address] Perri Burdick Nitrite Ql (U) Negative Normal NEGATIVE [facility] Comment on above: Performed By: #### P REGU, ERUR #### [facility] [address] [address] [address] Perri Burdick pH (U) 6.0 [pH] Normal 5-9 [facility] Comment on above: Performed By: #### P REGU, ERUR #### [facility] [address] [address] [address] Perri Burdick SPEC GRAVITY 1.025 Normal 1.005-<=1.025 [facility] Comment on above: Performed By: #### P REGU, ERUR #### [facility] [address] [address] [address] Perri Burdick UA PROTEIN Negative Normal NEGATIVE/ TRACE [facility] Comment on above: Performed By: #### P REGU, ERUR #### [facility] [address] [address] [address] Perri Burdick UR MICRO IND NOT INDICATED Normal [facility] Comment on above: Performed By: #### P REGU, ERUR #### [facility] [address] [place] [address] Dr. Perri Burdick Urobilinogen Qn (U) 0.2 {Brody'U}/dL Normal 0.2 - 1. 0 [facility] Comment on above: Performed By: #### P REGU, ERUR #### [facility] [address] [place] [address] Dr. Perri Burdick LIPASEon 12-20-2022 Lipase [Catalytic activity/Vol] 134.0 U/L Normal 73.0-393.0 [facility] Comment on above: Performed By: #### A [place] LIPA, CMP #### [facility] [address] [place] [address] Dr. Perri Burdick URon 12-20-2022 , QUAL Negative Normal NEGATIVE [facility] Comment on above: Performed By: #### P JESICA, ERUR #### [facility] [address] [place] [address] Dr. Perri Burdick PROF 14(COMP METB)on 023 Albumin [Mass/Vol] 3.8 g/dL Normal 3.4-5.0 [facility] Comment on above: Performed By: #### A MY LIPA, CMP #### [facility] [address] [place] [address] Dr. Perri Burdick Albumin/Globulin [Mass ratio] 1.2 {ratio} Normal [facility] Comment on above: Performed By: #### A MY LIPA, CMP #### [facility] [address] [place] [address] Dr. Perri Burdick ALP [Catalytic activity/Vol] 138 U/L Critically high 46-116 [facility] Comment on above: Performed By: #### A MY, LIPA, CMP #### [facility] [address] [address] [address] Perri Burdick ALT [Catalytic activity/Vol] 23 U/L Normal 14-59 [facility] Comment on above: Performed By: #### A MY, LIPA, CMP #### [facility] [address] [address] [address] Perri Burdick Anion gap [Moles/Vol] 10.3 mmol/L Normal [facility] Comment on above: Performed By: #### A MY, LIPA, CMP #### [facility] [address] [address] [address] Perri Burdick AST [Catalytic activity/Vol] 17 U/L Normal 15-37 [facility] Comment on above: Performed By: #### A MY, LIPA, CMP #### [facility] [address] [place] [address] Dr. Perri Burdick Bilirubin [Mass/Vol] 0.2 mg/dL Normal 0.2-1.0 [facility] Comment on above: Performed By: #### A MY, LIPA, CMP #### [facility] [address] [address] [address] Perri Burdick Calcium [Mass/Vol] 9.2 mg/dL Normal 8.5-10.1 [facility] Comment on above: Performed By: #### A MY, LIPA, CMP #### [facility] [address] [place] [address] Dr. Perri Burdick Chloride [Moles/Vol] 105 mmol/L Normal 98-107 [facility] Comment on above: Performed By: #### A MY, LIPA, CMP #### [facility] [address] [place] [address] Dr. Perri Burdick CO2 [Moles/Vol] 27.3 mmol/L Normal 21.0-32.[address] [facility] Comment on above: Performed By: #### A MY, LIPA, CMP #### [facility] [address] [address] [address] Perri Burdick Creatinine [Mass/Vol] 0.82 mg/dL Normal 0.55-1.02 [facility] Comment on above: Performed By: #### A MY, LIPA, CMP #### [facility] [address] [address] [address] Perri Burdick EGFR-AF VINCENTIAN >60 Normal >=60 [facility] Comment on above: Performed By: #### A MY, LIPA, CMP #### [facility] [address] [address] [address] Perri Burdick EGFR-NON AF VINCENTIAN >60 Normal >=60 [facility] Comment on above: Performed By: #### A MY, LIPA, CMP #### [facility] [address] [address] [address] Perri Burdick Globulin (S) [Mass/Vol] 3.3 g/dL Normal [facility] Comment on above: Performed By: #### A MY, LIPA, CMP #### [facility] [address] [place] [address] Dr. Perri Burdick Glucose [Mass/Vol] 117 mg/dL Critically high 74-106 [facility] Comment on above: Performed By: #### A MY, LIPA, CMP #### [facility] [address] [address] [address] Perri Burdick Potassium [Moles/Vol] 3.6 mmol/L Normal 3.5-5.1 [facility] Comment on above: Performed By: #### A MY, LIPA, CMP #### [facility] [address] [address] [address] Perri Burdick Protein [Mass/Vol] 7.1 g/dL Normal 6.4-8.2 [facility] Comment on above: Performed By: #### A MY, LIPA, CMP #### [facility] [address] [place] [address] Dr. Perri Burdick Sodium [Moles/Vol] 139 mmol/L Normal 136-145 [facility] Comment on above: Performed By: #### A MY, LIPA, CMP #### [facility] [address] [address] [address] Perri Burdick Urea nitrogen [Mass/Vol] 15.0 mg/dL Normal 7.0-18.0 [facility] Comment on above: Performed By: #### A KENDALL HO, CMP #### [facility] [address] [address] [address] Perri Burdick Urea nitrogen/Creatinine [Mass ratio] 18.3 mg/mg Normal [facility] Comment on above: Performed By: #### A KENDALL HO, CMP #### [facility] [address] [address] [address] Perri Burdick XR ABD FLAT UP_PA [...] AL CHURCH Date: 2022-12-20 04:52 Normal [facility] CHLAMYDIA/GONOCOCCUS CASSIDY (SW AB/URINE/PAPon 12-01-2022 Chlamydia trachomatis, CASSIDY Negative Normal Negative [facility] Comment on above: Performed By: #### C T/NGNA #### [facility] [address] [address] [address] Perri Burdick Neisseria gonorrhoeae, CASSIDY Negative Normal Negative [facility] Comment on above: Performed By: #### C T/NGNA #### [facility] [address] [address] [address] Perri Burdick VAGINITIS/VAGINOSIS DNA PROB Jamar 12-01-2022 Nieves species Negative Normal Negative [facility] Comment on above: Performed By: #### V AGINT #### [facility] [address] [place] [address] Dr. Perri Burdick Gardnerella vaginalis Negative Normal Negative [facility] Comment on above: Performed By: #### V AGINT #### [facility] [address] [place] [address] Dr. Perri Burdick Trichomonas vaginalis Negative Normal Negative [facility] Comment on above: Performed By: #### V AGINT #### [facility] [address] [address] [address] Perri Burdick PAP ACOG PANEL 2: 21 to 29on 10-20-2022 . . Normal [facility] Comment on above: Performed By: #### [id number] #### [facility] [address] [place] [address] Dr. Perri Burdick Age Gdln ACOG Testing - [facility] Comment on above: Performed By: #### [id number] #### [facility] [address] [place] [address] Dr. Perri Burdick DIAGNOSIS: Comment Normal [facility] Comment on above: Result Comment: NEGA TIVE FOR INTRAEPITHELIAL LESION OR MALIGNANCY. Performed By: #### 4 [id number] #### [facility] [address] [place] [address] Dr. Perri Burdikc Methodology: Comment Normal [facility] Comment on above: Result Comment: This liquid based ThinPrep(R) pap test was screened with the use of an image guided system. Performed By: #### [id number] #### [facility] [address] [place] [address] Dr. Perri Burdick Note: Comment Normal [facility] Comment on above: Result Comment: The Pap smear is a screening test designed to aid in the detection of premalignant and malignant conditions of the uterine cervix. It is not a diagnostic procedure and should not be used as the sole means of detecting cervical cancer. Both false-positive and false-negative reports do occur. . Performed By: #### [id number] #### [facility] [address] [place] [address] Dr. Perri Burdick Performed by: Comment Normal [facility] Comment on above: Result Comment: Argentina Stoner, Umbrella Finisher (ASCP) Performed By: #### [id number] #### [facility] [address] [place] [address] Dr. Perri Burdick Reflex Criteria: Comment Normal [facility] Comment on above: Result Comment: The HPV DNA reflex criteria were not met with this specimen result therefore, no HPV testing was performed. . Performed By: #### 4 [id number] #### [facility] [address] [address] [address] Perri Burdick Specimen adequacy: Comment Normal [facility] Comment on above: Result Comment: Sati sfactory for evaluation. Endocervical and/or squamous metaplastic cells (endocervical component) are present. Performed By: #### [id number] #### [facility] [address] [place] [address] Dr. Perri Burdick COVID Quick Testingon 2020 Result Negative [facility] Other Vital Signs Date Time Vital Sign Value Performing Clinician Facility 08-08-2024 10:52-0400 Body mass index (BMI) [Ratio] 40.97 kg/m2 Salma PANCHAL Work Phone: [facility] 08-08-2024 10:52-0400 Body weight 101.61 kg Salma PANCHAL Work Phone: [facility] 08-08-2024 10:52-0400 Diastolic blood pressure 80 mm[Hg] Salma PANCHAL Work Phone: [facility] 08-08-2024 10:52-0400 Systolic blood pressure 110 mm[Hg] Salma PANCHAL Work Phone: [facility] 11-09-2023 10:24-0500 Body mass index (BMI) [Ratio] 41.34 kg/m2 Alissa Nitin DO Work Phone: [facility] 11-09-2023 10:24-0500 Body weight 102.51 kg Alissa Nitin DO Work Phone: [facility] 11-09-2023 10:24-0500 Diastolic blood pressure 72 mm[Hg] Alissa Paintingo DO Work Phone: [facility] 11-09-2023 10:24-0500 Systolic blood pressure 118 mm[Hg] Alissa Nitin DO Work Phone: [facility] 07-22-2021 10:45-0400 Body height 157.48 cm Ana Paula Dubose Other [facility] Other 07-22-2021 10:45-0400 Body mass index (BMI) [Ratio] 38.59 kg/m2 Ana Paula Nashmond Other [facility] Other 07-22-2021 10:45-0400 Body temperature 98 [degF] Ana Paula Dubose Other [facility] Other 07-22-2021 10:45-0400 Body weight 95.71 kg Ana Paula Dubose Other [facility] Other 07-22-2021 10:45-0400 Respiratory rate 18 /min Ana Paula Duboes Other [facility] Other 07-22-2021 10:45-0400 SaO2% (BldA) [Mass fraction] 97 % Ana Paula Dubose Other [facility] Other Encounters Encounter Date Encounter Type Care Provider Facility Start: 08-08-2024 End: 08-08-2024 Bamboo flowsheet Salma PANCHAL Work Phone: [facility] Start: 08-08-2024 End: 08-16-2024 Bamboo flowsheet Salma PANCHAL Work Phone: [facility] Start: 08-08-2024 End: 08-16-2024 Clinisync Result Encounter Salma PANCHAL Work Phone: [facility] External Department Unsolicited Start: 08-08-2024 End: 08-08-2024 Patient encounter procedure Salma PANCHAL Work Phone: [facility] Healthcare Start: 08-08-2024 End: 08-08-2024 Periodic preventive med est patient 18-39 yrs Salma PANCHAL Work Phone: [facility] Comment on above: Vaginal discharge; Screen for STD (sexually transmitted disease); Nausea; Dysuria; Well woman exam with routine gynecological exam; Uses control Start: 08-08-2024 End: 08-08-2024 ambulatory SALMA CHARLES Not Available Start: 11-09-2023 End: 11-09-2023 Office outpatient visit 15 minutes Alissa Taveras DO Work Phone: [facility] Comment on above: Vaginal [...] Procedure Procedure Detail Performing Clinician Start: 08-08-2024 IGP,APTIMA HPV,AGE GDLN Salma PANCHAL Work Phone: Start: 08-08-2024 End: 08-08-2024 Urnls dip stick/tablet rgnt non-auto w/o micrscp Salma PANCHAL Work Phone: Plan of Treatment Date Care Activity Detail Author Start: 08-08-2024 End: 08-08-2024 Patient encounter procedure 08/08/2024 10:30 AM EDT Office Visit [facility] [address] [place] [address] Salma Charles PA [address] [place] [address] Arrived [facility] Comment on above: Arrived Start: 06-09-2024 Influenza vaccination Influenza Vacc ine (#1) [facility] Start: 06-09-2023 Influenza vaccination Influenza Vacc ine (#1) [facility] CHLAMYDIA TRACHOMATI S (GENITO/STI) CHLAMYDIA TRACHOMATIS (GENITO/STI) Lab Routine Vaginal lump Pain in female genitalia on intercourse Ordered: 11/09/2023 [facility] Comment on above: Ordered: 11/09/2023 CHLAMYDIA TRACHOMATI S (GENITO/STI) CHLAMYDIA TRACHOMATIS (GENITO/STI) Lab Routine Vaginal discharge Screen for STD (sexually transmitted disease) Ordered: 08/08/2024 [facility] Comment on above: Ordered: 08/08/2024 Cytology Cervical or vaginal smear or scraping study Pap Smear Pathology and Cytology Routine Well woman exam with routine gynecological exam Ordered: 08/08/2024 [facility] Comment on above: Ordered: 08/08/2024 Neisseria gonorrhoea e DNA [Presence] in Unspecified specimen by CASSIDY with probe detection Neisseria gonorrhea DNA probe, direct Lab Routine Vaginal lump Pain in female genitalia on intercourse Ordered: 11/09/2023 [facility] Comment on above: Ordered: 11/09/2023 Neisseria gonorrhoea e DNA [Presence] in Unspecified specimen by CASSIDY with probe detection Neisseria gonorrhea DNA probe, direct Lab Routine Vaginal discharge Screen for STD (sexually transmitted disease) Ordered: 08/08/2024 [facility] Comment on above: Ordered: 08/08/2024 SURESWAB(R) ADVANCED VAGINITIS PLUS, TMA SURESWAB(R) ADVANCED VAGINITIS PLUS, TMA Pathology and Cytology Routine Vaginal lump Pain in female genitalia on intercourse Ordered: 11/09/2023 [facility] Work Phone: Comment on above: Ordered: 11/09/2023 SURESWAB(R) ADVANCED VAGINITIS PLUS, TMA SURESWAB(R) ADVANCED VAGINITIS PLUS, TMA Pathology and Cytology Routine Vaginal discharge Screen for STD (sexually transmitted disease) Ordered: 08/08/2024 [facility] Work Phone: Comment on above: Ordered: 08/08/2024 Payers Date Payer Category Payer [facility] BCBS [id number] 2023 Unknown BCBS BCBS xxxxxx [id number] 2023-Present [phone] [address] [place] [address] [id number] 2023 Unknown [id number] 2022 Private Health Insurance XAVIER Carl [facility] [id number] 2022-Present [address] [place] [address] [id number] 2022 Private Health Insurance [id number] 2001 Unknown [id number] 2.16.840.1.265320.3.579.2. 593 2001 Unknown [id number] 2.16.840.1.964548.3.579.2. 593 2001 Unknown [id number] 2.16.840.1.132624.3.579.2. 593 2001 Unknown [id number] 2.16.840.1.319802.3.579.2. 593 2001 Unknown [id number] 2.16.840.1.129379.3.579.2. 593 2001 Unknown [id number] 2.16.840.1.222853.3.579.2. 593 2001 Unknown [id number] 2.16.840.1.104479.3.579.2. 1259 2001 Unknown [id number] 2.16.840.1.027715.3.579.2. 1259 2001 Unknown [id number] 2.16.840.1.856894.3.579.2. 1259 2001 Unknown [id number] 2.16.840.1.446827.3.579.2. 1259 1959 Self-pay [id number] 1959 Unknown [id number] 2.16.840.1.025587.19 Social History Date Type Detail Facility Start: 11-09-2023 Sex Assigned At N [facility] Other Start: 2023 Tobacco smoking status ARIS Never smoked tobacco [facility] Start: 2023 Tobacco use and exposure Smokeless tobacco non-user [facility] Start: 11-09-2023 End: 08-08-2024 Alcohol intake Ex-drinker (finding) [facility] Start: 11-09-2023 History of Social function [facility] Start: 2001 Sex Assigned At Not on file [facility] History of Present illness Narrative 08-08-2024 ABDULKADIR Burrell - 08/08/2024 10:30 AM EDT Note Date & Type Note Facility 08-08-2024 History of Presen t illness Narrative Reason for Appointment: Patient ID: Radhika Whiet is a 24 y.o. female who presents [...] nursing note reviewed. Exam conducted with a counter helper present. Vitals: Estimated body mass index is [...] of Present illness Narrative 11-09-2023 Brianna Medina, FUR BUYER - 11/09/2023 10:10 AM EST Note Date [...] nursing note reviewed. Exam conducted with a counter helper present. Vitals: Estimated body mass index is [...] Alissa Taveras DO documented in this encounter [facility] Evaluation note 07-22-2021 Note Date [...] Patient care instructions given in writting by [facility] Care At Home document. 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 Operator Relationship Specialty Start Date End Date Yinka Barrett DO [address] [place] [address] PCP - General Family Medicine 03/16/23 Wire Drawing Machine Operator Relationship Specialty Start Date End Date Unallocated, Sherry Coats MD [address] [place] [id number] PCP - General Family Medicine 04/09/24 Wire Drawing Machine Operator Relationship Specialty Start Date End Date Unallocated, Sheryr Coats MD [facility] [place] [address] PCP - General Family Medicine 04/09/24 Wire Drawing Machine Operator Relationship Specialty Start Date End Date Unallocated, Sherry Coats MD [facility] [place] [address] PCP - General Family Medicine 04/09/24 FOR [...] BE BASED ON THE PRIMARY CLINICAL RECORDS. [facility]. provides no warranty or guarantee of the accuracy or completeness of information in this document.
[2024-11-04 08:35] LABS: Bacteria Urine NONE SEEN #/HPF (NONE SEEN); Crystals Seen? Seen #/HPF (None Seen); Mucus Urine NONE SEEN (NONE SEEN); RBC Urine NONE SEEN #/HPF (0-2); Squamous Epithelial Cell Urine FEW #/LPF (NONE/RARE); WBC Urine NONE SEEN #/HPF (NONE SEEN)
[2024-11-04 08:36] LABS: Amorphous Sediment Urine FEW; Urine Culture Indicated ALREADY ORDERED
== END 2024-11-04 07:59 | disposition home or self-care (01) ==
LOC: LAB 08:01
PROVIDERS: PCP Family Medicine; Visit Provider Family Medicine
DX: N39.0 Urinary tract infection, site not specified (principal)
CPT/HCPCS: 81001; 87086

== ENCOUNTER 2024-11-21 22:40 | Emergency (ER) | payer BC, SELFPAY ==
--- OUTSIDE RECORDS SUMMARY | 2024-11-21 22:45 | XMS_ITS | CCD ---
Author Organization [facility] Care Team Providers Care Wedding Florist Name Role Phone Ana Paula Dubose Unavailable [...] Drug Class(es) Dates Sig (Normalized) Sig (Original) [id number] 200 actuat albuterol 0.09 mg/actuat metered dose [...] GDLNon AGE GDLN ACOG TESTING Note . [facility] Comment on above: TESTS RESULT FLAG UN ITS REF RANGE LAB Clinician Provided Cytology Information Source.............Cervix;Endocervix No. of containers..01 ThinPrep Vial Age Algo ACOG Maggi... FLAG LEGEND: L-Low Normal,H-High Normal,LL-Alert Low,HH-Alert High <-Panic Low,>-Panic High,A-Abnormal,AA-Critical Abnormal Performed at: 01 =G [facility] [address] [place] [address] Mckenna Nicole MD, IGP, RFX APTIMA HPV ASCU Note . [facility] Comment on above: TESTS RESULT FLAG U NITS REF RANGE LAB DIAGNOSIS: 02 NEGATIVE FOR INTRAEPITHELIAL LESION OR MALIGNANCY. Specimen adequacy: 02 Satisfactory for evaluation. No endocervical component is identified. Performed by: Esha Mcgrath, Mill Helper ([facility]) . 02 Note: Note 02 The Pap [...] High,A-Abnormal,AA-Critical Abnormal Performed at: 02 WB [facility] [address] [place] [address] Mckenna Nicole MD, Performed at: =G - [facility] [address] [id number] Home Health Nurse: Mckenna Nicole MD, Phone: [phone] Performed at: - [facility] [address] [id number] Home Health Nurse: Mckenna Nicole MD, Phone: [phone] BRUSH-SPATULA CERVIX ENDOCERVIX [facility] Health[facility] e HCG ( test) Ql (U)o n 08-08-2024 Interpretation and review of laboratory results Normal [facility] Healthla re Preg Test, Ur Negative Negative [facility] Urinalysis macro (dipstick) panel (U)on 08-08-2024 Bilirubin, UA Negative Negative - 4(70) +++ mg/dL [facility] Blood, UA Negative Negative - 50 Zev/mcL [facility] Clarity, UA Clear [facility] re Color, UA Yellow [facility] e Glucose, UA Negative Negative - 1999(110) ++++ mg/dL [facility] Interpretation and review of laboratory results Normal [facility] re Ketones, UA Negative Negative - 160(16) ++++ mg/dL [facility] Leukocytes, UA Negative Negative - 500+++ Tien/mcL [facility] Nitrite, UA Negative Negative - Positive [facility] pH, UA 5.5 5 - 9 [facility] Protein, UA Negative Negative - 1999(20) ++++ mg/dL [facility] Spec Grav, UA 1.015 1 - 1.03 [facility] Urobilinogen, UA 0.2 0.2 - 12 mg/dL [facility] Healthcar e AMYLASEon 12-20-2022 Amylase [Catalytic activity/Vol] 43 U/L Normal 25-115 [facility] Comment on above: Performed By: #### A MY, LIPA, CMP #### [facility] [address] [place] [id number] Perri Burdick CBC AUTO DIFFon 12-20-2022 BASO # 0.0 103/ul Normal 0.0-0.1 [facility] Comment on above: Performed By: #### C BC #### [facility] [address] [place] [address] Dr. Perri Burdick Basophils/100 WBC (Bld) 0.3 % Normal 0.2-2.0 [facility] Comment on above: Performed By: #### C BC #### [facility] [address] [place] [address] Dr. Perri Burdick EO # 0.1 103/ul Normal 0.0-0.7 [facility] Comment on above: Performed By: #### C BC #### [facility] [address] [place] [address] Dr. Perri Burdick Eosinophils/100 WBC (Bld) 1.3 % Normal 0.9-7.0 [facility] Comment on above: Performed By: #### C BC #### [facility] [address] [place] [address] Dr. Perri Burdick Erythrocyte distribution width (RBC) [Ratio] 12.8 % Normal 11.0-15.0 [facility] Comment on above: Performed By: #### C BC #### [facility] [address] [place] [address] Dr. Perri Burdick Hematocrit (Bld) [Volume fraction] 42.5 % Normal 36.0-48.0 [facility] Comment on above: Performed By: #### C BC #### [facility] [address] [place] [address] Dr. Perri Burdick Hemoglobin (Bld) [Mass/Vol] 14.2 g/dL Normal 12.0-16.0 [facility] Comment on above: Performed By: #### C BC #### [facility] [address] [place] [address] Dr. Perri Burdick IG # 0.03 10e3/ul Normal 0.00-0.03 [facility] Comment on above: Performed By: #### C BC #### [facility] [address] [place] [address] Dr. Perri Burdick IG % 0.3 % Normal 0.0-0.5 [facility] Comment on above: Performed By: #### C BC #### [facility] [address] [place] [address] Dr. Perri Burdick LYMPH # 2.8 103/ul Normal 1.2-3.8 [facility] Comment on above: Performed By: #### C BC #### [facility] [address] [place] [address] Dr. Perri Burdick Lymphocytes/100 WBC (Bld) 29.9 % Normal 20.5-60.0 [facility] Comment on above: Performed By: #### C BC #### [facility] [address] [place] [address] Dr. Perri Burdick MANUAL DIFF REQ NO Normal [facility] Comment on above: Performed By: #### C BC #### [facility] [address] [place] [address] Dr. Perri Burdick MCH (RBC) [Entitic mass] 29.0 pg Normal 26.7-34.0 [facility] Comment on above: Performed By: #### C BC #### [facility] [address] [place] [address] Dr. Perri Burdick MCHC (RBC) [Mass/Vol] 33.4 g/dL Normal 29.9-35.2 [facility] Comment on above: Performed By: #### C BC #### [facility] [address] [place] [address] Dr. Perri Burdick MCV (RBC) [Entitic vol] 86.9 fL Normal 81.0-99.0 [facility] Comment on above: Performed By: #### C BC #### [facility] [address] [place] [address] Dr. Perri Burdick MONO # 0.6 103/ul Normal 0.3-0.8 [facility] Comment on above: Performed By: #### C BC #### [facility] [address] [place] [address] Dr. Perri Burdick Monocytes/100 WBC (Bld) 6.6 % Normal 1.7-12.0 [facility] Comment on above: Performed By: #### C BC #### [facility] [address] [place] [address] Dr. Perri Burdick NEUT # 5.8 103/ul Normal 1.4-6.5 [facility] Comment on above: Performed By: #### C BC #### [facility] [address] [place] [address] Dr. Perri Burdick Neutrophils/100 WBC (Bld) 61.6 % Normal 43.0-75.0 [facility] Comment on above: Performed By: #### C BC #### [facility] [address] [place] [address] Dr. Perir Burdick Platelet mean volume (Bld) [Entitic vol] 10.5 fL Normal 9.5-13.5 [facility] Comment on above: Performed By: #### C BC #### [facility] [address] [place] [address] Dr. Perri Burdick PLT 263 103/ul Normal 150-450 [facility] Comment on above: Performed By: #### C BC #### [facility] [address] [address] Dr. Perri Burdick RBC 4.89 106/ul Normal 4.20-5.40 [facility] Comment on above: Performed By: #### C BC #### [facility] [address] [place] [address] Dr. Perri Burdick WBC 9.5 103/ul Normal 4.0-11.0 [facility] Comment on above: Performed By: #### C BC #### [facility] [address] [place] [address] Dr. Perri Burdick ER URINE PROFILEon 3 Bilirubin Ql (U) Negative Normal NEGATIVE [facility] Comment on above: Performed By: #### P REGU, ERUR #### [facility] [address] [address] Dr. Perri Burdick Clarity (U) CLEAR Normal CLEAR [facility] Comment on above: Performed By: #### P REGU, ERUR #### [facility] [address] [place] [address] Dr. Perri Burdick Color (U) LT. YELLOW Normal YELLOW [facility] Comment on above: Performed By: #### P REGU, ERUR #### [facility] [address] [address] [address] Perri MONREAL A micrscopic examination will be performed if indicated. Normal [facility] Comment on above: Performed By: #### P REGU, ERUR #### [facility] [address] [address] [address] Perri Burdick Glucose Ql (U) Negative Normal NEGATIVE [facility] Comment on above: Performed By: #### P REGU, ERUR #### [facility] [address] [address] [address] Perri Burdick Hemoglobin Ql (U) Negative Normal NEGATIVE [facility] Comment on above: Performed By: #### P REGU, ERUR #### [facility] [address] [place] [address] Dr. Perri Burdick Ketones Ql (U) Negative Normal NEGATIVE [facility] Comment on above: Performed By: #### P REGU, ERUR #### [facility] [address] [address] Dr. Perri Burdick LEUKOCYTES Negative Normal NEGATIVE [facility] Comment on above: Performed By: #### P REGU, ERUR #### [facility] [address] [address] [address] Perri Burdick Nitrite Ql (U) Negative Normal NEGATIVE [facility] Comment on above: Performed By: #### P REGU, ERUR #### [facility] [address] [address] [address] Perri Burdick pH (U) 6.0 [pH] Normal 5-9 [facility] Comment on above: Performed By: #### P REGU, ERUR #### [facility] [address] [address] [address] Perri Burdick SPEC GRAVITY 1.025 Normal 1.005-<=1.025 [facility] Comment on above: Performed By: #### P REGU, ERUR #### [facility] [address] [address] [address] Perri Burdick UA PROTEIN Negative Normal NEGATIVE/ TRACE [facility] Comment on above: Performed By: #### P REGU, ERUR #### [facility] [address] [address] [address] Perri Burdick UR MICRO IND NOT INDICATED Normal [facility] Comment on above: Performed By: #### P REGU, ERUR #### [facility] [address] [address] Dr. Perri Burdick Urobilinogen Qn (U) 0.2 {Brody'U}/dL Normal 0.2 - 1. 0 [facility] Comment on above: Performed By: #### P REGU, ERUR #### [facility] [address] [place] [address] Dr. Perri Burdick LIPASEon 12-20-2022 Lipase [Catalytic activity/Vol] 134.0 U/L Normal 73.0-393.0 [facility] Comment on above: Performed By: #### A [place] LIPA, CMP #### [facility] [address] [place] [address] Dr. Perri Burdick URon 12-20-2022 , QUAL Negative Normal NEGATIVE [facility] Comment on above: Performed By: #### P JESICA, ERUR #### [facility] [address] [place] [address] Dr. Perri Burdick PROF 14(COMP METB)on 023 Albumin [Mass/Vol] 3.8 g/dL Normal 3.4-5.0 [facility] Comment on above: Performed By: #### A MY LIPA, CMP #### [facility] [address] [place] [address] Dr. Perri Burdick Albumin/Globulin [Mass ratio] 1.2 {ratio} Normal [facility] Comment on above: Performed By: #### A MY LIPA, CMP #### [facility] [address] [place] [address] Dr. Perri Burdick ALP [Catalytic activity/Vol] 138 U/L Critically high 46-116 [facility] Comment on above: Performed By: #### A MY, LIPA, CMP #### [facility] [address] [address] [address] Perri Burdick ALT [Catalytic activity/Vol] 23 U/L Normal 14-59 [facility] Comment on above: Performed By: #### A MY, LIPA, CMP #### [facility] [address] [address] [address] Perri Burdick Anion gap [Moles/Vol] 10.3 mmol/L Normal [facility] Comment on above: Performed By: #### A MY, LIPA, CMP #### [facility] [address] [address] [address] Perri Burdick AST [Catalytic activity/Vol] 17 U/L Normal 15-37 [facility] Comment on above: Performed By: #### A MY, LIPA, CMP #### [facility] [address] [place] [address] Dr. Perri Burdick Bilirubin [Mass/Vol] 0.2 mg/dL Normal 0.2-1.0 [facility] Comment on above: Performed By: #### A MY, LIPA, CMP #### [facility] [address] [address] [address] Perri Burdick Calcium [Mass/Vol] 9.2 mg/dL Normal 8.5-10.1 [facility] Comment on above: Performed By: #### A MY, LIPA, CMP #### [facility] [address] [place] [address] Dr. Perri Burdick Chloride [Moles/Vol] 105 mmol/L Normal 98-107 [facility] Comment on above: Performed By: #### A MY, LIPA, CMP #### [facility] [address] [place] [address] Dr. Perri Burdick CO2 [Moles/Vol] 27.3 mmol/L Normal 21.0-32.0 [facility] Comment on above: Performed By: #### A MY, LIPA, CMP #### [facility] [address] [address] [address] Perri Burdick Creatinine [Mass/Vol] 0.82 mg/dL Normal 0.55-1.02 [facility] Comment on above: Performed By: #### A MY, LIPA, CMP #### [facility] [address] [address] [address] Perri Burdick EGFR-AF PARAGUAYAN >60 Normal >=60 [facility] Comment on above: Performed By: #### A MY, LIPA, CMP #### [facility] [address] [address] [address] Perri Burdick EGFR-NON AF PARAGUAYAN >60 Normal >=60 [facility] Comment on above: Performed By: #### A MY, LIPA, CMP #### [facility] [address] [address] [address] Perri Burdick Globulin (S) [Mass/Vol] 3.3 g/dL Normal [facility] Comment on above: Performed By: #### A MY, LIPA, CMP #### [facility] [address] [place] [address] Dr. Perri Burdick Glucose [Mass/Vol] 117 mg/dL Critically high 74-106 [facility] Comment on above: Performed By: #### A MY, LIPA, CMP #### [facility] [address] [address] [address] Perri Burdick Potassium [Moles/Vol] 3.6 mmol/L Normal 3.5-5.1 [facility] Comment on above: Performed By: #### A MY, LIPA, CMP #### [facility] [address] [address] [address] Perri Burdick Protein [Mass/Vol] 7.1 g/dL Normal 6.4-8.2 [facility] Comment on above: Performed By: #### A MY, LIPA, CMP #### [facility] [address] [place] [address] Dr. Perri Burdick Sodium [Moles/Vol] 139 mmol/L Normal 136-145 [facility] Comment on above: Performed By: #### A MY, LIPA, CMP #### [facility] [address] [address] [address] Perri Burdick Urea nitrogen [Mass/Vol] 15.0 mg/dL Normal 7.0-18.0 [facility] Comment on above: Performed By: #### A KENDALL HO, CMP #### [facility] [address] [address] [address] Perri Burdick Urea nitrogen/Creatinine [Mass ratio] 18.3 mg/mg Normal [facility] Comment on above: Performed By: #### A KENDALL HO, CMP #### [facility] [address] [address] [address] Perri Burdick XR ABD FLAT UP_PA [...] AL CHURCH Date: 2022-12-20 04:52 Normal [facility] CHLAMYDIA/GONOCOCCUS CASSIDY (SW AB/URINE/PAPon 12-01-2022 Chlamydia trachomatis, CASSIDY Negative Normal Negative [facility] Comment on above: Performed By: #### C T/NGNA #### [facility] [address] [address] [address] Perri Burdick Neisseria gonorrhoeae, CASSIDY Negative Normal Negative [facility] Comment on above: Performed By: #### C T/NGNA #### [facility] [address] [address] [address] Perri Burdick VAGINITIS/VAGINOSIS DNA PROB Jamar 12-01-2022 Nieves species Negative Normal Negative [facility] Comment on above: Performed By: #### V AGINT #### [facility] [address] [place] [address] Dr. Perri Burdick Gardnerella vaginalis Negative Normal Negative [facility] Comment on above: Performed By: #### V AGINT #### [facility] [address] [place] [address] Dr. Perri Burdick Trichomonas vaginalis Negative Normal Negative [facility] Comment on above: Performed By: #### V AGINT #### [facility] [address] [address] [address] Perri Burdick PAP ACOG PANEL 2: 21 to 29on 10-20-2022 . . Normal [facility] Comment on above: Performed By: #### 4 [id number] #### [facility] [address] [place] [address] Dr. Perri Burdick Age Gdln ACOG Testing - [facility] Comment on above: Performed By: #### 4 [id number] #### [facility] [address] [place] [address] Dr. Perri Burdick DIAGNOSIS: Comment Normal [facility] Comment on above: Result Comment: NEGA TIVE FOR INTRAEPITHELIAL LESION OR MALIGNANCY. Performed By: #### 4 [id number] #### [facility] [address] [place] [address] Dr. Perri Burdick Methodology: Comment Normal [facility] Comment on above: Result Comment: This liquid based ThinPrep(R) pap test was screened with the use of an image guided system. Performed By: #### 4 [id number] #### [facility] [address] [place] [address] Dr. Perri Burdick Note: Comment Normal [facility] Comment on above: Result Comment: The Pap smear is a screening test designed to aid in the detection of premalignant and malignant conditions of the uterine cervix. It is not a diagnostic procedure and should not be used as the sole means of detecting cervical cancer. Both false-positive and false-negative reports do occur. . Performed By: #### 4 [id number] #### [facility] [address] [place] [address] Dr. Perri Burdick Performed by: Comment Normal [facility] Comment on above: Result Comment: Argentina Stoner, Mill Helper (ASCP) Performed By: #### 4 [id number] #### [facility] [address] [address] Dr. Perri Burdick Reflex Criteria: Comment Normal [facility] Comment on above: Result Comment: The HPV DNA reflex criteria were not met with this specimen result therefore, no HPV testing was performed. . Performed By: #### 4 [id number] #### [facility] [address] [address] [address] Perri Burdick Specimen adequacy: Comment Normal [facility] Comment on above: Result Comment: Sati sfactory for evaluation. Endocervical and/or squamous metaplastic cells (endocervical component) are present. Performed By: #### 4 [id number] #### [facility] [address] [place] [address] Dr. Perri Burdick COVID Quick Testingon 2020 Result Negative [employer] Other Vital Signs Date Time Vital Sign Value Performing Clinician Facility 08-08-2024 10:52-0400 Body mass index (BMI) [Ratio] 40.97 kg/m2 Salma PANCHAL Work Phone: [facility] 08-08-2024 10:52-0400 Body weight 101.61 kg Salma PANCHAL Work Phone: [facility] 08-08-2024 10:52-0400 Diastolic blood pressure 80 mm[Hg] Salma PANCHAL Work Phone: [facility] 08-08-2024 10:52-0400 Systolic blood pressure 110 mm[Hg] Salma PANCHAL Work Phone: [facility] 11-09-2023 10:24-0500 Body mass index (BMI) [Ratio] 41.34 kg/m2 Alissa Nitin DO Work Phone: [facility] 11-09-2023 10:24-0500 Body weight 102.51 kg Alissa Nitin DO Work Phone: [facility] 11-09-2023 10:24-0500 Diastolic blood pressure 72 mm[Hg] Alissa Paintingo DO Work Phone: [facility] 11-09-2023 10:24-0500 Systolic blood pressure 118 mm[Hg] Alissa Nitin DO Work Phone: [facility] 07-22-2021 10:45-0400 Body height 157.48 cm Ana Paula Dubose Other [employer] Other 07-22-2021 10:45-0400 Body mass index (BMI) [Ratio] 38.59 kg/m2 Ana Paula Nashmond Other [employer] Other 07-22-2021 10:45-0400 Body temperature 98 [degF] Ana Paula Dubose Other [employer] Other 07-22-2021 10:45-0400 Body weight 95.71 kg Ana Paula Dubose Other [employer] Other 07-22-2021 10:45-0400 Respiratory rate 18 /min Ana Paula Dubose Other [employer] Other 07-22-2021 10:45-0400 SaO2% (BldA) [Mass fraction] 97 % Ana Paula Dubose Other [employer] Other Encounters Encounter Date Encounter Type Care [...] procedure 08/08/2024 10:30 AM EDT Office Visit [facility] [address] [place] [address] Salma Charles PA [address] [address] Arrived [facility] Comment on above: [...] exam with routine gynecological exam Ordered: 08/08/2024 [facility] Comment on above: Ordered: 08/08/2024 Neisseria gonorrhoea [...] Ordered: 08/08/2024 Payers Date Payer Category Payer [facility] BCBS [id number] 2023 Unknown BCBS BCBS [id number] [id number] 2023-Present [phone] [address] [place] [address] [id number] 2023 Unknown [id number] 2022 Private Health Insurance XAVIER Carl [facility] [id number] 2022-Present [address] [place] [address] [id number] 2022 Private Health Insurance [id number] 2001 Unknown [id number] [id number]. 593 2001 Unknown [id number] [id number]. 593 2001 Unknown [id number] 2.16.840.1.348447.3.579.2. 593 2001 Unknown [id number] 2.16.840.1.783198.3.579.2. 593 2001 Unknown [id number] 2.16.840.1.204368.3.579.2. 593 2001 Unknown [id number] 2.16.840.1.727304.3.579.2. 593 2001 Unknown [id number] 2.16.840.1.160489.3.579.2. 1259 2001 Unknown [id number] 2.16.840.1.427256.3.579.2. 1259 2001 Unknown [id number] 2.16.840.1.028716.3.579.2. 1259 2001 Unknown [id number] 2.16.840.1.786683.3.579.2. 1259 1959 Self-pay [id number] 1959 Unknown [id number] Social History Date Type Detail Facility Start: 11-09-2023 Sex Assigned At [facility] Other Start: 2023 Tobacco smoking status SDIS Never smoked tobacco [facility] Start: 2023 [...] nursing note reviewed. Exam conducted with a paramedical aide present. Vitals: Estimated body mass index is [...] of Present illness Narrative 11-09-2023 Brianna Medina, KAYAKING INSTRUCTOR - 11/09/2023 10:10 AM EST Note Date [...] nursing note reviewed. Exam conducted with a paramedical aide present. Vitals: Estimated body mass index is [...] given in writting by [facility] Home document. [employer] Other Evaluation note Note Date & Type [...] History Strain of lumbar region, initial encounter [employer] Other Summary Purpose Family History No Family [...] DATE CREATED AUTHOR AUTHOR'S ORGANIZ ATION 08/10/2024 [facility] EP[employer] Care Teams (unrecognized sec tion and content) Wedding Florist Relationship Specialty Start Date End Date Yinka Barrett DO [address] [place] [address] PCP - General Family Medicine 03/16/23 Wedding Florist Relationship Specialty Start Date End Date Unallocated, Sherry Coats MD [address] [place] [address] PCP - General Family Medicine 04/09/24 Wedding Florist Relationship Specialty Start Date End Date Unallocated, Sherry Coats MD [facility] [place] [address] PCP - General Family Medicine 04/09/24 Wedding Florist Relationship Specialty Start Date End Date Unallocated, Sherry Coats MD [facility] [place] [address] PCP - General Family Medicine 04/09/24 FOR [...] BE BASED ON THE PRIMARY CLINICAL RECORDS. [employer] [facility]. provides no warranty or guarantee of the accuracy or completeness of information in this document.
[2024-11-21 23:03] VITALS: BP 110/73; PULSE 79; TEMP 37.1; O2SAT 100; BMI 41.6
--- NOTE | 2024-11-21 23:10 | CT_ITS ---
[address] [address] Patient Name: JET CHIANG MRN: [id number] date: 2000 Sex: F Assigned Patient Location: ER Current Patient Location: Accession/Order Number: [id number] Exam Date: 11/21/2024 23:18 Report Date: 11/21/2024 23:50 At the request of: DESHAWN MARKER Procedure: CT cervical spine wo con EXAM: CT head/brain wo con, CT cervical spine wo con INDICATION: 24 years old; Female. Closed head trauma. Fall on ice. TECHNIQUE: CT Head (ax/cor/sag reformats). Ionizing radiation dose reduced via iterative reconstruction/FBP blend and body size kV/mA adjustment. Comparison: None FINDINGS: POSTOPERATIVE CHANGES: None. BRAIN PARENCHYMA: No intraparenchymal or extra-axial hemorrhage. No mass effect. No midline shift or herniation. Normal brewer/white differentiation. VENTRICLES/EXTRA-AXIAL SPACES: Multiple for patient's age. SINUSES/MASTOIDS: The visualized sinuses are clear although the maxillary sinuses are not completely included. Mastoids and middle ears are clear. MSK: No displaced or depressed calvarial fracture. OTHER: No hyperdense intraluminal thrombus. TECHNIQUE: CT imaging of the cervical spine was performed. IV contrast: None. Dose reduction techniques were achieved by using automated exposure control and/or adjustment of mA and/or kV according to patient size and/or use of iterative reconstruction technique. COMPARISON: None available. FINDINGS: POSTOPERATIVE CHANGES: None. ALIGNMENT: Nonspecific straightening of the normal cervical curve. COMPRESSION FRACTURES: No fracture or vertebral body collapse. No bone displacement. No asymmetric widening of the facets. PREVERTEBRAL SOFT TISSUES: Normal. CRANIOCERVICAL JUNCTION: There is a normal relationship of the occipital condyles, lateral masses of C1, and articular surfaces of C2. The base of the dens and body of C2 are intact. There is normal predental space. POSTERIOR FOSSA: Cerebellar tonsils are above the foramen magnum. Disc levels: C2-C3: No disc herniation. No spinal canal or foraminal narrowing. C3-C4: No disc herniation. No spinal canal or foraminal narrowing. C4-C5: No disc herniation. No spinal canal or foraminal narrowing. C5-C6: Beam hardening artifacts. Central canal patent. Neural foramina patent. C6-C7: E morning artifacts. Central canal patent. Neural foramina patent. C7-T1: Beam hardening artifacts. Central canal patent. Neural foramina patent. UPPER THORACIC SPINE: At T1-T2, Beam hardening artifacts. Central canal and neural foramina are patent. OTHER: There are extensive streak artifacts which limit evaluation of the thyroid. Questionable asymmetric hypodensity within the left lobe of the thyroid, image 69/series 4. Recommend nonemergent thyroid ultrasound. CT/CT cervical spine wo con IMPRESSION: 1. No acute intracranial abnormality. No hemorrhage or mass effect. 2. No cervical fracture. No disc herniation or bony stenosis. 3. Question asymmetric hypodensity within the left lobe of the thyroid, not adequately evaluated on the present study. Recommend nonemergent thyroid ultrasound. Electronically authenticated by: MARIA NEWELL Date: 11/21/2024 23:50
--- NOTE | 2024-11-21 23:10 | CT_ITS ---
[address] [address] Patient Name: JET CHIANG MRN: [id number] date: 2000 Sex: F Assigned Patient Location: ER Current Patient Location: Accession/Order Number: [id number] Exam Date: 11/21/2024 23:18 Report Date: 11/21/2024 23:50 At the request of: DESHAWN MARKER Procedure: CT head/brain wo con EXAM: CT head/brain wo con, CT cervical spine wo con INDICATION: 24 years old; Female. Closed head trauma. Fall on ice. TECHNIQUE: CT Head (ax/cor/sag reformats). Ionizing radiation dose reduced via iterative reconstruction/FBP blend and body size kV/mA adjustment. Comparison: None FINDINGS: POSTOPERATIVE CHANGES: None. BRAIN PARENCHYMA: No intraparenchymal or extra-axial hemorrhage. No mass effect. No midline shift or herniation. Normal brewer/white differentiation. VENTRICLES/EXTRA-AXIAL SPACES: Multiple for patient's age. SINUSES/MASTOIDS: The visualized sinuses are clear although the maxillary sinuses are not completely included. Mastoids and middle ears are clear. MSK: No displaced or depressed calvarial fracture. OTHER: No hyperdense intraluminal thrombus. TECHNIQUE: CT imaging of the cervical spine was performed. IV contrast: None. Dose reduction techniques were achieved by using automated exposure control and/or adjustment of mA and/or kV according to patient size and/or use of iterative reconstruction technique. COMPARISON: None available. FINDINGS: POSTOPERATIVE CHANGES: None. ALIGNMENT: Nonspecific straightening of the normal cervical curve. COMPRESSION FRACTURES: No fracture or vertebral body collapse. No bone displacement. No asymmetric widening of the facets. PREVERTEBRAL SOFT TISSUES: Normal. CRANIOCERVICAL JUNCTION: There is a normal relationship of the occipital condyles, lateral masses of C1, and articular surfaces of C2. The base of the dens and body of C2 are intact. There is normal predental space. POSTERIOR FOSSA: Cerebellar tonsils are above the foramen magnum. Disc levels: C2-C3: No disc herniation. No spinal canal or foraminal narrowing. C3-C4: No disc herniation. No spinal canal or foraminal narrowing. C4-C5: No disc herniation. No spinal canal or foraminal narrowing. C5-C6: Beam hardening artifacts. Central canal patent. Neural foramina patent. C6-C7: E morning artifacts. Central canal patent. Neural foramina patent. C7-T1: Beam hardening artifacts. Central canal patent. Neural foramina patent. UPPER THORACIC SPINE: At T1-T2, Beam hardening artifacts. Central canal and neural foramina are patent. OTHER: There are extensive streak artifacts which limit evaluation of the thyroid. Questionable asymmetric hypodensity within the left lobe of the thyroid, image 69/series 4. Recommend nonemergent thyroid ultrasound. CT/CT head/brain wo con IMPRESSION: 1. No acute intracranial abnormality. No hemorrhage or mass effect. 2. No cervical fracture. No disc herniation or bony stenosis. 3. Question asymmetric hypodensity within the left lobe of the thyroid, not adequately evaluated on the present study. Recommend nonemergent thyroid ultrasound. Electronically authenticated by: MAIRA NEWELL Date: 11/21/2024 23:50
--- NOTE | 2024-11-22 00:10 | ED_ITS ---
HPI HPI - Fall General Chief Complaint: Fall Stated Complaint: HEAD INJURY Time Seen by Provider: 11/21/24 23:04 Source: patient Mode of arrival: walk-in Limitations: no limitations History of Present Illness HPI Narrative: This 24-year-old female presents for evaluation of a head injury and mild neck pain. The patient states that she slipped on the ice earlier today. She states she stepped out onto the sidewalk carefully but her feet went out from underneath her and she fell backwards striking her head. She has had a posterior occipital headache since that time and her neck feels tight. She denies any loss of consciousness. She has no focal weakness numbness or tingling. She states she feels mildly dizzy and her vision is a little bit blurry. She did not lose consciousness at that time. She has not had any vomiting or diarrhea. She states she only worked for an hour and then went home because she was not feeling well. She did take 1000 mg of Tylenol prior to arrival which relieved her headache. Related Data Home Medications ?Medication ?Instructions ?Recorded ?Confirmed diclofenac sodium 75 mg 75 mg PO BID PRN pain 08/01/24 08/01/24 tablet,delayed release hydroxyzine HCl 25 mg tablet 25 mg PO QID PRN anxiety 08/01/24 11/21/24 mirtazapine 30 mg tablet 30 mg PO BEDTIME 08/01/24 08/01/24 tizanidine 4 mg tablet 8 mg PO Q12H PRN muscle spasticity 08/01/24 11/21/24 Previous Rx's ?Medication ?Instructions ?Recorded famotidine 20 mg tablet 20 mg PO BID 2 weeks #28 tabs 08/10/24 ondansetron 4 mg disintegrating 4 mg PO Q8H PRN nausea and 08/10/24 tablet vomiting 4 days #16 tabs Allergies Allergy/AdvReac Type Severity Reaction Status Date / Time No Known Drug Allergies Allergy Verified 11/21/24 22:58 Opioid HPI Opioid Management Most Recent Pain and Opioid Data: Last Pain Scale 6 08/10/24 18:28 08/10/24 Review of Systems ROS Status of ROS 10 or more systems reviewed and unremark able except as noted in history and below PFSH PFSH Social History Smoking status: Never smoker Little interest or pleasure in doing things: not at all Feeling down, depressed, or hopeless: not at all Exam Narrative Exam Narrative: Vital signs and Nursing Notes reviewed: Patient is afebrile with a normal pulse, normal blood pressure, she is not hypoxic with pulse ox of 100% on room air General: Awake, alert, oriented, no acute distress, lying comfortably on the stretcher-GCS 15 HEENT: Normocephalic, small abrasion at the posterior occiput, no bleeding step- off or hematoma noted Neck: Supple, no midline bony vertebral tenderness or step-off Chest: Lungs are clear to auscultation with good air entry, there is no wheezing rhonchi or rales appreciated no accessory muscle use, patient is speaking in complete sentences-no chest wall tenderness to palpation CVS: Regular rate and rhythm S1-S2, no murmurs rubs or gallops, pulses are brisk and equal bilaterallyd Extremities: Moving all extremities, no lower extremity tenderness or swelling noted Skin: Normal in appearance without rash,pallor, petechiae or purpura Neuro: No focal deficits, features clear, resistance welder strength intact, there is no facial droop, she is ambulatory with a steady gait, negative pronator drift, positive rapid alternating hand movements Constitutional Vital Signs, click to edit/add: Last Vital Signs Temp 98.9 F 11/22/24 00:18 Pulse 82 11/22/24 00:18 Resp 17 11/22/24 00:18 BP 113/72 11/22/24 00:18 Pulse Ox 100 11/22/24 00:18 O2 Del Method Room Air 11/21/24 23:03 Course Vital Signs Vital signs: Vital Signs Temperature 98.7 F 11/21/24 23:03 Pulse Rate 79 11/21/24 23:03 Respiratory Rate 19 11/21/24 23:03 Blood Pressure 110/73 11/21/24 23:03 Pulse Oximetry 100 11/21/24 23:03 Oxygen Delivery Method Room Air 11/21/24 23:03 Temperature 98.9 F 11/22/24 00:18 Pulse Rate 82 11/22/24 00:18 Respiratory Rate 17 11/22/24 00:18 Blood Pressure 113/72 11/22/24 00:18 Pulse Oximetry 100 11/22/24 00:18 Oxygen Delivery Method Room Air 11/21/24 23:03 MDM - Fall MDM Narrative Medical decision making narrative: This 24-year-old female presents for evaluation of a headache and posterior neck tightness after falling on the ice earlier today and striking her head. She did not have any loss of consciousness. She states that she went to work but could only work an hour because she was feeling dizzy with some blurred vision. She has not had any vomiting. Her neuroexam is normal. She had taken Tylenol prior to arrival and declined the need for any additional medications. A CT scan of the brain and cervical spine was ordered. The results are included in the body of this report and do not show any acute findings. The results were discussed with her and she was given a copy of her's CAT scan findings. It did show some questionable thyroid nodules which I discussed with her and suggested that she discuss with her family physician. She is in agreement with this plan. She was given a note for work as she missed most of the day due to her injury. She declined the need for any pain medication prior to arrival or prescriptions. Medical Records Medical records narrative: [place] [address] CT Scan Report Signed Patient: JET CHIANG MR#: [id number] : 2000 Acct:[id number] Age/Sex: 24 / F ADM Date: 11/21/24 Loc: ER Attending Dr: Ordering Physician: Cathie Martini Date of Service: 11/21/24 Procedure(s): CT cervical spine wo con Accession Number(s): [id number] cc: Ander Conway M.D.~ [facility] [place] [id number] Patient Name: JET CHIANG MRN: [id number] date: 2000 Sex: F Assigned Patient Location: ER Current Patient Location: ER Accession/Order Number: [id number] Exam Date: 11/21/2024 23:18 Report Date: 11/21/2024 23:50 At the request of: CATHIE MARTINI Procedure: CT cervical spine wo con EXAM: CT head/brain wo con, CT cervical spine wo con INDICATION: 24 years old; Female. Closed head trauma. Fall on ice. TECHNIQUE: CT Head (ax/cor/sag reformats). Ionizing radiation dose reduced via iterative reconstruction/FBP blend and body size kV/mA adjustment. Comparison: None FINDINGS: POSTOPERATIVE CHANGES: None. BRAIN PARENCHYMA: No intraparenchymal or extra-axial hemorrhage. No mass effect. No midline shift or herniation. Normal brewer/white differentiation. VENTRICLES/EXTRA-AXIAL SPACES: Multiple for patient's age. SINUSES/MASTOIDS: The visualized sinuses are clear although the maxillary sinuses are not completely included. Mastoids and middle ears are clear. MSK: No displaced or depressed calvarial fracture. OTHER: No hyperdense intraluminal thrombus. TECHNIQUE: CT imaging of the cervical spine was performed. IV contrast: None. Dose reduction techniques were achieved by using automated exposure control and/or adjustment of mA and/or kV according to patient size and/or use of iterative reconstruction technique. COMPARISON: None available. FINDINGS: POSTOPERATIVE CHANGES: None. ALIGNMENT: Nonspecific straightening of the normal cervical curve. COMPRESSION FRACTURES: No fracture or vertebral body collapse. No bone displacement. No asymmetric widening of the facets. PREVERTEBRAL SOFT TISSUES: Normal. CRANIOCERVICAL JUNCTION: There is a normal relationship of the occipital condyles, lateral masses of C1, and articular surfaces of C2. The base of the dens and body of C2 are intact. There is normal predental space. POSTERIOR FOSSA: Cerebellar tonsils are above the foramen magnum. Disc levels: C2-C3: No disc herniation. No spinal canal or foraminal narrowing. C3-C4: No disc herniation. No spinal canal or foraminal narrowing. C4-C5: No disc herniation. No spinal canal or foraminal narrowing. C5-C6: Beam hardening artifacts. Central canal patent. Neural foramina patent. C6-C7: E morning artifacts. Central canal patent. Neural foramina patent. C7-T1: Beam hardening artifacts. Central canal patent. Neural foramina patent. UPPER THORACIC SPINE: At T1-T2, Beam hardening artifacts. Central canal and neural foramina are patent. OTHER: There are extensive streak artifacts which limit evaluation of the thyroid. Questionable asymmetric hypodensity within the left lobe of the thyroid, image 69/series 4. Recommend nonemergent thyroid ultrasound. CT/CT cervical spine wo con IMPRESSION: 1. No acute intracranial abnormality. No hemorrhage or mass effect. 2. No cervical fracture. No disc herniation or bony stenosis. 3. Question asymmetric hypodensity within the left lobe of the thyroid, not adequately evaluated on the present study. Recommend nonemergent thyroid ultrasound. Electronically authenticated by: MARIA OSIRIS Date: 11/21/2024 23:50 Discharge Plan Discharge Chief Complaint: Fall Clinical Impression: Fall due to ice or snow, Closed head injury, Cervical strain, acute Patient Disposition: Home, Self-Care Time of Disposition Decision: 00:12 Condition: Good Prescriptions / Home Meds: No Action hydroxyzine HCl 25 mg tablet 25 mg PO QID PRN (Reason: anxiety) mirtazapine 30 mg tablet 30 mg PO BEDTIME diclofenac sodium 75 mg tablet,delayed release (DR/EC) 75 mg PO BID PRN (Reason: pain) tizanidine 4 mg tablet 8 mg PO Q12H PRN (Reason: muscle spasticity) ondansetron 4 mg tablet,disintegrating 4 mg PO Q8H PRN (Reason: nausea and vomiting) 4 Days Qty: 16 0RF famotidine 20 mg tablet 20 mg PO BID 14 Days Qty: 28 0RF Print Language: Marshallese Instructions: Cervical Strain (ED), Head Injury (ED) Referrals: Ander Conway MD [Primary Care Provider] - 1 week Discharge Date/Time: 11/22/24 00:27
[2024-11-22 00:18] VITALS: BP 113/72; PULSE 82; TEMP 37.2; O2SAT 100
--- NOTE | 2024-11-22 00:25 | PC.NURSE ---
i gave this patient verbal and written discharge orders along with 1 work note and this patient voices yes to understanding these. at time of discharge this patient voices no concerns and shows no signs of distress
== END 2024-11-22 00:27 | disposition home or self-care (01) ==
PROVIDERS: Emergency Provider Emergency Medicine; PCP Family Medicine
DX: S09.8XXA Other specified injuries of head, initial encounter (principal); S16.1XXA Strain of muscle, fascia and tendon at neck level, initial encounter; W00.0XXA Fall on same level due to ice and snow, initial encounter
CPT/HCPCS: 70450; 72125; 99284

== ENCOUNTER 2024-12-25 07:38 | Emergency (ER) | payer BC, SELFPAY ==
[2024-12-25 07:44] VITALS: BP 144/66; PULSE 120; TEMP 36.6; O2SAT 97; BMI 36.6
--- OUTSIDE RECORDS SUMMARY | 2024-12-25 07:49 | XMS_ITS | CCD ---
Author Organization [facility] Care Team Providers Care Hardboard Supervisor Name Role Phone Ana Paula Dubose Unavailable [...] Drug Class(es) Dates Sig (Normalized) Sig (Original) [id number] 200 actuat albuterol 0.09 mg/actuat metered dose [...] GDLNon AGE GDLN ACOG TESTING Note . [facility] Comment on above: TESTS RESULT FLAG UN ITS REF RANGE LAB Clinician Provided Cytology Information Source.............Cervix;Endocervix No. of containers..01 ThinPrep Vial Age Algo ACOG Maggi... FLAG LEGEND: L-Low Normal,H-High Normal,LL-Alert Low,HH-Alert High <-Panic Low,>-Panic High,A-Abnormal,AA-Critical Abnormal Performed at: 01 =G [facility] [address] [place] [address] Mckenna Nicole MD, IGP, RFX APTIMA HPV ASCU Note . [facility] Comment on above: TESTS RESULT FLAG U NITS REF RANGE LAB DIAGNOSIS: 02 NEGATIVE FOR INTRAEPITHELIAL LESION OR MALIGNANCY. Specimen adequacy: 02 Satisfactory for evaluation. No endocervical component is identified. Performed by: Esha Mcgrath, Pneumatic System Conveyor Operator ([facility]) . 02 Note: Note 02 [...] Performed at: 02 WB [facility] [address] [place] [address] Mckenna Nicole MD, Performed at: =G - [facility] [address] [id number] Men'S Swim Coach: Mckenna Nicole MD, Phone: [phone] Performed at: - [facility] [address] [id number] Men'S Swim Coach: Mckenna Nicole MD, Phone: [phone] BRUSH-SPATULA CERVIX ENDOCERVIX [facility] HCG ( test) Ql (U)o n 08-08-2024 Interpretation and review of laboratory results Normal [facility] re Preg Test, Ur Negative Negative [facility] macro (dipstick) panel (U)on 08-08-2024 Bilirubin, UA Negative Negative - 4(70) +++ mg/dL [facility] Blood, UA Negative Negative - 50 Zev/mcL [facility] Clarity, UA Clear [facility] re Color, UA Yellow [facility] e Glucose, UA Negative Negative - 1999(110) ++++ mg/dL [facility] Interpretation and review of laboratory results Normal [facility] re Ketones, UA Negative Negative - 160(16) ++++ mg/dL [facility] Leukocytes, UA Negative Negative - 500+++ Tien/mcL [facility] Nitrite, UA Negative Negative - Positive [facility] pH, UA 5.5 5 - 9 [facility] e Protein, UA Negative Negative - 1999(20) ++++ mg/dL [facility] Spec Grav, UA 1.015 1 - 1.03 [facility] Urobilinogen, UA 0.2 0.2 - 12 mg/dL [facility] e AMYLASEon 12-20-2022 Amylase [Catalytic activity/Vol] 43 U/L Normal 25-115 [facility] Comment on above: Performed By: #### A MY, LIPA, CMP #### [facility] [address] [place] [address] [id number] [address] Perri Burdick CBC AUTO DIFFon 12-20-2022 BASO # 0.0 103/ul Normal 0.0-0.1 [facility] Comment on above: Performed By: #### C BC #### [facility] [address] [place] [address] Dr. Perri Burdick Basophils/100 WBC (Bld) 0.3 % Normal 0.2-2.0 [facility] Comment on above: Performed By: #### C BC #### [facility] [address] [place] [address] Dr. Perri Burdick EO # 0.1 103/ul Normal 0.0-0.7 [facility] Comment on above: Performed By: #### C BC #### [facility] [address] [place] [address] Dr. Perri Burdick Eosinophils/100 WBC (Bld) 1.3 % Normal 0.9-7.0 [facility] Comment on above: Performed By: #### C BC #### [facility] [address] [place] [address] Dr. Perri Burdick Erythrocyte distribution width (RBC) [Ratio] 12.8 % Normal 11.0-15.0 [facility] Comment on above: Performed By: #### C BC #### [facility] [address] [place] [address] Dr. Perri Burdick Hematocrit (Bld) [Volume fraction] 42.5 % Normal 36.0-48.0 [facility] Comment on above: Performed By: #### C BC #### [facility] [address] [place] [address] Dr. Perri Burdick Hemoglobin (Bld) [Mass/Vol] 14.2 g/dL Normal 12.0-16.0 [facility] Comment on above: Performed By: #### C BC #### [facility] [address] [place] [address] Dr. Perri Burdick IG # 0.03 10e3/ul Normal 0.00-0.03 [facility] Comment on above: Performed By: #### C BC #### [facility] [address] [place] [address] Dr. Perri Burdick IG % 0.3 % Normal 0.0-0.5 [facility] Comment on above: Performed By: #### C BC #### [facility] [address] [place] [address] Dr. Perri Burdick LYMPH # 2.8 103/ul Normal 1.2-3.8 [facility] Comment on above: Performed By: #### C BC #### [facility] [address] [place] [address] Dr. Perri Burdick Lymphocytes/100 WBC (Bld) 29.9 % Normal 20.5-60.0 [facility] Comment on above: Performed By: #### C BC #### [facility] [address] [place] [address] Dr. Perri Burdick MANUAL DIFF REQ NO Normal [facility] Comment on above: Performed By: #### C BC #### [facility] [address] [place] [address] Dr. Perri Burdick MCH (RBC) [Entitic mass] 29.0 pg Normal 26.7-34.0 [facility] Comment on above: Performed By: #### C BC #### [facility] [address] [place] [address] Dr. Perri Burdick MCHC (RBC) [Mass/Vol] 33.4 g/dL Normal 29.9-35.2 [facility] Comment on above: Performed By: #### C BC #### [facility] [address] [place] [address] Dr. Perri Burdick MCV (RBC) [Entitic vol] 86.9 fL Normal 81.0-99.0 [facility] Comment on above: Performed By: #### C BC #### [facility] [address] [place] [address] Dr. Perri Burdick MONO # 0.6 103/ul Normal 0.3-0.8 [facility] Comment on above: Performed By: #### C BC #### [facility] [address] [place] [address] Dr. Perri Burdick Monocytes/100 WBC (Bld) 6.6 % Normal 1.7-12.0 [facility] Comment on above: Performed By: #### C BC #### [facility] [address] [place] [address] Dr. Perri Burdick NEUT # 5.8 103/ul Normal 1.4-6.5 [facility] Comment on above: Performed By: #### C BC #### [facility] [address] [place] [address] Dr. Perri Burdick Neutrophils/100 WBC (Bld) 61.6 % Normal 43.0-75.0 [facility] Comment on above: Performed By: #### C BC #### [facility] [address] [place] [address] Dr. Perri Burdick Platelet mean volume (Bld) [Entitic vol] 10.5 fL Normal 9.5-13.5 [facility] Comment on above: Performed By: #### C BC #### [facility] [address] [place] [address] Dr. Perri Burdick PLT 263 103/ul Normal 150-450 [facility] Comment on above: Performed By: #### C BC #### [facility] [address] [place] [address] Dr. Perri Burdick RBC 4.89 106/ul Normal 4.20-5.40 [facility] Comment on above: Performed By: #### C BC #### [facility] [address] [place] [address] Dr. Perri Burdick WBC 9.5 103/ul Normal 4.0-11.0 [facility] Comment on above: Performed By: #### C BC #### [facility] [address] [place] [address] Dr. Perri Burdick ER URINE PROFILEon 3 Bilirubin Ql (U) Negative Normal NEGATIVE [facility] Comment on above: Performed By: #### P REGU, ERUR #### [facility] [address] [place] [address] Dr. Perri Burdick Clarity (U) CLEAR Normal CLEAR [facility] Comment on above: Performed By: #### P REGU, ERUR #### [facility] [address] [place] [address] Dr. Perri Burdick Color (U) LT. YELLOW Normal YELLOW [facility] Comment on above: Performed By: #### P REGU, ERUR #### [facility] [address] [address] [address] Perri MONREAL A micrscopic examination will be performed if indicated. Normal [facility] Comment on above: Performed By: #### P REGU, ERUR #### [facility] [address] [address] [address] Perri Burdick Glucose Ql (U) Negative Normal NEGATIVE [facility] Comment on above: Performed By: #### P REGU, ERUR #### [facility] [address] [address] [address] Perri Burdick Hemoglobin Ql (U) Negative Normal NEGATIVE [facility] Comment on above: Performed By: #### P REGU, ERUR #### [facility] [address] [place] [address] Dr. Perri Burdick Ketones Ql (U) Negative Normal NEGATIVE [facility] Comment on above: Performed By: #### P REGU, ERUR #### [facility] [address] [place] [address] Dr. Perri Burdick LEUKOCYTES Negative Normal NEGATIVE [facility] Comment on above: Performed By: #### P REGU, ERUR #### [facility] [address] [address] [address] Perri Burdick Nitrite Ql (U) Negative Normal NEGATIVE [facility] Comment on above: Performed By: #### P REGU, ERUR #### [facility] [address] [address] [address] Perri Burdick pH (U) 6.0 [pH] Normal 5-9 [facility] Comment on above: Performed By: #### P REGU, ERUR #### [facility] [address] [address] [address] Perri Burdick SPEC GRAVITY 1.025 Normal 1.005-<=1.025 [facility] Comment on above: Performed By: #### P REGU, ERUR #### [facility] [address] [address] [address] Perri Burdick UA PROTEIN Negative Normal NEGATIVE/ TRACE [facility] Comment on above: Performed By: #### P REGU, ERUR #### [facility] [address] [address] [address] Perri Burdick UR MICRO IND NOT INDICATED Normal [facility] Comment on above: Performed By: #### P REGU, ERUR #### [facility] [address] [place] [address] Dr. Perri Burdick Urobilinogen Qn (U) 0.2 {Brody'U}/dL Normal 0.2 - 1. 0 [facility] Comment on above: Performed By: #### P REGU, ERUR #### [facility] [address] [place] [address] Dr. Perri Burdick LIPASEon 12-20-2022 Lipase [Catalytic activity/Vol] 134.0 U/L Normal 73.0-393.0 [facility] Comment on above: Performed By: #### A [place] LIPA, CMP #### [facility] [address] [place] [address] Dr. Perri Burdick URon 12-20-2022 , QUAL Negative Normal NEGATIVE [facility] Comment on above: Performed By: #### P JESICA, ERUR #### [facility] [address] [place] [address] Dr. Perri Burdick PROF 14(COMP METB)on 023 Albumin [Mass/Vol] 3.8 g/dL Normal 3.4-5.0 [facility] Comment on above: Performed By: #### A MY LIPA, CMP #### [facility] [address] [place] [address] Dr. Perri Burdick Albumin/Globulin [Mass ratio] 1.2 {ratio} Normal [facility] Comment on above: Performed By: #### A MY LIPA, CMP #### [facility] [address] [place] [address] Dr. Perri Burdick ALP [Catalytic activity/Vol] 138 U/L Critically high 46-116 [facility] Comment on above: Performed By: #### A MY, LIPA, CMP #### [facility] [address] [address] [address] Perri Burdick ALT [Catalytic activity/Vol] 23 U/L Normal 14-59 [facility] Comment on above: Performed By: #### A MY, LIPA, CMP #### [facility] [address] [address] [address] Perri Burdick Anion gap [Moles/Vol] 10.3 mmol/L Normal [facility] Comment on above: Performed By: #### A MY, LIPA, CMP #### [facility] [address] [address] [address] Perri Burdick AST [Catalytic activity/Vol] 17 U/L Normal 15-37 [facility] Comment on above: Performed By: #### A MY, LIPA, CMP #### [facility] [address] [place] [address] Dr. Perri Burdick Bilirubin [Mass/Vol] 0.2 mg/dL Normal 0.2-1.0 [facility] Comment on above: Performed By: #### A MY, LIPA, CMP #### [facility] [address] [address] [address] Perri Burdick Calcium [Mass/Vol] 9.2 mg/dL Normal 8.5-10.1 [facility] Comment on above: Performed By: #### A MY, LIPA, CMP #### [facility] [address] [place] [address] Dr. Perri Burdick Chloride [Moles/Vol] 105 mmol/L Normal 98-107 [facility] Comment on above: Performed By: #### A MY, LIPA, CMP #### [facility] [address] [place] [address] Dr. Perri Burdick CO2 [Moles/Vol] 27.3 mmol/L Normal 21.0-32.[address] [facility] Comment on above: Performed By: #### A MY, LIPA, CMP #### [facility] [address] [address] [address] Perri Burdick Creatinine [Mass/Vol] 0.82 mg/dL Normal 0.55-1.02 [facility] Comment on above: Performed By: #### A MY, LIPA, CMP #### [facility] [address] [address] [address] Perri Burdick EGFR-AF TRISTANIAN >60 Normal >=60 [facility] Comment on above: Performed By: #### A MY, LIPA, CMP #### [facility] [address] [address] [address] Perri Burdick EGFR-NON AF TRISTANIAN >60 Normal >=60 [facility] Comment on above: Performed By: #### A MY, LIPA, CMP #### [facility] [address] [address] [address] Perri Burdikc Globulin (S) [Mass/Vol] 3.3 g/dL Normal [facility] Comment on above: Performed By: #### A MY, LIPA, CMP #### [facility] [address] [place] [address] Dr. Perri Burdick Glucose [Mass/Vol] 117 mg/dL Critically high 74-106 [facility] Comment on above: Performed By: #### A MY, LIPA, CMP #### [facility] [address] [address] [address] Perri Burdick Potassium [Moles/Vol] 3.6 mmol/L Normal 3.5-5.1 [facility] Comment on above: Performed By: #### A MY, LIPA, CMP #### [facility] [address] [address] [address] Perri Burdick Protein [Mass/Vol] 7.1 g/dL Normal 6.4-8.2 [facility] Comment on above: Performed By: #### A MY, LIPA, CMP #### [facility] [address] [place] [address] Dr. Perri Burdick Sodium [Moles/Vol] 139 mmol/L Normal 136-145 [facility] Comment on above: Performed By: #### A MY, LIPA, CMP #### [facility] [address] [address] [address] Perri Burdick Urea nitrogen [Mass/Vol] 15.0 mg/dL Normal 7.0-18.0 [facility] Comment on above: Performed By: #### A KENDALL HO, CMP #### [facility] [address] [address] [address] Perri Burdick Urea nitrogen/Creatinine [Mass ratio] 18.3 mg/mg Normal [facility] Comment on above: Performed By: #### A KENDALL HO, CMP #### [facility] [address] [address] [address] Perri Burdick XR ABD FLAT UP_PA [...] Date: 2022-12-20 04:52 Normal [facility] CHLAMYDIA/GONOCOCCUS CASSIDY (SW AB/URINE/PAPon 12-01-2022 Chlamydia trachomatis, CASSIDY Negative Normal Negative [facility] Comment on above: Performed By: #### C T/NGNA #### [facility] [address] [address] [address] Perri Burdick Neisseria gonorrhoeae, CASSIDY Negative Normal Negative [facility] Comment on above: Performed By: #### C T/NGNA #### [facility] [address] [address] [address] Perri Burdick VAGINITIS/VAGINOSIS DNA PROB Jamar 12-01-2022 Nieves species Negative Normal Negative [facility] Comment on above: Performed By: #### V AGINT #### [facility] [address] [place] [address] Dr. Perri Burdick Gardnerella vaginalis Negative Normal Negative [facility] Comment on above: Performed By: #### V AGINT #### [facility] [address] [place] [address] Dr. Perri Burdick Trichomonas vaginalis Negative Normal Negative [facility] Comment on above: Performed By: #### V AGINT #### [facility] [address] [address] [address] Perri Burdick PAP ACOG PANEL 2: 21 to 29on 10-20-2022 . . Normal [facility] Comment on above: Performed By: #### [id number] #### [facility] [address] [place] [address] Dr. Perri Burdick Age Gdln ACOG Testing - [facility] Comment on above: Performed By: #### [id number] #### [facility] [address] [place] [address] Dr. Perri Burdick DIAGNOSIS: Comment Normal [facility] Comment on above: Result Comment: NEGA TIVE FOR INTRAEPITHELIAL LESION OR MALIGNANCY. Performed By: #### [id number] #### [facility] [address] [place] [address] Dr. Perri Burdick Methodology: Comment Normal [facility] Comment on above: Result Comment: This liquid based ThinPrep(R) pap test was screened with the use of an image guided system. Performed By: #### [id number] #### [facility] [address] [place] [address] Dr. Perri Burdick Note: Comment Normal [facility] Comment on above: Result Comment: The Pap smear is a screening test designed to aid in the detection of premalignant and malignant conditions of the uterine cervix. It is not a diagnostic procedure and should not be used as the sole means of detecting cervical cancer. Both false-positive and false-negative reports do occur. . Performed By: #### [id number] #### [facility] [address] [place] [address] Dr. Perri Burdick Performed by: Comment Normal [facility] Comment on above: Result Comment: [place] Stoner, Pneumatic System Conveyor Operator (ASCP) Performed By: #### [id number] #### [facility] [address] [place] [address] Dr. Perri Burdick Reflex Criteria: Comment Normal [facility] Comment on above: Result Comment: The HPV DNA reflex criteria were not met with this specimen result therefore, no HPV testing was performed. . Performed By: #### 4 [id number] #### [facility] [address] [address] [address] Perri Burdick Specimen adequacy: Comment Normal [facility] Comment on above: Result Comment: Sati sfactory for evaluation. Endocervical and/or squamous metaplastic cells (endocervical component) are present. Performed By: #### 4 [id number] #### [facility] [address] [place] [address] Dr. Perri Burdick COVID Quick Testingon 2020 Result Negative [employer] Other Vital Signs Date Time Vital Sign Value Performing Clinician Facility 08-08-2024 10:52-0400 Body mass index (BMI) [Ratio] 40.97 kg/m2 Salma PANCHAL Work Phone: [facility] 08-08-2024 10:52-0400 Body weight 101.61 kg Salma PANCHAL Work Phone: [facility] 08-08-2024 10:52-0400 Diastolic blood pressure 80 mm[Hg] Salma PANCHAL Work Phone: [facility] 08-08-2024 10:52-0400 Systolic blood pressure 110 mm[Hg] Salma PANCHAL Work Phone: [facility] 11-09-2023 10:24-0500 Body mass index (BMI) [Ratio] 41.34 kg/m2 Alissa Nitin DO Work Phone: [facility] 11-09-2023 10:24-0500 Body weight 102.51 kg Alissa Nitin DO Work Phone: [facility] 11-09-2023 10:24-0500 Diastolic blood pressure 72 mm[Hg] Alissa Paintingo DO Work Phone: [facility] 11-09-2023 10:24-0500 Systolic blood pressure 118 mm[Hg] Alissa Nitin DO Work Phone: [facility] 07-22-2021 10:45-0400 Body height 157.48 cm Ana Paula Dubose Other [employer] Other 07-22-2021 10:45-0400 Body mass index (BMI) [Ratio] 38.59 kg/m2 Ana Paula Nashmond Other [employer] Other 07-22-2021 10:45-0400 Body temperature 98 [degF] Ana Paula Dubose Other [employer] Other 07-22-2021 10:45-0400 Body weight 95.71 kg Ana Paula Dubose Other [employer] Other 07-22-2021 10:45-0400 Respiratory rate 18 /min Ana Paula Dubose Other [employer] Other 07-22-2021 10:45-0400 SaO2% (BldA) [Mass fraction] 97 % Ana Paula Dubose Other [employer] Other Encounters Encounter Date Encounter Type Care Provider Facility Start: 08-08-2024 End: 08-08-2024 Bamboo flowsheet Salma PANCHAL Work Phone: [facility] Start: 08-08-2024 End: 08-16-2024 Bamboo flowsheet Salma PANCHAL Work Phone: [facility] Start: 08-08-2024 End: 08-16-2024 [facility] Result Encounter Salma PANCHAL Work Phone: [facility] External Department Unsolicited Start: 08-08-2024 End: 08-08-2024 Patient encounter procedure Salma PANCHAL Work Phone: [facility] Healthcare Start: 08-08-2024 End: 08-08-2024 Periodic preventive med est patient 18-39 yrs Salma PANCHAL Work Phone: [facility] Comment on above: Vaginal discharge; Screen for STD (sexually transmitted disease); Nausea; Dysuria; Well woman exam with routine gynecological exam; Uses control Start: 08-08-2024 End: 08-08-2024 ambulatory SALMA CHARLES Not Available Start: 11-09-2023 End: 11-09-2023 Office outpatient visit 15 minutes Alissa Taveras DO Work Phone: [facility] Comment on above: [...] procedure 08/08/2024 10:30 AM EDT Office Visit [facility] [address] [address] Salma Charles PA [address] [place] [address] Arrived [facility] Comment on above: Arrived Start: 06-09-2024 Influenza vaccination Influenza Vacc ine (#1) [facility] Start: 06-09-2023 Influenza vaccination Influenza Vacc ine (#1) [facility] CHLAMYDIA TRACHOMATI S (GENITO/STI) CHLAMYDIA TRACHOMATIS (GENITO/STI) Lab Routine Vaginal lump Pain in female genitalia on intercourse Ordered: 11/09/2023 [facility] Comment on above: Ordered: 11/09/2023 CHLAMYDIA TRACHOMATI S (GENITO/STI) CHLAMYDIA TRACHOMATIS (GENITO/STI) Lab Routine Vaginal discharge Screen for STD (sexually transmitted disease) Ordered: 08/08/2024 [facility] Comment on above: Ordered: 08/08/2024 Cytology Cervical or vaginal smear or scraping study Pap Smear Pathology and Cytology Routine Well woman exam with routine gynecological exam Ordered: 08/08/2024 [facility] Comment on above: Ordered: 08/08/2024 Neisseria gonorrhoea e DNA [Presence] in Unspecified specimen by CASSIDY with probe detection Neisseria gonorrhea DNA probe, direct Lab Routine Vaginal lump Pain in female genitalia on intercourse Ordered: 11/09/2023 [facility] Comment on above: Ordered: 11/09/2023 Neisseria gonorrhoea e DNA [Presence] in Unspecified specimen by CASSIDY with probe detection Neisseria gonorrhea DNA probe, direct Lab Routine Vaginal discharge Screen for STD (sexually transmitted disease) Ordered: 08/08/2024 [facility] Comment on above: Ordered: [...] Ordered: 08/08/2024 Payers Date Payer Category Payer [facility] BCBS [id number] 2023 Unknown BCBS BCBS xxxxxx [id number] 2023-Present [phone] [address] [place] [address] [id number] 2023 Unknown [id number] 2022 Private Health Insurance [facility] [id number] 2022-Present [address] [place] [address] [id number] 2022 Private Health Insurance [id number] 2001 Unknown [id number] [id number]. 593 2001 Unknown [id number] 2.16.840.1.348426.3.579.2. 593 2001 Unknown [id number] 2.16.840.1.599512.3.579.2. 593 2001 Unknown [id number] 2.16.840.1.282445.3.579.2. 593 2001 Unknown [id number] 2.16.840.1.011829.3.579.2. 593 2001 Unknown [id number] 2.16.840.1.022854.3.579.2. 593 2001 Unknown [id number] 2.16.840.1.532920.3.579.2. 1259 2001 Unknown [id number] 2.16.840.1.808100.3.579.2. 1259 2001 Unknown [id number] 2.16.840.1.251642.3.579.2. 1259 2001 Unknown [id number] [id number]. 1259 1959 Self-pay [id number] 1959 Unknown [id number] Social History Date Type Detail Facility Start: 11-09-[address] [facility] Other Start: 2023 Tobacco smoking status DCIS Never smoked tobacco [facility] Start: 2023 [...] nursing note reviewed. Exam conducted with a race car driver present. Vitals: Estimated body mass index is [...] of Present illness Narrative 11-09-2023 Brianna Medina, [employer] - 11/09/2023 10:10 AM EST Note Date [...] nursing note reviewed. Exam conducted with a race car driver present. Vitals: Estimated body mass index is [...] Alissa Taveras DO documented in this encounter [facility] Evaluation note 07-22-2021 Note [...] Patient care instructions given in writting by [facility] document. [employer] Other Evaluation note Note Date & Type Note Facility Evaluation note Diagnosis Vaginal lump Pain in female genitalia on intercourse Dyspareunia Soreness breast Mastodynia documented in this encounter [facility] Evaluation note Note Date [...] History Strain of lumbar region, initial encounter [employer] Other Summary Purpose Family History No Family [...] DATE CREATED AUTHOR AUTHOR'S ORGANIZ ATION 08/10/2024 [facility] [employer] Care Teams (unrecognized sec tion and content) Hardboard Supervisor Relationship Specialty Start Date End Date Yinka Barrett DO [address] [place] [address] PCP - General Family Medicine 03/16/23 Hardboard Supervisor Relationship Specialty Start Date End Date Unallocated, Sherry Coats MD [address] [place] [id number] PCP - General Family Medicine 04/09/24 Hardboard Supervisor Relationship Specialty Start Date End Date Unallocated, Sherry Coats MD [facility] [place] [address] PCP - General Family Medicine 04/09/24 Hardboard Supervisor Relationship Specialty Start Date End Date Unallocated, Sherry Coats MD [facility] [place] [address] PCP - General Family Medicine 04/09/24 FOR [...] BE BASED ON THE PRIMARY CLINICAL RECORDS. [employer] [facility]. provides no warranty or guarantee of the accuracy or completeness of information in this document.
[2024-12-25] MEDS: 0.9 % SODIUM CHLORIDE 1,000 ML 1000 ML IV (08:02)
[2024-12-25] MEDS: ONDANSETRON PF 4 MG/2 ML VIAL IV (08:03)
[2024-12-25 08:07] LABS: Basophils Percent Auto 0.4 % (0.2-2.0); Eosinophils Absolute Auto 0.3 10^3/uL (0.0-0.7); Eosinophils Percent Auto 3.6 % (0.9-7.0); Hematocrit 44.1 % (36.0-48.0); Immature Granulocytes Abs Auto 0.02 10^3/uL (0.00-0.03); Immature Granulocytes Pct Auto 0.3 % (0.0-0.5); Lymphocytes Absolute Auto 2.1 10^3/uL (1.2-3.8); Lymphocytes Percent Auto 27.4 % (20.5-60.0); Mean Corpuscular Hemoglobin 29.6 pg (26.7-34.0); Mean Platelet Volume 10.9 fL (9.5-13.5); Monocytes Absolute Auto 0.7 10^3/uL (0.3-0.8); Monocytes Percent Auto 9.5 % (1.7-12.0); Neutrophils Absolute Auto 4.5 10^3/uL (1.4-6.5); Neutrophils Percent Auto 58.8 % (43.0-75.0); Platelet Count 259 10^3/uL (150-450); Red Blood Count 5.07 10^6/uL (4.20-5.40); Red Cell Distribution Width 13.4 % (11.0-15.0); White Blood Count 7.6 10^3/uL (4.0-11.0)
[2024-12-25 08:11] LABS: HCG Qualitative Urine* NEGATIVE (NEGATIVE); Internal Control Within Normal Limits
[2024-12-25 08:30] LABS: Bilirubin Urine NEGATIVE (NEGATIVE); Blood Urine TRACE-I (NEGATIVE); Clarity Urine CLEAR (CLEAR); Color Urine LT. YELLOW (YELLOW); Glucose Urine UA NEGATIVE (NEGATIVE); Ketones Urine NEGATIVE (NEGATIVE); Leukocyte Esterase Urine NEGATIVE (NEGATIVE); Nitrite Urine NEGATIVE (NEGATIVE); Protein Urine NEGATIVE (NEG/TRACE); Specific Gravity Urine 1.025 (1.005-1.025); Urobilinogen Urine 0.2 EU/dL (0.2-1.0)
[2024-12-25 08:34] LABS: Bacteria Urine TRACE #/HPF (NONE SEEN); Cast Seen? NONE SEEN #/LPF (NONE SEEN); Crystals Seen? None Seen #/HPF (None Seen); Mucus Urine NONE SEEN (NONE SEEN); RBC Urine 0-2 #/HPF (0-2); Squamous Epithelial Cell Urine MODERATE #/LPF (NONE/RARE); Urine Culture Indicated NO; WBC Urine 0-2 #/HPF (NONE SEEN)
[2024-12-25 08:36] VITALS: BP 97/67; PULSE 87; O2SAT 96
[2024-12-25 08:51] LABS: Alanine Aminotransferase 28 U/L (14-59); Albumin Globulin Ratio 1.2; Albumin Level 4.1 g/dL (3.4-5.0); Alkaline Phosphatase 99 U/L (46-116); Anion Gap 13.7; Aspartate Amino Transferase 21 U/L (15-37); BUN Creatinine Ratio 10.1; Bilirubin Total 0.3 mg/dL (0.2-1.0); Calcium 9.7 mg/dL (8.5-10.1); Carbon Dioxide 26.3 mmol/L (21.0-32.0); Chloride 105 mmol/L (98-107); Estimated GFR (African America >60 (>=60 mL/min/1.73m^2); Estimated GFR (Non-African Ame >60 (>=60 mL/min/1.73m^2); Globulin 3.5 g/dL; Glucose 97 mg/dL (74-106); Sodium 141 mmol/L (136-145); Total Protein 7.6 g/dL (6.4-8.2)
--- NOTE | 2024-12-25 10:03 | ED.GENADUL1 ---
HPI HPI - General Adult General Chief complaint: Abdominal Pain Stated complaint: VOMITING, HEART BURN, NAUSEA Time Seen by Provider: 12/25/24 07:45 Mode of arrival: walk-in History of Present Illness HPI narrative: Patient presents ED complaining of nausea vomiting. Patient states she has had nausea vomiting for the past 3 to 4 weeks. She says anything she takes and just comes right back out. She denies any severe abdominal pain but does complain of heartburn and mild epigastric tenderness. She says her bowel movements have been decreased because she is not taking anything in. Normal urination. Denies any chance of . She denies any fevers cough or shortness of breath. She said that it just better has not gotten any but she came in for further evaluation. No previous abdominal surgeries. Denies UTI symptoms no abnormal vaginal discharge. Related Data Home Medications ?Medication ?Instructions ?Recorded ?Confirmed diclofenac sodium 75 mg 75 mg PO BID PRN pain 08/01/24 12/25/24 tablet,delayed release mirtazapine 30 mg tablet 30 mg PO BEDTIME 08/01/24 08/01/24 tizanidine 4 mg tablet 8 mg PO Q12H PRN muscle spasticity 08/01/24 12/25/24 Previous Rx's ?Medication ?Instructions ?Recorded ondansetron 4 mg disintegrating 4 mg PO Q8H PRN nausea and 08/10/24 tablet vomiting 4 days #16 tabs ondansetron 4 mg disintegrating 4 mg PO DAILY PRN nausea and 12/25/24 tablet vomiting #15 tabs pantoprazole 40 mg tablet,delayed 40 mg PO DAILY 14 days #14 tabs 12/25/24 release (Protonix) Allergies Allergy/AdvReac Type Severity Reaction Status Date / Time No Known Drug Allergies Allergy Verified 11/21/24 22:58 Opioid HPI Opioid Management Most Recent Opioid Data: Last Pain Scale 6 08/10/24 18:28 08/10/24 Review of Systems ROS Status of ROS 10 or more systems reviewed and unremarkable except as noted in history and below PFSH PFSH Social History Smoking status: Never smoker Little interest or pleasure in doing things: not at all Feeling down, depressed, or hopeless: not at all Exam Narrative Exam Narrative: Time Seen: [] Vital Signs: [Per nurse's notes.] General: [Alert] Skin: [Warm, dry, no rash.] Head: [Normocephalic, atraumatic.] Neck: [Supple, trachea midline.] Eye: [Pupils are equal, round and reactive to light, extraocular movements are intact, normal conjunctiva.] Ears, nose, mouth and throat: oral mucosa moist. Cardiovascular: [Regular rate and rhythm, no murmur.] Respiratory: [Lungs are clear to auscultation, respirations are non-labored, breath sounds are equal.] Chest wall: [No tenderness, no deformity.] Gastrointestinal: [Soft, very mild epigastric and lower abdominal tenderness, non distended, normal bowel sounds.] MSK: 5 out of 5 muscle strength x 4 extremities no calf pain or edema Psychiatric: [Cooperative, appropriate mood & affect.] Neurological: [Alert and oriented to person, place, time, and situation, no focal neurological deficit observed.] Constitutional Vital Signs, click to edit/add: Last Vital Signs Temp 97.9 F 12/25/24 07:44 Pulse 87 12/25/24 08:36 Resp 20 12/25/24 08:36 BP 97/67 12/25/24 08:36 Pulse Ox 96 12/25/24 08:36 O2 Del Method Room Air 12/25/24 08:36 Course Vital Signs Vital signs: Vital Signs Temperature 97.9 F 12/25/24 07:44 Pulse Rate 120 H 12/25/24 07:44 Respiratory Rate 18 12/25/24 07:44 Blood Pressure 144/66 H 12/25/24 07:44 Pulse Oximetry 97 12/25/24 07:44 Oxygen Delivery Method Room Air 12/25/24 07:44 Temperature 97.9 F 12/25/24 07:44 Pulse Rate 87 12/25/24 08:36 Respiratory Rate 20 12/25/24 08:36 Blood Pressure 97/67 12/25/24 08:36 Pulse Oximetry 96 12/25/24 08:36 Oxygen Delivery Method Room Air 12/25/24 08:36 Medical Decision Making MDM Narrative Medical decision making narrative: Patient's labs are negative for any acute findings. Patient did report that when she vomited this morning there were some specks of blood. Possibly a gastritis with heartburn and inflamed stomach lining. Patient will be sent home on 14 days of Protonix take 1 pill daily. Patient also given Zofran for nausea. Patient instructed to follow-up with the GI doctor, Dr. Menjivar was given as follow-up information. Return to ED if worsening symptoms fevers vomiting or dehydration signs, otherwise follow-up outpatient as directed. Patient is comfortable with care plan for home Differential Diagnosis Differential Diagnosis: Gastritis, GI bleed, viral syndrome, , electrolyte abnormality Lab Data Lab results reviewed: Yes I reviewed the patient's lab results Labs: Lab Results 12/25/24 12/25/24 Range/Units 07:59 08:02 WBC 7.6 (4.0-11.0) 10^3/uL RBC 5.07 (4.20-5.40) 10^6/uL Hgb 15.0 (12.0-16.0) g/dL Hct 44.1 (36.0-48.0) % MCV 87.0 (81.0-99.0) fL MCH 29.6 (26.7-34.0) pg MCHC 34.0 (29.9-35.2) g/dL RDW 13.4 (11.0-15.0) % Plt Count 259 (150-450) 10^3/uL MPV 10.9 (9.5-13.5) fL Neut % (Auto) 58.8 (43.0-75.0) % Lymph % (Auto) 27.4 (20.5-60.0) % [place] % (Auto) 9.5 (1.7-12.0) % Eos % (Auto) 3.6 (0.9-7.0) % Baso % (Auto) 0.4 (0.2-2.0) % Neut # (Auto) 4.5 (1.4-6.5) 10^3/uL Lymph # (Auto) 2.1 (1.2-3.8) 10^3/uL [place] # (Auto) 0.7 (0.3-0.8) 10^3/uL Eos # (Auto) 0.3 (0.0-0.7) 10^3/uL Baso # (Auto) 0.0 (0.0-0.1) 10^3/uL Abs Immat Gran (auto) 0.02 (0.00-0.03) 10^3/uL Imm/Tot Granulo (auto) 0.3 (0.0-0.5) % Sodium 141 (136-145) mmol/L Potassium 4.0 (3.5-5.1) mmol/L Chloride 105 (98-107) mmol/L Carbon Dioxide 26.3 (21.0-32.0) mmol/L Anion Gap 13.7 BUN 10.0 (7.0-18.0) mg/dL Creatinine 0.99 (0.55-1.02) mg/dL Est GFR ( Amer) >60 (>=60 mL/min/1.73m^2) Est GFR (Non-Af Amer) >60 (>=60 mL/min/1.73m^2) BUN/Creatinine Ratio 10.1 Glucose 97 (74-106) mg/dL Calcium 9.7 (8.5-10.1) mg/dL Total Bilirubin 0.3 (0.2-1.0) mg/dL AST 21 (15-37) U/L ALT 28 (14-59) U/L Alkaline Phosphatase 99 (46-116) U/L Total Protein 7.6 (6.4-8.2) g/dL Albumin 4.1 (3.4-5.0) g/dL Globulin 3.5 g/dL Albumin/Globulin Ratio 1.2 Urine Color Lt. yellow (YELLOW) Urine Clarity Clear (CLEAR) Urine pH 6.0 (5.0-9.0) Ur Specific [place]olia 1.025 (1.005-1.025) Urine Protein Negative (NEG/TRACE) mg/dL Urine Glucose (UA) Negative (NEGATIVE) mg/dL Urine Ketones Negative (NEGATIVE) mg/dL Urine Occult Blood Trace-i (NEGATIVE) Urine Nitrite Negative (NEGATIVE) Urine Bilirubin Negative (NEGATIVE) Urine Urobilinogen 0.2 (0.2-1.0) EU/dL Ur Leukocyte Esterase Negative (NEGATIVE) Urine RBC 0-2 (0-2) #/HPF Urine WBC 0-2 A (NONE SEEN) #/HPF Ur Squamous Epith Cells Moderate A (NONE/RARE) #/LPF Urine Crystals None seen (None Seen) #/HPF Urine Bacteria Trace A (NONE SEEN) #/HPF Urine Casts None seen (NONE SEEN) #/LPF Urine Mucus None seen (NONE SEEN) Ur Culture Indicated? No Urine HCG, Qual Negative (NEGATIVE) Discharge Plan Discharge Chief Complaint: Abdominal Pain Clinical Impression: Gastritis, Vomiting Patient Disposition: Home, Self-Care Time of Disposition Decision: 08:58 Condition: Good Mode of Transportation: Private Vehicle Prescriptions / Home Meds: New ondansetron 4 mg tablet,disintegrating 4 mg PO DAILY PRN (Reason: nausea and vomiting) Qty: 15 0RF pantoprazole [Protonix] 40 mg tablet,delayed release (DR/EC) 40 mg PO DAILY 14 Days Qty: 14 0RF No Action mirtazapine 30 mg tablet 30 mg PO BEDTIME diclofenac sodium 75 mg tablet,delayed release (DR/EC) 75 mg PO BID PRN (Reason: pain) tizanidine 4 mg tablet 8 mg PO Q12H PRN (Reason: muscle spasticity) ondansetron 4 mg tablet,disintegrating 4 mg PO Q8H PRN (Reason: nausea and vomiting) 4 Days Qty: 16 0RF Print Language: Icelandic Instructions: Gastritis (ED), Acute Nausea and Vomiting (ED) Referrals: AUREILO MENJIVAR [Physician] - 1 week Ander Conway MD [Primary Care Provider] - 1 week Discharge Date/Time: 12/25/24 09:07
== END 2024-12-25 09:07 | disposition home or self-care (01) ==
PROVIDERS: Emergency Provider Emergency Medicine; PCP Family Medicine
DX: K29.70 Gastritis, unspecified, without bleeding (principal); R11.10 Vomiting, unspecified
CPT/HCPCS: 36415; 80053; 81001; 84703; 85025; 96361; 96374; 99284; J2405

== ENCOUNTER 2025-07-15 05:34 | Emergency (ER) | payer BC, SELFPAY ==
--- OUTSIDE RECORDS SUMMARY | 2024-11-18 09:45 | XMS_ITS ---
Author Organization [facility] [place] Address [address] [place] [address] Care Team Providers Care Headhunter Name Role Phone Artemio Conway Primary Care Provider [phone] REASON FOR VISIT Recurrent UTI Encounters Encounter Location Date Provider Diagnosis [facility] [address] [place] [address] 11/18/2024 Artemio Conway Plan Of Treatment No Information Progress Notes * Radhika WHITE MDOB:[birth year] (25 yo F)Acc No.[id number]:11/18/2024 UNLOCKED PROGRESS NOTE Progress Note Patient: Radhika GAMEZ Provider: Charlee Conway MD (TTC) :2000 A ge:24 Y S ex:Female Date:11/18/2024 Address:[address] [place] [address], [address], [place], [id number] Subjective: * Chief Complaints: * 1 . Recurrent UTI. * Medical History: Objective: * Vitals: Assessment: Plan: * Treatment: * * Electronic signature of Artemio Conway MD, [id number] on 07/15/2025 at 05:42 AM EDT Sign off status: Pending Visit Status: N /S N/C (No Show/No Charge) * Provider: Charlee Conway MD (TTC) Date: 0 11/18/2024 Generated for Printi ng/Faxing/Luzma on: 1 05:42 AM EDT
--- OUTSIDE RECORDS SUMMARY | 2025-07-15 05:42 | XMS_ITS | Clinical Summary ---
Author Organization [facility] Address [address] [place] [address] Care Team Providers Care Kaiako Kura [place] Maori Name Role Phone Unallocated, Noms Provider Primary Care Provi josé miguel Allergies No known active allergies Medications albuterol HFA 90 mcg/act inhaler INHALE 2 PUFFS BY MOUTH FOUR TIMES DAILY NEEDED 3 Active desvenlafaxine (Pristiq) 50 MG 24 hr tablet Take 50 mg by mouth in the morning. Active QUEtiapine (SEROquel) 50 MG tablet TAKE 1 TABLET BY MOUTH AT BEDTIME DAILY Active Topiramate ER (Trokendi XR) 50 MG capsule sustained-relea se 24 hr 1 capsule 1 (one) time each day at the same time. Active clobetasol (Temovate) 0.05 % creamIndication s:Vaginal cyst Apply 1 application topically in the morning and 1 application before bedtime. 15 g 3 Active diclofenac (Voltaren) 75 MG EC tablet every 12 (twelve) hours 3 Active tiZANidine (Zanaflex) 4 MG tablet 2 tablets Orally at bedtime for 15 3 Active desogestrel-eth inyl estradiol (Apri) 0.15-30 MG-MCG tabletIndicatio ns:Uses control Take 1 tablet by mouth Daily Take 1 tablet by mouth daily 28 tablet 11 4 Active Family History Medical History Relation Name Comments GI problems Other Mental illness Other Relation Name Status Comments Other Social History Tobacco Use Types Packs/Day Years Used Date Smoking Tobacco: Never Smokeless Tobacco: Never Tobacco Cessation:Counseling Given: Not Answered Alcohol Use Standard Drinks/Week Comments Not Currently 0 (1 standard drink = 0.6 oz pur e alcohol) Comments No Sex and Gender Information Value Date Recorded Sex Assigned at Not on file Legal Sex Female 7:23 PM EDT Gender Identity Not on file Sexual Orientation Not on file Last Filed Vital Signs Vital Sign Reading Time Taken Comments Blood Pressure 110/80 08/08/2024 10:52 AM EDT Pulse - - Temperature - - Respiratory Rate - - Oxygen Saturation - - Inhaled Oxygen Concentration - - Weight 102 kg (224 lb) 08/08/2024 10:52 AM EDT Height 157.5 cm (5' 2 ) 2023 10:59 AM EDT Body Mass Index 40.97 2023 10:59 AM EDT Plan of Treatment Health Maintenance Due Date Last Done Comments Influenza Vaccine (#1) 2025 Insurance [facility] Care Teams Kaiako Kura [place] Ma[place] Relationship Specialty Start Date End Date Unallocated, Noms ProviderMD [address] [place] [address] PCP - General Family Medicine 04/09/24
--- OUTSIDE RECORDS SUMMARY | 2025-07-15 05:42 | XMS_ITS | CCD ---
Author Organization [facility] Care Team Providers Care Inspector Watch Parts Name Role Phone Ana Paula Dubose Unavailable [...] Attending Unavailable PEACE CHAUDHARY Consulting Unavailable AL CHRUCH Consulting Unavailable HOY ., DR LOWRY Admitting Unavailable HOY ., DR LOWRY Attending Unavailable HOY ., DR LOWRY Primary Care Unavailable Yinka Barrett DO Primary Care Provider Unallocated Sherry PENG Provider Primary Care Provi josé miguel ALISSA TAVERAS Attending Unavailable MAYRA PAYAN Attending Unavailable MAYRA PAYAN Attending Unavailable SALMA CHARLES Attending Unavailable Medications Current Medications Medication Drug Class(es) Dates Sig (Normalized) Sig (Original) [id number] 200 actuat albuterol 0.09 mg/actuat metered dose [...] GDLNon AGE GDLN ACOG TESTING Note . [facility] Comment on above: TESTS RESULT FLAG UN ITS REF RANGE LAB Clinician Provided Cytology Information Source.............Cervix;Endocervix No. of containers..01 ThinPrep Vial Age Algo ACOG Maggi... FLAG LEGEND: L-Low Normal,H-High Normal,LL-Alert Low,HH-Alert High <-Panic Low,>-Panic High,A-Abnormal,AA-Critical Abnormal Performed at: 01 =G [facility] [address] [place] [address] Mckenna Nicole MD, IGP, RFX APTIMA HPV ASCU Note . [facility] Comment on above: TESTS RESULT FLAG U NITS REF RANGE LAB DIAGNOSIS: 02 NEGATIVE FOR INTRAEPITHELIAL LESION OR MALIGNANCY. Specimen adequacy: 02 Satisfactory for evaluation. No endocervical component is identified. Performed by: Esha Mcgrath, Feather Drying Machine Operator ([facility]) . 02 Note: Note 02 [...] Performed at: 02 WB [facility] [address] [place] [address] Mckenna Nicole MD, Performed at: =G - [facility] [address] [id number] Sock Boarder: Mckenna Nicole MD, Phone: [phone] Performed at: - [facility] [address] [id number] Sock Boarder: Mckenna Nicole MD, Phone: [phone] BRUSH-SPATULA CERVIX ENDOCERVIX [facility] Healthcar e HCG ( test) Ql (U)o n 08-08-2024 Interpretation and review of laboratory results Normal [facility] Healt[facility] re Preg Test, Ur Negative Negative [facility] Urinalysis macro (dipstick) panel (U)on 08-08-2024 Bilirubin, UA Negative Negative - 4(70) +++ mg/dL [facility] Blood, UA Negative Negative - 50 Zev/mcL [facility] Clarity, UA Clear [facility] re Color, UA Yellow [facility] e Glucose, UA Negative Negative - 1999(110) ++++ mg/dL [facility] Interpretation and review of laboratory results Normal [facility] re Ketones, UA Negative Negative - 160(16) ++++ mg/dL [facility] Leukocytes, UA Negative Negative - 500+++ Tein/mcL [facility] Nitrite, UA Negative Negative - Positive [facility] pH, UA 5.5 5 - 9 [facility] e Protein, UA Negative Negative - 1999(20) ++++ mg/dL [facility] Spec Grav, UA 1.015 1 - 1.03 [facility] Urobilinogen, UA 0.2 0.2 - 12 mg/dL [facility] Health[facility] e AMYLASEon 12-20-2022 Amylase [Catalytic activity/Vol] 43 U/L Normal 25-115 [facility] Comment on above: Performed By: #### A MY, LIPA, CMP #### [facility] [address] [place] [id number] [address] Perri Burdick CBC AUTO DIFFon 12-20-2022 BASO # 0.0 103/ul Normal 0.0-0.1 [facility] Comment on above: Performed By: #### C BC #### [facility] [address] [place] [address] Dr. Perri Burdick Basophils/100 WBC (Bld) 0.3 % Normal 0.2-2.0 [facility] Comment on above: Performed By: #### C BC #### [facility] [address] [place] [address] Dr. Perri Burdick EO # 0.1 103/ul Normal 0.0-0.7 [facility] Comment on above: Performed By: #### C BC #### [facility] [address] [place] [address] Dr. Perri Burdick Eosinophils/100 WBC (Bld) 1.3 % Normal 0.9-7.0 [facility] Comment on above: Performed By: #### C BC #### [facility] [address] [place] [address] Dr. Perri Burdick Erythrocyte distribution width (RBC) [Ratio] 12.8 % Normal 11.0-15.0 [facility] Comment on above: Performed By: #### C BC #### [facility] [address] [place] [address] Dr. Perri Burdick Hematocrit (Bld) [Volume fraction] 42.5 % Normal 36.0-48.0 [facility] Comment on above: Performed By: #### C BC #### [facility] [address] [place] [address] Dr. Perri Burdick Hemoglobin (Bld) [Mass/Vol] 14.2 g/dL Normal 12.0-16.0 [facility] Comment on above: Performed By: #### C BC #### [facility] [address] [place] [address] Dr. Perri Burdick IG # 0.03 10e3/ul Normal 0.00-0.03 [facility] Comment on above: Performed By: #### C BC #### [facility] [address] [place] [address] Dr. Perri Burdick IG % 0.3 % Normal 0.0-0.5 [facility] Comment on above: Performed By: #### C BC #### [facility] [address] [place] [address] Dr. Perri Burdick LYMPH # 2.8 103/ul Normal 1.2-3.8 [facility] Comment on above: Performed By: #### C BC #### [facility] [address] [place] [address] Dr. Perri Burdick Lymphocytes/100 WBC (Bld) 29.9 % Normal 20.5-60.0 [facility] Comment on above: Performed By: #### C BC #### [facility] [address] [place] [address] Dr. Perri Burdick MANUAL DIFF REQ NO Normal [facility] Comment on above: Performed By: #### C BC #### [facility] [address] [place] [address] Dr. Perri Burdick MCH (RBC) [Entitic mass] 29.0 pg Normal 26.7-34.0 [facility] Comment on above: Performed By: #### C BC #### [facility] [address] [place] [address] Dr. Perri Burdick MCHC (RBC) [Mass/Vol] 33.4 g/dL Normal 29.9-35.2 [facility] Comment on above: Performed By: #### C BC #### [facility] [address] [place] [address] Dr. Perri Burdick MCV (RBC) [Entitic vol] 86.9 fL Normal 81.0-99.0 [facility] Comment on above: Performed By: #### C BC #### [facility] [address] [place] [address] Dr. Perri Burdick MONO # 0.6 103/ul Normal 0.3-0.8 [facility] Comment on above: Performed By: #### C BC #### [facility] [address] [place] [address] Dr. Perri Burdick Monocytes/100 WBC (Bld) 6.6 % Normal 1.7-12.0 [facility] Comment on above: Performed By: #### C BC #### [facility] [address] [place] [address] Dr. Perri Burdick NEUT # 5.8 103/ul Normal 1.4-6.5 [facility] Comment on above: Performed By: #### C BC #### [facility] [address] [place] [address] Dr. Perri Burdick Neutrophils/100 WBC (Bld) 61.6 % Normal 43.0-75.0 [facility] Comment on above: Performed By: #### C BC #### [facility] [address] [place] [address] Dr. Perri Burdick Platelet mean volume (Bld) [Entitic vol] 10.5 fL Normal 9.5-13.5 [facility] Comment on above: Performed By: #### C BC #### [facility] [address] [place] [address] Dr. Perri Burdick PLT 263 103/ul Normal 150-450 [facility] Comment on above: Performed By: #### C BC #### [facility] [address] [place] [address] Dr. Perri Burdick RBC 4.89 106/ul Normal 4.20-5.40 [facility] Comment on above: Performed By: #### C BC #### [facility] [address] [place] [address] Dr. Perri Burdick WBC 9.5 103/ul Normal 4.0-11.0 [facility] Comment on above: Performed By: #### C BC #### [facility] [address] [place] [address] Dr. Perri Burdick ER URINE PROFILEon 3 Bilirubin Ql (U) Negative Normal NEGATIVE [facility] Comment on above: Performed By: #### P REGU, ERUR #### [facility] [address] [place] [address] Dr. Perri Burdick Clarity (U) CLEAR Normal CLEAR [facility] Comment on above: Performed By: #### P REGU, ERUR #### [facility] [address] [place] [address] Dr. Perri Burdick Color (U) LT. YELLOW Normal YELLOW [facility] Comment on above: Performed By: #### P REGU, ERUR #### [facility] [address] [address] [address] Perri MONREAL A micrscopic examination will be performed if indicated. Normal [facility] Comment on above: Performed By: #### P REGU, ERUR #### [facility] [address] [address] [address] Perri Burdick Glucose Ql (U) Negative Normal NEGATIVE [facility] Comment on above: Performed By: #### P REGU, ERUR #### [facility] [address] [address] [address] Perri Burdick Hemoglobin Ql (U) Negative Normal NEGATIVE [facility] Comment on above: Performed By: #### P REGU, ERUR #### [facility] [address] [place] [address] Dr. Perri Burdick Ketones Ql (U) Negative Normal NEGATIVE [facility] Comment on above: Performed By: #### P REGU, ERUR #### [facility] [address] [place] [address] Dr. Perri Burdick LEUKOCYTES Negative Normal NEGATIVE [facility] Comment on above: Performed By: #### P REGU, ERUR #### [facility] [address] [address] [address] Perri Burdick Nitrite Ql (U) Negative Normal NEGATIVE [facility] Comment on above: Performed By: #### P REGU, ERUR #### [facility] [address] [address] [address] Perri Burdick pH (U) 6.0 [pH] Normal 5-9 [facility] Comment on above: Performed By: #### P REGU, ERUR #### [facility] [address] [address] [address] Perri Burdick SPEC GRAVITY 1.025 Normal 1.005-<=1.025 [facility] Comment on above: Performed By: #### P REGU, ERUR #### [facility] [address] [address] [address] Perri Burdick UA PROTEIN Negative Normal NEGATIVE/ TRACE [facility] Comment on above: Performed By: #### P REGU, ERUR #### [facility] [address] [address] [address] Perri Burdick UR MICRO IND NOT INDICATED Normal [facility] Comment on above: Performed By: #### P REGU, ERUR #### [facility] [address] [place] [address] Dr. Perri Burdick Urobilinogen Qn (U) 0.2 {Brody'U}/dL Normal 0.2 - 1. 0 [facility] Comment on above: Performed By: #### P REGU, ERUR #### [facility] [address] [place] [address] Dr. Perri Burdick LIPASEon 12-20-2022 Lipase [Catalytic activity/Vol] 134.0 U/L Normal 73.0-393.0 [facility] Comment on above: Performed By: #### A [place] LIPA, CMP #### [facility] [address] [place] [address] Dr. Perri Burdick URon 12-20-2022 , QUAL Negative Normal NEGATIVE [facility] Comment on above: Performed By: #### P JESICA, ERUR #### [facility] [address] [place] [address] Dr. Perri Burdick PROF 14(COMP METB)on 023 Albumin [Mass/Vol] 3.8 g/dL Normal 3.4-5.0 [facility] Comment on above: Performed By: #### A MY LIPA, CMP #### [facility] [address] [place] [address] Dr. Perri Brudick Albumin/Globulin [Mass ratio] 1.2 {ratio} Normal [facility] Comment on above: Performed By: #### A MY LIPA, CMP #### [facility] [address] [place] [address] Dr. Perri Burdick ALP [Catalytic activity/Vol] 138 U/L Critically high 46-116 [facility] Comment on above: Performed By: #### A MY, LIPA, CMP #### [facility] [address] [address] [address] Perri Burdick ALT [Catalytic activity/Vol] 23 U/L Normal 14-59 [facility] Comment on above: Performed By: #### A MY, LIPA, CMP #### [facility] [address] [address] [address] Perri Burdick Anion gap [Moles/Vol] 10.3 mmol/L Normal [facility] Comment on above: Performed By: #### A MY, LIPA, CMP #### [facility] [address] [address] [address] Perri Burdick AST [Catalytic activity/Vol] 17 U/L Normal 15-37 [facility] Comment on above: Performed By: #### A MY, LIPA, CMP #### [facility] [address] [place] [address] Dr. Perri Burdick Bilirubin [Mass/Vol] 0.2 mg/dL Normal 0.2-1.0 [facility] Comment on above: Performed By: #### A MY, LIPA, CMP #### [facility] [address] [address] [address] Perri Burdick Calcium [Mass/Vol] 9.2 mg/dL Normal 8.5-10.1 [facility] Comment on above: Performed By: #### A MY, LIPA, CMP #### [facility] [address] [place] [address] Dr. Perri Burdick Chloride [Moles/Vol] 105 mmol/L Normal 98-107 [facility] Comment on above: Performed By: #### A MY, LIPA, CMP #### [facility] [address] [place] [address] Dr. Perri Burdick CO2 [Moles/Vol] 27.3 mmol/L Normal 21.0-32.0 [facility] Comment on above: Performed By: #### A MY, LIPA, CMP #### [facility] [address] [address] [address] Perri Burdick Creatinine [Mass/Vol] 0.82 mg/dL Normal 0.55-1.02 [facility] Comment on above: Performed By: #### A MY, LIPA, CMP #### [facility] [address] [address] [address] Perri Burdick EGFR-AF COLOMBIAN >60 Normal >=60 [facility] Comment on above: Performed By: #### A MY, LIPA, CMP #### [facility] [address] [address] [address] Perri Burdick EGFR-NON AF COLOMBIAN >60 Normal >=60 [facility] Comment on above: Performed By: #### A MY, LIPA, CMP #### [facility] [address] [address] [address] Perri Burdick Globulin (S) [Mass/Vol] 3.3 g/dL Normal [facility] Comment on above: Performed By: #### A MY, LIPA, CMP #### [facility] [address] [place] [address] Dr. Perri Burdick Glucose [Mass/Vol] 117 mg/dL Critically high 74-[address] [facility] Comment on above: Performed By: #### A MY, LIPA, CMP #### [facility] [address] [address] [address] Perri Burdick Potassium [Moles/Vol] 3.6 mmol/L Normal 3.5-5.1 [facility] Comment on above: Performed By: #### A MY, LIPA, CMP #### [facility] [address] [address] [address] Perri Burdick Protein [Mass/Vol] 7.1 g/dL Normal 6.4-8.2 [facility] Comment on above: Performed By: #### A MY, LIPA, CMP #### [facility] [address] [place] [address] Dr. Perri Burdick Sodium [Moles/Vol] 139 mmol/L Normal 136-145 [facility] Comment on above: Performed By: #### A MY, LIPA, CMP #### [facility] [address] [address] [address] Perri Burdick Urea nitrogen [Mass/Vol] 15.0 mg/dL Normal 7.0-18.0 [facility] Comment on above: Performed By: #### A KENDALL HO, CMP #### [facility] [address] [address] [address] Perri Burdick Urea nitrogen/Creatinine [Mass ratio] 18.3 mg/mg Normal [facility] Comment on above: Performed By: #### A KENDALL HO, CMP #### [facility] [address] [address] [address] Perri Burdick XR ABD FLAT UP_PA [...] AL CHURCH Date: 2022-12-20 04:52 Normal [facility] CHLAMYDIA/GONOCOCCUS CASSIDY (SW AB/URINE/PAPon 12-01-2022 Chlamydia trachomatis, CASSIDY Negative Normal Negative [facility] Comment on above: Performed By: #### C T/NGNA #### [facility] [address] [address] [address] Perri Burdick Neisseria gonorrhoeae, CASSIDY Negative Normal Negative [facility] Comment on above: Performed By: #### C T/NGNA #### [facility] [address] [address] [address] Perri Burdick VAGINITIS/VAGINOSIS DNA PROB Jamar 12-01-2022 Nieves species Negative Normal Negative [facility] Comment on above: Performed By: #### V AGINT #### [facility] [address] [place] [address] Dr. Perri Burdick Gardnerella vaginalis Negative Normal Negative [facility] Comment on above: Performed By: #### V AGINT #### [facility] [address] [place] [address] Dr. Perri Burdick Trichomonas vaginalis Negative Normal Negative [facility] Comment on above: Performed By: #### V AGINT #### [facility] [address] [address] [address] Perri Burdick PAP ACOG PANEL 2: 21 to 29on 10-20-2022 . . Normal [facility] Comment on above: Performed By: #### [id number] #### [facility] [address] [place] [address] Dr. Perri Burdick Age Gdln ACOG Testing - [facility] Comment on above: Performed By: #### [id number] #### [facility] [address] [place] [address] Dr. Perri Burdick DIAGNOSIS: Comment Normal [facility] Comment on above: Result Comment: NEGA TIVE FOR INTRAEPITHELIAL LESION OR MALIGNANCY. Performed By: #### [id number] #### [facility] [address] [place] [address] Dr. Perri Burdick Methodology: Comment Normal [facility] Comment on above: Result Comment: This liquid based ThinPrep(R) pap test was screened with the use of an image guided system. Performed By: #### [id number] #### [facility] [address] [place] [address] Dr. Perri Burdick Note: Comment Normal [facility] Comment on above: Result Comment: The Pap smear is a screening test designed to aid in the detection of premalignant and malignant conditions of the uterine cervix. It is not a diagnostic procedure and should not be used as the sole means of detecting cervical cancer. Both false-positive and false-negative reports do occur. . Performed By: #### [id number] #### [facility] [address] [place] [address] Dr. Perri Burdick Performed by: Comment Normal [facility] Comment on above: Result Comment: [place] Stoner, Feather Drying Machine Operator ([employer]) Performed By: #### [id number] #### [facility] [address] [place] [address] Dr. Perri Burdick Reflex Criteria: Comment Normal [facility] Comment on above: Result Comment: The HPV DNA reflex criteria were not met with this specimen result therefore, no HPV testing was performed. . Performed By: #### 4 [id number] #### [facility] [address] [address] [address] Perri Burdick Specimen adequacy: Comment Normal [facility] Comment on above: Result Comment: Sati sfactory for evaluation. Endocervical and/or squamous metaplastic cells (endocervical component) are present. Performed By: #### [id number] #### [facility] [address] [place] [address] Dr. Perri Burdick COVID Quick Testingon 2020 Result Negative [facility] Other Vital Signs Date Time Vital Sign Value Performing Clinician Facility 08-08-2024 10:52-0400 Body mass index (BMI) [Ratio] 40.97 kg/m2 Salma PANCHAL Work Phone: [facility] 08-08-2024 10:52-0400 Body weight 101.61 kg Salma PANCHAL Work Phone: [facility] 08-08-2024 10:52-0400 Diastolic blood pressure 80 mm[Hg] Salma PANCHAL Work Phone: [facility] 08-08-2024 10:52-0400 Systolic blood pressure 110 mm[Hg] Salma PANCHAL Work Phone: [facility] 11-09-2023 10:24-0500 Body mass index (BMI) [Ratio] 41.34 kg/m2 Alissa Nitin DO Work Phone: [facility] 11-09-2023 10:24-0500 Body weight 102.51 kg Alissa Nitin DO Work Phone: [facility] 11-09-2023 10:24-0500 Diastolic blood pressure 72 mm[Hg] Alissa Paintingo DO Work Phone: [facility] 11-09-2023 10:24-0500 Systolic blood pressure 118 mm[Hg] Alissa Nitin DO Work Phone: [facility] 07-22-2021 10:45-0400 Body height 157.48 cm Ana Paula Dubose Other [facility] Other 07-22-2021 10:45-0400 Body mass index (BMI) [Ratio] 38.59 kg/m2 Ana Paula Nashmond Other [facility] Other 07-22-2021 10:45-0400 Body temperature 98 [degF] Ana Paula Dubose Other [facility] Other 07-22-2021 10:45-0400 Body weight 95.71 kg Ana Paula Dubose Other [facility] Other 07-22-2021 10:45-0400 Respiratory rate 18 /min Ana Paula Dubose Other [facility] Other 07-22-2021 10:45-0400 SaO2% (BldA) [Mass fraction] 97 % Ana Paula Dubose Other [facility] Other Encounters Encounter Date Encounter Type Care Provider Facility Start: 08-08-2024 End: 08-08-2024 Bamboo flowsheet Salma PANCHAL Work Phone: [facility] Start: 08-08-2024 End: 08-16-2024 Bamboo flowsheet Salma PANCHAL Work Phone: [facility] Start: 08-08-2024 End: 08-16-2024 [facility] Result Encounter Salma PANCHAL Work Phone: [facility] External Department Unsolicited Start: 08-08-2024 End: 08-08-2024 Patient encounter procedure Salma PANCHAL Work Phone: [facility] Healthcare Start: 08-08-2024 End: 08-08-2024 Periodic preventive med est patient 18-39 yrs Samla PANCHAL Work Phone: [facility] Comment on above: Vaginal discharge; Screen for STD (sexually transmitted disease); Nausea; Dysuria; Well woman exam with routine gynecological exam; Uses control Start: 08-08-2024 End: 08-08-2024 ambulatory SALMA CHARLES Not Available Start: 11-09-2023 End: 11-09-2023 Office outpatient visit 15 minutes Alissa Taveras DO Work Phone: [facility] Comment on above: Vaginal lump; [...] procedure 08/08/2024 10:30 AM EDT Office Visit [facility] [address] [address] Salma Charles PA [address] [place] [address] Arrived [facility] Comment on above: Arrived Start: 06-09-2024 Influenza vaccination Influenza Vacc ine (#1) [facility] Start: 06-09-2023 Influenza vaccination Influenza Vacc ine (#1) [facility] CHLAMYDIA TRACHOMATI S (GENITO/STI) CHLAMYDIA TRACHOMATIS (GENITO/STI) Lab Routine Vaginal lump Pain in female genitalia on intercourse Ordered: 11/09/2023 [facility] Comment on above: Ordered: 11/09/2023 CHLAMYDIA TRACHOMATI S (GENITO/STI) CHLAMYDIA TRACHOMATIS (GENITO/STI) Lab Routine Vaginal discharge Screen for STD (sexually transmitted disease) Ordered: 08/08/2024 [facility] Comment on above: Ordered: 08/08/2024 Cytology Cervical or vaginal smear or scraping study Pap Smear Pathology and Cytology Routine Well woman exam with routine gynecological exam Ordered: 08/08/2024 [facility] Comment on above: Ordered: 08/08/2024 Neisseria gonorrhoea e DNA [Presence] in Unspecified specimen by CASSIDY with probe detection Neisseria gonorrhea DNA probe, direct Lab Routine Vaginal lump Pain in female genitalia on intercourse Ordered: 11/09/2023 [facility] Comment on above: Ordered: 11/09/2023 Neisseria gonorrhoea e DNA [Presence] in Unspecified specimen by CASSIDY with probe detection Neisseria gonorrhea DNA probe, direct Lab Routine Vaginal discharge Screen for STD (sexually transmitted disease) Ordered: 08/08/2024 [facility] Comment on above: Ordered: 08/08/2024 SURESWAB(R) [...] Category Payer [facility] BCBS [id number] 2023 Unknown BCBS BCBS xxxxxx [id number] 2023-Present [phone] [address] [place] [address] [id number] 2023 Unknown [id number] 2022 Private Health Insurance XAVIER Carl [facility] [id number] 2022-Present [address] [place] [address] [id number] 2022 Private Health Insurance [id number] 2001 Unknown [id number] 2.16.840.1.748424.3.579.2. 593 2001 Unknown [id number] 2.16.840.1.636348.3.579.2. 593 2001 Unknown [id number] 2.16.840.1.569025.3.579.2. 593 2001 Unknown [id number] 2.16.840.1.638030.3.579.2. 593 2001 Unknown [id number] 2.16.840.1.869987.3.579.2. 593 2001 Unknown [id number] 2.16.840.1.792111.3.579.2. 593 2001 Unknown [id number] 2.16.840.1.853542.3.579.2. 1259 2001 Unknown [id number] 2.16.840.1.195821.3.579.2. 1259 2001 Unknown [id number] 2.16.840.1.591987.3.579.2. 1259 2001 Unknown [id number] 2.16.840.1.298177.3.579.2. 1259 1959 Self-pay [id number] 1959 Unknown [id number] 2.16.840.1.249970.19 Social History Date Type Detail Facility Start: 11-09-2023 Sex Assigned At [facility] Other Start: 2023 Tobacco smoking status NVIS Never smoked tobacco [facility] Start: 2023 [...] nursing note reviewed. Exam conducted with a hook loader present. Vitals: Estimated body mass index is [...] of Present illness Narrative 11-09-2023 Brianna Medina, DIRECTOR FOOD AND BEVERAGE - 11/09/2023 10:10 AM EST Note Date [...] nursing note reviewed. Exam conducted with a hook loader present. Vitals: Estimated body mass index is [...] Alissa Taveras DO documented in this encounter [facility] Evaluation note 07-22-2021 Note Date & [...] care instructions given in writting by [facility][NOTE 3] Care At Home document. [facility] Other Evaluation note Note Date & Type Note Facility Evaluation note Diagnosis Vaginal lump Pain in female genitalia on intercourse Dyspareunia Soreness breast Mastodynia documented in this encounter [facility] Evaluation note Note Date & Type [...] History Strain of lumbar region, initial encounter [facility] Other Summary Purpose Family History No Family [...] DATE CREATED AUTHOR AUTHOR'S ORGANIZ ATION 08/10/2024 [facility] dical Specialists [employer] Care Teams (unrecognized sec tion and content) Inspector Watch Parts Relationship Specialty Start Date End Date Yinka Barrett DO [address] [place] [address] PCP - General Family Medicine 03/16/23 [employer] Relationship Specialty Start Date End Date Unallocated, Sherry Coats MD [address] [place] [address] PCP - General Family Medicine 04/09/24 [employer] Relationship Specialty Start Date End Date Unallocated, Sherry Coats MD [facility] [place] [address] PCP - General Family Medicine 04/09/24 [employer] Relationship Specialty Start Date End Date Unallocated, Sherry Coats MD [facility] [place] [address] PCP - General Family Medicine 04/09/24 FOR [...] BE BASED ON THE PRIMARY CLINICAL RECORDS. [employer] [facility]. provides no warranty or guarantee of the accuracy or completeness of information in this document.
--- OUTSIDE RECORDS SUMMARY | 2025-07-15 05:42 | XMS_ITS | Encounter Summary ---
Author Organization [facility] Address [address] [facility] [place] [address] Care Team Providers Care Securities Teller Name Role Phone Yinka Barrett DO Primary Care Provider [phone] Unallocated, Noms Provider Primary Care Provi josé miguel Diane Hayes [facility] Unavailable Encounter Details Date Type Department Care Team (Late st Contact Info) Description 03/19/2023 Abstract [facility] [place] [facility] [address] [place] [id number] Diane Hayes, [facility] [address] [place] [address] Social History Tobacco Use Types Packs/Day Years Used Date Smoking Tobacco: Never Alcohol Use Standard Drinks/Week Comments Not Currently 0 (1 standard drink = 0.6 oz pur e alcohol) Comments Unknown Sex and Gender Information Value Date Recorded Sex Assigned at Not on file Legal Sex Female 7:23 PM EDT Gender Identity Not on file Sexual Orientation Not on file documented as of this encounter Plan of Treatment Not on file documented as of this encounter Visit Diagnoses Not on filedocumented in this encounter Care Teams Securities Teller Relationship Specialty Start Date End Date Yinka Barrett DO [address] [place] [address] PCP - General Family Medicine 03/16/23 04/08/24 Unallocated, Noms Provider, [place] [address] PCP - General Family Medicine 04/09/24 Diane Hayes, [facility] [address] [place] [address] Ion Implant Machine Operator Behavioral Health 10/09/23 05/22/24 documented as of this encounter
--- OUTSIDE RECORDS SUMMARY | 2025-07-15 05:42 | XMS_ITS | Encounter Summary ---
Author Organization [facility] Address [address] [place] [address] Care Team Providers Care Office Support Assistant Name Role Phone Yinka Barrett DO Primary Care Provider [phone] Unallocated, Noms Provider Primary Care Provi josé miguel Diane Hayes [facility] Unavailable [phone] Encounter Details Date Type Department Care Team (Late st Contact Info) Description 04/11/2023 Abstract [facility] [address] [facility] [address] [place] [id number] Moises Anderson MD [address] [facility] [address] [place] [address] Social History Tobacco Use Types Packs/Day Years Used Date Smoking Tobacco: Never Tobacco Cessation:Counseling Given: Not Answered [...] on filedocumented in this encounter Care Teams Office Support Assistant Relationship Specialty Start Date End Date Yinka Barrett DO [address] [place] [address] PCP - General Family Medicine 03/16/23 04/08/24 Unallocated, Noms Provider, [address] [place] [address] PCP - General Family Medicine 04/09/24 Diane Hayes, [facility] [address] [place] [address] Senior Executive Compensation Analyst Behavioral Health 10/09/23 05/22/24 documented as of this encounter
[2025-07-15 05:43] VITALS: BP 115/74; PULSE 93; TEMP 36.9; O2SAT 98; BMI 38.4
--- OUTSIDE RECORDS SUMMARY | 2025-07-15 05:43 | XMS_ITS | Patient Health Record ---
Demographics Address [address] [place] [address] Mobile Email Address Preferred Language en Marital Status unmarried Congregation Affiliation Unknown Race White Ethnic Group Not or Lati no Author Organization [facility] [place] Address [address] [place] [address] Care Team Providers Care Lime [place] Worker Name Role Phone Artemio Conway Primary Care Provider Allergies No Known Allergies Results Component Value Reference Range Notes UA DIP NONAUTO WO MICRO (810 02) - IN OFFICE Reviewed date:11/01/2024 08:34:12 AM Interpretation: Performing Lab: Notes/Report: COLOR yellow CLARITY cloudy GLUCOSE neg BILIRUBIN neg KETONE neg SPECIFIC GRAVITY 1.020 BLOOD 50 PH 5 PROTEIN trace UROBILINOGEN neg NITRITE neg LEUKOCYTE ESTERASE ++ HCG Qualitative* Reviewed date:08/11/2024 11:15:39 AM Interpretation: Performing Lab: Notes/Report: [facility] , HCG Qualitative NEGATIVE NEGATIVE Performing Lab: see note ML - [facility] LB PROF 14(COMP METB) Reviewed date:08/11/2024 11:15:39 AM Interpretation: Performing Lab: Notes/Report: [facility] , Sodium 143 136-145 mmol/L Potassium 3.9 3.5-5.1 mmol/L Chloride 105 98-107 mmol/L Carbon Dioxide 26.8 21.0-32.0 mmol/L Anion Gap 15.1 Glucose 90 74-106 mg/dL Blood Urea Nitrogen 8.0 7.0-18.0 mg/dL Creatinine 1.05 0.55-1.02 mg/dL Estimated GFR ( Vijaya >60 >=60 mL/min/1.73m 2 Estimated GFR (Non- Shima >60 >=60 mL/min/1.73m 2 BUN Creatinine Ratio 7.6 Calcium 9.1 8.5-10.1 mg/dL Bilirubin Total 0.4 0.2-1.0 mg/dL Aspartate Amino Transferase 18 15-37 U/L Alanine Aminotransferase 28 14-59 U/L Alkaline Phosphatase 92 46-116 U/L Total Protein 7.4 6.4-8.2 g/dL Albumin Level 3.7 3.4-5.0 g/dL Globulin 3.7 Albumin Globulin Ratio 1.0 Performing Lab: see note ML - [facility] LB LIPASE Reviewed date:08/11/2024 11:15:39 AM Interpretation: Performing Lab: Notes/Report: [facility] , Lipase 33.0 16.0-77.0 U/L Performing Lab: see note ML - [facility] LB CBC AUTO DIFF Reviewed date:08/11/2024 11:15:39 AM Interpretation: Performing Lab: Notes/Report: [facility] , White Blood Count 10.1 4.0-11.0 10 3/uL Red Blood Count 4.75 4.20-5.40 10 6/uL Hemoglobin 14.1 12.0-16.0 g/dL Hematocrit 41.7 36.0-48.0 % Mean Corpuscular Volume 87.8 81.0-99.0 fL Mean Corpuscular Hemoglobin 29.7 26.7-34.0 pg Mean Corpuscular HGB Conc 33.8 29.9-35.2 g/dL Red Cell Distribution Width 12.8 11.0-15.0 % Platelet Count 320 150-450 10 3/uL Mean Platelet Volume 10.9 9.5-13.5 fL Neutrophils Percent Auto 64.4 43.0-75.0 % Lymphocytes Percent Auto 26.6 20.5-60.0 % Monocytes Percent Auto 7.6 1.7-12.0 % Eosinophils Percent Auto 1.0 0.9-7.0 % Basophils Percent Auto 0.1 0.2-2.0 % Immature Granulocytes Pct Auto 0.3 0.0-0.5 % Neutrophils Absolute Auto 6.5 1.4-6.5 10 3/uL Lymphocytes Absolute Auto 2.7 1.2-3.8 10 3/uL Monocytes Absolute Auto 0.8 0.3-0.8 10 3/uL Eosinophils Absolute Auto 0.1 0.0-0.7 10 3/uL Basophils Absolute Auto 0.0 0.0-0.1 10 3/uL Immature Granulocytes Abs Auto 0.03 0.00-0.03 10 3/uL Performing Lab: see note ML - [facility] LB IGP,Aptima HPV,Age Gdln Reviewed date:08/17/2024 04:00:43 PM Interpretation: Performing Lab: Notes/Report: BRUSH-SPATULA CERVIX ENDOCERVIX [facility] , Age Gdln ACOG Testing Note . TESTS RESULT FLAG UNITS REF RANGE LAB Clinician Provided Cytology Information Source.............Cervi x;Endocervix No. of containers..01 ThinPrep Vial Age Algo ACOG Maggi... - 01 FLAG LEGEND: L-Low Normal,H-High Normal,LL-Alert Low,HH-Alert High <-Panic Low,>-Panic High,A-Abnormal,AA-Criti monique Abnormal Performed at: 01 =G [facility] [place] [address] [facility] [place] [address] Mckenna Nicole MD, IGP, rfx Aptima HPV ASCU Note . TESTS RESULT FLAG UNITS REF RANGE LAB DIAGNOSIS: 02 NEGATIVE FOR INTRAEPITHELIAL LESION OR MALIGNANCY. Specimen adequacy: 02 Satisfactory for evaluation. No endocervical component is identified. Performed by: Esha Mcgrath Charging Machine Operator ([facility]) . 02 Note: Note 02 [...] L-Low Normal,H-High Normal,LL-Alert Low,HH-Alert High <-Panic Low,>-Panic High,A-Abnormal,AA-Criti monique Abnormal Performed at: 02 WB [facility] [address] [address] Mckenna Nicole MD, Performed at: =G - [facility] [address] [id number] Detective Captain: Mckenna Nicole MD, Phone: [phone] Performed at: - [facility] [address] [id number] Detective Captain: Mckenna Nicole MD, Phone: [phone] Performing Lab: see note LC - [facility] LB Chlamydia/GC Amplification Reviewed date:07/30/2024 06:57:18 AM Interpretation: Performing Lab: Notes/Report: URINE [facility] , Chlamydia trachomatis, CASSIDY Negative Negative Neisseria gonorrhoeae, CASSIDY Negative Negative Performed at: =G - [facility] [address] [place], [place] [id number] Detective Captain: Mckenna Nicole MD, Phone: [phone] Performing Lab: see note LC - [facility] [place] [place] - IN [place]I CE Reviewed date:11/01/2024 08:41:49 AM Interpretation: Performing Lab: Notes/Report: [place] [place] - [place] neg NEG - NEG Control Present present UA DIP NONAUTO WO MICRO (810 02) - IN OFFICE Reviewed date:10/18/2024 08:45:12 AM Interpretation: Performing Lab: Notes/Report: COLOR yellow CLARITY cloudy GLUCOSE neg BILIRUBIN neg KETONE neg SPECIFIC GRAVITY 1.010 BLOOD large PH 6 PROTEIN large UROBILINOGEN neg NITRITE neg LEUKOCYTE ESTERASE large CT cervical spine wo con Reviewed date:11/22/2024 06:53:09 AM Interpretation: Performing Lab: Notes/Report: Source Facility: [place] [address] CT Scan Report Signed Patient: RADHIKA WHITE MR#: [id number] : 2000 Acct:[id number] Age/Sex: 24 / F ADM Date: 11/21/24 Loc: ER Attending Dr: Ordering Physician: Deshawn Martini Date of Service: 11/21/24 Procedure(s): CT cervical spine wo con Accession Number(s): [id number] cc: Ander Conway M.D. [place] [address] Patient Name: RADHIKA WHITE MRN: [id number] date: 2000 Sex: F Assigned Patient Location: ER Current Patient Location: ER Accession/Order Number: [id number] Exam Date: 11/21/2024 23:18 Report Date: 11/21/2024 23:50 At the request of: DESHAWN MARTINI Procedure: CT cervical spine wo con EXAM: CT head/brain wo con, CT cervical spine wo con INDICATION: 24 years old; Female. Closed head trauma. Fall on ice. TECHNIQUE: CT Head (ax/cor/sag reformats). Ionizing radiation dose reduced via iterative reconstruction/FBP blend and body size kV/mA adjustment. Comparison: None FINDINGS: POSTOPERATIVE CHANGES: None. BRAIN PARENCHYMA: No intraparenchymal or extra-axial hemorrhage. No mass effect. No midline shift or herniation. Normal brewer/white differentiation. VENTRICLES/EXTRA-AXIAL SPACES: Multiple for patient's age. SINUSES/MASTOIDS: The visualized sinuses are clear although the maxillary sinuses are not completely included. Mastoids and middle ears are clear. MSK: No displaced or depressed calvarial fracture. OTHER: No hyperdense intraluminal thrombus. TECHNIQUE: CT imaging of the cervical spine was performed. IV contrast: None. Dose reduction techniques were achieved by using automated exposure control and/or adjustment of mA and/or kV according to patient size and/or use of iterative reconstruction technique. COMPARISON: None available. FINDINGS: POSTOPERATIVE CHANGES: None. ALIGNMENT: Nonspecific straightening of the normal cervical curve. COMPRESSION FRACTURES: No fracture or vertebral body collapse. No bone displacement. No asymmetric widening of the facets. PREVERTEBRAL SOFT TISSUES: Normal. CRANIOCERVICAL JUNCTION: There is a normal relationship of the occipital condyles, lateral masses of C1, and articular surfaces of C2. The base of the dens and body of C2 are intact. There is normal predental space. POSTERIOR FOSSA: Cerebellar tonsils are above the foramen magnum. Disc levels: C2-C3: No disc herniation. No spinal canal or foraminal narrowing. C3-C4: No disc herniation. No spinal canal or foraminal narrowing. C4-C5: No disc herniation. No spinal canal or foraminal narrowing. C5-C6: Beam hardening artifacts. Central canal patent. Neural foramina patent. C6-C7: E morning artifacts. Central canal patent. Neural foramina patent. C7-T1: Beam hardening artifacts. Central canal patent. Neural foramina patent. UPPER THORACIC SPINE: At T1-T2, Beam hardening artifacts. Central canal and neural foramina are patent. OTHER: There are extensive streak artifacts which limit evaluation of the thyroid. Questionable asymmetric hypodensity within the left lobe of the thyroid, image 69/series 4. Recommend nonemergent thyroid ultrasound. CT/CT cervical spine wo con IMPRESSION: 1. No acute intracranial abnormality. No hemorrhage or mass effect. 2. No cervical fracture. No disc herniation or bony stenosis. 3. Question asymmetric hypodensity within the left lobe of the thyroid, not adequately evaluated on the present study. Recommend nonemergent thyroid ultrasound. Electronically authenticated by: MARIA RENNER Date: 11/21/2024 23:50 Dictated By: Maria Renner M.D. Signed By: 11/21/242352 DD/ 49 TD/TT: Epic Trainer: CT head/brain wo con Reviewed date:11/22/2024 06:53:09 AM Interpretation: Performing Lab: Notes/Report: Source Facility: [place] [address] CT Scan Report Signed Patient: RADHIKA WHITE MR#: [id number] : 2000 Acct:[id number] Age/Sex: 24 / F ADM Date: 11/21/24 Loc: ER Attending Dr: Ordering Physician: Deshawn Martini Date of Service: 11/21/24 Procedure(s): CT head/brain wo con Accession Number(s): [id number] cc: Ander Conway M.D. [place] [address] Patient Name: RADHIKA WHITE MRN: [id number] date: 2000 Sex: F Assigned Patient Location: ER Current Patient Location: ER Accession/Order Number: [id number] Exam Date: 11/21/2024 23:18 Report Date: 11/21/2024 23:50 At the request of: DESHAWN MARTINI Procedure: CT head/brain wo con EXAM: CT head/brain wo con, CT cervical spine wo con INDICATION: 24 years old; Female. Closed head trauma. Fall on ice. TECHNIQUE: CT Head (ax/cor/sag reformats). Ionizing radiation dose reduced via iterative reconstruction/FBP blend and body size kV/mA adjustment. Comparison: None FINDINGS: POSTOPERATIVE CHANGES: None. BRAIN PARENCHYMA: No intraparenchymal or extra-axial hemorrhage. No mass effect. No midline shift or herniation. Normal brewer/white differentiation. VENTRICLES/EXTRA-AXIAL SPACES: Multiple for patient's age. SINUSES/MASTOIDS: The visualized sinuses are clear although the maxillary sinuses are not completely included. Mastoids and middle ears are clear. MSK: No displaced or depressed calvarial fracture. OTHER: No hyperdense intraluminal thrombus. TECHNIQUE: CT imaging of the cervical spine was performed. IV contrast: None. Dose reduction techniques were achieved by using automated exposure control and/or adjustment of mA and/or kV according to patient size and/or use of iterative reconstruction technique. COMPARISON: None available. FINDINGS: POSTOPERATIVE CHANGES: None. ALIGNMENT: Nonspecific straightening of the normal cervical curve. COMPRESSION FRACTURES: No fracture or vertebral body collapse. No bone displacement. No asymmetric widening of the facets. PREVERTEBRAL SOFT TISSUES: Normal. CRANIOCERVICAL JUNCTION: There is a normal relationship of the occipital condyles, lateral masses of C1, and articular surfaces of C2. The base of the dens and body of C2 are intact. There is normal predental space. POSTERIOR FOSSA: Cerebellar tonsils are above the foramen magnum. Disc levels: C2-C3: No disc herniation. No spinal canal or foraminal narrowing. C3-C4: No disc herniation. No spinal canal or foraminal narrowing. C4-C5: No disc herniation. No spinal canal or foraminal narrowing. C5-C6: Beam hardening artifacts. Central canal patent. Neural foramina patent. C6-C7: E morning artifacts. Central canal patent. Neural foramina patent. C7-T1: Beam hardening artifacts. Central canal patent. Neural foramina patent. UPPER THORACIC SPINE: At T1-T2, Beam hardening artifacts. Central canal and neural foramina are patent. OTHER: There are extensive streak artifacts which limit evaluation of the thyroid. Questionable asymmetric hypodensity within the left lobe of the thyroid, image 69/series 4. Recommend nonemergent thyroid ultrasound. CT/CT head/brain wo con IMPRESSION: 1. No acute intracranial abnormality. No hemorrhage or mass effect. 2. No cervical fracture. No disc herniation or bony stenosis. 3. Question asymmetric hypodensity within the left lobe of the thyroid, not adequately evaluated on the present study. Recommend nonemergent thyroid ultrasound. Electronically authenticated by: MARIA RENNER Date: 11/21/2024 23:50 Dictated By: Maria Renner M.D. Signed By: 11/21/242352 DD/ 49 TD/TT: Epic Trainer: Urine Culture, Routine Reviewed date:11/06/2024 08:56:17 PM Interpretation: Performing Lab: Notes/Report: [facility] , Urine Culture, Routine See Below For Report Urine Culture, Routine Urine Culture, Routine Mixed urogenital enrique Urine Culture, Routine Urine Culture, Routine 10,000-25,000 colony forming units per mL Urine Culture, Routine Urine Culture, Routine Performed at: - [facility] [place] Urine Culture, Routine Urine Culture, Routine [address] [place], [place] [id number] Urine Culture, Routine Urine Culture, Routine Detective Captain: Zach Dolan PhD, Phone: [phone] Urine Culture, Routine Performing Lab: see note LC - [facility] LB SEE REPORT - Dye Range Tender Id information not found for OBX-specific replenishment buyer legend UA RANDOM W or MICROSCOPIC Reviewed date:11/04/2024 08:26:04 PM Interpretation: Performing Lab: Notes/Report: [facility] , Color Urine YELLOW YELLOW Clarity Urine CLEAR CLEAR Specific [place] Urine 1.020 1.005-1.025 pH Urine 6.0 5.0-9.0 Protein Urine NEGATIVE NEG/TRACE mg/dL Glucose Urine UA NEGATIVE NEGATIVE mg/dL Bilirubin Urine NEGATIVE NEGATIVE Ketones Urine NEGATIVE NEGATIVE mg/dL Blood Urine NEGATIVE NEGATIVE Nitrite Urine NEGATIVE NEGATIVE Urobilinogen Urine 0.2 0.2-1.0 EU/dL Leukocyte Esterase Urine NEGATIVE NEGATIVE WBC Urine NONE SEEN NONE SEEN #/HPF RBC Urine NONE SEEN 0-2 #/HPF Bacteria Urine NONE SEEN NONE SEEN #/HPF Mucus Urine NONE SEEN NONE SEEN Squamous Epithelial Cell Urine FEW NONE/RARE #/LPF Crystals Seen? Seen None Seen #/HPF Amorphous Sediment Urine FEW Urine Culture Indicated ALREADY ORDERED Performing Lab: see note - [facility] LB UA Micro, reflex to culture Reviewed date:12/25/2024 07:56:39 PM Interpretation: Performing Lab: Notes/Report: [facility] , Color Urine LT. YELLOW YELLOW Clarity Urine CLEAR CLEAR Specific [place] Urine 1.025 1.005-1.025 pH Urine 6.0 5.0-9.0 Protein Urine NEGATIVE NEG/TRACE mg/dL Glucose Urine UA NEGATIVE NEGATIVE mg/dL Bilirubin Urine NEGATIVE NEGATIVE Ketones Urine NEGATIVE NEGATIVE mg/dL Blood Urine TRACE-I NEGATIVE Nitrite Urine NEGATIVE NEGATIVE Urobilinogen Urine 0.2 0.2-1.0 EU/dL Leukocyte Esterase Urine NEGATIVE NEGATIVE WBC Urine 0-2 NONE SEEN #/HPF RBC Urine 0-2 0-2 #/HPF Bacteria Urine TRACE NONE SEEN #/HPF Mucus Urine NONE SEEN NONE SEEN Squamous Epithelial Cell Urine MODERATE NONE/RARE #/LPF Crystals Seen? None Seen None Seen #/HPF Cast Seen? NONE SEEN NONE SEEN #/LPF Urine Culture Indicated NO Performing Lab: see note ML - [facility] HCG Qualitative Urine Reviewed date:12/25/2024 07:56:39 PM Interpretation: Performing Lab: Notes/Report: [facility] , HCG Qualitative Urine* NEGATIVE NEGATIVE Performing Lab: see note - [facility] LB PROF 14(COMP METB) Reviewed date:12/25/2024 07:56:39 PM Interpretation: Performing Lab: Notes/Report: [facility] , Sodium 141 136-145 mmol/L Potassium 4.0 3.5-5.1 mmol/L Chloride 105 98-107 mmol/L Carbon Dioxide 26.3 21.0-32.0 mmol/L Anion Gap 13.7 Glucose 97 74-106 mg/dL Blood Urea Nitrogen 10.0 7.0-18.0 mg/dL Creatinine 0.99 0.55-1.02 mg/dL Estimated GFR ( Vijaya >60 >=60 mL/min/1.73m 2 Estimated GFR (Non- Shima >60 >=60 mL/min/1.73m 2 BUN Creatinine Ratio 10.1 Calcium 9.7 8.5-10.1 mg/dL Bilirubin Total 0.3 0.2-1.0 mg/dL Aspartate Amino Transferase 21 15-37 U/L Alanine Aminotransferase 28 14-59 U/L Alkaline Phosphatase 99 46-116 U/L Total Protein 7.6 6.4-8.2 g/dL Albumin Level 4.1 3.4-5.0 g/dL Globulin 3.5 Albumin Globulin Ratio 1.2 Performing Lab: see note ML - [facility] LB CBC AUTO DIFF Reviewed date:12/25/2024 07:56:39 PM Interpretation: Performing Lab: Notes/Report: [facility] , White Blood Count 7.6 4.0-11.0 10 3/uL Red Blood Count 5.07 4.20-5.40 10 6/uL Hemoglobin 15.0 12.0-16.0 g/dL Hematocrit 44.1 36.0-48.0 % Mean Corpuscular Volume 87.0 81.0-99.0 fL Mean Corpuscular Hemoglobin 29.6 26.7-34.0 pg Mean Corpuscular HGB Conc 34.0 29.9-35.2 g/dL Red Cell Distribution Width 13.4 11.0-15.0 % Platelet Count 259 150-450 10 3/uL Mean Platelet Volume 10.9 9.5-13.5 fL Neutrophils Percent Auto 58.8 43.0-75.0 % Lymphocytes Percent Auto 27.4 20.5-60.0 % Monocytes Percent Auto 9.5 1.7-12.0 % Eosinophils Percent Auto 3.6 0.9-7.0 % Basophils Percent Auto 0.4 0.2-2.0 % Immature Granulocytes Pct Auto 0.3 0.0-0.5 % Neutrophils Absolute Auto 4.5 1.4-6.5 10 3/uL Lymphocytes Absolute Auto 2.1 1.2-3.8 10 3/uL Monocytes Absolute Auto 0.7 0.3-0.8 10 3/uL Eosinophils Absolute Auto 0.3 0.0-0.7 10 3/uL Basophils Absolute Auto 0.0 0.0-0.1 10 3/uL Immature Granulocytes Abs Auto 0.02 0.00-0.03 10 3/uL Performing Lab: see note ML - [facility] LB Reason For Referral No Information Medications Medication SIG (Take, Route, Fr equency, Duration) Notes Start Date End Date Status Cephalexin 500 MG 2 tabs Orally bid; D uration: 10 days 05/26/2025 Active Diclofenac Sodium 75 MG 1 tablet as need ed Orally Twice a day; Duration: 30 days 08/01/2023 Active predniSONE 20 MG 2 tablets Orally Onc e a day; Duration: 5 days 05/26/2025 Active Magnesium Oxide 400 MG TAKE ONE TABLET B Y MOUTH AT BEDTIME Oral; Duration: 30 Days Active Protonix 40 MG 1 tablet Orally Once a day; Duration: 30 days 01/14/2025 Active Sertraline HCl 25 MG 1 tablet Orally Onc e a day; Duration: 30 days Active tiZANidine HCl 4 MG 2 tablets Orally at bedtime; Duration: 30 days 08/01/2023 Active Social History Alcohol Screen (Audit-C) Question Answer Notes Did you have a drink contain ing alcohol in the past year? Yes How often did you have 6 or more drinks on one occasion in the past year? Never (0 point) How many drinks did you have on a typical day when you were drinking in the past year? 1 or 2 drinks (0 point) How often did you have a dri nk containing alcohol in the past year? Less than monthly (1 point) Points 1 Interpretation Negative AUDIT-C (Standard) Question Answer Notes Did you have a drink contain ing alcohol in the past year? Yes How often did you have six o r more drinks on one occasion in the past year? Never (0 point) How many drinks did you have on a typical day when you were drinking in the past year? 1 or 2 drinks (0 point) How often did you have a dri nk containing alcohol in the past year? 2 to 4 times a month (2 points) Points 2 Interpretation Negative Problems Problem Type SNOMED Code ICD Code Onset Dates Problem Status W/U Status Risk Notes Problem Anxiety (29572974) Anxiety (F41.9) Active confirmed Problem Insomnia (444385524) Insomnia (G47.00) Active confirmed Problem Syncope (024334296) Syncope (R55) Active confirmed Problem Depressed (22211586) Depressed (F32.9) Active confirmed Problem Well adult (745916988) Well adult (Z00.00) Active confirmed Problem Hypoglycemia (056447992) Hypoglycemia (E16.2) Active confirmed Problem Hemorrhoid (54175544) Hemorrhoid (K64.9) Active confirmed Problem Insect bite (788321576) Insect bite (W57.XXXA) Active confirmed Problem Missed period (64061782) Missed menses (N92.6) Active confirmed Problem Exposure to sexually transmissible disorder (625895050) Exposure to STD (Z20.2) Active confirmed Vital Signs Blood pressure diastolic 80 mm Hg 05/26/2025 Height 62 in 05/26/2025 Blood pressure systolic 112 mm Hg 05/26/2025 Weight 202 lbs 05/26/2025 BMI 36.94 kg/m2 05/26/2025 Encounters Encounter Location Date Provider Diagnosis [facility] [address] [place] [address] 05/26/2025 Artemio Hoy Unspecified multiple injuries, initial encounter T07.XXXA and Insect bite W57.XXXA [facility] [address] [place] [address] 11/01/2024 Artemio Hoy UTI (urinary tract infection) N39.0 and Missed menses N92.6 [facility] [address] [place] [address] 07/26/2024 Artemio Hoy Exposure to STD Z20. [address] [place] [address] 10/18/2024 Artemio Hoy Burning with urinati on R30.0 [facility] [address] [place] [address] 05/22/2025 Artemio Hoy Well adult Z00.00 [facility] [address] [place] [address] 07/30/2024 Artemio Hoy [facility] [address] [place] [address] 11/01/2024 Artemio Hoy UTI (urinary tract infection) N39.0 [facility] [address] [facility] [place] [address] 11/08/2024 Artemio Hoy [facility] [address] [place] [address] 01/14/2025 Artemio Hoy Burning with urinat ion R30.0 and UTI (urinary tract infection) N39.0 Assessments Encounter Date Diagnosis (ICD Code) Assessment Notes Treatment Notes Treatment Clinical Notes Section Notes 07/26/2024 Exposure to STD (ICD-10 - Z20.2) 10/18/2024 Burning with urination (ICD-10 - R30.0) coming b ack in 2 week - repet urine sample and preg test 11/01/2024 UTI (urinary tract infection) (ICD-10 - N39.0) 11/01/2024 Missed menses (ICD-10 - N92.6) 05/22/2025 Well adult (ICD-10 - Z00.00) 05/26/2025 Insect bite (ICD-10 - W57.XXXA) 05/26/2025 Unspecified multiple injuries, initial encounter (ICD-10 - T07.XXXA) 11/01/2024 UTI (urinary tract infection) (ICD-10 - N39.0) 01/14/2025 Burning with urination (ICD-10 - R30.0) 01/14/2025 UTI (urinary tract infection) (ICD-10 - N39.0) Plan Of Treatment Pending Test Test Name Order Date UA (URINALYSIS, COMPLETE) 11/01/2024 Urine Culture 11/01/2024 CHLAMYDIA AND GC (URINE, VAG, OR SWAB) - [facility] 07/26/2024 CBC AUTO DIFF 04/21/2023 GLYCOHEMOGLOBIN A1C 04/21/2023 INSULIN 04/21/2023 PROF 14(COMP METB) 04/21/2023 THYROID PROFILE WITH TSH 04/21/2023 URINE MICROSCOPIC ONLY 11/01/2024 Insurance Providers Payer Name Payer Address Payer Phone Subscriber Number Group Number Insured Name Patient Relationship to Insured Coverage Start Date Coverage End Date [employer] PPO PLUS LOCAL PLAN [address] [place] [address] [phone] [id number] Radhika White Self - patient is the insured Medical (General) History Medical History History ICD Code ADD (attention deficit disorder) F98.8 COVID-19 U07.1 GERD (gastroesophageal reflux disease) K 21.9 Insomnia G47.00 Migraine G43.909 Seasonal allergic rhinitis J30.2 Vesicoureteral reflux N13.70 Surgical History Surgery Date(Month/Year) denies Hospitalization History Reason Date(Month/Year) Psych 03/2025
--- NOTE | 2025-07-15 05:55 | CT_ITS ---
[address] [address] Patient Name: JET CHIANG MRN: [id number] date: 2000 Sex: F Assigned Patient Location: ER Current Patient Location: ER Accession/Order Number: [id number] Exam Date: 07/15/2025 06:31 Report Date: 07/15/2025 07:05 At the request of: PEACE CHAUDHARY MD Procedure: CT cervical spine wo con CT head/brain wo con, CT cervical spine wo con 07/15/2025 6:49 AM SIGNS AND SYMPTOMS: Fall, headache and back pain TECHNIQUE:Multi-detector CT axial slices of the brain and cervical spine were obtained without IV contrast. Helical,sagittal, coronal, and 3-D reconstructions of the cervical spine were performed. CT was performed with one or more of the following dose reduction techniques: Automated exposure control, adjustment of the mA and/or kV according to patient size, or use of iterative reconstruction technique. COMPARISON: 11/21/2024 FINDINGS: Noncontrast head CT: There is no shift of the midline structures, acute intracranial bleeding, mass effects, or evidence of acute ischemia. The ventricular system is normal in size. The brainstem and the cerebellum are unremarkable. The visualized intraorbital contents, the visualized paranasal sinuses, and the infratemporal soft tissues show no acute abnormality. The osseous structures in the skull base and the calvarium show no abnormality. Cervical spine: There is preservation of the vertebral body heights and intervertebral discs. No fractures or dislocations are seen. The alignment of the cervical spine is normal. The craniocervical junction and atlantoaxial joint are within normal limits. The prevertebral soft tissues are within normal limits. The paraspinous soft tissues are within normal limits. The lung apices are unremarkable. There is a 2 x 1 cm hypoattenuating nodule in the left thyroid lobe. Nonemergent ultrasound follow-up is recommended as malignancy is not excluded. Nonspecific cervical lymph nodes are present bilaterally. CT/CT head/brain wo con IMPRESSION: Normal noncontrasted CT brain. No acute cervical spine injury. There is a 2 x 1 cm hypoattenuating nodule in the left thyroid lobe. Nonemergent ultrasound follow-up is recommended as malignancy is not excluded. Impression dictated by: Sigifredo Martin M.D. 07/15/2025 7:05 AM Dictation Location: [place] [address] Electronically authenticated by: [id number] Y Date: 07/15/2025 07:05
--- NOTE | 2025-07-15 05:55 | CT_ITS ---
[address] [address] Patient Name: JET CHIANG MRN: [id number] date: 2000 Sex: F Assigned Patient Location: ER Current Patient Location: ER Accession/Order Number: [id number] Exam Date: 07/15/2025 06:31 Report Date: 07/15/2025 07:05 At the request of: PEACE CHAUDHARY MD Procedure: CT cervical spine wo con CT head/brain wo con, CT cervical spine wo con 07/15/2025 6:49 AM SIGNS AND SYMPTOMS: Fall, headache and back pain TECHNIQUE:Multi-detector CT axial slices of the brain and cervical spine were obtained without IV contrast. Helical,sagittal, coronal, and 3-D reconstructions of the cervical spine were performed. CT was performed with one or more of the following dose reduction techniques: Automated exposure control, adjustment of the mA and/or kV according to patient size, or use of iterative reconstruction technique. COMPARISON: 11/21/2024 FINDINGS: Noncontrast head CT: There is no shift of the midline structures, acute intracranial bleeding, mass effects, or evidence of acute ischemia. The ventricular system is normal in size. The brainstem and the cerebellum are unremarkable. The visualized intraorbital contents, the visualized paranasal sinuses, and the infratemporal soft tissues show no acute abnormality. The osseous structures in the skull base and the calvarium show no abnormality. Cervical spine: There is preservation of the vertebral body heights and intervertebral discs. No fractures or dislocations are seen. The alignment of the cervical spine is normal. The craniocervical junction and atlantoaxial joint are within normal limits. The prevertebral soft tissues are within normal limits. The paraspinous soft tissues are within normal limits. The lung apices are unremarkable. There is a 2 x 1 cm hypoattenuating nodule in the left thyroid lobe. Nonemergent ultrasound follow-up is recommended as malignancy is not excluded. Nonspecific cervical lymph nodes are present bilaterally. CT/CT cervical spine wo con IMPRESSION: Normal noncontrasted CT brain. No acute cervical spine injury. There is a 2 x 1 cm hypoattenuating nodule in the left thyroid lobe. Nonemergent ultrasound follow-up is recommended as malignancy is not excluded. Impression dictated by: Sigifredo Martin M.D. 07/15/2025 7:05 AM Dictation Location: [place] [address] Electronically authenticated by: [id number] Y Date: 07/15/2025 07:05
--- NOTE | 2025-07-15 05:55 | CT_ITS ---
[address] [address] Patient Name: JET CHIANG MRN: [id number] date: 2000 Sex: F Assigned Patient Location: ER Current Patient Location: ER Accession/Order Number: [id number] Exam Date: 07/15/2025 06:31 Report Date: 07/15/2025 07:12 At the request of: PEACE CHAUDHARY MD Procedure: CT lumbar spine wo con CT thoracic spine wo con, CT lumbar spine wo con 07/15/2025 6:49 AM History: Fall with mid back pain TECHNIQUE: Multi detector CT axial slices of the thoracolumbar spine were obtained without IV contrast. Volumetric acquisition sagittal, coronal, and 3-D reconstructions were performed and reviewed on a separate workstation. CT was performed with one or more of the following dose reduction techniques: Automated exposure control, adjustment of the mA and/or kV according to patient size, or use of iterative reconstruction technique. COMPARISON: None FINDINGS: Thoracic spine: There is preservation of the vertebral body heights and intervertebral discs. There is minimal anterior osteophyte formation at T4-T5 and T5-T6. No fractures or dislocations are seen. The alignment of the thoracic spine is normal. The paraspinous soft tissues are within normal limits. The visualized lung parenchyma is unremarkable. The visualized upper abdominal viscera is unremarkable. There is a 2.1 cm hypoattenuating thyroid nodule. Lumbar spine: There is preservation of the vertebral body heights and intervertebral discs. No fractures or dislocations are seen. The alignment of the lumbar spine is normal. Degenerative changes are noted in the sacroiliac joints. The paraspinous soft tissues are within normal limits. The visualized lung parenchyma is unremarkable. 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 CT/CT thoracic spine wo con IMPRESSION: Thoracic spine: No acute bony abnormality or malalignment. Lumbar spine: No acute bony abnormality or malalignment. Impression dictated by: Sigifredo Martin M.D. 07/15/2025 7:12 AM Dictation Location: [place] [address] Electronically authenticated by: [id number] Y Date: 07/15/2025 07:12
--- NOTE | 2025-07-15 05:55 | CT_ITS ---
[address] [address] Patient Name: JET CHIANG MRN: [id number] date: 2000 Sex: F Assigned Patient Location: ER Current Patient Location: ER Accession/Order Number: [id number] Exam Date: 07/15/2025 06:31 Report Date: 07/15/2025 07:12 At the request of: PEACE CHAUDHARY MD Procedure: CT lumbar spine wo con CT thoracic spine wo con, CT lumbar spine wo con 07/15/2025 6:49 AM History: Fall with mid back pain TECHNIQUE: Multi detector CT axial slices of the thoracolumbar spine were obtained without IV contrast. Volumetric acquisition sagittal, coronal, and 3-D reconstructions were performed and reviewed on a separate workstation. CT was performed with one or more of the following dose reduction techniques: Automated exposure control, adjustment of the mA and/or kV according to patient size, or use of iterative reconstruction technique. COMPARISON: None FINDINGS: Thoracic spine: There is preservation of the vertebral body heights and intervertebral discs. There is minimal anterior osteophyte formation at T4-T5 and T5-T6. No fractures or dislocations are seen. The alignment of the thoracic spine is normal. The paraspinous soft tissues are within normal limits. The visualized lung parenchyma is unremarkable. The visualized upper abdominal viscera is unremarkable. There is a 2.1 cm hypoattenuating thyroid nodule. Lumbar spine: There is preservation of the vertebral body heights and intervertebral discs. No fractures or dislocations are seen. The alignment of the lumbar spine is normal. Degenerative changes are noted in the sacroiliac joints. The paraspinous soft tissues are within normal limits. The visualized lung parenchyma is unremarkable. 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 CT/CT lumbar spine wo con IMPRESSION: Thoracic spine: No acute bony abnormality or malalignment. Lumbar spine: No acute bony abnormality or malalignment. Impression dictated by: Sigifredo Martin M.D. 07/15/2025 7:12 AM Dictation Location: [place] [address] Electronically authenticated by: [id number] Y Date: 07/15/2025 07:12
--- NOTE | 2025-07-15 05:55 | ED.FALL1 ---
HPI HPI - Fall General Chief Complaint: Fall Stated Complaint: FALL BACK PAIN Time Seen by Provider: 07/15/25 05:53 Source: patient Mode of arrival: walk-in Limitations: no limitations History of Present Illness HPI Narrative: fell down 3 stairs. struck her mid back and the back of her head. neg LOC, nausea or dizziness. complaint of headache and back pain. No numbness or extremity weakness. Denies injury elsewhere Related Data Home Medications ?Medication ?Instructions ?Recorded ?Confirmed diclofenac sodium 75 mg 75 mg PO BID PRN pain 08/01/24 12/25/24 tablet,delayed release mirtazapine 30 mg tablet 30 mg PO BEDTIME 08/01/24 08/01/24 tizanidine 4 mg tablet 8 mg PO Q12H PRN muscle spasticity 08/01/24 12/25/24 Previous Rx's ?Medication ?Instructions ?Recorded ondansetron 4 mg disintegrating 4 mg PO Q8H PRN nausea and 08/10/24 tablet vomiting 4 days #16 tabs ondansetron 4 mg disintegrating 4 mg PO DAILY PRN nausea and 12/25/24 tablet vomiting #15 tabs pantoprazole 40 mg tablet,delayed 40 mg PO DAILY 14 days #14 tabs 12/25/24 release (Protonix) Allergies Allergy/AdvReac Type Severity Reaction Status Date / Time No Known Drug Allergies Allergy Verified 07/15/25 05:43 Opioid HPI Opioid Management Most Recent Pain and Opioid Data: Last Pain Scale 8 Today, 05:46 Review of Systems ROS Status of ROS 10 or more systems reviewed and unremarkable except as noted in history and below PFSH PFS Social History Smoking status: Never smoker Little interest or pleasure in doing things: not at all Feeling down, depressed, or hopeless: not at all Exam Constitutional Vital Signs, click to edit/add: Last Vital Signs Temp 98.4 F 07/15/25 05:43 Pulse 93 H 07/15/25 05:43 Resp 18 07/15/25 05:43 BP 115/74 07/15/25 05:43 Pulse Ox 98 07/15/25 05:43 O2 Del Method Room Air 07/15/25 05:43 Common normals: no apparent distress, average body habitus, oriented x3, no limitations, healthy appearing, alert and well nourished [facility] Common normals: normocephalic and head/scalp atraumatic Eye Common normals: PERRL, EOMs intact bilaterally and conjunctivae normal Neck & C-Spine Common normals: full ROM Chest Common normals: inspection of chest normal Respiratory Common normals: normal respiratory effort, no retractions, no use of accessory muscles and clear to auscultation bilaterally Cardio Common normals: regular rate, regular rhythm, S1 normal heart sound and S2 normal heart sound Back & Pelvis Common normals: thoracic and lumbar spine normal to inspection and no thoracic nor lumbar tenderness Extremity Common normals: normal to inspection and full ROM Neuro Common normals: oriented x3, CN's II-XII intact bilaterally, moves all extremities and no focal motor deficits Psych Appearance: grossly normal Course Vital Signs Vital signs: Vital Signs Temperature 98.4 F 07/15/25 05:43 Pulse Rate 93 H 07/15/25 05:43 Respiratory Rate 18 07/15/25 05:43 Blood Pressure 115/74 07/15/25 05:43 Pulse Oximetry 98 07/15/25 05:43 Oxygen Delivery Method Room Air 07/15/25 05:43 Temperature 98.4 F 07/15/25 05:43 Pulse Rate 93 H 07/15/25 05:43 Respiratory Rate 18 07/15/25 05:43 Blood Pressure 115/74 07/15/25 05:43 Pulse Oximetry 98 07/15/25 05:43 Oxygen Delivery Method Room Air 07/15/25 05:43 MDM - Fall MDM Narrative Medical decision making narrative: patient fell down 3 stairs striking her mid back and the back of her head. Neg LOC, N/V or weakness. Presents due to headache and mid back pain. Exam unremarkable. CTs ordered of her vertebral spine and head. Anticipate her results will be neg based on her physical exam. Discharge Plan Discharge Patient Disposition: Still a Patient
== END 2025-07-15 07:42 | disposition home or self-care (01) ==
PROVIDERS: Emergency Provider Internal Medicine; PCP Family Medicine
DX: S09.8XXA Other specified injuries of head, initial encounter (principal); M54.6 Pain in thoracic spine; W10.8XXA Fall (on) (from) other stairs and steps, initial encounter; E04.1 Nontoxic single thyroid nodule
CPT/HCPCS: 70450; 72125; 72128; 72131; 76376; 99284

== ENCOUNTER 2025-07-18 16:57 | Outpatient (OUT) | payer BC, SELFPAY ==
--- OUTSIDE RECORDS SUMMARY | 2025-07-18 17:00 | XMS_ITS | CCD ---
Author Organization [facility] Care Team Providers Care Avionics Electrical Engineer Name Role Phone Ana Paula Dubose Unavailable [...] Drug Class(es) Dates Sig (Normalized) Sig (Original) [id number] 200 actuat albuterol 0.09 mg/actuat metered dose [...] GDLNon AGE GDLN ACOG TESTING Note . [facility] Comment on above: TESTS RESULT FLAG UN ITS REF RANGE LAB Clinician Provided Cytology Information Source.............Cervix;Endocervix No. of containers..01 ThinPrep Vial Age Algo ACOG Maggi... FLAG LEGEND: L-Low Normal,H-High Normal,LL-Alert Low,HH-Alert High <-Panic Low,>-Panic High,A-Abnormal,AA-Critical Abnormal Performed at: 01 =G [facility] [address] [place] [address] Mckenna Nicole MD, IGP, RFX APTIMA HPV ASCU Note . [facility] Comment on above: TESTS RESULT FLAG U NITS REF RANGE LAB DIAGNOSIS: 02 NEGATIVE FOR INTRAEPITHELIAL LESION OR MALIGNANCY. Specimen adequacy: 02 Satisfactory for evaluation. No endocervical component is identified. Performed by: Esha Mcgrath, Band Attacher ([facility]) . 02 Note: Note 02 The Pap [...] Performed at: 02 WB [facility] [address] [place] [address] Mckenna Nicole MD, Performed at: =G - [facility] [address] [id number] [place] Guide: Mckenna Nicole MD, Phone: [phone] Performed at: - [facility] [address] [id number] [place] Guide: Mckenna Nicole MD, Phone: [phone] BRUSH-SPATULA CERVIX ENDOCERVIX [facility] Healthcar e HCG ( test) Ql (U)o n 08-08-2024 Interpretation and review of laboratory results Normal [facility] Healthil re Preg Test, Ur Negative Negative [facility] Urinalysis macro (dipstick) panel (U)on 08-08-2024 Bilirubin, UA Negative Negative - 4(70) +++ mg/dL [facility] Blood, UA Negative Negative - 50 Zev/mcL [facility] Clarity, UA Clear [facility] re Color, UA Yellow [facility] e Glucose, UA Negative Negative - 1999(110) ++++ mg/dL [facility] Interpretation and review of laboratory results Normal [facility] re Ketones, UA Negative Negative - 160(16) ++++ mg/dL [facility] Leukocytes, UA Negative Negative - 500+++ Tien/mcL [facility] Nitrite, UA Negative Negative - Positive [facility] pH, UA 5.5 5 - 9 [facility] Protein, UA Negative Negative - 1999(20) ++++ mg/dL [facility] Spec Grav, UA 1.015 1 - 1.03 [facility] Urobilinogen, UA 0.2 0.2 - 12 mg/dL [facility] Healthcar e AMYLASEon 12-20-2022 Amylase [Catalytic activity/Vol] 43 U/L Normal 25-115 [facility] Comment on above: Performed By: #### A MY, LIPA, CMP #### [facility] [address] [place] [id number] Perri Burdick CBC AUTO DIFFon 12-20-2022 BASO # 0.0 103/ul Normal 0.0-0.1 [facility] Comment on above: Performed By: #### C BC #### [facility] [address] [place] [address] Dr. Perri Burdick Basophils/100 WBC (Bld) 0.3 % Normal 0.2-2.0 [facility] Comment on above: Performed By: #### C BC #### [facility] [address] [place] [address] Dr. Perri Burdick EO # 0.1 103/ul Normal 0.0-0.7 [facility] Comment on above: Performed By: #### C BC #### [facility] [address] [place] [address] Dr. Perri Burdick Eosinophils/100 WBC (Bld) 1.3 % Normal 0.9-7.0 [facility] Comment on above: Performed By: #### C BC #### [facility] [address] [place] [address] Dr. Perri Burdick Erythrocyte distribution width (RBC) [Ratio] 12.8 % Normal 11.0-15.0 [facility] Comment on above: Performed By: #### C BC #### [facility] [address] [place] [address] Dr. Perri Burdick Hematocrit (Bld) [Volume fraction] 42.5 % Normal 36.0-48.0 [facility] Comment on above: Performed By: #### C BC #### [facility] [address] [place] [address] Dr. Perri Burdick Hemoglobin (Bld) [Mass/Vol] 14.2 g/dL Normal 12.0-16.0 [facility] Comment on above: Performed By: #### C BC #### [facility] [address] [place] [address] Dr. Perri Burdick IG # 0.03 10e3/ul Normal 0.00-0.03 [facility] Comment on above: Performed By: #### C BC #### [facility] [address] [place] [address] Dr. Perri Burdick IG % 0.3 % Normal 0.0-0.5 [facility] Comment on above: Performed By: #### C BC #### [facility] [address] [place] [address] Dr. Perri Burdick LYMPH # 2.8 103/ul Normal 1.2-3.8 [facility] Comment on above: Performed By: #### C BC #### [facility] [address] [place] [address] Dr. Perri Burdick Lymphocytes/100 WBC (Bld) 29.9 % Normal 20.5-60.0 [facility] Comment on above: Performed By: #### C BC #### [facility] [address] [place] [address] Dr. Perri Burdick MANUAL DIFF REQ NO Normal [facility] Comment on above: Performed By: #### C BC #### [facility] [address] [place] [address] Dr. Perri Burdick MCH (RBC) [Entitic mass] 29.0 pg Normal 26.7-34.0 [facility] Comment on above: Performed By: #### C BC #### [facility] [address] [place] [address] Dr. Perri Burdick MCHC (RBC) [Mass/Vol] 33.4 g/dL Normal 29.9-35.2 [facility] Comment on above: Performed By: #### C BC #### [facility] [address] [place] [address] Dr. Perri Burdick MCV (RBC) [Entitic vol] 86.9 fL Normal 81.0-99.0 [facility] Comment on above: Performed By: #### C BC #### [facility] [address] [place] [address] Dr. Perri Burdick MONO # 0.6 103/ul Normal 0.3-0.8 [facility] Comment on above: Performed By: #### C BC #### [facility] [address] [place] [address] Dr. Perri Burdick Monocytes/100 WBC (Bld) 6.6 % Normal 1.7-12.0 [facility] Comment on above: Performed By: #### C BC #### [facility] [address] [place] [address] Dr. Perri Burdick NEUT # 5.8 103/ul Normal 1.4-6.5 [facility] Comment on above: Performed By: #### C BC #### [facility] [address] [place] [address] Dr. Perri Burdick Neutrophils/100 WBC (Bld) 61.6 % Normal 43.0-75.0 [facility] Comment on above: Performed By: #### C BC #### [facility] [address] [place] [address] Dr. Perri Burdick Platelet mean volume (Bld) [Entitic vol] 10.5 fL Normal 9.5-13.5 [facility] Comment on above: Performed By: #### C BC #### [facility] [address] [place] [address] Dr. Perri Burdick PLT 263 103/ul Normal 150-450 [facility] Comment on above: Performed By: #### C BC #### [facility] [address] [place] [address] Dr. Perri Burdick RBC 4.89 106/ul Normal 4.20-5.40 [facility] Comment on above: Performed By: #### C BC #### [facility] [address] [place] [address] Dr. Perri Burdick WBC 9.5 103/ul Normal 4.0-11.0 [facility] Comment on above: Performed By: #### C BC #### [facility] [address] [place] [address] Dr. Perri Burdick ER URINE PROFILEon 3 Bilirubin Ql (U) Negative Normal NEGATIVE [facility] Comment on above: Performed By: #### P REGU, ERUR #### [facility] [address] [place] [address] Dr. Perri Burdick Clarity (U) CLEAR Normal CLEAR [facility] Comment on above: Performed By: #### P REGU, ERUR #### [facility] [address] [place] [address] Dr. Perri Burdick Color (U) LT. YELLOW Normal YELLOW [facility] Comment on above: Performed By: #### P REGU, ERUR #### [facility] [address] [address] [address] Perri MONREAL A micrscopic examination will be performed if indicated. Normal [facility] Comment on above: Performed By: #### P REGU, ERUR #### [facility] [address] [address] [address] Perri Burdick Glucose Ql (U) Negative Normal NEGATIVE [facility] Comment on above: Performed By: #### P REGU, ERUR #### [facility] [address] [address] [address] Perri Burdick Hemoglobin Ql (U) Negative Normal NEGATIVE [facility] Comment on above: Performed By: #### P REGU, ERUR #### [facility] [address] [place] [address] Dr. Perri Burdick Ketones Ql (U) Negative Normal NEGATIVE [facility] Comment on above: Performed By: #### P REGU, ERUR #### [facility] [address] [place] [address] Dr. Perri Burdick LEUKOCYTES Negative Normal NEGATIVE [facility] Comment on above: Performed By: #### P REGU, ERUR #### [facility] [address] [address] [address] Perri Burdick Nitrite Ql (U) Negative Normal NEGATIVE [facility] Comment on above: Performed By: #### P REGU, ERUR #### [facility] [address] [address] [address] Perri Burdick pH (U) 6.0 [pH] Normal 5-9 [facility] Comment on above: Performed By: #### P REGU, ERUR #### [facility] [address] [address] [address] Perri Burdick SPEC GRAVITY 1.025 Normal 1.005-<=1.025 [facility] Comment on above: Performed By: #### P REGU, ERUR #### [facility] [address] [address] [address] Perri Burdick UA PROTEIN Negative Normal NEGATIVE/ TRACE [facility] Comment on above: Performed By: #### P REGU, ERUR #### [facility] [address] [address] [address] Perri Burdick UR MICRO IND NOT INDICATED Normal The [facility] Comment on above: Performed By: #### P REGU, ERUR #### [facility] [address] [place] [address] Dr. Perri Burdick Urobilinogen Qn (U) 0.2 {Brody'U}/dL Normal 0.2 - 1. 0 [facility] Comment on above: Performed By: #### P REGU, ERUR #### [facility] [address] [place] [address] Dr. Perri Burdick LIPASEon 12-20-2022 Lipase [Catalytic activity/Vol] 134.0 U/L Normal 73.0-393.0 [facility] Comment on above: Performed By: #### A [place] LIPA, CMP #### [facility] [address] [place] [address] Dr. Perri Burdick URon 12-20-2022 , QUAL Negative Normal NEGATIVE [facility] Comment on above: Performed By: #### P JESICA, ERUR #### [facility] [address] [place] [address] Dr. Perri Burdick PROF 14(COMP METB)on 023 Albumin [Mass/Vol] 3.8 g/dL Normal 3.4-5.0 [facility] Comment on above: Performed By: #### A MY LIPA, CMP #### [facility] [address] [place] [address] Dr. Perri Burdick Albumin/Globulin [Mass ratio] 1.2 {ratio} Normal [facility] Comment on above: Performed By: #### A MY LIPA, CMP #### [facility] [address] [place] [address] Dr. Perri Burdick ALP [Catalytic activity/Vol] 138 U/L Critically high 46-116 [facility] Comment on above: Performed By: #### A MY, LIPA, CMP #### [facility] [address] [address] [address] Perri Burdick ALT [Catalytic activity/Vol] 23 U/L Normal 14-59 [facility] Comment on above: Performed By: #### A MY, LIPA, CMP #### [facility] [address] [address] [address] Perri Burdick Anion gap [Moles/Vol] 10.3 mmol/L Normal [facility] Comment on above: Performed By: #### A MY, LIPA, CMP #### [facility] [address] [address] [address] Perri Burdick AST [Catalytic activity/Vol] 17 U/L Normal 15-37 [facility] Comment on above: Performed By: #### A MY, LIPA, CMP #### [facility] [address] [place] [address] Dr. Perri Burdick Bilirubin [Mass/Vol] 0.2 mg/dL Normal 0.2-1.0 [facility] Comment on above: Performed By: #### A MY, LIPA, CMP #### [facility] [address] [address] [address] Perri Burdick Calcium [Mass/Vol] 9.2 mg/dL Normal 8.5-10.1 [facility] Comment on above: Performed By: #### A MY, LIPA, CMP #### [facility] [address] [place] [address] Dr. Perri Burdick Chloride [Moles/Vol] 105 mmol/L Normal 98-107 [facility] Comment on above: Performed By: #### A MY, LIPA, CMP #### [facility] [address] [place] [address] Dr. Perri Burdick CO2 [Moles/Vol] 27.3 mmol/L Normal 21.0-32.0 [facility] Comment on above: Performed By: #### A MY, LIPA, CMP #### [facility] [address] [address] [address] Perri Burdick Creatinine [Mass/Vol] 0.82 mg/dL Normal 0.55-1.02 [facility] Comment on above: Performed By: #### A MY, LIPA, CMP #### [facility] [address] [address] [address] Perri Burdick EGFR-AF CYMRAES >60 Normal >=60 [facility] Comment on above: Performed By: #### A MY, LIPA, CMP #### [facility] [address] [address] [address] Perri Burdick EGFR-NON AF CYMRAES >60 Normal >=60 [facility] Comment on above: Performed By: #### A MY, LIPA, CMP #### [facility] [address] [address] [address] Perri Burdick Globulin (S) [Mass/Vol] 3.3 g/dL Normal [facility] Comment on above: Performed By: #### A MY, LIPA, CMP #### [facility] [address] [place] [address] Dr. Perri Burdick Glucose [Mass/Vol] 117 mg/dL Critically high 74-106 [facility] Comment on above: Performed By: #### A MY, LIPA, CMP #### [facility] [address] [address] [address] Perri Burdick Potassium [Moles/Vol] 3.6 mmol/L Normal 3.5-5.1 [facility] Comment on above: Performed By: #### A MY, LIPA, CMP #### [facility] [address] [address] [address] Perri Burdick Protein [Mass/Vol] 7.1 g/dL Normal 6.4-8.2 [facility] Comment on above: Performed By: #### A MY, LIPA, CMP #### [facility] [address] [place] [address] Dr. Perri Burdick Sodium [Moles/Vol] 139 mmol/L Normal 136-145 [facility] Comment on above: Performed By: #### A MY, LIPA, CMP #### [facility] [address] [address] [address] Perri Burdick Urea nitrogen [Mass/Vol] 15.0 mg/dL Normal 7.0-18.0 [facility] Comment on above: Performed By: #### A KENDALL HO, CMP #### [facility] [address] [address] [address] Perri Burdick Urea nitrogen/Creatinine [Mass ratio] 18.3 mg/mg Normal [facility] Comment on above: Performed By: #### A KENDALL HO, CMP #### [facility] [address] [address] [address] Perri Burdick XR ABD FLAT UP_PA [...] AL CHURCH Date: 2022-12-20 04:52 Normal [facility] CHLAMYDIA/GONOCOCCUS CASSIDY (SW AB/URINE/PAPon 12-01-2022 Chlamydia trachomatis, CASSIDY Negative Normal Negative [facility] Comment on above: Performed By: #### C T/NGNA #### [facility] [address] [address] [address] Perri Burdick Neisseria gonorrhoeae, CASSIDY Negative Normal Negative [facility] Comment on above: Performed By: #### C T/NGNA #### [facility] [address] [address] [address] Perri Burdick VAGINITIS/VAGINOSIS DNA PROB Jamar 12-01-2022 Nieves species Negative Normal Negative The [facility] Comment on above: Performed By: #### V AGINT #### [facility] [address] [place] [address] Dr. Perri Burdick Gardnerella vaginalis Negative Normal Negative [facility] Comment on above: Performed By: #### V AGINT #### [facility] [address] [place] [address] Dr. Perri Burdick Trichomonas vaginalis Negative Normal Negative [facility] Comment on above: Performed By: #### V AGINT #### [facility] [address] [address] [address] Perri Burdick PAP ACOG PANEL 2: 21 to 29on 10-20-2022 . . Normal [facility] Comment on above: Performed By: #### [id number] #### [facility] [address] [place] [address] Dr. Perri Burdick Age Gdln ACOG Testing - [facility] Comment on above: Performed By: #### [id number] #### [facility] [address] [place] [address] Dr. Perri Burdick DIAGNOSIS: Comment Normal [facility] Comment on above: Result Comment: NEGA TIVE FOR INTRAEPITHELIAL LESION OR MALIGNANCY. Performed By: #### [id number] #### [facility] [address] [place] [address] Dr. Perri Burdick Methodology: Comment Normal [facility] Comment on above: Result Comment: This liquid based ThinPrep(R) pap test was screened with the use of an image guided system. Performed By: #### [id number] #### [facility] [address] [place] [address] Dr. Perri Burdick Note: Comment Normal [facility] Comment on above: Result Comment: The Pap smear is a screening test designed to aid in the detection of premalignant and malignant conditions of the uterine cervix. It is not a diagnostic procedure and should not be used as the sole means of detecting cervical cancer. Both false-positive and false-negative reports do occur. . Performed By: #### [id number] #### [facility] [address] [place] [address] Dr. Perri Burdick Performed by: Comment Normal [facility] Comment on above: Result Comment: Argentina Stoner, Band Attacher (ASCP) Performed By: #### 4 [id number] #### [facility] [address] [place] [address] Dr. Perri Burdick Reflex Criteria: Comment Normal [facility] Comment on above: Result Comment: The HPV DNA reflex criteria were not met with this specimen result therefore, no HPV testing was performed. . Performed By: #### [id number] #### [facility] [address] [address] [address] Perri Burdick Specimen adequacy: Comment Normal [facility] Comment on above: Result Comment: Sati sfactory for evaluation. Endocervical and/or squamous metaplastic cells (endocervical component) are present. Performed By: #### 4 [id number] #### [facility] [address] [place] [address] Dr. Perri Burdick COVID Quick Testingon 2020 Result Negative [email or web address] Other Vital Signs Date Time Vital Sign Value Performing Clinician Facility 08-08-2024 10:52-0400 Body mass index (BMI) [Ratio] 40.97 kg/m2 Salma PANCHAL Work Phone: [facility] 08-08-2024 10:52-0400 Body weight 101.61 kg Salma PANCHAL Work Phone: [facility] 08-08-2024 10:52-0400 Diastolic blood pressure 80 mm[Hg] Salma PANCHAL Work Phone: [facility] 08-08-2024 10:52-0400 Systolic blood pressure 110 mm[Hg] Salma PANCHAL Work Phone: [facility] 11-09-2023 10:24-0500 Body mass index (BMI) [Ratio] 41.34 kg/m2 Alissa Nitin DO Work Phone: [facility] 11-09-2023 10:24-0500 Body weight 102.51 kg Alissa Nitin DO Work Phone: [facility] 11-09-2023 10:24-0500 Diastolic blood pressure 72 mm[Hg] Alissa Paintingo DO Work Phone: [facility] 11-09-2023 10:24-0500 Systolic blood pressure 118 mm[Hg] Alissa Nitin DO Work Phone: [facility] 07-22-2021 10:45-0400 Body height 157.48 cm Ana Paula Dubose Other [email or web address] Other 07-22-2021 10:45-0400 Body mass index (BMI) [Ratio] 38.59 kg/m2 Ana Paula Nashmond Other [email or web address] Other 07-22-2021 10:45-0400 Body temperature 98 [degF] Ana Paula Dubose Other [email or web address] Other 07-22-2021 10:45-0400 Body weight 95.71 kg Ana Paula Dubose Other [email or web address] Other 07-22-2021 10:45-0400 Respiratory rate 18 /min Ana Paula Dubose Other [email or web address] Other 07-22-2021 10:45-0400 SaO2% (BldA) [Mass fraction] 97 % Ana Paula Dubose Other [email or web address] Other Encounters Encounter Date Encounter Type Care Provider Facility Start: 08-08-2024 End: 08-08-2024 Bamboo flowsheet Salma PANCHAL Work Phone: [facility] Start: 08-08-2024 End: 08-16-2024 Bamboo flowsheet Salma PANCHAL Work Phone: [facility] Start: 08-08-2024 End: 08-16-2024 [facility]inis[facility] Result Encounter Salma PANCHAL Work Phone: [facility] External Department Unsolicited Start: 08-08-2024 End: 08-08-2024 Patient encounter procedure Salma PANCHAL Work Phone: [facility] Healthcare Start: 08-08-2024 End: 08-08-2024 Periodic preventive med est patient 18-39 yrs Salma PANCHAL Work Phone: [facility] Comment on above: Vaginal discharge; Screen for STD (sexually transmitted disease); Nausea; Dysuria; Well woman exam with routine gynecological exam; Uses control Start: 08-08-2024 End: 08-08-2024 ambulatory SALMA CHARLES Not Available Start: 11-09-2023 End: 11-09-2023 Office outpatient visit 15 minutes Alissa Taveras DO Work Phone: [facility] Comment on above: [...] . Facility:[facility] Start: 04-13-[address] ALEN GLEASNO . Facili ty:[facility] Start: 01-14-[address] [...] procedure 08/08/2024 10:30 AM EDT Office Visit [facility] [address] [place] [address] Salma Charles PA [address] [address] Arrived [facility] Comment on above: Arrived Start: 06-09-2024 Influenza vaccination Influenza Vacc ine (#1) [facility] Start: 06-09-2023 Influenza vaccination Influenza Vacc ine (#1) [facility] Healthcare CHLAMYDIA TRACHOMATI S (GENITO/STI) CHLAMYDIA TRACHOMATIS (GENITO/STI) Lab Routine Vaginal lump Pain in female genitalia on intercourse Ordered: 11/09/2023 [facility] Healthcare Comment on above: Ordered: 11/09/2023 CHLAMYDIA TRACHOMATI S (GENITO/STI) CHLAMYDIA TRACHOMATIS (GENITO/STI) Lab Routine Vaginal discharge Screen for STD (sexually transmitted disease) Ordered: 08/08/2024 [facility] Comment on above: Ordered: [...] in female genitalia on intercourse Ordered: 11/09/2023 [facility] Comment on above: Ordered: 11/09/2023 Neisseria gonorrhoea e DNA [Presence] in Unspecified specimen by CASSIDY with probe detection Neisseria gonorrhea DNA probe, direct Lab Routine Vaginal discharge Screen for STD (sexually transmitted disease) Ordered: 08/08/2024 [facility] Comment on above: Ordered: [...] Ordered: 08/08/2024 Payers Date Payer Category Payer [facility] [place] [facility] BCBS [id number]. [id number] 2023 Unknown BCBS BCBS [id number] 2023-Present [phone] [address] [place] [address] 1.2.840.276218.1.13.693.2. 7.3.695067.315 2023 Unknown [id number] 2022 Private Health Insurance [facility] [id number] 2022-Present [address] [place] [id number] 1.2.840.040840.1.13.693.2. 7.3.612992.315 2022 Private Health Insurance [id number] 2001 Unknown [id number] 2.16.840.1.166838.3.579.2. 593 2001 Unknown [id number] 2.16.840.1.293384.3.579.2. 593 2001 Unknown [id number] 2.16.840.1.755371.3.579.2. 593 2001 Unknown [id number] 2.16.840.1.198892.3.579.2. 593 2001 Unknown [id number] 2.16.840.1.609132.3.579.2. 593 2001 Unknown [id number] 2.16.840.1.229971.3.579.2. 593 2001 Unknown [id number] 2.16.840.1.857570.3.579.2. 1259 2001 Unknown [id number] 2.16.840.1.357919.3.579.2. 1259 2001 Unknown [id number] 2.16.840.1.677376.3.579.2. 1259 2001 Unknown [id number] 2.16.840.1.085318.3.579.2. 1259 1959 Self-pay [id number] 1959 Unknown [id number] 2.16.840.1.886506.19 Social History Date Type Detail Facility Start: 11-09-2023 Sex Assigned At [facility] [employer] Other Start: 2023 Tobacco smoking status MOIS Never smoked tobacco [facility] Start: 2023 [...] nursing note reviewed. Exam conducted with a wind turbine sheet metal worker present. Vitals: Estimated body mass index is [...] of Present illness Narrative 11-09-2023 Brianna Medina, LOAN ADVISER - 11/09/2023 10:10 AM EST Note Date [...] nursing note reviewed. Exam conducted with a wind turbine sheet metal worker present. Vitals: Estimated body mass index is [...] Alissa Taveras DO documented in this encounter [facility] Healthcare Evaluation note 07-22-2021 Note [...] Patient care instructions given in writting by [facility] Home document. [email or web address] Other Evaluation note Note Date & Type Note Facility Evaluation note Diagnosis Vaginal lump Pain in female genitalia on intercourse Dyspareunia Soreness breast Mastodynia documented in this encounter [facility] Healthcare Evaluation note Note Date [...] History Strain of lumbar region, initial encounter [email or web address] Other Summary Purpose Family History No Family [...] DATE CREATED AUTHOR AUTHOR'S ORGANIZ ATION 08/10/2024 [facility] [employer] Care Teams (unrecognized sec tion and content) [employer] Electrical Engineer Relationship Specialty Start Date End Date Yinka Barrett DO [address] [place] [address] PCP - General Family Medicine 03/16/23 [employer] Electrical Engineer Relationship Specialty Start Date End Date Unallocated, Sherry Coats MD [address] [place] [id number] PCP - General Family Medicine 04/09/24 [employer] Electrical Engineer Relationship Specialty Start Date End Date Unallocated, Sherry Coats MD [facility] [place] [address] PCP - General Family Medicine 04/09/24 [employer]ionics Electrical Engineer Relationship Specialty Start Date End Date Unallocated, Sherry Coats MD [facility] [place] [address] PCP - General Family Medicine 04/09/24 FOR [...] BE BASED ON THE PRIMARY CLINICAL RECORDS. [employer] [facility]. provides no warranty or guarantee of the accuracy or completeness of information in this document.
--- NOTE | 2025-07-18 17:01 | US_ITS ---
[place] [address] Patient Name: JET CHIANG MRN: [id number] date: 2000 Sex: F Assigned Patient Location: Current Patient Location: Accession/Order Number: [id number] Exam Date: 07/18/2025 17:05 Report Date: 07/19/2025 10:29 At the request of: ALEN GLEASON MD Procedure: US thyroid Ultrasound thyroid gland INDICATION: Thyroid cyst COMPARISON: None FINDINGS: A large thyroid gland with right left lobe measuring 5.0 x 1.5 x 1.1 cm and 5.2 x 2.2 x 1.5 cm respectively. Thyroid isthmus 2.1 mm. Scattered thyroid nodules noted. Right superior pole nodule 3 mm in size TR1 Right superior pole nodule 5 x 7 mm in size TR3 Right superior pole nodule 8 x 9 mm in size, TR3 Left midpole nodule 2.1 x 2.3 x 1.3 cm in size, TR3. 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 Consider short-term follow-up imaging. Impression dictated by: Jesus Roca M.D. 07/19/2025 10:29 AM Dictation Location: [place] [address] Electronically authenticated by: [id number] Y Date: 07/19/2025 10:29
== END 2025-07-18 16:58 | disposition home or self-care (01) ==
PROVIDERS: PCP Family Medicine; Visit Provider Family Medicine
DX: E04.1 Nontoxic single thyroid nodule (principal)
CPT/HCPCS: 76536

== ENCOUNTER 2025-07-26 12:24 | Outpatient (OUT) | payer BC, SELFPAY ==
--- OUTSIDE RECORDS SUMMARY | 2025-07-26 12:28 | XMS_ITS | CCD ---
Author Organization [facility] Care Team Providers Care Supervisory Air Intercept Controller Name Role Phone Ana Paula Dubose Unavailable [...] Drug Class(es) Dates Sig (Normalized) Sig (Original) [id number] 200 actuat albuterol 0.09 mg/actuat metered dose [...] GDLNon AGE GDLN ACOG TESTING Note . [facility] Comment on above: TESTS RESULT FLAG UN ITS REF RANGE LAB Clinician Provided Cytology Information Source.............Cervix;Endocervix No. of containers..01 ThinPrep Vial Age Algo ACOG Maggi... FLAG LEGEND: L-Low Normal,H-High Normal,LL-Alert Low,HH-Alert High <-Panic Low,>-Panic High,A-Abnormal,AA-Critical Abnormal Performed at: 01 =G [facility] [address] [place] [address] Mckenna Nicole MD, IGP, RFX APTIMA HPV ASCU Note . [facility] Comment on above: TESTS RESULT FLAG U NITS REF RANGE LAB DIAGNOSIS: 02 NEGATIVE FOR INTRAEPITHELIAL LESION OR MALIGNANCY. Specimen adequacy: 02 Satisfactory for evaluation. No endocervical component is identified. Performed by: Esha Mcgrath, Exhibit Designer ([facility]) . 02 Note: Note 02 The [...] Performed at: 02 WB [facility] [address] [place] [address] Mckenna Nicole MD, Performed at: =G - [facility] [address] [id number] Shake Backboard Notcher: Mckenna Nicole MD, Phone: [phone] Performed at: - [facility] [address] [id number] Shake Backboard Notcher: Mckenna Nicole MD, Phone: [phone] BRUSH-SPATULA CERVIX ENDOCERVIX [facility] HCG ( test) Ql (U)o n 08-08-2024 Interpretation and review of laboratory results Normal [facility] re Preg Test, Ur Negative Negative [facility] Urinalysis macro (dipstick) panel (U)on 08-08-2024 Bilirubin, UA Negative Negative - 4(70) +++ mg/dL [facility] Blood, UA Negative Negative - 50 Zev/mcL [facility] Clarity, UA Clear [facility] re Color, UA Yellow [facility] e Glucose, UA Negative Negative - 1999(110) ++++ mg/dL [facility] Interpretation and review of laboratory results Normal [facility] re Ketones, UA Negative Negative - 160(16) ++++ mg/dL [facility] Leukocytes, UA Negative Negative - 500+++ Tien/mcL [facility] Nitrite, UA Negative Negative - Positive [facility] pH, UA 5.5 5 - 9 [facility] Protein, UA Negative Negative - 1999(20) ++++ mg/dL [facility] Spec Grav, UA 1.015 1 - 1.03 [facility] Urobilinogen, UA 0.2 0.2 - 12 mg/dL [facility] AMYLASEon 12-20-2022 Amylase [Catalytic activity/Vol] 43 U/L Normal 25-115 [facility] Comment on above: Performed By: #### A MY, LIPA, CMP #### [facility] [address] [place] [id number] Perri Burdick CBC AUTO DIFFon 12-20-2022 BASO # 0.0 103/ul Normal 0.0-0.1 [facility] Comment on above: Performed By: #### C BC #### [facility] [address] [place] [address] Dr. Perri Burdick Basophils/100 WBC (Bld) 0.3 % Normal 0.2-2.0 [facility] Comment on above: Performed By: #### C BC #### [facility] [address] [place] [address] Dr. Perri Burdick EO # 0.1 103/ul Normal 0.0-0.7 [facility] Comment on above: Performed By: #### C BC #### [facility] [address] [place] [address] Dr. Perri Burdick Eosinophils/100 WBC (Bld) 1.3 % Normal 0.9-7.0 [facility] Comment on above: Performed By: #### C BC #### [facility] [address] [place] [address] Dr. Perri Burdick Erythrocyte distribution width (RBC) [Ratio] 12.8 % Normal 11.0-15.0 [facility] Comment on above: Performed By: #### C BC #### [facility] [address] [place] [address] Dr. Perri Burdick Hematocrit (Bld) [Volume fraction] 42.5 % Normal 36.0-48.0 [facility] Comment on above: Performed By: #### C BC #### [facility] [address] [place] [address] Dr. Perri Burdick Hemoglobin (Bld) [Mass/Vol] 14.2 g/dL Normal 12.0-16.0 [facility] Comment on above: Performed By: #### C BC #### [facility] [address] [place] [address] Dr. Perri Burdick IG # 0.03 10e3/ul Normal 0.00-0.03 [facility] Comment on above: Performed By: #### C BC #### [facility] [address] [place] [address] Dr. Perri Burdick IG % 0.3 % Normal 0.0-0.5 [facility] Comment on above: Performed By: #### C BC #### [facility] [address] [place] [address] Dr. Perri Burdick LYMPH # 2.8 103/ul Normal 1.2-3.8 [facility] Comment on above: Performed By: #### C BC #### [facility] [address] [place] [address] Dr. Perri Burdick Lymphocytes/100 WBC (Bld) 29.9 % Normal 20.5-60.0 [facility] Comment on above: Performed By: #### C BC #### [facility] [address] [place] [address] Dr. Perri Burdick MANUAL DIFF REQ NO Normal [facility] Comment on above: Performed By: #### C BC #### [facility] [address] [place] [address] Dr. Perri Burdick MCH (RBC) [Entitic mass] 29.0 pg Normal 26.7-34.0 [facility] Comment on above: Performed By: #### C BC #### [facility] [address] [place] [address] Dr. Perri Burdick MCHC (RBC) [Mass/Vol] 33.4 g/dL Normal 29.9-35.2 [facility] Comment on above: Performed By: #### C BC #### [facility] [address] [place] [address] Dr. Perri Burdick MCV (RBC) [Entitic vol] 86.9 fL Normal 81.0-99.0 [facility] Comment on above: Performed By: #### C BC #### [facility] [address] [place] [address] Dr. Perri Burdick MONO # 0.6 103/ul Normal 0.3-0.8 [facility] Comment on above: Performed By: #### C BC #### [facility] [address] [place] [address] Dr. Perri Burdick Monocytes/100 WBC (Bld) 6.6 % Normal 1.7-12.0 [facility] Comment on above: Performed By: #### C BC #### [facility] [address] [place] [address] Dr. Perri Burdick NEUT # 5.8 103/ul Normal 1.4-6.5 [facility] Comment on above: Performed By: #### C BC #### [facility] [address] [place] [address] Dr. Perri Burdick Neutrophils/100 WBC (Bld) 61.6 % Normal 43.0-75.0 [facility] Comment on above: Performed By: #### C BC #### [facility] [address] [place] [address] Dr. Perri Burdick Platelet mean volume (Bld) [Entitic vol] 10.5 fL Normal 9.5-13.5 [facility] Comment on above: Performed By: #### C BC #### [facility] [address] [place] [address] Dr. Perri Burdick PLT 263 103/ul Normal 150-450 [facility] Comment on above: Performed By: #### C BC #### [facility] [address] [place] [address] Dr. Perri Burdick RBC 4.89 106/ul Normal 4.20-5.40 [facility] Comment on above: Performed By: #### C BC #### [facility] [address] [place] [address] Dr. Perri Burdick WBC 9.5 103/ul Normal 4.0-11.0 [facility] Comment on above: Performed By: #### C BC #### [facility] [address] [place] [address] Dr. Perri Burdick ER URINE PROFILEon 3 Bilirubin Ql (U) Negative Normal NEGATIVE [facility] Comment on above: Performed By: #### P REGU, ERUR #### [facility] [address] [place] [address] Dr. Perri Burdick Clarity (U) CLEAR Normal CLEAR [facility] Comment on above: Performed By: #### P REGU, ERUR #### [facility] [address] [place] [address] Dr. Perri Burdick Color (U) LT. YELLOW Normal YELLOW [facility] Comment on above: Performed By: #### P REGU, ERUR #### [facility] [address] [address] [address] Perri MONERAL A micrscopic examination will be performed if indicated. Normal [facility] Comment on above: Performed By: #### P REGU, ERUR #### [facility] [address] [address] [address] Perri Burdick Glucose Ql (U) Negative Normal NEGATIVE [facility] Comment on above: Performed By: #### P REGU, ERUR #### [facility] [address] [address] [address] Perri Burdick Hemoglobin Ql (U) Negative Normal NEGATIVE [facility] Comment on above: Performed By: #### P REGU, ERUR #### [facility] [address] [place] [address] Dr. Perri Burdick Ketones Ql (U) Negative Normal NEGATIVE [facility] Comment on above: Performed By: #### P REGU, ERUR #### [facility] [address] [place] [address] Dr. Perri Burdick LEUKOCYTES Negative Normal NEGATIVE [facility] Comment on above: Performed By: #### P REGU, ERUR #### [facility] [address] [address] [address] Perri Burdick Nitrite Ql (U) Negative Normal NEGATIVE [facility] Comment on above: Performed By: #### P REGU, ERUR #### [facility] [address] [address] [address] Perri Burdick pH (U) 6.0 [pH] Normal 5-9 [facility] Comment on above: Performed By: #### P REGU, ERUR #### [facility] [address] [address] [address] Perri Burdick SPEC GRAVITY 1.025 Normal 1.005-<=1.025 [facility] Comment on above: Performed By: #### P REGU, ERUR #### [facility] [address] [address] [address] Perri Burdick UA PROTEIN Negative Normal NEGATIVE/ TRACE [facility] Comment on above: Performed By: #### P REGU, ERUR #### [facility] [address] [address] [address] Perri Burdick UR MICRO IND NOT INDICATED Normal [facility] Comment on above: Performed By: #### P REGU, ERUR #### [facility] [address] [place] [address] Dr. Perri Burdick Urobilinogen Qn (U) 0.2 {Brody'U}/dL Normal 0.2 - 1. 0 [facility] Comment on above: Performed By: #### P REGU, ERUR #### [facility] [address] [place] [address] Dr. Perri Burdick LIPASEon 12-20-2022 Lipase [Catalytic activity/Vol] 134.0 U/L Normal 73.0-393.0 [facility] Comment on above: Performed By: #### A [place] LIPA, CMP #### [facility] [address] [place] [address] Dr. Perri Burdick URon 12-20-2022 , QUAL Negative Normal NEGATIVE [facility] Comment on above: Performed By: #### P JESICA, ERUR #### [facility] [address] [place] [address] Dr. Perri Burdick PROF 14(COMP METB)on 023 Albumin [Mass/Vol] 3.8 g/dL Normal 3.4-5.0 [facility] Comment on above: Performed By: #### A MY LIPA, CMP #### [facility] [address] [place] [address] Dr. Perri Burdick Albumin/Globulin [Mass ratio] 1.2 {ratio} Normal [facility] Comment on above: Performed By: #### A MY LIPA, CMP #### [facility] [address] [place] [address] Dr. Perri Burdick ALP [Catalytic activity/Vol] 138 U/L Critically high 46-116 [facility] Comment on above: Performed By: #### A MY, LIPA, CMP #### [facility] [address] [address] [address] Perri Burdick ALT [Catalytic activity/Vol] 23 U/L Normal 14-59 [facility] Comment on above: Performed By: #### A MY, LIPA, CMP #### [facility] [address] [address] [address] Perri Burdick Anion gap [Moles/Vol] 10.3 mmol/L Normal [facility] Comment on above: Performed By: #### A MY, LIPA, CMP #### [facility] [address] [address] [address] Perri Burdick AST [Catalytic activity/Vol] 17 U/L Normal 15-37 [facility] Comment on above: Performed By: #### A MY, LIPA, CMP #### [facility] [address] [place] [address] Dr. Perri Burdick Bilirubin [Mass/Vol] 0.2 mg/dL Normal 0.2-1.0 [facility] Comment on above: Performed By: #### A MY, LIPA, CMP #### [facility] [address] [address] [address] Perri Burdick Calcium [Mass/Vol] 9.2 mg/dL Normal 8.5-10.1 [facility] Comment on above: Performed By: #### A MY, LIPA, CMP #### [facility] [address] [place] [address] Dr. Perri Burdick Chloride [Moles/Vol] 105 mmol/L Normal 98-107 [facility] Comment on above: Performed By: #### A MY, LIPA, CMP #### [facility] [address] [place] [address] Dr. Perri Burdick CO2 [Moles/Vol] 27.3 mmol/L Normal 21.0-32.0 [facility] Comment on above: Performed By: #### A MY, LIPA, CMP #### [facility] [address] [address] [address] Perri Burdick Creatinine [Mass/Vol] 0.82 mg/dL Normal 0.55-1.02 [facility] Comment on above: Performed By: #### A MY, LIPA, CMP #### [facility] [address] [address] [address] Perri Burdick EGFR-AF MALAGASY >60 Normal >=60 [facility] Comment on above: Performed By: #### A MY, LIPA, CMP #### [facility] [address] [address] [address] Perri Burdick EGFR-NON AF MALAGASY >60 Normal >=60 [facility] Comment on above: Performed By: #### A MY, LIPA, CMP #### [facility] [address] [address] [address] Perri Burdick Globulin (S) [Mass/Vol] 3.3 g/dL Normal [facility] Comment on above: Performed By: #### A MY, LIPA, CMP #### [facility] [address] [place] [address] Dr. Perri Burdick Glucose [Mass/Vol] 117 mg/dL Critically high 74-106 [facility] Comment on above: Performed By: #### A MY, LIPA, CMP #### [facility] [address] [address] [address] Perri Burdick Potassium [Moles/Vol] 3.6 mmol/L Normal 3.5-5.1 [facility] Comment on above: Performed By: #### A MY, LIPA, CMP #### [facility] [address] [address] [address] Perri Burdick Protein [Mass/Vol] 7.1 g/dL Normal 6.4-8.2 [facility] Comment on above: Performed By: #### A MY, LIPA, CMP #### [facility] [address] [place] [address] Dr. Perri Burdick Sodium [Moles/Vol] 139 mmol/L Normal 136-145 [facility] Comment on above: Performed By: #### A MY, LIPA, CMP #### [facility] [address] [address] [address] Perri Burdick Urea nitrogen [Mass/Vol] 15.0 mg/dL Normal 7.0-18.0 [facility] Comment on above: Performed By: #### A KENDALL HO, CMP #### [facility] [address] [address] [address] Perri Burdick Urea nitrogen/Creatinine [Mass ratio] 18.3 mg/mg Normal [facility] Comment on above: Performed By: #### A KENDALL HO, CMP #### [facility] [address] [address] [address] Perri Burdick XR ABD FLAT UP_PA [...] AL CHURCH Date: 2022-12-20 04:52 Normal [facility] CHLAMYDIA/GONOCOCCUS CASSIDY (SW AB/URINE/PAPon 12-01-2022 Chlamydia trachomatis, CASSIDY Negative Normal Negative [facility] Comment on above: Performed By: #### C T/NGNA #### [facility] [address] [address] [address] Perri Burdick Neisseria gonorrhoeae, CASSIDY Negative Normal Negative [facility] Comment on above: Performed By: #### C T/NGNA #### [facility] [address] [address] [address] Perri Burdick VAGINITIS/VAGINOSIS DNA PROB Jamar 12-01-2022 Nieves species Negative Normal Negative [facility] Comment on above: Performed By: #### V AGINT #### [facility] [address] [place] [address] Dr. Perri Burdick Gardnerella vaginalis Negative Normal Negative [facility] Comment on above: Performed By: #### V AGINT #### [facility] [address] [place] [address] Dr. Perri Burdick Trichomonas vaginalis Negative Normal Negative [facility] Comment on above: Performed By: #### V AGINT #### [facility] [address] [address] [address] Perri Burdick PAP ACOG PANEL 2: 21 to 29on 10-20-2022 . . Normal [facility] Comment on above: Performed By: #### [id number] #### [facility] [address] [place] [address] Dr. Perri Burdick Age Gdln ACOG Testing - [facility] Comment on above: Performed By: #### [id number] #### [facility] [address] [place] [address] Dr. Perri Burdick DIAGNOSIS: Comment Normal [facility] Comment on above: Result Comment: NEGA TIVE FOR INTRAEPITHELIAL LESION OR MALIGNANCY. Performed By: #### [id number] #### [facility] [address] [place] [address] Dr. Perri Burdick Methodology: Comment Normal [facility] Comment on above: Result Comment: This liquid based ThinPrep(R) pap test was screened with the use of an image guided system. Performed By: #### 4 [id number] #### [facility] [address] [place] [address] Dr. Perri Burdick Note: Comment Normal [facility] Comment on above: Result Comment: The Pap smear is a screening test designed to aid in the detection of premalignant and malignant conditions of the uterine cervix. It is not a diagnostic procedure and should not be used as the sole means of detecting cervical cancer. Both false-positive and false-negative reports do occur. . Performed By: #### 4 [id number] #### [facility] [address] [place] [address] Dr. Perri Burdick Performed by: Comment Normal [facility] Comment on above: Result Comment: Argentina Stoner, Exhibit Designer (ASCP) Performed By: #### [id number] #### [facility] [address] [place] [address] Dr. Perri Burdick Reflex Criteria: Comment Normal [facility] Comment on above: Result Comment: The HPV DNA reflex criteria were not met with this specimen result therefore, no HPV testing was performed. . Performed By: #### 4 [id number] #### [facility] [address] [address] [address] Perri Burdick Specimen adequacy: Comment Normal [facility] Comment on above: Result Comment: Sati sfactory for evaluation. Endocervical and/or squamous metaplastic cells (endocervical component) are present. Performed By: #### 4 [id number] #### [facility] [address] [place] [address] Dr. Perri Burdick COVID Quick Testingon 2020 Result Negative [facility] Other Vital Signs Date Time Vital Sign Value Performing Clinician Facility 08-08-2024 10:52-0400 Body mass index (BMI) [Ratio] 40.97 kg/m2 Salma PANCHAL Work Phone: [facility] 08-08-2024 10:52-0400 Body weight 101.61 kg Salma PANCHAL Work Phone: [facility] 08-08-2024 10:52-0400 Diastolic blood pressure 80 mm[Hg] Salma PANCHAL Work Phone: [facility] 08-08-2024 10:52-0400 Systolic blood pressure 110 mm[Hg] Salma PANCHAL Work Phone: [facility] 11-09-2023 10:24-0500 Body mass index (BMI) [Ratio] 41.34 kg/m2 Alissa Nitin DO Work Phone: [facility] 11-09-2023 10:24-0500 Body weight 102.51 kg Alissa Nitin DO Work Phone: [facility] 11-09-2023 10:24-0500 Diastolic blood pressure 72 mm[Hg] Alissa Paintingo DO Work Phone: [facility] 11-09-2023 10:24-0500 Systolic blood pressure 118 mm[Hg] Alissa Nitin DO Work Phone: [facility] 07-22-2021 10:45-0400 Body height 157.48 cm Ana Paula Dubose Other [facility] Other 07-22-2021 10:45-0400 Body mass index (BMI) [Ratio] 38.59 kg/m2 Ana Paula Nashmond Other [facility] Other 07-22-2021 10:45-0400 Body temperature 98 [degF] Ana Paula Dubose Other [facility] Other 07-22-2021 10:45-0400 Body weight 95.71 kg Ana Paula Dubose Other [facility] Other 07-22-2021 10:45-0400 Respiratory rate 18 /min Ana Paula Dubose Other [facility] Other 07-22-2021 10:45-0400 SaO2% (BldA) [Mass fraction] 97 % Ana Paula Dubose Other [facility] Other Encounters Encounter Date Encounter Type Care Provider Facility Start: 08-08-2024 End: 08-08-2024 Bamboo flowsheet Salma PANCHAL Work Phone: [facility] Start: 08-08-2024 End: 08-16-2024 Bamboo flowsheet Salma PANCHAL Work Phone: [facility] Start: 08-08-2024 End: 08-16-2024 [facility] Result Encounter Salma PANCHAL Work Phone: [facility] External Department Unsolicited Start: 08-08-2024 End: 08-08-2024 Patient encounter procedure Salma PANCHAL Work Phone: [facility] Start: 08-08-2024 End: 08-08-2024 Periodic preventive med est patient 18-39 yrs Salma PANCHAL Work Phone: [facility] Comment on above: Vaginal discharge; Screen for STD (sexually transmitted disease); Nausea; Dysuria; Well woman exam with routine gynecological exam; Uses control Start: 08-08-2024 End: 08-08-2024 ambulatory SALMA CHARLES Not Available Start: 11-09-2023 End: 11-09-2023 Office outpatient visit 15 minutes Alissa Taveras DO Work Phone: [facility] Comment on above: Vaginal [...] procedure 08/08/2024 10:30 AM EDT Office Visit [facility] [address] [place] [address] Salma Charles PA [address] [place] [address] Arrived [facility] Comment on above: Arrived Start: 06-09-2024 Influenza vaccination Influenza Vacc ine (#1) [facility] Start: 06-09-2023 Influenza vaccination Influenza Vacc ine (#1) [facility] CHLAMYDIA TRACHOMATI S (GENITO/STI) CHLAMYDIA TRACHOMATIS (GENITO/STI) Lab Routine Vaginal lump Pain in female genitalia on intercourse Ordered: 11/09/2023 [facility] Comment on above: Ordered: 11/09/2023 CHLAMYDIA TRACHOMATI S (GENITO/STI) CHLAMYDIA TRACHOMATIS (GENITO/STI) Lab Routine Vaginal discharge Screen for STD (sexually transmitted disease) Ordered: 08/08/2024 [facility] Comment on above: Ordered: 08/08/2024 Cytology Cervical or vaginal smear or scraping study Pap Smear Pathology and Cytology Routine Well woman exam with routine gynecological exam Ordered: 08/08/2024 [facility] Comment on above: Ordered: 08/08/2024 Neisseria gonorrhoea e DNA [Presence] in Unspecified specimen by CASSIDY with probe detection Neisseria gonorrhea DNA probe, direct Lab Routine Vaginal lump Pain in female genitalia on intercourse Ordered: 11/09/2023 [facility] Comment on above: Ordered: 11/09/2023 Neisseria gonorrhoea e DNA [Presence] in Unspecified specimen by CASSIDY with probe detection Neisseria gonorrhea DNA probe, direct Lab Routine Vaginal discharge Screen for STD (sexually transmitted disease) Ordered: 08/08/2024 [facility] Comment on above: Ordered: 08/08/2024 [...] Ordered: 08/08/2024 Payers Date Payer Category Payer [facility] BCBS [id number] 2023 Unknown BCBS BCBS xxxxxx [id number] 2023-Present [phone] [address] [place] [address] [id number]. [id number] 2023 Unknown [id number] 2022 Private Health Insurance XAVIER Carl [facility] [id number] 2022-Present [address] [place] [address] [id number]. [id number] 2022 Private Health Insurance [id number] 2001 Unknown [id number] 2.16.840.1.359208.3.579.2. 593 2001 Unknown [id number] 2.16.840.1.582047.3.579.2. 593 2001 Unknown [id number] 2.16.840.1.816582.3.579.2. 593 2001 Unknown [id number] 2.16.840.1.002403.3.579.2. 593 2001 Unknown [id number] 2.16.840.1.905089.3.579.2. 593 2001 Unknown [id number] 2.16.840.1.545776.3.579.2. 593 2001 Unknown [id number] 2.16.840.1.511223.3.579.2. 1259 2001 Unknown [id number] 2.16.840.1.672564.3.579.2. 1259 2001 Unknown [id number] 2.16.840.1.605355.3.579.2. 1259 2001 Unknown [id number] 2.16.840.1.448237.3.579.2. 1259 1959 Self-pay [id number] 1959 Unknown [id number] 2.16.840.1.931718.19 Social History Date Type Detail Facility Start: 11-09-2023 Sex Assigned At [facility] Other Start: 2023 Tobacco smoking status LAIS Never smoked tobacco [facility] Start: 2023 [...] nursing note reviewed. Exam conducted with a fieldwork coordinator present. Vitals: Estimated body mass index is [...] annual unless needed otherwise. Documented by Leia [email or web address] on behalf of: ABDULKADIR Burrell documented in this encounter [facility] History of Present illness Narrative 11-09-2023 Brianna Medina, TRIMMER OPERATOR - 11/09/2023 10:10 AM EST Note [...] nursing note reviewed. Exam conducted with a fieldwork coordinator present. Vitals: Estimated body mass index is [...] Alissa Taveras DO documented in this encounter [facility] Evaluation note 07-22-2021 Note Date [...] Patient care instructions given in writting by [facility] Care At Home document. [employer] Other Evaluation note Note Date & Type Note Facility Evaluation note Diagnosis Vaginal lump Pain in female genitalia on intercourse Dyspareunia Soreness breast Mastodynia documented in this encounter [facility] Evaluation note Note Date & [...] History Strain of lumbar region, initial encounter [facility] Other Summary Purpose Family History No Family [...] DATE CREATED AUTHOR AUTHOR'S ORGANIZ ATION 08/10/2024 [facility] [employer] Care Teams (unrecognized sec tion and content) Supervisory Air Intercept Controller Relationship Specialty Start Date End Date Yinka Barrett DO [address] [place] [address] PCP - General Family Medicine 03/16/23 Supervisory Air Intercept Controller Relationship Specialty Start Date End Date Unallocated, Sherry Coats MD [address] [place] [id number] PCP - General Family Medicine 04/09/24 Supervisory Air Intercept Controller Relationship Specialty Start Date End Date Unallocated, Sherry Coats MD [facility] [place] [address] PCP - General Family Medicine 04/09/24 Supervisory Air Intercept Controller Relationship Specialty Start Date End Date Unallocated, Sherry Coats MD [facility] [place] [address] PCP - General Family Medicine 04/09/24 FOR [...] BE BASED ON THE PRIMARY CLINICAL RECORDS. [facility]. provides no warranty or guarantee of the accuracy or completeness of information in this document.
[2025-07-26 13:26] LABS: Hematocrit 40.6 % (36.0-48.0); Hemoglobin 13.8 g/dL (12.0-16.0); Immature Granulocytes Abs Auto 0.02 10^3/uL (0.00-0.03); Immature Granulocytes Pct Auto 0.3 % (0.0-0.5); Lymphocytes Absolute Auto 2.4 10^3/uL (1.2-3.8); Mean Corpuscular HGB Conc 34.0 g/dL (29.9-35.2); Mean Corpuscular Hemoglobin 30.1 pg (26.7-34.0); Mean Corpuscular Volume 88.5 fL (81.0-99.0); Platelet Count 311 10^3/uL (150-450); Red Blood Count 4.59 10^6/uL (4.20-5.40); White Blood Count 7.4 10^3/uL (4.0-11.0)
[2025-07-26 14:04] LABS: Iron 52.0 ug/dL (50.0-170.0)
[2025-07-26 14:14] LABS: Alanine Aminotransferase 24 U/L (14-59); Albumin Globulin Ratio 1.1; Albumin Level 4.0 g/dL (3.4-5.0); Alkaline Phosphatase 97 U/L (46-116); Anion Gap 15.1; Aspartate Amino Transferase 15 U/L (15-37); Blood Urea Nitrogen 11.0 mg/dL (7.0-18.0); Calcium 9.4 mg/dL (8.5-10.1); Carbon Dioxide 26.7 mmol/L (21.0-32.0); Chloride 105 mmol/L (98-107); Cholesterol 121 mg/dL (<=200); Estimated GFR (African America >60 (>=60 mL/min/1.73m^2); Estimated GFR (Non-African Ame >60 (>=60 mL/min/1.73m^2); Free T3 2.24 pg/mL (2.18-3.98); Globulin 3.7 g/dL; Glucose 88 mg/dL (74-106); HDL Cholesterol 44 mg/dL (40-60); Potassium 3.8 mmol/L (3.5-5.1); Sodium 143 mmol/L (136-145); Thyroid Stimulating Hormone 1.118 uIU/mL (0.358-3.740); Total Protein 7.7 g/dL (6.4-8.2); Triglycerides 75 mg/dL (<=150); VLDL CHOLESTEROL 15.0 mg/dL
== END 2025-07-26 12:25 | disposition home or self-care (01) ==
LOC: LAB 12:26
PROVIDERS: PCP Family Medicine; Visit Provider Family Medicine
DX: F41.9 Anxiety disorder, unspecified (principal); G47.00 Insomnia, unspecified; E04.1 Nontoxic single thyroid nodule
CPT/HCPCS: 36415; 80053; 80061; 83036; 83525; 83540; 84432; 84436; 84443; 84481; 85025

== ENCOUNTER 2025-09-17 14:10 | Outpatient (OUT) | payer BC, SELFPAY ==
--- NOTE | 2025-09-17 14:12 | US_ITS ---
The [address] [address] Patient Name: JET CHIANG MRN: [id number] date: 2000 Sex: F Assigned Patient Location: US Current Patient Location: Accession/Order Number: [id number] Exam Date: 09/17/2025 14:13 Report Date: 09/18/2025 09:15 At the request of: ALEN GLEASON MD Procedure: US thyroid THYROID ULTRASOUND COMPARISON: 07/18/2025 CLINICAL DATA: Follow-up nodularity. Prior biopsy. The right thyroid lobe measures 4.7 x 1.7 x 1.0 cm . Left lobe measures 5.1 x 2.1 x 1.7 cm. The isthmus measures 2 mm. Thyroid echogenicity is normal. There is a small colloid cyst at the midpole on the right measuring 4 mm. There is a small hypoechoic nodule at the superior pole on the right measuring 4 x 2 x 4 mm that is similar. An additional hypoechoic nodule measured at the superior pole at the time of the prior is not seen today. On the left at the mid pole, there is still a large heterogeneous though predominantly hyperechoic nodule measuring 2.5 x 1.3 x 1.9 cm (TI-RADS 3) which has not significantly changed. US/US thyroid IMPRESSION: BILATERAL THYROID NODULARITY, NOT SIGNIFICANTLY CHANGED Impression dictated by: Yeimi Ray M.D. 09/18/2025 9:15 AM Dictation Location: [employer] Electronically authenticated by: [id number] Y Date: 09/18/2025 09:15
--- OUTSIDE RECORDS SUMMARY | 2025-09-17 14:18 | XMS_ITS | CCD ---
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 [address] [place] [address] Dr. Perri BurdickHemoglobin Ql (U)NegativeNormalNEGATIVEWooster Community Hospital Comment on above:Performed By: #### PREGU, ERUR #### [facility] [address] [place] [address] Dr. Perri BurdickKetones Ql (U)NegativeNormalNEGATIVEWooster Community HospitalComment on above:Performed By: #### PREGU, ERUR #### [facility] [address] [place] [address] Dr. Perri BurdickLEUKOCYTESNegativeNormalNEGATIVEWooster Community HospitalComment on above:Performed By: #### PREGU, ERUR #### [facility] [address] [place] [address] Dr. Perri BurdickNitrite Ql (U)NegativeNormalNEGATIVEWooster Community HospitalComment on above:Performed By: #### PREGU, ERUR #### [facility] [address] [place] [address] Dr. Perri BurdickpH (U)6.0 [pH]Normal5-9W[facility]oster Community HospitalComment on above: Performed By: #### PREGU, ERUR #### [facility] [address] [place] [address] Dr. Perri BurdickSPEC GRAVITY1.795Zglqdf3.005-<=1.025W[facility]oster Community HospitalComment on above:Performed By: #### PREGU, ERUR #### [facility] [address] [place] [address] Dr. Perri BurdickUA PROTEINNegativeNormalNEGATIVE/ TRACEWooster Community Hospital Comment on above:Performed By: #### PREGU, ERUR #### [facility] [address] [place] [address] Dr. Perri Felipe MICRO INDNOT INDICATEDNormalThe [facility]ike [facility] HospitalComment on above:Performed By: #### PREGU, ERUR #### [facility] [address] [place] [address] Dr. Perri BurdickUrobilinogen Qn (U)0.2 {Brody'U}/dLNormal0.2 - 1.0The [facility] HospitalComment on above:Performed By: #### PREGU, ERUR #### [facility] [address] [place] [address] Dr. Perri BurdickLIPASEon 44-13-8498Iqbgou [Catalytic activity/Vol]134.0 U/LNormal 73.0-393.0The [facility] HospitalComment on above:Performed By: #### SALMA, LIPA, CMP #### [facility] [address] [place] [address] Dr. Perri BurdickPREGNANCY URon 11-49-9004FDUBBNZGH, QUALNegativeNormalNEGATIVEThe [facility] HospitalComment on above:Performed By: #### PREGU, ERUR #### [facility] [address] [place] [address] Dr. Perri BurdickPROF 14(COMP METB)on 89-70-3798Nyrssss [Mass/Vol]3.8 g/dLNormal 3.4-5.0The [facility] HospitalComment on above:Performed By: #### SALMA, LIPA, CMP #### [facility] [address] [place] [address] Dr. Perri BurdickAlbumin/Globulin [Mass ratio]1.2 {ratio}NormalThe [facility] Community HospitalComment on above:Performed By: #### SALMA, LIPA, CMP #### [facility] [address] [place] [address] Dr. Perri BurdickALP [Catalytic activity/Vol]138 U/LCritically gasu98-979Vgz [facility] HospitalComment on above:Performed By: #### SALMA, LIPA, CMP #### [facility] [address] [place] [address] Dr. Perri Mcintosh [Catalytic activity/Vol]23 U/EDzxnkt62-37Vvv [facility] HospitalComment on above:Performed By: #### SALMA, LIPA, CMP #### [facility] [address] [place] [address] Dr. Perri Mcconnellon gap [Moles/Vol]10.3 mmol/LNormalThe [facility] Comment on above:Performed By: #### SALMA, LIPA, CMP #### [facility] [address] [place] [address] Dr. Perri BurdickAST [Catalytic activity/Vol]17 U/SSqzcag67-99Ynx [facility] HospitalComment on above:Performed By: #### SALMA, LIPA, CMP #### [facility] [address] [place] [address] Dr. Perri BurdickBilirubin [Mass/Vol]0.2 mg/dLNormal0.2-1.0[facility] Comment on above:Performed By: #### SALMA, LIPA, CMP #### [facility] [address] [place] [address] Dr. Perri BurdickCalcium [Mass/Vol]9.2 mg/dLNormal8.5-10.1[facility] Comment on above:Performed By: #### SALMA, LIPA, CMP #### [facility] [address] [place] [address] Dr. Perri BurdickChloride [Moles/Vol]105 mmol/TDrdikc11-332Asx [facility] Comment on above:Performed By: #### SALMA, LIPA, CMP #### [facility] [address] [place] [address] Dr. Perri BurdickCO2 [Moles/Vol]27.3 mmol/RLllihc04.0-32.0The [facility] Comment on above:Performed By: #### SALMA, LIPA, CMP #### [facility] [address] [place] [address] Dr. Yilan ChangCreatinine [Mass/Vol]0.82 mg/dLNormal0.55-1.02The [facility] HospitalComment on above:Performed By: #### SALMA LIPA, CMP #### [facility] [address] [place] [address] Dr. Perri SerraGFR-AF CROATIAN>60Normal>=60The [facility] HospitalComment on above:Performed By: #### SALMA LIPA, CMP #### [facility] [address] [address] [address] Perri SerraGFR-NON AF CROATIAN>60Normal>=60The [facility] HospitalComment on above:Performed By: #### SALMA LIPA, CMP #### [facility] [address] [place] [address] Dr. Perri BurdickGlobulin (S) [Mass/Vol]3.3 g/dLNormalThe [facility] HospitalComment on above:Performed By: #### SALMA LIPA, CMP #### [facility] [address] [place] [address] Dr. Perri BurdickGlucose [Mass/Vol]117 mg/dLCritically bdyr62-356Eiy [facility] HospitalComment on above:Performed By: #### SALMA LIPA, CMP #### [facility] [address] [place] [address] Dr. Perri BurdickPotassium [Moles/Vol]3.6 mmol/LNormal3.5-5.1[facility] Comment on above:Performed By: #### SALMA, LIPA, CMP #### [facility] [address] [place] [address] Dr. Perri BurdickProtein [Mass/Vol]7.1 g/dLNormal6.4-8.2The [facility] Comment on above:Performed By: #### SALMA, LIPA, CMP #### [facility] [address] [place] [address] Dr. Perri BurdickSodium [Moles/Vol]139 mmol/OGgoyia668-930Xqa [facility] Comment on above:Performed By: #### SALMA, LIPA, CMP #### [facility] [address] [address] [address] Perri BurdickUrea nitrogen [Mass/Vol]15.0 mg/dLNormal7.0-18.0[facility] HospitalComment on above:Performed By: #### KENDALL JOHNSON, CMP #### [facility] [address] [address] [address] Perri BurdickUrea nitrogen/Creatinine [Mass ratio]18.3 mg/mgNoChildren's Hospital for RehabilitationComment on above:Performed By: #### KENDALL JOHNSON, CMP #### [facility] [address] [address] [address] Perri BurdickXR ABD FLAT UP_PA Luigi 80-72-5666RZ ABD FLAT UP_PA CHEXAM: XR ABD FLAT UP_PA CH HISTORY: Nausea [...] Electronically authenticated by: AL CHURCH Date: 2022-12-20 04:52[facility] HospitalCHLAMYDIA/GONOCOCCUS CASSIDY (SWAB/URINE/PAPon 11-94-4039Qmhflkxbt trachomatis, NAANegativeNormalNegativeThe [facility] HospitalComment on above: Performed By: #### CT/NGNA #### [facility] [address] [place] [address] Dr. Perri BurdickNeisseria gonorrhoeae, NAANegativeNormalNegativeThe [facility] HospitalComment on above:Performed By: #### CT/NGNA #### [facility] [address] [place] [address] Dr. Perri BurdickVAGINITIS/VAGINOSIS DNA PROBEon 29-60-7017Eivaolb speciesNegative NormalNegativeWooster Community HospitalComment on above:Performed By: #### VAGINT #### [facility] [address] [place] [address] Dr. Perri Garsiaerella vaginalisNegativeNormalNegativeWooster Community Hospital Comment on above:Performed By: #### VAGINT #### [facility] [address] [place] [address] Dr. Perri BurdickTrichomonas vaginalisNegativeNormalNegativeWooster Community Hospital Comment on above:Performed By: #### VAGINT #### [facility] [address] [place] [address] Dr. Perri Oliver ACOG PANEL 2: 21 to 29on 10-20-2022..NormalWooster Community HospitalComment on above:Performed By: #### [id number] #### [facility] [address] [place] [address] Dr. Perri Espinoza Gdln ACOG Izrvsyb21-13TopffcKdrChildren's Hospital for RehabilitationComment on above:Performed By: #### [id number] #### [facility] [address] [place] [address] Dr. Perri BurdickDIAGNOSIS:CommentNoChildren's Hospital for RehabilitationComment on above: Result Comment: NEGATIVE FOR INTRAEPITHELIAL LESION OR MALIGNANCY.Performed By: #### [id number] #### [facility] [address] [place] [address] Dr. Perri BurdickMethodology:CommentNormCorey HospitalComment on above: Result Comment: This liquid based ThinPrep(R) pap test was screened with the use of an image guided system.Performed By: #### [id number] #### [facility] [address] [place] [address] Dr. Perri BurdickNote:CommentMercy Health Anderson HospitalComment on above:Result Comment: The Pap smear is a screening test designed to aid in the detection of premalignant and malignant conditions of the uterine cervix. It is not a diagnostic procedure and should not be used as the sole means of detecting cervical cancer. Both false-positive and false-negative reports do occur. .Performed By: #### [id number] #### [facility] [address] [place] [address] Dr. Perri BurdickPerformed by:CommentSamaritan North Health Center on above: Result Comment: Mana Stoner, Commercial Real Estate Assistant (ASCP)Performed By: #### [id number] #### [facility] [address] [place] [address] Dr. Perri BurdickReflex Criteria:CommentSamaritan North Health Center on above:Result Comment: The HPV DNA reflex criteria were not met with this specimen result therefore, no HPV testing was performed. .Performed By: #### [id number] #### [address] [address] [address] Perri BurdickSpecimen adequacy:CommentSamaritan North Health Center on above:Result Comment: Satisfactory for evaluation. Endocervical and/or squamous metaplastic cells (endocervical component) are present.Performed By: #### [id number] #### [facility] [address] [place] [address] Dr. Perri Palma Quick Testingon 85-58-3366JdiwyqZgvgbaqwSaqhu [employer] Other Vital Signs Date TimeVital SignValuePerforming MyydhcyhwKznsgjnk42-52-6575 13:42-0400 Diastolic blood txclligc90 mm[Hg]Alen Conway MD Work Phone: [phone]10-23-2025 13:42-0400 Heart rate55 /Domenica Conway MD Work Phone: [phone]10-23-2025 13:42-0400 Respiratory rate16 /Domenica Conway MD Work Phone: [phone]10-23-2025 13:42-0400 SaO2% (BldA) [Mass fraction]97 %Alen Conway MD Work Phone: [phone] [place], [place] [address]1010-23-2025 13:42-0400 Systolic blood hibuvwlc284 mm[Hg]Alen Conway MD Work Phone: [phone])270-[address] [place], [place] [address]0-23-2025 12:14-0400 Body .94 cmlAen Conway MD Work Phone: [phone])[address] [place], [place] 7825910-23-2025 12:14-0400 Body cqpguf16.07 kgAlen Conway MD Work Phone: [phone] [place], [place] 7825910-22-2025 13:02-0400 Body iwgdyd721 cmZhane Phelps MD Work Phone: [phone] [place], [place] 5083610-22-2025 13:02-0400Body mass index (BMI) [Ratio]25.94 kg/a9ZuofxcZhane Phelps MD Work Phone: [phone] [place], [place] 5083610-22-2025 13:02-0400Body wmeszz61.63 kgZhane Phelps MD Work Phone: [phone] [place], [place] 5083610-22-2025 13:02-0400Diastolic blood mm[Hg]Zhane Phelps MD Work Phone: [phone] [place], [place] 5083610-22-2025 13:02-0400Heart rate77 /min Zhane Phelps MD Work Phone: [phone] [place], [place] 508[address]10-22-2025 13:02-0400Systolic blood mm[Hg]Zhane Phelps MD Work Phone: [phone])[address] [place] [address]-31-2024 10:52-0400Body mass index (BMI) [Ratio]40.97 kg/m2Salma PANCHAL Work Phone: [phone] [address]-31-2024 10:52-0400Body isuqfg868.61 kgSalma PANCHAL Work Phone: [phone] [place] [address]-31-2024 10:52-0400Diastolic blood svtvsiek64 mm[Hg]Salma PANCHAL Work Phone: [phone]-[facility] [address]Cbjtogzeim26-08-0628 10:52-0400Systolic blood zfusgiee905 mm[Hg]Salma Charles PA Work Phone: noMI Icyiuqyazl36-38-1342 10:24-0500Body mass index (BMI) [Ratio]41.34 kg/k8Xfakt Nitin DO Work Phone: noMI Uiwekosavj11-68-0675 10:24-0500Body auwrvk435.51 kgCorey Nitin DO Work Phone: NOM[facility] Adfevbdrdx81-70-5411 10:24-0500Diastolic blood hpewjlsw25 mm[Hg]Juan Jose Nitin DO Work Phone: noMI Qndnrlmrok52-43-6670 10:24-0500Systolic blood bjgsqdum042 mm[Hg]Juan Jose Nitin DO Work Phone: noMI Yoozzqiqyv89-37-4468 10:45-0400Body ygyyeu916.48 cmPameljimbo Dubose Other [employer] Other 10-14-2021 10:45-0400Body mass index (BMI) [Ratio] 38.59 kg/e7GtxpbnAna Paula Dubose Other [employer] Other 10-14-2021 10:45-0400Body euvlsqdswlj38 [degF]Ana Paula Dubose Other [employer] Other 10-14-2021 10:45-0400Body qoqzlu10.71 kgAna Paula Dubose Other [employer] Other 10-14-2021 10:45-0400Respiratory rate18 /minAna Paula Dubose Other [employer] Other 10-14-2021 10:45-0098UpZ4% (BldA) [Mass fraction]97 % Ana Paula Dubose Other [place] [employer] Other Encounters Encounter DateEncounter TypeCare ProviderFacilityStart: 08-08-2025 End: 44-29-2795Ziyhwrytl encounterZhane Phelps MD Work Phone: noms [place] OtolaryngologyComment on above:f/u appt Start: 08-05-2025 End: 39-26-5618Cqtaul-up encounterZhane Phelps MD Work Phone: [facility] [place] OtolaryngologyComment on above:GENERAL PATHOLOGYStart: 07-31-2025 End: 81-07-7114Ijyjohtcm to same day surgery [place]Alen Bocanegra MD-Ultrasound [facility] Work Phone: Start: 07-31-2025 End: 78-44-3027twznibfvswCbocctx M Hoy MD Work Phone: [phone]-Hsjriwxdyg [facility] CampusStart: 07-30-2025 End: 35-02-7412Bocqdt flowsJosephine Phelps MD Work Phone: [facility] [place] OtolaryngologyStart: 07-30-2025 End: 86-15-7539Dxihnr flowsJosephine Phelps MD Work Phone: [facility] [place] OtolaryngologyStart: 07-30-2025 End: 27-86-4757Distml outpatient new 45 minutesZhane Phelps MD Work Phone: [facility] [place] OtolaryngologyComment on above:Thyroid nodule (Primary Dx)Start: 07-30-2025 End: 26-08-9468gizsdamshfNQIOUG H TIMMISNot AvailableStart: 08-08-2024 End: 44-64-6418Tffphx Yasmin PANCHAL Work Phone: noms BCP OBStart: 08-08-2024 End: 53-14-6618Mhjrjb Yasmin PANCHAL Work Phone: noms BCP OBStart: 08-08-2024 End: 57-92-6391Jxkmmwnpq Result EncounterSalma Araceli PANCHAL Work Phone: noms External Department UnsolicitedStart: 08-08-2024 End: 27-81-9596Wtbgviv encounter procedureSalma Araceli PANCHAL Work Phone: noms HealthcareStart: 08-08-2024 End: 52-93-3653Pwpawyyv preventive med est patient 18-39 yrsSalma Araceli PANCHAL Work Phone: noms BCP OBComment on above:Vaginal discharge; Screen for STD (sexually transmitted disease); Nausea; Dysuria; Well woman exam with routine gynecological exam; Uses controlStart: 08-08-2024 End: 21-11-0413zdddthlghvTAW RAMEYNot AvailableStart: 11-09-2023 End: 81-42-9500Orzbva outpatient visit 15 minutesCorey Nitin DO Work Phone: noms BCP OBComment on above:Vaginal lump; Pain in female genitalia on intercourse; Soreness breastStart: 12-20-2022 End: 63-44-9969wjrfhjsnfeVC DOUGLAS HOY .Facility:S9Kmtfy: 11-29-2022 End: 14-38-3190wcgoziojyaEUC RAMEYFacility:E8Qqcub: 10-17-2022 End: 94-20-6002amtzbuuwqdJME RAMEYFacility:Y6Tpffm: 05-14-2022 End: 95-24-2514uariqxdkpgOX DOUGLAS HOY .Facility:I5Qaqfo: 07-88-3362nbojakjwuv DR ALEN CONWAY .Facility:W3Xanll: 95-51-6566hrpxdwgwbfLQ DOUGLAS HOY . Facility:D1Gnewf: 07-22-2021(URG) Urgent Care VisitPamela DymondFPG [facility] [place] Procedures DateProcedureProcedure DetailPerforming ClinicianStart: 95-49-5775NCM,APTIMA HPV,AGE GDLNSalma PANCHAL Work Phone: Start: 08-08-2024 End: 56-41-3083Ercpa dip stick/tablet rgnt non-auto w/o micrscpAmy Araceli PANCHAL Work Phone: Plan of Treatment DateCare ActivityDetailAuthorStart: 08-12-2025 End: 32-98-9474Uvqvhxh encounter ypdoacnqy49/04/2025 1:30 PM EST Office Visit [facility] [address] [facility] [address] [place] [phone] Zhane Phelps MD [address] [place] [address] [place] [address] [facility] [place] OtolaryngologyStart: 07-31-2025 [facility]: 70-12-7022ZtrzcaulupPwziqmijrVan Wert County Hospitaltart: 07-30-2025 End: 38-29-3847Jkigehm encounter kybfovydj53/22/2025 1:10 PM EDT Office Visit [facility] [place] [facility] [address] [facility] [address] [place] [address] Zhane Phelps MD [address] [facility] [address] [place] [address] ArrivedNOMS [place]in OtolaryngologyComment on above:ArrivedStart: 78-93-6062FCMOI-19 Vaccine ( season)COVID-19 Vaccine ( season)[facility] HealthcareStart: 85-15-1737Pwyzidebp vaccinationInfluenza Vaccine (#1)[facility] HealthcareStart: 08-08-2024 End: 97-94-9615Rzpbihw encounter gdugwswpl61/31/2024 10:30 AM EDT Office Visit [facility] [address] [place] [phone] Salma Charles PA [address] [place] [address] ArrivedNOMS BCP OBComment on above:ArrivedStart: 06-09-2024 Influenza vaccinationInfluenza Vaccine (#1)NOM HealthcareStart: 06-09-2023 Influenza vaccinationInfluenza Vaccine (#1)NOM HealthcareStart: 2020 Hepatitis B Vaccines (1 of 3 - 19+ 3-dose series)Hepatitis B Vaccines (1 of 3 - 19+ 3-dose series)NOM HealthcareStart: 90-93-1576Pgadxtlcjrwf Vaccine: Pediatrics (0 to 5 Years) and At-Risk Patients (6 to 64 Years) (1 of 2 - PCV) Pneumococcal Vaccine: Pediatrics (0 to 5 Years) and At-Risk Patients (6 to 64 Years) (1 of 2 - PCV)NOM HealthcareStart: 44-04-6236BQB Vaccines (1 - 3-dose series)HPV Vaccines (1 - 3-dose series)[facility] HealthcareStart: 23-78-6305Ayaepyk of varicella vaccinationVaricella Vaccines (1 of 2 - 13+ 2-dose series)[facility] HealthcareStart: 38-32-6021HKrK/Tdap/Td Vaccines (1 - Tdap)DTaP/Tdap/Td Vaccines (1 - Tdap)NOM HealthcareStart: 80-45-1971NDX Vaccines (1 of 1 - Standard series)MMR Vaccines (1 of 1 - Standard series)[facility]woodCHLAMYDIA TRACHOMATIS (GENITO/STI)CHLAMYDIA TRACHOMATIS (GENITO/STI) Lab Routine Vaginal lump Pain in female genitalia on intercourseOrdered: 11/09/2023[facility] Healthcare Comment on above:Ordered: 11/09/2023HLAMYDIA TRACHOMATIS (GENITO/STI)CHLAMYDIA TRACHOMATIS (GENITO/STI) Lab Routine Vaginal discharge Screen for STD (sexually transmitted disease) Ordered: 08/08/2024[facility] HealthcareComment on above:Ordered: 4Cytology Cervical or vaginal smear or scraping studyPap Smear Pathology and Cytology Routine Well woman exam with routine gynecological exam Ordered: 08/08/2024[facility] HealthcareComment on above:Ordered: 08/08/2024Neisseria gonorrhoeae DNA [Presence] in Unspecified specimen by CASSIDY with probe detection Neisseria gonorrhea DNA probe, direct Lab Routine Vaginal lump Pain in female genitalia on intercourse Ordered: 11/09/2023[facility] HealthcareComment on above: Ordered: 11/09/2023Neisseria gonorrhoeae DNA [Presence] in Unspecified specimen by CASSIDY with probe detectionNeisseria gonorrhea DNA probe, direct Lab Routine Vaginal discharge Screen for STD (sexually transmitted disease) Ordered: 08/08/2024[facility] HealthcareComment on above:Ordered: 08/08/2024atient Education Know your Meds [facility] Needle Biopsy, [facility] Work Phone: SURESWAB(R) ADVANCED VAGINITIS PLUS, TMASURESWAB(R) ADVANCED VAGINITIS PLUS, TMA Pathology and Cytology Routine Vaginal lump Pain in femalegenitalia on intercourse Ordered: 11/09/2023[facility] Healthcare Work Phone: comment on above:Ordered: 11/09/2023SURESWAB(R) ADVANCED VAGINITIS PLUS, TMASURESWAB(R) ADVANCED VAGINITIS PLUS, TMA Pathology and Cytology Routine Vaginal discharge Screen for STD (sexually transmitted disease) Ordered: 08/08/2024[facility] Healthcare Work Phone: comment on above:Ordered: 08/08/2024 Payers DatePayer CategoryPayerPolicy [id number] Cross Blue ShieldBCBS [id number] BCBS [id number] 2023-Present [phone] [address] [place] [address] [id number] Private Health InsuranceCIA [facility] [id number] 2022-Present [address] [place] [id number] 2.16840.1.194242.3.57[id number] 2.16840.1.111050.3.57[id number] 2.16840.1.554907.3.57[id number] 2.16.840.1.041788.3.57[id number] 2.16.840.1.891610.3.57[id number] 2.16840.1.446784.3.57[id number] 2.16840.1.133824.3.579.2.307150-48-8690Qgqu-qwq96567064-46-5834Tpyjhai [id number] 2.[id number] [id number] 2.16840.1.893486.3.579.2.531 Social History DateTypeDetailFacilityStart: 11-09-2023 End: 77-03-3119Err Assigned At [facility] [employer] Other Start: 15-19-5391Dqdmffr smoking status NHISNever smoked tobaccoNOMS HealthcareStart: 2023 End: 16-43-6594Grtvrnv use and exposureSmokeless tobacco non-userNOMS Healthcare Start: 11-09-2023 End: 86-59-4665Ehvqruq intakeEx-drinker (finding)[facility] HealthcareStart: 11-09-2023 End: 57-54-4479Fgtbxkd of Social functionNOMS HealthcareStart: 13-42-9543Agn Assigned At [facility] CenterNot on fileNOMS HealthcareStart: 13-10-3934BvlJhameaEOAI HealthcareStart: 07-30-2025 End: 17-67-4645Wxuulwg smoking status NHISSmokes tobacco dailyNOMS Healthcare History of tobacco useCigarette SmokerNOMS HealthcareStart: 21-33-6928Friqdok CommentPatient vapesNOMS HealthcareSexFemale (finding)[facility] Hospitaltart: 55-74-4620Wtx Assigned At [facility] Clinical Notes 07-22-2021 to 08-08-2025 Note Date & MjenSpjrVybklojn34-48-6329 Telephone encounter Note* Telephone Encounter - Zhane Phelps MD - 08/08/2025 2:38 PM EDT Send discharge letter [facility] [id number] Miscellaneous Notes* Telephone Encounter - Zhane Phelps MD - 08/08/2025 2:38 PM EDT Send discharge letter * Telephone Encounter - Nadja Phelps - 08/08/2025 2:16 PM EDT Called pt's mom back/she said to cancel the appt. * Telephone Encounter - Zhane Phelps MD - 08/08/2025 1:45 PM EDT As explained at the time of the procedure, the purpose of the biopsy was to determine if surgery isneeded now, or if it is safe to proceed with long-term surveillance. This will take years. If pt does not want to precede as planned she will need to find someone else to manage the problem. * Telephone Encounter - Nadja Phelps - 08/08/2025 1:17 PM EDT Pt's mom called in. Radhika has an appt 08/12/25 to go over path report. Pt's PCP Dr Conway went overthe results. If that is the only reason she is coming in then pt wants to cancel the appt. She has a $60.00 copay each time she comes in. Unless there is something further you need to explain to her then she will come in. Mom's call back number [phone]. documented in this encounterSaint [facility] [id number] Telephone encounter Note* Telephone Encounter - Nadja Phelps - 08/08/2025 2:16 PM EDT Called pt's mom back/she said to cancel the appt. [facility] [id number] Telephone encounter Note* Telephone Encounter - Zhane Phelps MD - 08/08/2025 1:45 PM EDT As explained at the time of the procedure, the purpose of the biopsy was to determine if surgery isneeded now, or if it is safe to proceed with long-term surveillance. This will take years. If pt does not want to precede as planned she will need to find someone else to manage the problem. [facility] [id number] Telephone encounter Note* Telephone Encounter - Nadja Phelps - 08/08/2025 1:17 PM EDT Pt's mom called in. Radhika has an appt 08/12/25 to go over path report. Pt's PCP Dr Conway went overthe results. If that is the only reason she is coming in then pt wants to cancel the appt. She has a $60.00 copay each time she comes in. Unless there is something further you need to explain to her then she will come in. Mom's call back number [phone]. [facility] KirkwoodEjsmfbcgtc49-25-2090 Telephone encounter Note* Telephone Encounter - Yeimi Winchester - 08/05/2025 8:37 AM EDT 08/05 cld pt and let her know that I needed to set appt up for fu path report- appt scheduled 08/12 @1:30 w/you. I also let pt know path report benign [facility] [id number] Miscellaneous Notes* Telephone Encounter - Yeimi Winchester - 08/05/2025 8:37 AM EDT 08/05 cld pt and let her know that I needed to set appt up for fu path report- appt scheduled 08/12 @1:30 w/you. I also let pt know path report benign * Telephone Encounter - Zhane hPelps MD - 08/05/2025 8:06 AM EDT Pt needs appt to F/U path report. OK to tell her is is benign * Telephone Encounter - Zhane Phelps MD - 08/05/2025 8:06 AM EDT ----- Message from Yeimi P sent at 08/05/2025 7:19 AM EDT ----- A new document has been added to this order with description 07/31/25 Path report FNA formerly [facility] Dr Phelps. documented in this encounterSaint Joseph Hospital of [id number] Telephone encounter Note* Telephone Encounter - Zhane Phelps MD - 08/05/2025 8:06 AM EDT Pt needs appt to F/U path report. OK to tell her is is benign [facility] [id number] Telephone encounter Note* Telephone Encounter - Zhane Phelps MD - 08/05/2025 8:06 AM EDT ----- Message from Yeimi P sent at 08/05/2025 7:19 AM EDT ----- A new document has been added to this order with description 07/31/[address] [facility] [address] Phelps. [facility] [id number] History of Present illness Narrative* Zhane Phelps MD - 07/30/2025 1:10 PM EDT Subjective Patient ID: Radhika White is a 25 y.o. female who presents for Thyroid Nodule Pt seen in the ED last week and incidentally noted to have a thyroid nodule. US obtained that showsa [id number] LT TR3 nodule. TFTs normal. No h/o radiation exposure. No fam h/o thyroid CA. Pt scheduled for [place] [facility] Review of Systems All other systems reviewed and are negative. Family History[1] Active Ambulatory Problems Diagnosis Date Noted Acute posttraumatic stress disorder 07/28/2025 Adjustment disorder with depressed mood 07/28/2025 Generalized anxiety disorder 07/28/2025 Class 2 obesity 07/28/2025 Metrorrhagia 07/28/2025 Migraine 07/28/2025 Vaginal cyst 07/28/2025 Resolved Ambulatory Problems Diagnosis Date Noted No Resolved Ambulatory Problems Past Medical History: Diagnosis Date control counseling BMI 39.0-39.9,adult Breakthrough bleeding on control pills Migraine syndrome Surgical History[2] Allergies[3] Medications Ordered Prior to Encounter[4] Objective Last Recorded Vitals Vitals: 07/30/25 1302 BP: 108/68 Pulse: 77 ENT Physical Exam Constitutional Appearance: patient appears well-developed, well-nourished and well-groomed, Head and Face Appearance: head appears normal and face appears atraumatic; Ear Ear Canals: right ear canal normal; left ear canal normal; Tympanic Membranes: right tympanic membrane normal; left tympanic membrane normal; Nose External Nose: nares patent bilaterally; external nose normal; Internal Nose: septum normal; Oral Cavity/Oropharynx Tongue: normal; Oral mucosa: normal; Hard palate: normal; Soft palate: normal; Tonsils: normal; Neck Neck: neck normal; neck palpation normal; Thyroid: thyroid normal; Respiratory Inspection: breathing unlabored; normal breathing rate; Auscultation: breath sounds are clear; Cardiovascular Inspection: extremities are warm and well perfused; no peripheral edema present; Auscultation: regular rate and rhythm; Assessment/Plan Diagnoses and all orders for this visit: Thyroid nodule Pt has a dominant left thyroid nodule. She is scheduled for an FNA tomorrow. After reviewing the results of the FNA we will assess whether the nodule can be followed with periodic US, or if it shouldbe removed. As I did not order the FNA, the results will need to be sent to our office once received [1] Family History Problem Relation Name Age of Onset Thyroid disease Mother Diabetes Father Mental illness Other GI problems Other [2] History reviewed. No pertinent surgical history. [3] No Known Allergies [4] Current Outpatient Medications on File Prior to Visit Medication Sig Dispense Refill albuterol HFA 90 mcg/act inhaler clobetasol (Temovate) 0.05 % cream Apply 1 application topically in the morning and 1 application before bedtime. 15 g 0 desvenlafaxine (Pristiq) 50 MG 24 hr tablet Take 50 mg by mouth Daily diclofenac (Voltaren) 75 MG EC tablet every 12 (twelve) hours magnesium oxide (Mag-Ox) 400 MG tablet Take 1 tablet by mouth at bedtime pantoprazole (ProtoNix) 40 MG EC tablet Take 40 mg by mouth Daily tiZANidine (Zanaflex) 4 MG tablet 2 tablets Orally at bedtime for 15 [DISCONTINUED] QUEtiapine (SEROquel) 50 MG tablet [DISCONTINUED] sertraline (Zoloft) 25 MG tablet TAKE ONE TABLET BY MOUTH EVERY DAY NEEDED depression AND FOR ANXIETY [DISCONTINUED] Topiramate ER (Trokendi XR) 50 MG capsule sustained-release 24 hr 1 capsule 1 (one) time each day at the same time [DISCONTINUED] desogestrel-ethinyl estradiol (Apri) 0.15-30 MG-MCG tablet Take 1 tablet by mouth Daily Take 1 tablet by mouth daily 28 tablet 11 No current facility-administered medications on file prior to visit. documented in this encounterSaint Joseph Hospital of [id number] History of Present illness Narrative* ABDULKADIR Burrell - 08/08/2024 10:30 AM EDT Reason for Appointment: Patient ID: Radhika White [...] nursing note reviewed. Exam conducted with a c application developer present. Vitals: Estimated body mass index is [...] to have an STD check. Cultures were obtainedwithout difficulty. She has also been very nauseous [...] behalf of: ABDULKADIR Burrell documented in this encounterSaint Joseph Hospital of [id number] History of Present illness Narrative* Brianna Medina LPN - 11/09/2023 10:10 AM EST Reason for Appointment: Patient ID: Radhika White is a 23 y.o. female who presents for vaginal lump, painful sex, sore breasts Patient presents today for vaginal bump and breast sore appointment. Current Medications: has a current medication list which includes the following prescription(s): diclofenac, tizanidine,albuterol hfa, clobetasol, desvenlafaxine, quetiapine, and topiramate er. [...] nursing note reviewed. Exam conducted with a c application developer present. Vitals: Estimated body mass index is [...] call office if she has any further c oncerns/questions. Documented by Brianna Medina LPN on behalf of: Juan Jose Taveras DO documented in this encounterSaint Joseph Hospital of [id number] Evaluation note* Encounter Date Diagnosis Assessment Notes Treatment Notes Treatment Clinical Notes Jul, Contact with and (pittman spected) exposure to other viral communicable diseases (ICD-10 - Z20.828) Jul,Viral upper respiratory illness (ICD-10 - J06.9) Drink plenty fluids, get plenty of rest. Consider taking Mucinex for your nasal congestion. Take Tylenol or Motrin as needed for aches pains or fevers. Follow- up with your family physician if no improvement in 2 to 3 days Jul,Other Additional time spent conducting pre-visit phone call, screening for symptoms, instructions on social distancing, application and removal of PPE, and cleaning of examination room, equipment and supplies was preformed. Patient education given for testing methodology and results. Patient care instructions given in writting by [facility] document. viseto Other Evaluation note* Diagnosis Vaginal lump Pain in female genitalia on intercourse Dyspareunia Soreness breast Mastodynia documented in this encounter [facility] Healthcare[facility]* Diagnosis Vaginal discharge Leukorrhea, not specified as infective Screen for STD (sexually transmitted disease) Screening examination for venereal disease Nausea Nausea alone Dysuria Well woman exam with routine gynecological exam Routine gynecological examination Uses control documented in this encounter [facility] Healthcare[facility] note* Diagnosis Thyroid nodule- Primary Nontoxic uninodular goiter documented in this encounter [facility] HealthcareEvaluation noteNo assessment information availablePremier Health Milk Work Phone: History general Narrative - Reported* Type Description Date Medical History Strain of lumbar region, initial encounter viseto Other Reason for referral (narrative)No reason for referral information availablePremier Health Milk Work Phone: Summary Purpose Family History Relationship Condition Age at Onset Recorded Date/T keyla father Diabetes mellitus Unknown Advance Directives Advance Directive Response Recorded Date/ Time Advance Directives No July 29, 2025 1:02pm Chief Complaint and Reason for Visit Chief Complaint Admit Date E04.1 July 31, 2025 1 1:50am Additional Source Comments REASON FOR VISIT (unrecogniz ed section and content) ReasonCommentsvaginal lump, painful sex, sore breastsReasonCommentsWell Women VisitSTI ScreeningReasonCommentsThyroid NoduleReasonOnset DateCommentsf/u appt 08/08/2025 INFORMATION SOURCE (unrecogn ized section and content) DATE CREATED AUTHOR 12/23/2022 [facility] DATE CREATED AUTHOR AUTHOR'S ORGANIZ ATION 08/01/2025 [facility] DATE CREATED AUTHOR AUTHOR'S ORGANIZ ATION 08/05/2025 [facility] Care Teams (unrecognized sec tion and content) Team MemberRelationshipSpecialtyStart DateEnd Date Yinka Barrett DO [address] [facility] [address] [place] [address] PCP - GeneralFamily Medicine03/16/23Team MemberRelationshipSpecialtyStart DateEnd Date Unallocated, Noms MD Pauly [address] [place] [id number] PCP - GeneralFamily Medicine04/09/24Team MemberRelationshipSpecialtyStart DateEnd Date Unallocated, Sherry Coats MD [address] [place] [id number] PCP - GeneralFamily Medicine04/09/24Team MemberRelationshipSpecialtyStart DateEnd Date Unallocated, Noms MD Pauly [address] [place] [phone] PCP - GeneralFamily Medicine04/09/24Team MemberRelationshipSpecialtyStart DateEnd Date Alen Conway MD [address] [facility] [place] [address] PCP - GeneralFamily Pidwtrym49/22/25Team MemberRelationshipSpecialtyStart Date End Date Alen Conway MD [address] [place] [address] PCP - [facility]07/30/25 Team Status: Active Member Role/Relationship Status Dates Alen Conway MD Primary Care Provider Active Team Status: Inactive Member Role/Relationship Status Dates Alen Conway MD Primary Care Provider Active Start: July 31, 2025 End: July 31, 2025Dopratima Conway MDAttending ProviderActiveStart: July 31, 2025 End: July 31, 2025Team MemberRelationshipSpecialtyStart DateEnd Date Alen Conway MD [address] [place] [address] PCP - [facility]07/30/25Team MemberRelationshipSpecialtyStart Date End Date Alen Conway MD [address] [place] [address] PCP - [facility]07/30/25 Goals (unrecognized section and content) Goals may be documented in a n alternate section FOR RECORDS PERTAINING TO PATIENTS WHO ARE [...] BE BASED ON THE PRIMARY CLINICAL RECORDS. [facility] [employer] provides no warranty or guarantee of the accuracy or completeness of information in this document.
== END 2025-09-17 14:11 | disposition home or self-care (01) ==
LOC: US 14:10
PROVIDERS: PCP Family Medicine; Visit Provider Family Medicine
DX: E04.1 Nontoxic single thyroid nodule (principal)
CPT/HCPCS: 76536

== ENCOUNTER 2025-09-18 11:16 | Outpatient (OUT) | payer BC, SELFPAY ==
--- OUTSIDE RECORDS SUMMARY | 2025-09-18 11:33 | XMS_ITS | CCD ---
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 BurdickGlobulin (S) [Mass/Vol]3.3 g/dLNormalThe OhiohealthComment on above:Performed By: #### SALMA LIPA, CMP #### [facility] [address] [place] [address] Dr. Perri BurdickGlucose [Mass/Vol]117 mg/dLCritically zggp60-514Iun OhiohealthComment on above:Performed By: #### SALMA LIPA, CMP #### [facility] [address] [place] [address] Dr. Perri BurdickPotassium [Moles/Vol]3.6 mmol/LNormal3.5-5.1[facility] Comment on above:Performed By: #### SALMA, LIPA, CMP #### [facility] [address] [place] [address] Dr. Perri BurdickProtein [Mass/Vol]7.1 g/dLNormal6.4-8.2[facility] Comment on above:Performed By: #### SALMA, LIPA, CMP #### [facility] [address] [place] [address] Dr. Perri BurdickSodium [Moles/Vol]139 mmol/OOuncgi996-652Sxh [facility] Comment on above:Performed By: #### SALMA, LIPA, CMP #### [facility] [address] [address] [address] Perri BurdickUrea nitrogen [Mass/Vol]15.0 mg/dLNormal7.0-18.0[facility] HospitalComment on above:Performed By: #### KENDALL JOHNSON, CMP #### [facility] [address] [address] [address] Perri BurdickUrea nitrogen/Creatinine [Mass ratio]18.3 mg/mgNoWayne HospitalComment on above:Performed By: #### KENDALL JOHNSON, CMP #### [facility] [address] [address] [address] Perri BurdickXR ABD FLAT UP_PA Luigi 91-00-5569DO ABD FLAT UP_PA CHEXAM: XR ABD FLAT [...] Electronically authenticated by: AL CHURCH Date: 2022-12-20 04:52[facility] HospitalCHLAMYDIA/GONOCOCCUS CASSIDY (SWAB/URINE/PAPon 43-37-3630Lzidutloi trachomatis, NAANegativeNormalNegativeThe OhiohealthComment on above: Performed By: #### CT/NGNA #### [facility] [address] [place] [address] Dr. Perri BurdickNeisseria gonorrhoeae, NAANegativeNormalNegativeThe OhiohealthComment on above:Performed By: #### CT/NGNA #### [facility] [address] [place] [address] Dr. Perri BurdickVAGINITIS/VAGINOSIS DNA PROBEon 13-71-7938Youaxrc speciesNegative NormalNegativeCleveland Clinic Lutheran HospitalComment on above:Performed By: #### VAGINT #### [facility] [address] [place] [address] Dr. Perri Garsiaerella vaginalisNegativeNormalNegativeC[facility] Comment on above:Performed By: #### VAGINT #### [facility] [address] [place] [address] Dr. Perri BurdickTrichomonas vaginalisNegativeNormalNegativeC[facility] Comment on above:Performed By: #### VAGINT #### [facility] [address] [place] [address] Dr. Perri Oliver ACOG PANEL 2: 21 to 29on 10-20-2022..NormalCleveland Clinic Lutheran HospitalComment on above:Performed By: #### [id number] #### [facility] [address] [place] [address] Dr. Perri Espinoza Gdln ACOG Nlrawgh99-32LlomkrUyaWayne HospitalComment on above:Performed By: #### [id number] #### [facility] [address] [place] [address] Dr. Perri BurdickDIAGNOSIS:CommentNoWayne HospitalComment on above: Result Comment: NEGATIVE FOR INTRAEPITHELIAL LESION OR MALIGNANCY.Performed By: #### [id number] #### [facility] [address] [place] [address] Dr. Perri BurdickMethodology:CommentNormAccess Hospital DaytonComment on above: Result Comment: This liquid based ThinPrep(R) pap test was screened with the use of an image guided system.Performed By: #### [id number] #### [facility] [address] [place] [address] Dr. Perri BurdickNote:CommentTriHealth Bethesda Butler HospitalComment on above:Result Comment: The Pap smear is a screening test designed to aid in the detection of premalignant and malignant conditions of the uterine cervix. It is not a diagnostic procedure and should not be used as the sole means of detecting cervical cancer. Both false-positive and false-negative reports do occur. .Performed By: #### [id number] #### [facility] [address] [place] [address] Dr. Perri BurdickPerformed by:CommentGlenbeigh Hospital on above: Result Comment: Mana Stoner, Hospital Personnel Director (ASCP)Performed By: #### [id number] #### [facility] [address] [place] [address] Dr. Perri BurdickReflex Criteria:CommentGlenbeigh Hospital on above:Result Comment: The HPV DNA reflex criteria were not met with this specimen result therefore, no HPV testing was performed. .Performed By: #### [id number] #### [address] [address] [address] Perri BurdickSpecimen adequacy:CommentGlenbeigh Hospital on above:Result Comment: Satisfactory for evaluation. Endocervical and/or squamous metaplastic cells (endocervical component) are present.Performed By: #### [id number] #### [facility] [address] [place] [address] Dr. Perri Palma Quick Testingon 66-79-2078HvvyevJnogikowUsptm [employer] Other Vital Signs Date TimeVital SignValuePerforming ItxjtbtguIiponhig29-90-3179 13:42-0400 Diastolic blood nwnekvab54 mm[Hg]Alen Conway MD Work Phone: [phone]10-23-2025 13:42-0400 Heart rate55 /Domenica Conway MD Work Phone: [phone]10-23-2025 13:42-0400 Respiratory rate16 /Domenica Conway MD Work Phone: [phone]10-23-2025 13:42-0400 SaO2% (BldA) [Mass fraction]97 %Alen Conway MD Work Phone: [phone] [place], [place] 6652110-23-2025 13:42-0400 Systolic blood xtglnpzo050 mm[Hg]Alen Conway MD Work Phone: [phone])396-[address] [place], [place] 6652110-23-2025 12:14-0400 Body rnhzgi076.94 cmAlen Conway MD Work Phone: [phone] [place], [place] 8324410-23-2025 12:14-0400 Body cvwnun17.07 kgAlen Conway MD Work Phone: [phone] [place], [place] 8324410-22-2025 13:02-0400 Body vfucgg938 cmZhane Phelps MD Work Phone: [phone] [place], [place] 5509010-22-2025 13:02-0400Body mass index (BMI) [Ratio]25.94 kg/f1UbjlzdZhane Phelps MD Work Phone: [phone])[address] [place], [place] 5509010-22-2025 13:02-0400Body xalgfe25.63 kgZhane Phelps MD Work Phone: [phone])[address] [place], [place] 5509010-22-2025 13:02-0400Diastolic blood plgwqyqf58 mm[Hg]Zhane Phelps MD Work Phone: [phone])[address] [place], [place] 5509010-22-2025 13:02-0400Heart rate77 /min Zhane Phelps MD Work Phone: [phone])[address] [place], [place] 5509010-22-2025 13:02-0400Systolic blood tpoikfcm108 mm[Hg]Zhane Phelps MD Work Phone: [phone] [place] [address]-31-2024 10:52-0400Body mass index (BMI) [Ratio]40.97 kg/m2Salma PANCHAL Work Phone: [phone] [address]-31-2024 10:52-0400Body zvsgwu074.61 kgSalma PANCHAL Work Phone: [phone])[facility] [place] [address]-31-2024 10:52-0400Diastolic blood shygfgdl40 mm[Hg]Salma PANCHAL Work Phone: [phone]-[facility] [address]Ddxadgxbgl59-23-6294 10:52-0400Systolic blood uimrlcxj247 mm[Hg]Salma Charles PA Work Phone: noMT Gbjvajoxoz24-99-7539 10:24-0500Body mass index (BMI) [Ratio]41.34 kg/y4Kfpme Nitin DO Work Phone: noMT Babgpbpshv77-46-2715 10:24-0500Body dzunvh129.51 kgCorey Nitin DO Work Phone: NOMT Xfeeyfwykx82-15-2186 10:24-0500Diastolic blood ifqwjztn73 mm[Hg]Juan Jose Nitin DO Work Phone: noMT Fyfitnomgx52-57-8953 10:24-0500Systolic blood fpfzoyvh055 mm[Hg]Juan Jose Nitin DO Work Phone: noMT Qtygwcnmil00-14-5497 10:45-0400Body ejbuxx240.48 cmPameljimbo Dubose Other [employer] Other 10-14-2021 10:45-0400Body mass index (BMI) [Ratio] 38.59 kg/h0CipknvAna Paula Dubose Other [employer] Other 10-14-2021 10:45-0400Body jijjyxrpmev32 [degF]Ana Paula Dubose Other [employer] Other 10-14-2021 10:45-0400Body zzzecl41.71 kgAna Paula Dubose Other [employer] Other 10-14-2021 10:45-0400Respiratory rate18 /minAna Paula Dubose Other [employer] Other 10-14-2021 10:45-9132DxQ8% (BldA) [Mass fraction]97 % Ana Paula Dubose Other [place] [employer] Other Encounters Encounter DateEncounter TypeCare ProviderFacilityStart: 08-08-2025 End: 45-22-6501Smebvhmfd encounterZhane Phelps MD Work Phone: noms [place] OtolaryngologyComment on above:f/u appt Start: 08-05-2025 End: 27-71-9855Ckdken-up encounterZhane Phelps MD Work Phone: noms [place] OtolaryngologyComment on above:GENERAL PATHOLOGYStart: 07-31-2025 End: 44-15-0701Bctxrnzdq to same day surgery greenwichAlen Bocanegra MD-Ultrasound [facility] Work Phone: Start: 07-31-2025 End: 62-79-0068ektyyotyqnFdtwpfe M Hoy MD Work Phone: [phone]-Wdbpnuqmpr [facility] CampusStart: 07-30-2025 End: 42-15-7474Dgfunf flowsJosephine Phelps MD Work Phone: n[facility] [place] [facility]olaryngologyStart: 07-30-2025 End: 69-88-6226Rlqooo flowsJosephine Phelps MD Work Phone: noms [place] OtolaryngologyStart: 07-30-2025 End: 48-33-2211Wonoxf outpatient new 45 minutesZhane Phelps MD Work Phone: noms [place] OtolaryngologyComment on above:Thyroid nodule (Primary Dx)Start: 07-30-2025 End: 60-25-3101ctvjeastmwCXMTCM H TIMMISNot AvailableStart: 08-08-2024 End: 54-86-0320Afqwjv Yasmin PANCHAL Work Phone: noms BCP OBStart: 08-08-2024 End: 46-22-8853Zmvcgn Yasmin PANCHAL Work Phone: noms BCP OBStart: 08-08-2024 End: 37-59-2968Dgauaxpcf Result EncounterSalma Araceli PANCHAL Work Phone: noms External Department UnsolicitedStart: 08-08-2024 End: 39-45-9201Uifcvbq encounter procedureSalma Araceli PANCHAL Work Phone: noms HealthcareStart: 08-08-2024 End: 05-39-5244Mnyvwpsi preventive med est patient 18-39 yrsSalma Araceli PANCHAL Work Phone: noms BCP OBComment on above:Vaginal discharge; Screen for STD (sexually transmitted disease); Nausea; Dysuria; Well woman exam with routine gynecological exam; Uses controlStart: 08-08-2024 End: 08-83-2860zgnbnwdnnhNHX RAMEYNot AvailableStart: 11-09-2023 End: 72-54-5740Fykxcs outpatient visit 15 minutesCorey Nitin DO Work Phone: noms BCP OBComment on above:Vaginal lump; Pain in female genitalia on intercourse; Soreness breastStart: 12-20-2022 End: 67-72-1596kekazpkrmyHY DOUGLAS HOY .Facility:U6Zbrlm: 11-29-2022 End: 27-07-3677omiiyadtgqVXP RAMEYFacility:M9Nneqe: 10-17-2022 End: 57-04-6938jndavzvfcvOQF RAMEYFacility:U4Njrvh: 05-14-2022 End: 40-44-6536cudrebbslqZA DOUGLAS HOY .Facility:S8Cxxue: 04-62-2136txagjnkdwf DR ALEN CONWAY .Facility:Q8Wbzgp: 72-37-0154acidkprgshNZ DOUGLAS HOY . Facility:N7Tdybp: 07-22-2021(URG) Urgent Care VisitPamela DymondFPG [facility] [place] Procedures DateProcedureProcedure DetailPerforming ClinicianStart: 43-38-8569EDS,APTIMA HPV,AGE GDLNSalma PANCHAL Work Phone: Start: 08-08-2024 End: 80-53-6153Qaszf dip stick/tablet rgnt non-auto w/o micrscpAmy Araceli PANCHAL Work Phone: Plan of Treatment DateCare ActivityDetailAuthorStart: 08-12-2025 End: 04-63-8258Dtovhhj encounter mckgqspaf91/04/2025 1:30 PM EST Office Visit [facility] [address] [facility] [address] [place] [phone] Zhane Phelps MD [address] [place] [address] [place] [address] [facility] [place] OtolaryngologyStart: 07-31-2025 [facility] Centertart: 65-89-9451YrmjhhmixjCxnetmwdlOhioHealth Southeastern Medical Centertart: 07-30-2025 End: 60-79-1298Aptjatp encounter /22/2025 1:10 PM EDT Office Visit [facility] [facility] [address] [facility] [address] [place] [address] Zhane Phelps MD [address] [facility] [address] [place] [address] ArrivedNOMS [place] OtolaryngologyComment on above:ArrivedStart: 41-81-4643OGFRP-19 Vaccine ( season)COVID-19 Vaccine ( season)[facility]OMS HealthcareStart: 02-86-8766Vegvqaazu vaccinationInfluenza Vaccine (#1)[facility]OMS HealthcareStart: 08-08-2024 End: 44-14-3711Ycfpqqg encounter jfygxgoaz32/31/2024 10:30 AM EDT Office Visit [facility] [address] [place] [phone] Salma Charles PA [address] [place] [address] ArrivedNOMS BCP OBComment on above:ArrivedStart: 06-09-2024 Influenza vaccinationInfluenza Vaccine (#1)NOM HealthcareStart: 06-09-2023 Influenza vaccinationInfluenza Vaccine (#1)NOM HealthcareStart: 2020 Hepatitis B Vaccines (1 of 3 - 19+ 3-dose series)Hepatitis B Vaccines (1 of 3 - 19+ 3-dose series)NOM HealthcareStart: 07-69-3844Skbzivcjzmfg Vaccine: Pediatrics (0 to 5 Years) and At-Risk Patients (6 to 64 Years) (1 of 2 - PCV) Pneumococcal Vaccine: Pediatrics (0 to 5 Years) and At-Risk Patients (6 to 64 Years) (1 of 2 - PCV)NOM HealthcareStart: 77-43-2021FME Vaccines (1 - 3-dose series)HPV Vaccines (1 - 3-dose series)[facility] HealthcareStart: 12-00-2907Autmvjb of varicella vaccinationVaricella Vaccines (1 of 2 - 13+ 2-dose series)[facility] HealthcareStart: 31-99-7999QRzQ/Tdap/Td Vaccines (1 - Tdap)DTaP/Tdap/Td Vaccines (1 - Tdap)NOM HealthcareStart: 78-42-6877MUS Vaccines (1 of 1 - Standard series)MMR Vaccines (1 of 1 - Standard series)[facility]landCHLAMYDIA TRACHOMATIS (GENITO/STI)CHLAMYDIA TRACHOMATIS (GENITO/STI) Lab Routine Vaginal lump Pain in female genitalia on intercourseOrdered: 11/09/2023[facility] Healthcare Comment on above:Ordered: 11/09/2023HLAMYDIA TRACHOMATIS (GENITO/STI)CHLAMYDIA TRACHOMATIS (GENITO/STI) Lab Routine Vaginal discharge Screen for STD (sexually transmitted disease) Ordered: 08/08/2024[facility] HealthcareComment on above:Ordered: 4Cytology Cervical or vaginal smear or scraping studyPap Smear Pathology and Cytology Routine Well woman exam with routine gynecological exam Ordered: 08/08/2024[facility] HealthcareComment on above:Ordered: 08/08/2024Neisseria gonorrhoeae DNA [Presence] in Unspecified specimen by CASSIDY with probe detection Neisseria gonorrhea DNA probe, direct Lab Routine Vaginal lump Pain in female genitalia on intercourse Ordered: 11/09/2023[facility] HealthcareComment on above: Ordered: 11/09/2023Neisseria gonorrhoeae DNA [Presence] in Unspecified specimen by CASSIDY with probe detectionNeisseria gonorrhea DNA probe, direct Lab Routine Vaginal discharge Screen for STD (sexually transmitted disease) Ordered: 08/08/2024[facility] HealthcareComment on above:Ordered: 08/08/2024atient Education Know your Meds [facility] Needle Biopsy, [facility] Work Phone: SURESWAB(R) ADVANCED VAGINITIS PLUS, TMASURESWAB(R) ADVANCED VAGINITIS PLUS, TMA Pathology and Cytology Routine Vaginal lump Pain in femalegenitalia on intercourse Ordered: 11/09/2023[facility] Healthcare Work Phone: comment on above:Ordered: 11/09/2023SURESWAB(R) ADVANCED VAGINITIS PLUS, TMASURESWAB(R) ADVANCED VAGINITIS PLUS, TMA Pathology and Cytology Routine Vaginal discharge Screen for STD (sexually transmitted disease) Ordered: 08/08/2024[facility] Healthcare Work Phone: comment on above:Ordered: 08/08/2024 Payers DatePayer CategoryPayerPolicy [id number] Cross Blue ShieldBCBS [id number] BCBS [id number] 2023-Present [phone] [address] [place] [address] [id number] Private Health InsuranceCIA [facility] [id number] 2022-Present [address] [place] [id number] [id number] 2.16.840.1.643305.3.579.2.4[id number] 2.16840.1.255468.3.579.2.91278-66-6809Vrbbgfj5349316 2.16840.1.098060.3.579.2.38503-62-4949Spshmha4976160 2.16840.1.772261.3.579.2.35850-95-3680Zxgicxg2049494 2.16.840.1.085748.3.579.2.32287-56-2101Pietbik9567577 2.16.840.1.507816.3.579.2.48608-92-8468Ehwpzxx41658949 2.16840.1.555259.3.579.2.931524-78-8825Dqzvlsk8872219 2.16840.1.929371.3.579.2.015038-40-1794Cckz-obv41877744-96-2033Lpfvrfw [id number] 2.1684[id number] [id number] 2.16840.1.011901.3.579.2.531 Social History DateTypeDetailFacilityStart: 11-09-2023 End: 04-57-6498Fhn Assigned At [facility] [employer] Other Start: 33-11-9073Kidvkmt smoking status NHISNever smoked tobaccoNOMS HealthcareStart: 2023 End: 01-99-2357Ymweuuv use and exposureSmokeless tobacco non-userNOMS Healthcare Start: 11-09-2023 End: 41-73-4016Gcfvacq intakeEx-drinker (finding)[facility]OMS HealthcareStart: 11-09-2023 End: 31-79-4176Ciqmxxw of Social functionNOMS HealthcareStart: 73-06-7152Qna Assigned At [facility] HospitalNot on fileNOMS HealthcareStart: 66-44-8022PlnXypxtkTNHD HealthcareStart: 07-30-2025 End: 67-70-0437Zjqjrta smoking status NHISSmokes tobacco dailyNOMS Healthcare History of tobacco useCigarette SmokerNOMS HealthcareStart: 22-14-5493Qefrppx CommentPatient vapesNOMS HealthcareSexFemale (finding)[facility] Centertart: 80-92-7790Tza Assigned At [facility] Clinical Notes 07-22-2021 to 08-08-2025 Note Date & PtjhKaxcToaglwuo92-37-0027 Telephone encounter Note* Telephone Encounter - Zhane Phelps MD - 08/08/2025 2:38 PM EDT Send discharge letter [facility] Gysyuxrevk95-04-2080 Miscellaneous Notes* Telephone Encounter - Zhane Phelps [...] will come in. Mom's call back number [phone]. documented in this encounterChildren's Mercy NorthlandRlemmcskei41-12-3521 Telephone encounter Note* Telephone Encounter - Nadja Phelps - 08/08/2025 2:16 PM EDT Called pt's mom back/she said to cancel the appt. [facility] NorthlandXcaxqdhwpm30-01-8368 Telephone encounter Note* Telephone Encounter - Zhane [...] find someone else to manage the problem. [facility] NorthlandGtkszrrmuc31-32-3958 Telephone encounter Note* Telephone Encounter - Nadja [...] will come in. Mom's call back number [phone]. [facility] NorthlandDbkmyojjnn24-86-1366 Telephone encounter Note* Telephone Encounter - Yeimi Winchester - 08/05/2025 8:37 AM EDT 08/05 cld pt and let her know that I needed to set appt up for fu path report- appt scheduled 08/12 @1:30 w/you. I also let pt know path report benign [facility] NorthlandJqffjxwram14-95-3516 Miscellaneous Notes* Telephone Encounter - Yeimi Winchester - 08/05/2025 8:37 AM EDT 08/05 cld pt and let her know that I needed to set appt up for fu path report- appt scheduled 08/12 @1:30 w/you. I also let pt know path report benign * Telephone Encounter - Zhane Phelps [...] order with description 07/31/25 Path report FNA [facility] Dr Phelps. documented in this encounterChildren's Mercy NorthlandLpjocpifpj27-86-5959 Telephone encounter Note* Telephone Encounter - Zhane Phelps MD - 08/05/2025 8:06 AM EDT Pt needs appt to F/U path report. OK to tell her is is benign [facility] NorthlandQmduafzstg23-61-8037 Telephone encounter Note* Telephone Encounter - Zhane Phelps MD - 08/05/2025 8:06 AM EDT ----- Message from Yeimi P sent at 08/05/2025 7:19 AM EDT ----- A new document has been added to this order with description 07/31/25 Path report [facility] Dr Phelps. [facility] NorthlandFsdkqpzkyd07-19-4080 History of Present illness Narrative* Zhane Phelps MD - 07/30/2025 1:10 PM EDT Subjective Patient ID: Radhika White is a 25 y.o. female who presents for Thyroid Nodule Pt seen in the ED last week and incidentally noted to have a thyroid nodule. US obtained that showsa 82r68s84tk LT TR3 nodule. TFTs normal. No h/o radiation exposure. No fam h/o thyroid CA. Pt scheduled for an [place]-guided [facility]. Review of Systems All other systems reviewed [...] file prior to visit. documented in this encounterChildren's Mercy NorthlandCmgftggkjl03-14-4513 History of Present illness Narrative* ABDULKADIR Burrell [...] nursing note reviewed. Exam conducted with a waiter/waitress room service present. Vitals: Estimated body mass index is [...] behalf of: ABDULKADIR Burrell documented in this encounterChildren's Mercy NorthlandMhytaiynvr62-12-8014 History of Present illness Narrative* Brianna Medina [...] nursing note reviewed. Exam conducted with a waiter/waitress room service present. Vitals: Estimated body mass index is [...] Juan Jose Taveras DO documented in this encounterChildren's Mercy NorthlandKhoczujtji03-13-2487 Evaluation note* Encounter Date Diagnosis Assessment Notes [...] care instructions given in writting by [facility] Care At Home document. [employer] Other Evaluation note* Diagnosis Vaginal lump Pain in female genitalia on intercourse Dyspareunia Soreness breast Mastodynia documented in this encounter [facility] HealthcareEvaluation note* Diagnosis Vaginal discharge Leukorrhea, not specified as infective Screen for STD (sexually transmitted disease) Screening examination for venereal disease Nausea Nausea alone Dysuria Well woman exam with routine gynecological exam Routine gynecological examination Uses control documented in this encounter [facility] HealthcareEvaluation note* Diagnosis Thyroid nodule- Primary Nontoxic uninodular goiter documented in this encounter [facility] HealthcareEvaluation noteNo assessment information availableMercy Hospital E[facility] Work Phone: History general Narrative - Reported* Type Description Date Medical History Strain of lumbar region, initial encounter [employer] Other Reason for referral (narrative)No reason for referral information availableMercy Hospital [facility] Work Phone: Summary Purpose Family History Relationship [...] and content) DATE CREATED AUTHOR 12/23/2022 [facility] DATE CREATED AUTHOR AUTHOR'S ORGANIZ ATION 08/01/2025 [facility] DATE CREATED AUTHOR AUTHOR'S ORGANIZ ATION 08/05/2025 [facility] Care Teams (unrecognized sec tion and content) Team MemberRelationshipSpecialtyStart DateEnd Date Yinka Barrett DO [address] [facility] [address] [place] [address] PCP - GeneralFamily Medicine03/16/23Team MemberRelationshipSpecialtyStart DateEnd Date Unallocated, Noms MD Pauly [address] [place] [address] PCP - GeneralFamily Medicine04/09/24Team MemberRelationshipSpecialtyStart DateEnd Date Unallocated, Sherry Coats MD [address] [place] [address] PCP - GeneralFamily Medicine04/09/24Team MemberRelationshipSpecialtyStart DateEnd Date Unallocated, Noms MD Pauly [address] [place] [address] PCP - GeneralFamily Medicine04/09/24Team MemberRelationshipSpecialtyStart DateEnd Date Alen Conway MD [address] [place] [address] PCP - GeneralFamily Wrehhkol41/22/25Team MemberRelationshipSpecialtyStart Date End Date Alen Conway MD [address] [place] [address] PCP - [facility]07/30/25 Team Status: Active Member Role/Relationship Status Dates Alen Conway MD Primary Care Provider Active Team Status: Inactive Member Role/Relationship Status Dates Alen Conway MD Primary Care Provider Active Start: July 31, 2025 End: July 31, 2025Dopratima Conway MDAttending ProviderActiveStart: July 31, 2025 End: July 31, 2025Team MemberRelationshipSpecialtyStart DateEnd Date Alen Conway MD [address] [place] [address] PCP - [facility]07/30/25Team MemberRelationshipSpecialtyStart Date End Date Alen Conway MD [address] [place] [address] PCP - [facility]07/30/25 Goals (unrecognized section and content) Goals [...] BE BASED ON THE PRIMARY CLINICAL RECORDS. [facility] [employer] provides no warranty or guarantee of the accuracy or completeness of information in this document.
== END 2025-09-18 11:17 | disposition home or self-care (01) ==
LOC: LAB 11:19
PROVIDERS: PCP Family Medicine; Visit Provider Family Medicine
DX: N92.6 Irregular menstruation, unspecified (principal)
CPT/HCPCS: 36415; 84702